=== PATIENT | male | born 1940 | race Caucasian/White ===

== ENCOUNTER → 2020-05-20 08:14 | Outpatient (BNVA) | payer MEDICARE, SELFPAY | PROVIDERS: PCP Nurse Practitioner Family; Visit Provider Nurse Practitioner Family | DX: I48.19 Other persistent atrial fibrillation (principal); Z51.81 Encounter for therapeutic drug level monitoring; Z79.01 Long term (current) use of anticoagulants | CPT/HCPCS: 85610; 99211 ==

== ENCOUNTER 2020-07-08 07:00 | Outpatient (RCR) | payer MEDICARE, SELFPAY ==
--- NOTE | 2020-06-08 08:20 | MHC.PT.EP ---
[facility] [place] Office [place] Office [place] Office [address] [phone] F: [phone] F: [phone] F: [phone] F: [phone] Physical Therapy Plan of Care Date of Evaluation: 06/08/20 Date of Surgery: n/a Diagnosis: L Achilles Tendinitis Assessment: Patient is a 80 year old R handed male who presents with s/s consistent with L achilles tendinitis. He is retired and very limited in functional mobility from deconditioning likely secondary to co-morbidities and chronic severe back pain. Patient past medical history includes cardiovascular disease, prostate cancer, and breathing difficulty in addition to CHF and poor circulation to distal LEs. Current impairments include pain, ROM, strength, safety, independence, activity tolerance and functional mobility. Functional limitations include decreased ability to walk, stand, transfer, negotiate stairs, and perform weight bearing activities.. Patient is motivated with good rehab potential. Skilled PT will address impairments and functional limitations in order to achieve goals. Frequency and Duration: The patient will be seen 2x/week for 4 weeks Short Term Goals: I with HEP - 2 weeks TTP absent - 2 weeks Detention Goals: No increased pain over the course of the day - 4 weeks LEFS 22/80 - 4 weeks No pain with transfers - 4 weeks Treatment Plan: Modalities to reduce pain, spasms and effusion. Manual therapy to restore motion and function. Therapeutic exercise to improve strength and flexibility. Neuromuscular re-education for posture and balance. Therapeutic activities to return to functional activities of daily living. Please sign and return to therapist. Thank you for your referral.
== END 2020-08-11 09:21 | disposition home or self-care (01) ==
LOC: HO.PTCHIC 07:00
PROVIDERS: PCP Nurse Practitioner Family; Visit Provider Podiatrist
DX: M76.62 Achilles tendinitis, left leg (principal)
CPT/HCPCS: 85610; 97035; 97110; 97140; 97163; 99211

== ENCOUNTER → 2020-07-15 14:03 | Outpatient (BNVA) | payer MEDICARE, SELFPAY | PROVIDERS: PCP Nurse Practitioner Family; Visit Provider Internal Medicine | DX: I48.19 Other persistent atrial fibrillation (principal); Z51.81 Encounter for therapeutic drug level monitoring; Z79.01 Long term (current) use of anticoagulants | CPT/HCPCS: 85610; 99211 ==

== ENCOUNTER 2020-08-12 08:04 | Outpatient (REF) | payer MEDICARE, SELFPAY ==
[2020-08-12 09:29] LABS: MANUAL DIFF FLAG NO
[2020-08-12 09:48] LABS: Basophils Percent Auto 0.4 % (0-2); Eosinophils Absolute Auto 0.2 X10*3/uL (0.0-0.4); Eosinophils Percent Auto 2.7 % (0-4); Hematocrit 44.3 % (42-52); Hemoglobin 14.5 g/dl (14.0-18.0); Imm Gran Abs Auto 0.02 X10*3/uL (0.00-0.03); Imm Gran Pct Auto 0.3 % (0.0-0.4); Lymphocytes Absolute Auto 1.6 X10*3/uL (1.2-4.9); Lymphocytes Percent Auto 23.7 % (20-40); Mean Corpuscular HGB Conc 32.7 g/dl (31.0-36.0); Mean Corpuscular Hemoglobin 30.7 pg (27.0-33.0); Mean Corpuscular Volume 93.7 fL (80-98); Mean Platelet Volume 10.4 fL (9.4-12.4); Monocytes Absolute Auto 0.5 X10*3/uL (0.1-1.2); Monocytes Percent Auto 7.6 % (2-11); Neutrophils Absolute Auto 4.5 X10*3/uL (2.0-8.3); Neutrophils Percent Auto 65.3 % (45-73); Platelet Count 186 X10*3/uL (160-400); Red Blood Count 4.73 X10*6/uL (4.60-5.80); Red Cell Distribution Width 14.7 % (11.0-16.0); White Blood Count 6.9 X10*3/uL (4.8-10.8)
[2020-08-12 10:18] LABS: Anion Gap 12 (12-20); Blood Urea Nitrogen 17 mg/dL (9-16); Calcium 8.9 mg/dL (8.4-10.2); Carbon Dioxide 30 mmol/L (22-29); Chloride 105 mmol/L (96-108); Estimated Glomerular Filt Rate > 60; Potassium 4.7 mmol/l (3.3-5.1); Sodium 142 mmol/L (135-145)
== END 2020-08-12 08:05 | disposition home or self-care (01) ==
LOC: HO.LAB 08:04
PROVIDERS: Absent Provider Internal Medicine Hypertension Specialist; PCP Nurse Practitioner Family; Visit Provider Internal Medicine
DX: R03.0 Elevated blood-pressure reading, without diagnosis of hypertension (principal); I13.0 Hypertensive heart and chronic kidney disease with heart failure and stage 1 through stage 4 chronic kidney disease, or unspecified chronic kidney disease; N18.2 Chronic kidney disease, stage 2 (mild); R80.9 Proteinuria, unspecified
CPT/HCPCS: 36415; 80051; 82310; 82565; 84520; 85025; 85610; 99211

== ENCOUNTER → 2020-09-09 08:03 | Outpatient (BNVA) | payer MEDICARE, SELFPAY | PROVIDERS: PCP Nurse Practitioner Family; Visit Provider Internal Medicine | DX: I48.19 Other persistent atrial fibrillation (principal); Z51.81 Encounter for therapeutic drug level monitoring; Z79.01 Long term (current) use of anticoagulants | CPT/HCPCS: 85610; 99211 ==

== ENCOUNTER → 2020-10-07 08:04 | Outpatient (BNVA) | payer MEDICARE, SELFPAY | PROVIDERS: PCP Nurse Practitioner Family; Visit Provider Internal Medicine | DX: I48.19 Other persistent atrial fibrillation (principal); Z51.81 Encounter for therapeutic drug level monitoring; Z79.01 Long term (current) use of anticoagulants | CPT/HCPCS: 85610; 99211 ==

== ENCOUNTER 2020-10-13 08:02 | Outpatient (REF) | payer MEDICARE, SELFPAY ==
[2020-10-13 11:08] LABS: Hematocrit 44.6 % (42-52); Hemoglobin 14.4 g/dl (14.0-18.0); Mean Corpuscular HGB Conc 32.3 g/dl (31.0-36.0); Mean Corpuscular Hemoglobin 30.1 pg (27.0-33.0); Mean Corpuscular Volume 93.1 fL (80-98); Mean Platelet Volume 10.1 fL (9.4-12.4); Platelet Count 205 X10*3/uL (160-400); Red Blood Count 4.79 X10*6/uL (4.60-5.80); Red Cell Distribution Width 15.3 % (11.0-16.0); White Blood Count 7.2 X10*3/uL (4.8-10.8)
[2020-10-13 11:47] LABS: Alanine Aminotransferase 25 U/L (0-40); Albumin Level 4.3 g/dL (3.5-5.0); Alkaline Phosphatase 102 U/L (39-117); Anion Gap 12 (12-20); Aspartate Amino Transferase 25 U/L (5-37); Bilirubin Direct 0.3 mg/dL (0.0-0.5); Bilirubin Total 0.9 mg/dL (0.0-1.0); Blood Urea Nitrogen 19 mg/dL (9-16); Carbon Dioxide 29 mmol/L (22-29); Chloride 102 mmol/L (96-108); Cholesterol 105 mg/dL; Estimated Glomerular Filt Rate > 60; Glucose Random 103 mg/dL (60-115); HDL Cholesterol 44 mg/dL; LDL Cholesterol Calculated 33 mg/dl; Magnesium 2.1 mg/dL (1.6-2.6); Potassium 4.3 mmol/L (3.3-5.1); Sodium 139 mmol/L (135-145); Total Protein 7.6 g/dL (6.5-8.0); Triglycerides 141 mg/dL
[2020-10-13 11:55] LABS: Thyroid Stimulating Hormone 1.63 uIU/mL (0.32-4.0)
== END 2020-10-13 08:03 | disposition home or self-care (01) ==
LOC: HO.HMGCLDS 08:02
PROVIDERS: PCP Nurse Practitioner Family; Visit Provider Internal Medicine Cardiovascular Disease
DX: I25.10 Atherosclerotic heart disease of native coronary artery without angina pectoris (principal); I10 Essential (primary) hypertension; E78.2 Mixed hyperlipidemia
CPT/HCPCS: 36415; 80051; 80061; 80076; 82565; 82947; 83735; 84443; 84520; 85027

== ENCOUNTER 2020-10-21 08:00 | Outpatient (RCR) | payer MEDICARE, SELFPAY ==
--- NOTE | 2020-08-11 13:46 | MHC.PT.EP ---
[facility] [place] Office [place] Office [place] Office [address] Amanuel Bowman [address] [phone] F: [phone] F: [phone] F: [phone] F: [phone] Physical Therapy Plan of Care Date of Evaluation: 08/11/20 Date of Surgery: none Diagnosis: weakness Assessment: Patient is an 80 year old R handed male who presents with s/s consistent with weakness. He has had increasingly more difficulty with his mobility during the day and is losing confidence. He is becoming more and more sedentary. Patient past medical history includes chronic back pain, stents and cardiac involvement, poor peripheral circulation, and cardiovascular disease. Current impairments include pain, ROM, strength, safety, independence, activity tolerance and functional mobility. Functional limitations include decreased ability to walk, stand, transfer, negotiate stairs, and perform weight bearing activities.. Patient is motivated with good rehab potential. Skilled PT will address impairments and functional limitations in order to achieve goals. Frequency and Duration: The patient will be seen 2x/week for 6 weeks Short Term Goals: I with HEP - 2 weeks Improve LE strength to 4-/5 grossly - 3 weeks Sit <> stands 6x in a minute - 3 weeks Adapted Physical Education Aide Goals: Able to walk 10 minutes with walker on even surfaces - 4 weeks LE strength 4/5 grossly - 6 weeks LEFS 24/80 - 6 weeks Treatment Plan: Modalities to reduce pain, spasms and effusion. Manual therapy to restore motion and function. Therapeutic exercise to improve strength and flexibility. Neuromuscular re-education for posture and balance. Therapeutic activities to return to functional activities of daily living. Electronically signed by: Jeevan Leon, PT Please sign and return to therapist. Thank you for your referral.
--- NOTE | 2020-12-09 14:40 | MHC.PT.DC ---
[facility] [place] Office [place] Office [place] Office [address] Amanuel Bowman [address] [phone] F: [phone] F: [phone] F: [phone] F: [phone] Physical Therapy Discharge Report Diagnosis: weakness Date of Surgery: none Date of Evaluation: 08/11/20 Date of Discharge: 10/23/20 Treatments to Date: 19 Cancellations to Date: 0 No Shows to Date: 0 Discharge Status: Improved Function Independent with HEP Discharge Summary: I with HEP. LE strength 4-/5 grossly. Sit <> stand 6x in 1 minute. Able to walk 10 minutes with walker on even surfaces. He has progressed well and plateaued with progress. We will d/c to HEP at this time. Electronically signed by: Jeevan Leon PT Please sign and return to therapist. Thank you for your referral.
== END 2020-12-09 15:00 | disposition home or self-care (01) ==
LOC: HO.PTCHIC 08:00
PROVIDERS: PCP Nurse Practitioner Family; Visit Provider Nurse Practitioner Family
DX: R53.1 Weakness (principal)
CPT/HCPCS: 97110; 97112; 97163

== ENCOUNTER 2020-11-02 10:37 | Outpatient (REF) | payer MEDICARE, SELFPAY ==
--- NOTE | ~2020-11-02 | XR_ITS ---
EXAMINATION: XR ANKLE, LEFT CLINICAL INFORMATION: Injury COMPARISON: None TECHNIQUE: AP, lateral, and mortise views of the left ankle. FINDINGS: Bone alignment is normal. No fracture or dislocation is seen. The ankle mortise is normal. There is arthritis at the metatarsal tarsal joints. There is a calcaneal spur at the Achilles tendon insertion. There is soft tissue arterial calcification. XR/XR ankle LT min 3V IMPRESSION: No fracture or dislocation. 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
== END 2020-11-02 10:38 | disposition home or self-care (01) ==
LOC: HO.HMGCX 10:37
PROVIDERS: PCP Nurse Practitioner Family; Visit Provider Nurse Practitioner Family
DX: S99.912A Unspecified injury of left ankle, initial encounter (principal); X58.XXXA Exposure to other specified factors, initial encounter; Y93.9 Activity, unspecified; Y92.9 Unspecified place or not applicable; Y99.8 Other external cause status; M19.072 Primary osteoarthritis, left ankle and foot; M77.32 Calcaneal spur, left foot
CPT/HCPCS: 73610

== ENCOUNTER → 2020-11-04 08:04 | Outpatient (BNVA) | payer MEDICARE, SELFPAY | PROVIDERS: PCP Nurse Practitioner Family; Visit Provider Internal Medicine | DX: I48.19 Other persistent atrial fibrillation (principal); Z79.01 Long term (current) use of anticoagulants; Z51.81 Encounter for therapeutic drug level monitoring | CPT/HCPCS: 85610; 99211 ==

== ENCOUNTER 2020-11-04 08:47 | Outpatient (REF) | payer MEDICARE, SELFPAY ==
[2020-11-04 12:09] LABS: TSH reflex Free T4 1.99 uIU/mL (0.32-4.0)
[2020-11-04 12:11] LABS: Alanine Aminotransferase 26 U/L (0-40); Albumin Level 4.3 g/dL (3.5-5.0); Alkaline Phosphatase 83 U/L (39-117); Anion Gap 12 (12-20); Aspartate Amino Transferase 25 U/L (5-37); Bilirubin Total 1.2 mg/dL (0.0-1.0); Blood Urea Nitrogen 17 mg/dL (9-16); Calcium 8.9 mg/dL (8.4-10.2); Carbon Dioxide 29 mmol/L (22-29); Chloride 103 mmol/L (96-108); Estimated Glomerular Filt Rate > 60; Glucose Fasting 98 mg/dL (60-99); Potassium 4.3 mmol/L (3.3-5.1); Sodium 140 mmol/L (135-145); Total Protein 7.5 g/dL (6.5-8.0)
[2020-11-04 12:14] LABS: Cholesterol 85 mg/dL; HDL Cholesterol 50 mg/dL; LDL Cholesterol Calculated 21 mg/dl; Triglycerides 72 mg/dL
== END 2020-11-04 08:48 | disposition home or self-care (01) ==
LOC: HO.HMGCLDS 08:47
PROVIDERS: PCP Nurse Practitioner Family; Visit Provider Nurse Practitioner Family
DX: I10 Essential (primary) hypertension (principal); R53.1 Weakness
CPT/HCPCS: 36415; 80053; 80061; 84443

== ENCOUNTER → 2020-11-10 08:29 | Outpatient (BNVA) | payer MEDICARE, SELFPAY | PROVIDERS: PCP Nurse Practitioner Family; Visit Provider Internal Medicine | DX: I48.19 Other persistent atrial fibrillation (principal); Z79.01 Long term (current) use of anticoagulants; Z51.81 Encounter for therapeutic drug level monitoring | CPT/HCPCS: 85610; 99211 ==

== ENCOUNTER → 2020-12-08 08:01 | Outpatient (BNVA) | payer MEDICARE, SELFPAY | PROVIDERS: PCP Nurse Practitioner Family; Visit Provider Internal Medicine | DX: I48.19 Other persistent atrial fibrillation (principal); Z51.81 Encounter for therapeutic drug level monitoring; Z79.01 Long term (current) use of anticoagulants | CPT/HCPCS: 85610; 99211 ==

== ENCOUNTER → 2021-01-05 08:01 | Outpatient (BNVA) | payer MEDICARE, SELFPAY | PROVIDERS: PCP Nurse Practitioner Family; Visit Provider Internal Medicine | DX: I48.19 Other persistent atrial fibrillation (principal); Z51.81 Encounter for therapeutic drug level monitoring; Z79.01 Long term (current) use of anticoagulants | CPT/HCPCS: 85610; 99211 ==

== ENCOUNTER → 2021-02-02 07:59 | Outpatient (BNVA) | payer MEDICARE, SELFPAY | PROVIDERS: PCP Nurse Practitioner Family; Visit Provider Internal Medicine | DX: I48.19 Other persistent atrial fibrillation (principal); Z51.81 Encounter for therapeutic drug level monitoring; Z79.01 Long term (current) use of anticoagulants | CPT/HCPCS: 85610; 99211 ==

== ENCOUNTER 2021-02-07 07:26 | Outpatient (REF) | payer MEDICARE, SELFPAY ==
[2021-02-07 11:09] LABS: MANUAL DIFF FLAG NO
[2021-02-07 11:14] LABS: Basophils Percent Auto 0.6 % (0-2); Eosinophils Absolute Auto 0.2 X10*3/uL (0.0-0.4); Eosinophils Percent Auto 2.8 % (0-4); Hematocrit 43.3 % (42-52); Hemoglobin 14.1 g/dl (14.0-18.0); Imm Gran Abs Auto 0.02 X10*3/uL (0.00-0.03); Imm Gran Pct Auto 0.3 % (0.0-0.4); Lymphocytes Percent Auto 29.1 % (20-40); Mean Corpuscular HGB Conc 32.6 g/dl (31.0-36.0); Mean Corpuscular Hemoglobin 30.5 pg (27.0-33.0); Mean Corpuscular Volume 93.7 fL (80-98); Mean Platelet Volume 10.5 fL (9.4-12.4); Monocytes Absolute Auto 0.7 X10*3/uL (0.1-1.2); Monocytes Percent Auto 9.3 % (2-11); Neutrophils Absolute Auto 4.1 X10*3/uL (2.0-8.3); Neutrophils Percent Auto 57.9 % (45-73); Platelet Count 186 X10*3/uL (160-400); Red Blood Count 4.62 X10*6/uL (4.60-5.80); Red Cell Distribution Width 15.5 % (11.0-16.0)
[2021-02-07 11:30] LABS: Anion Gap 15 (12-20); Blood Urea Nitrogen 12 mg/dL (9-16); Calcium 9.2 mg/dL (8.4-10.2); Carbon Dioxide 25 mmol/L (22-29); Chloride 104 mmol/L (96-108); Estimated Glomerular Filt Rate > 60; Potassium 4.6 mmol/L (3.3-5.1); Sodium 139 mmol/L (135-145)
== END 2021-02-07 07:27 | disposition home or self-care (01) ==
LOC: HO.HMGCLDS 07:26
PROVIDERS: PCP Nurse Practitioner Family; Visit Provider Internal Medicine Hypertension Specialist
DX: I13.0 Hypertensive heart and chronic kidney disease with heart failure and stage 1 through stage 4 chronic kidney disease, or unspecified chronic kidney disease (principal); N18.2 Chronic kidney disease, stage 2 (mild)
CPT/HCPCS: 36415; 80051; 82310; 82565; 84520; 85025

== ENCOUNTER → 2021-03-02 08:02 | Outpatient (BNVA) | payer MEDICARE, SELFPAY | PROVIDERS: PCP Nurse Practitioner Family; Visit Provider Internal Medicine | DX: I48.19 Other persistent atrial fibrillation (principal); Z51.81 Encounter for therapeutic drug level monitoring; Z79.01 Long term (current) use of anticoagulants | CPT/HCPCS: 85610; 99211 ==

== ENCOUNTER → 2021-03-10 08:14 | Outpatient (BNVA) | payer MEDICARE, SELFPAY | PROVIDERS: PCP Nurse Practitioner Family; Visit Provider Internal Medicine | DX: I48.19 Other persistent atrial fibrillation (principal); Z51.81 Encounter for therapeutic drug level monitoring; Z79.01 Long term (current) use of anticoagulants | CPT/HCPCS: 85610; 99211 ==

== ENCOUNTER → 2021-04-07 08:03 | Outpatient (BNVA) | payer MEDICARE, SELFPAY | PROVIDERS: PCP Nurse Practitioner Family; Visit Provider Internal Medicine | DX: I48.19 Other persistent atrial fibrillation (principal); Z51.81 Encounter for therapeutic drug level monitoring; Z79.01 Long term (current) use of anticoagulants | CPT/HCPCS: 85610; 99211 ==

== ENCOUNTER → 2021-04-15 08:17 | Outpatient (BNVA) | payer MEDICARE, SELFPAY | PROVIDERS: PCP Nurse Practitioner Family; Visit Provider Internal Medicine | DX: I48.19 Other persistent atrial fibrillation (principal); Z51.81 Encounter for therapeutic drug level monitoring; Z79.01 Long term (current) use of anticoagulants | CPT/HCPCS: 85610; 99211 ==

== ENCOUNTER → 2021-04-29 08:12 | Outpatient (BNVA) | payer MEDICARE, SELFPAY | PROVIDERS: PCP Nurse Practitioner Family; Visit Provider Internal Medicine | DX: I48.19 Other persistent atrial fibrillation (principal); Z51.81 Encounter for therapeutic drug level monitoring; Z79.01 Long term (current) use of anticoagulants | CPT/HCPCS: 85610; 99211 ==

== ENCOUNTER → 2021-05-06 08:35 | Outpatient (BNVA) | payer MEDICARE, SELFPAY | PROVIDERS: PCP Nurse Practitioner Family; Visit Provider Internal Medicine | DX: I48.19 Other persistent atrial fibrillation (principal); Z51.81 Encounter for therapeutic drug level monitoring; Z79.01 Long term (current) use of anticoagulants | CPT/HCPCS: 85610; 99211 ==

== ENCOUNTER → 2021-05-20 08:32 | Outpatient (BNVA) | payer MEDICARE, SELFPAY | PROVIDERS: PCP Nurse Practitioner Family; Visit Provider Internal Medicine | DX: I48.19 Other persistent atrial fibrillation (principal); Z51.81 Encounter for therapeutic drug level monitoring; Z79.01 Long term (current) use of anticoagulants | CPT/HCPCS: 85610; 99211 ==

== ENCOUNTER → 2021-06-10 08:23 | Outpatient (BNVA) | payer MEDICARE, SELFPAY | PROVIDERS: PCP Nurse Practitioner Family; Visit Provider Internal Medicine | DX: I48.19 Other persistent atrial fibrillation (principal); Z51.81 Encounter for therapeutic drug level monitoring; Z79.01 Long term (current) use of anticoagulants | CPT/HCPCS: 85610; 99211 ==

== ENCOUNTER 2021-06-27 07:34 | Outpatient (REF) | payer MEDICARE, SELFPAY ==
[2021-06-27 12:09] LABS: Alanine Aminotransferase 22 U/L (0-40); Anion Gap 14 (12-20); Aspartate Amino Transferase 22 U/L (5-37); Bilirubin Total 1.1 mg/dL (0.0-1.0); Blood Urea Nitrogen 21 mg/dL (9-16); Calcium 9.1 mg/dL (8.4-10.2); Carbon Dioxide 27 mmol/L (22-29); Chloride 103 mmol/L (96-108); Cholesterol 82 mg/dL; Estimated Glomerular Filt Rate > 60; Glucose Fasting 100 mg/dL (60-99); Potassium 4.5 mmol/L (3.3-5.1); Sodium 139 mmol/L (135-145); Total Protein 7.5 g/dL (6.5-8.0); Triglycerides 111 mg/dL
[2021-06-27 12:10] LABS: Alkaline Phosphatase 86 U/L (39-117); HDL Cholesterol 39 mg/dL; LDL Cholesterol Calculated 21 mg/dl
[2021-06-27 12:11] LABS: Appearance Urine CLEAR; Color Urine YELLOW; Glucose Urine UA NEG (NEG); Leukocyte Esterase Urine NEG (NEG); Nitrite Urine NEG (NEG); Specific Gravity - Urine 1.025 (1.005-1.025); UACC Culture Trigger NO; Urine Blood TRACE (NEG); Urine Ketones NEG (NEG); Urine Protein NEG (NEG-TRACE)
[2021-06-27 12:56] LABS: RBC Urine 0-2 /HPF (0); WBC Urine 0 /HPF (0-4)
== END 2021-06-27 07:35 | disposition home or self-care (01) ==
LOC: HO.HMGCLDS 07:34
PROVIDERS: PCP Nurse Practitioner Family; Visit Provider Nurse Practitioner Family
DX: I10 Essential (primary) hypertension (principal); R31.29 Other microscopic hematuria
CPT/HCPCS: 36415; 80053; 80061; 81001; 81003; 84443

== ENCOUNTER → 2021-07-08 08:31 | Outpatient (BNVA) | payer MEDICARE, SELFPAY | PROVIDERS: PCP Nurse Practitioner Family; Visit Provider Internal Medicine | DX: I48.19 Other persistent atrial fibrillation (principal); Z51.81 Encounter for therapeutic drug level monitoring; Z79.01 Long term (current) use of anticoagulants | CPT/HCPCS: 85610; 99211 ==

== ENCOUNTER 2021-07-13 08:02 | Outpatient (REF) | payer MEDICARE, SELFPAY ==
[2021-07-13 11:26] LABS: Urine Cytology See Pathology rpt
[2021-07-13 11:35] LABS: Appearance Urine CLEAR; Color Urine YELLOW; Glucose Urine UA NEG (NEG); Leukocyte Esterase Urine NEG (NEG); Nitrite Urine NEG (NEG); Specific Gravity - Urine 1.025 (1.005-1.025); UACC Culture Trigger NO; Urine Blood TRACE (NEG); Urine Ketones NEG (NEG); Urine Protein NEG (NEG-TRACE)
[2021-07-13 12:05] LABS: Squamous Epithelial Cell Urine TRACE /LPF
[2021-07-13 12:06] LABS: RBC Urine 0-2 /HPF (0); WBC Urine 0-2 /HPF (0-4)
[2021-07-13 12:25] LABS: Prostate Specific Antigen Scr < 0.05 ng/mL (<0.05-4.0)
== END 2021-07-13 08:03 | disposition home or self-care (01) ==
LOC: HO.HMGCLDS 08:02
PROVIDERS: PCP Nurse Practitioner Family; Visit Provider Nurse Practitioner Family
DX: Z12.5 Encounter for screening for malignant neoplasm of prostate (principal); R31.29 Other microscopic hematuria
CPT/HCPCS: 36415; 81001; 84153; 87086; 88112

== ENCOUNTER 2021-08-03 08:39 | Outpatient (REF) | payer MEDICARE, SELFPAY ==
[2021-08-03 11:17] LABS: Urine Cytology See Pathology rpt
[2021-08-03 11:25] LABS: Appearance Urine CLEAR; Color Urine YELLOW; Glucose Urine UA NEG (NEG); Leukocyte Esterase Urine NEG (NEG); Nitrite Urine NEG (NEG); PH 5.5 (5.0-8.0); Specific Gravity - Urine 1.025 (1.005-1.025); UACC Culture Trigger NO; Urine Blood 1+ (NEG); Urine Ketones NEG (NEG); Urine Protein NEG (NEG-TRACE)
[2021-08-03 11:41] LABS: Squamous Epithelial Cell Urine TRACE /LPF; WBC Urine 0-2 /HPF (0-4)
[2021-08-03 12:01] LABS: Anion Gap 12 (12-20); Blood Urea Nitrogen 17 mg/dL (9-16); Calcium 9.3 mg/dL (8.4-10.2); Carbon Dioxide 27 mmol/L (22-29); Chloride 105 mmol/L (96-108); Estimated Glomerular Filt Rate > 60; Glucose Random 105 mg/dL (60-115); Potassium 4.1 mmol/L (3.3-5.1); Sodium 140 mmol/L (135-145)
== END 2021-08-03 08:40 | disposition home or self-care (01) ==
LOC: HO.HMGCLDS 08:39
PROVIDERS: PCP Nurse Practitioner Family; Visit Provider Internal Medicine Hypertension Specialist
DX: I70.1 Atherosclerosis of renal artery (principal)
CPT/HCPCS: 36415; 80048; 81001; 88112

== ENCOUNTER → 2021-08-05 08:33 | Outpatient (BNVA) | payer MEDICARE, SELFPAY | PROVIDERS: PCP Nurse Practitioner Family; Visit Provider Internal Medicine | DX: I48.19 Other persistent atrial fibrillation (principal); Z51.81 Encounter for therapeutic drug level monitoring; Z79.01 Long term (current) use of anticoagulants | CPT/HCPCS: 85610; 99211 ==

== ENCOUNTER 2021-08-08 15:58 | Outpatient (REF) | payer MEDICARE, SELFPAY ==
--- NOTE | ~2021-08-08 | XR_ITS ---
EXAMINATION: RIGHT ELBOW AND RIGHT FOREARM CLINICAL INFORMATION: Contusion of the right forearm. COMPARISON: None TECHNIQUE: 2 views right forearm and 3 views right elbow. FINDINGS: Right forearm: There is no visible fracture or bony abnormality. The soft tissues are normal. Right elbow: There is calcified density posterior to osteophyte. There is a small bony density along the medial epicondyle question old fracture versus spur. No abnormal joint effusion seen. There is moderate posterior elbow soft tissue swelling. XR/XR elbow RT min 3V IMPRESSION: Unremarkable right forearm. Moderate size posterior olecranon osteophyte with adjacent calcification likely calcific olecranon bursitis. There is moderate posterior elbow soft tissue swelling. There is small bone density adjacent to the medial epicondyle question fracture of indeterminate age.
--- NOTE | ~2021-08-08 | XR_ITS ---
EXAMINATION: RIGHT ELBOW AND RIGHT FOREARM CLINICAL INFORMATION: Contusion of the right forearm. COMPARISON: None TECHNIQUE: 2 views right forearm and 3 views right elbow. FINDINGS: Right forearm: There is no visible fracture or bony abnormality. The soft tissues are normal. Right elbow: There is calcified density posterior to osteophyte. There is a small bony density along the medial epicondyle question old fracture versus spur. No abnormal joint effusion seen. There is moderate posterior elbow soft tissue swelling. XR/XR forearm RT 2V IMPRESSION: Unremarkable right forearm. Moderate size posterior olecranon osteophyte with adjacent calcification likely calcific olecranon bursitis. There is moderate posterior elbow soft tissue swelling. There is small bone density adjacent to the medial epicondyle question fracture of indeterminate age.
== END 2021-08-08 15:59 | disposition home or self-care (01) ==
LOC: HO.HMGCX 15:58
PROVIDERS: PCP Nurse Practitioner Family; Visit Provider Internal Medicine
DX: S50.11XA Contusion of right forearm, initial encounter (principal); X58.XXXA Exposure to other specified factors, initial encounter; Y93.9 Activity, unspecified; Y92.9 Unspecified place or not applicable; Y99.9 Unspecified external cause status
CPT/HCPCS: 73080; 73090

== ENCOUNTER → 2021-08-19 08:18 | Outpatient (BNVA) | payer MEDICARE, SELFPAY | PROVIDERS: PCP Nurse Practitioner Family; Visit Provider Internal Medicine | DX: I48.19 Other persistent atrial fibrillation (principal); Z51.81 Encounter for therapeutic drug level monitoring; Z79.01 Long term (current) use of anticoagulants | CPT/HCPCS: 85610; 99211 ==

== ENCOUNTER → 2021-09-16 08:25 | Outpatient (BNVA) | payer MEDICARE, SELFPAY | PROVIDERS: PCP Nurse Practitioner Family; Visit Provider Internal Medicine | DX: I48.19 Other persistent atrial fibrillation (principal); Z51.81 Encounter for therapeutic drug level monitoring; Z79.01 Long term (current) use of anticoagulants | CPT/HCPCS: 85610; 99211 ==

== ENCOUNTER 2021-09-21 11:36 | Outpatient (REF) | payer MEDICARE, SELFPAY ==
[2021-09-21 13:57] LABS: Urine Cytology See Pathology rpt
[2021-09-21 14:22] LABS: Appearance Urine CLEAR; Color Urine YELLOW; Glucose Urine UA NEG (NEG); Leukocyte Esterase Urine NEG (NEG); Nitrite Urine NEG (NEG); Urine Blood NEG (NEG); Urine Ketones NEG (NEG); Urine Protein NEG (NEG-TRACE)
[2021-09-21 14:35] LABS: RBC Urine 0-2 /HPF (0); WBC Urine 0 /HPF (0-4)
[2021-09-21 14:36] LABS: Mucus Urine TRACE /LPF
== END 2021-09-21 11:37 | disposition home or self-care (01) ==
LOC: HO.HMGCLDS 11:36
PROVIDERS: Visit Provider Nurse Practitioner Family
DX: R31.29 Other microscopic hematuria (principal)
CPT/HCPCS: 81001; 81003; 87086; 88112

== ENCOUNTER → 2021-09-30 08:29 | Outpatient (BNVA) | payer MEDICARE, SELFPAY | PROVIDERS: PCP Nurse Practitioner Family; Visit Provider Internal Medicine | DX: I48.19 Other persistent atrial fibrillation (principal); Z51.81 Encounter for therapeutic drug level monitoring; Z79.01 Long term (current) use of anticoagulants | CPT/HCPCS: 85610; 99211 ==

== ENCOUNTER → 2021-10-21 08:29 | Outpatient (BNVA) | payer MEDICARE, SELFPAY | PROVIDERS: PCP Nurse Practitioner Family; Visit Provider Internal Medicine | DX: I48.19 Other persistent atrial fibrillation (principal); Z51.81 Encounter for therapeutic drug level monitoring; Z79.01 Long term (current) use of anticoagulants | CPT/HCPCS: 85610; 99211 ==

== ENCOUNTER 2021-11-09 08:57 | Outpatient (REF) | payer MEDICARE, SELFPAY ==
[2021-11-09 11:13] LABS: Appearance Urine CLEAR; Color Urine YELLOW; Glucose Urine UA NEG (NEG); Leukocyte Esterase Urine NEG (NEG); Nitrite Urine NEG (NEG); PH 5.5 (5.0-8.0); UACC Culture Trigger NO; Urine Blood TRACE (NEG); Urine Ketones NEG (NEG); Urine Protein NEG (NEG-TRACE)
[2021-11-09 11:25] LABS: RBC Urine 0-2 /HPF (0); WBC Urine 0 /HPF (0-4)
[2021-11-09 11:52] LABS: Alanine Aminotransferase 17 U/L (0-40); Albumin Level 3.8 g/dL (3.5-5.0); Alkaline Phosphatase 94 U/L (39-117); Anion Gap 12 (12-20); Aspartate Amino Transferase 20 U/L (5-37); Bilirubin Total 1.1 mg/dL (0.0-1.0); Blood Urea Nitrogen 15 mg/dL (9-16); Calcium 8.9 mg/dL (8.4-10.2); Carbon Dioxide 25 mmol/L (22-29); Chloride 104 mmol/L (96-108); Cholesterol 82 mg/dL; Estimated Glomerular Filt Rate > 60; Glucose Fasting 109 mg/dL (60-99); HDL Cholesterol 41 mg/dL; LDL Cholesterol Calculated 28 mg/dl; Potassium 4.3 mmol/L (3.3-5.1); Sodium 137 mmol/L (135-145); Total Protein 7.3 g/dL (6.5-8.0); Triglycerides 68 mg/dL
[2021-11-09 11:59] LABS: Prostate Specific Antigen Scr < 0.05 ng/mL (<0.05-4.0); TSH reflex Free T4 1.97 uIU/mL (0.32-4.0)
== END 2021-11-09 08:58 | disposition home or self-care (01) ==
LOC: HO.HMGCLDS 08:57
PROVIDERS: PCP Nurse Practitioner Family; Visit Provider Nurse Practitioner Family
DX: Z00.00 Encounter for general adult medical examination without abnormal findings (principal); Z12.5 Encounter for screening for malignant neoplasm of prostate
CPT/HCPCS: 36415; 80053; 80061; 81001; 84153; 84443

== ENCOUNTER → 2021-11-10 08:27 | Outpatient (BNVA) | payer MEDICARE, SELFPAY | PROVIDERS: PCP Nurse Practitioner Family; Visit Provider Internal Medicine | DX: I48.19 Other persistent atrial fibrillation (principal); Z79.01 Long term (current) use of anticoagulants; Z51.81 Encounter for therapeutic drug level monitoring | CPT/HCPCS: 85610; 99211 ==

== ENCOUNTER → 2021-12-01 08:28 | Outpatient (BNVA) | payer MEDICARE, SELFPAY | PROVIDERS: PCP Nurse Practitioner Family; Visit Provider Internal Medicine | DX: I48.19 Other persistent atrial fibrillation (principal); Z79.01 Long term (current) use of anticoagulants; Z51.81 Encounter for therapeutic drug level monitoring | CPT/HCPCS: 85610; 99211 ==

== ENCOUNTER → 2021-12-29 08:34 | Outpatient (BNVA) | payer MEDICARE, SELFPAY | PROVIDERS: PCP Nurse Practitioner Family; Visit Provider Internal Medicine | DX: I48.19 Other persistent atrial fibrillation (principal); Z79.01 Long term (current) use of anticoagulants; Z51.81 Encounter for therapeutic drug level monitoring | CPT/HCPCS: 85610; 99211 ==

== ENCOUNTER → 2022-01-26 08:32 | Outpatient (BNVA) | payer MEDICARE, SELFPAY | PROVIDERS: PCP Nurse Practitioner Family; Visit Provider Internal Medicine | DX: I48.19 Other persistent atrial fibrillation (principal); Z51.81 Encounter for therapeutic drug level monitoring; Z79.01 Long term (current) use of anticoagulants | CPT/HCPCS: 85610; 99211 ==

== ENCOUNTER 2022-02-22 11:14 | Emergency (ER) | payer MEDICARE, SELFPAY ==
--- NOTE | ~2022-02-22 | XR_ITS ---
EXAMINATION: XR SHOULDER, LEFT CLINICAL INFORMATION: Fall, trauma, pain COMPARISON: Radiographs left shoulder 01/17/2007 TECHNIQUE: Left shoulder is imaged in 3 views. FINDINGS: No fracture or dislocation. The acromioclavicular alignment is normal. No visible rotator cuff calcifications are mild degenerative change acromioclavicular joint. Left lung apex clear. No pneumothorax. XR/XR shoulder LT min 2V IMPRESSION: No fracture or dislocation.
--- NOTE | ~2022-02-22 | XR_ITS ---
EXAMINATION: XR RIBS, LEFT CLINICAL INFORMATION: Left lateral chest pain status post fall COMPARISON: 04/09/2020 chest and rib radiographs. TECHNIQUE: 3 views of the left ribs were obtained along with a PA view of the chest. Skin marker overlies the anteroinferior left ribs. FINDINGS: Lungs are clear. No consolidation, pneumothorax, or pleural effusion. The cardiomediastinal silhouette and pulmonary vasculature are normal. Osseous structures are unremarkable. Ribs are intact. No fractures are identified. XR/XR ribs LT min 3V w CXR1V IMPRESSION: Unremarkable examination.
--- NOTE | ~2022-02-22 | CT_ITS ---
EXAMINATION: CT HEAD WITHOUT CONTRAST CLINICAL INFORMATION: Head injury status post fall, on Coumadin. COMPARISON: None TECHNIQUE: Contiguous axial imaging was performed from the skull base to vertex without intravenous administration of contrast. Coronal and sagittal reformatted images were obtained. This CT examination was performed using dose optimization techniques as appropriate, variously including the following: *Automated exposure control *Adjustment of mA and/or kV according to patient size (this includes techniques or standardized protocols for targeted exams where dose is matched to indication/reason for exam; i.e. extremities or head) *Use of iterative reconstruction technique DLP: 775 mGy-cm FINDINGS: There is mild widening of the cortical sulci and associated ventriculomegaly. The lateral ventricles are symmetrical. Mild periventricular microvascular changes. The third and fourth ventricles are in their normal midline position. The basilar and prepontine cisterns are unremarkable. There is no acute intra or extracerebral abnormality. There is no mass effect or midline shift. Sections through the bony calvarium are unremarkable. The orbits are intact. The paranasal sinuses show mild mucosal thickening in the ethmoid sinuses bilaterally. No air-fluid levels. The mastoid air cells are clear. CT/CT head/brain wo con IMPRESSION: No acute intracranial pathology.
[2022-02-22 11:26] VITALS: BP 157/91; PULSE 77; RESP 18; TEMP 36.7; O2SAT 96; BMI 27.8
--- NOTE | 2022-02-22 14:18 | ED_ITS ---
HPI - Fall General Chief Complaint: Fall Stated Complaint: fall last night Time Seen by Provider: 02/22/22 13:45 Source: patient Mode of arrival: ambulatory Limitations: no limitations History of Present Illness HPI Narrative: Patient presents emergency department for evaluation after a fall having occurred last night. He states that he got up from sitting on a bench outdoors he walks with his walker to the house placed his walker inside of the house, and he forgot something outside therefore he walked back over towards the bench without his walker. He tripped and subsequently fell. He states that he landed on his left side, striking his left shoulder. He does not believe that he struck his head, but is not 100% certain. Does not believe that head strike occurred. This fall was unwitnessed. He states that he subsequently crawled over to the door his helped him up. He is on Coumadin. His only reports of pain at this time are pain to the left shoulder with movement and pain to the left lateral chest. Denies any dizziness, lightheadedness, vision changes, headache, neck pain, neck stiffness, anterior chest pain, shortness of breath, difficulty breathing, nausea, vomiting, abdominal pain. Related Data Home Medications Medication Instructions Recorded Confirmed amlodipine 5 mg tablet mg PO 06/17/20 02/08/22 atenolol 25 mg tablet 25 mg PO DAILY 06/17/20 02/08/22 clopidogrel 75 mg tablet 75 mg PO DAILY 06/17/20 02/08/22 isosorbide mononitrate 60 mg 60 mg PO DAILY 06/17/20 02/08/22 tablet,extended release 24 hr rosuvastatin 5 mg tablet 5 mg PO DAILY 06/17/20 02/08/22 valsartan 160 tab PO 06/17/20 02/08/22 mg-hydrochlorothiazide 12.5 mg tablet alirocumab 150 mg/mL subcutaneous mg subcut 12/08/20 02/08/22 pen injector Previous Rx's Medication Instructions Recorded walker with seat #1 ea 08/10/20 warfarin 5 mg tablet 5 mg PO DAILY #90 tabs 12/10/21 tramadol 50 mg tablet 50 mg PO Q8H PRN pain #14 tabs 02/22/22 Allergies Allergy/AdvReac Type Severity Reaction Status Date / Time carvedilol [From COREG] Allergy Severe Palpitation Verified 02/22/22 11:26 s metoprolol Allergy Severe Palpitation Verified 02/22/22 11:26 s Sulfa (Sulfonamide Allergy Severe Redness of Verified 02/22/22 11:26 Antibiotics) Skin [SULFA (SULFONAMIDE ANTIBIOTICS)] doxycycline Allergy Intermediate Rash itch Verified 02/22/22 11:26 cilostazol Allergy Unknown UNKNOWN Verified 02/22/22 11:26 digoxin [DIGOXIN] Allergy Unknown UNKNOWN Verified 02/22/22 11:26 labetalol [LABETALOL] Allergy Unknown MUSCLE PAIN Verified 02/22/22 11:26 Review of Systems Review of Systems: Constitutional: No weight loss. No fever. No chills. No weakness. No fatigue. Skin: No rash. No itching. Cardiovascular: No chest pain. No chest pressure. No palpitations. No pedal edema. Respiratory: No shortness of breath. No cough. Gastrointestinal: No nausea. No vomiting. No diarrhea. No abdominal pain. Genitourinary: No burning micturition. No urinary frequency. No incontinence. Neurologic: No headache. No dizziness. No pre-syncope/ syncope. No unilateral weakness. No ataxia. No numbness. No tingling. No change in bowel or bladder control. Musculoskeletal: No muscle pain. No back pain. Positive joint pain. No stiffness. Hematologic: No bleeding. No bruising. Yes all other systems are reviewed and are negative [facility] Past Medical History Source: old records reviewed Medical History (Updated 02/22/22 @ 15:56 by Eda Turner CNP) AAA (abdominal aortic aneurysm) without rupture Afib CAD (coronary artery disease) Carotid stenosis CKD (chronic kidney disease) CVA (cerebral vascular accident) H/O Villa's palsy HTN (hypertension) Permanent atrial fibrillation Post herpetic neuralgia PVD (peripheral vascular disease) Thrombocytopenia Vertigo Surgical History H/O prostatectomy Stented coronary artery Social History Social History Housing: House Alcohol intake: current Alcohol intake frequency: a few times a week Patient Tobacco Use Status: Never used Tobacco e-Cigarette/Vaping Use: Never Used Second Hand Smoke Exposure: No Advance Directives: Yes Advance Directives Information Provided: Yes Advance Directives on File: No service: Yes Current occupational status: retired Cognitive needs: No Hearing needs: No Vision needs: No Physical Exam Vital Signs: Vital Signs: Last Vital Signs Temp 98.1 F 02/22/22 11:26 Pulse 77 02/22/22 11:26 Resp 18 02/22/22 11:26 BP 157/91 H 02/22/22 11:26 Pulse Ox 96 02/22/22 11:26 O2 Del Method 02/22/22 11:26 BMI result Body Mass Index 27.8 Appearance: Alert.?Oriented to person, place and time. No acute distress.?Normal affect. Eyes: Pupils equal, round and reactive to light.? ENT: Pharynx normal.?? Neck: Normal inspection.? Neck supple.?? CVS: Heart sounds normal. Normal heart rate and rhythm.? Pulses normal.?? Respiratory: No respiratory distress.? Lung sounds clear to auscultation bilaterally?? Abdomen: Soft and non-tender. Normoactive bowel sounds. ?? Skin: Skin warm and dry.? Normal skin color.? Extremities: No lower extremity edema.? Decreased AROM to left shoulder with all ranges of motion, no palpable deformities Neuro: Moves all extremities spontaneously. Sensation intact bilaterally. No motor deficits Ambulates with normal steady gait. Course Course Course Narrative: Patient is an 82-year-old male with a past medical history of AAA, atrial fibrillation, CAD, carotid stenosis, CKD, CVA, PVD, vertigo presents emergency department for evaluation after mechanical fall. Uncertain whether head strike or loss of consciousness occurred. Denies any precipitating symptoms prior to his fall he states he did trip and it was so leave mechanical. Currently experiencing right shoulder pain and right lateral chest pain. No obvious deformities. No tenderness or crepitus to the left chest wall. Significantly decreased range of motion noted to the left shoulder. He is overall well appearing, has no neurological deficits. His vital signs are stable. CT of the head is unremarkable for any acute intracranial pathology. X-ray of the shoulder reveals no acute fracture dislocation. X-ray of the chest revealed no acute abnormalities. Discussed these findings with patient. Suspect pain be secondary to a contusion of the shoulder, given a prescription for tramadol to use in addition to Tylenol. Advised outpatient follow-up with primary care provider. Recommended gentle stretching exercises of the shoulder to prevent stiffening. Patient verbalized understanding, he was discharged home in stable condition with his , and ambulatory with his cane. MDM - Fall Medical Records Attestation: I reviewed the patient's medical records. Lab Data Attestation: I reviewed the patient's lab results. Imaging Data CT scan - head: Radiologist's impression: CT/CT head/brain wo con IMPRESSION: No acute intracranial pathology. Chest x-ray: Radiologist's impression: XR/XR ribs LT min 3V w CXR1V IMPRESSION: Unremarkable examination. shoulder XR: Radiologist's impression: XR/XR shoulder LT min 2V IMPRESSION: No fracture or dislocation. Discharge Plan Discharge Clinical Impression: Contusion of left shoulder Patient Disposition: Home, Self-Care Additional Instructions: As we discussed, the x-ray of your left shoulder showed nothing broken or dislocated. The x-ray of your chest and ribs was also normal. The CT of your head showed no evidence of bleeding or injury. Suspect that the pain in her shoulders related to a contusion. You should be sure to rest, apply ice for 10-15 minutes multiple times daily, gently exercise in range of shoulder to prevent any stiffness. Elevate your arm when possible. You have been given a prescription for tramadol to use in addition to Tylenol as needed for pain. This may make you drowsy, you should use caution with taking this medication. Please contact your primary care provider to arrange for follow-up. Return to the emergency department any new or worsening symptoms or concerns Prescriptions: New tramadol 50 mg tablet 50 mg PO Q8H PRN (Reason: pain) Qty: 14 0RF No Action (DME) walker with seat See Rx Instructions .Route .MEDSUPPLY Qty: 1 0RF Rx Instructions: Wheeled walker with seat warfarin 5 mg tablet 5 mg PO DAILY Qty: 90 0RF Protocol: Dose Management Condition: Sunday (Week One) Dose/Route: 2.5 mg Instruction: 0.5 x 5 mg tablets Condition: Sunday Dose/Route: 5 mg Instruction: 1 x 5 mg tablet Condition: Sunday Dose/Route: 2.5 mg Instruction: 0.5 x 5 mg tablets Condition: Sunday Dose/Route: 2.5 mg Instruction: 0.5 x 5 mg tablets Condition: Dose/Route: 5 mg Instruction: 1 x 5 mg tablet Condition: Sunday Dose/Route: 2.5 mg Instruction: 0.5 x 5 mg tablets Condition: Sunday Dose/Route: 2.5 mg Instruction: 0.5 x 5 mg tablets Condition: Sunday (Week Two) Dose/Route: 2.5 mg Instruction: 0.5 x 5 mg tablets Condition: Sunday Dose/Route: 5 mg Instruction: 1 x 5 mg tablet Condition: Sunday Dose/Route: 2.5 mg Instruction: 0.5 x 5 mg tablets Condition: Sunday Dose/Route: 2.5 mg Instruction: 0.5 x 5 mg tablets Condition: Dose/Route: 5 mg Instruction: 1 x 5 mg tablet Condition: Sunday Dose/Route: 2.5 mg Instruction: 0.5 x 5 mg tablets Condition: Sunday Dose/Route: 2.5 mg Instruction: 0.5 x 5 mg tablets Protocol Text: Adjustment Start Date: 01/26/22 INR Value: 2.7 INR Date: 01/26/22 Recheck Date: 02/25/22 Additional Instructions: INR is in range continue same dosing balance greens and reds in diet amlodipine 5 mg tablet PO valsartan-hydrochlorothiazide 160-12.5 mg tablet PO clopidogrel 75 mg tablet 75 mg PO DAILY isosorbide mononitrate 60 mg tablet extended release 24 hr 60 mg PO DAILY atenolol 25 mg tablet 25 mg PO DAILY rosuvastatin 5 mg tablet 5 mg PO DAILY Praluent Pen 150 mg/mL pen injector subcut Interventions: ED Discharge Assessment Last Done: 02/22/22 16:15 Discharge Date/Time: 02/22/22 16:16
== END 2022-02-22 16:16 | disposition home or self-care (01) ==
PROVIDERS: Emergency Provider Emergency Medicine; PCP Nurse Practitioner Family
DX: S40.012A Contusion of left shoulder, initial encounter (principal); W01.198A Fall on same level from slipping, tripping and stumbling with subsequent striking against other object, initial encounter; Y93.01 Activity, walking, marching and hiking; Y92.017 Garden or yard in single-family (private) house as the place of occurrence of the external cause; Y99.9 Unspecified external cause status; I48.21 Permanent atrial fibrillation; Z79.01 Long term (current) use of anticoagulants
CPT/HCPCS: 70450; 71101; 73030; 99282; 99284

== ENCOUNTER → 2022-02-23 08:43 | Outpatient (BNVA) | payer MEDICARE, SELFPAY | PROVIDERS: PCP Nurse Practitioner Family; Visit Provider Internal Medicine | DX: I48.19 Other persistent atrial fibrillation (principal); Z79.01 Long term (current) use of anticoagulants; Z51.81 Encounter for therapeutic drug level monitoring | CPT/HCPCS: 85610; 99211 ==

== ENCOUNTER 2022-03-08 07:38 | Outpatient (REF) | payer MEDICARE, SELFPAY ==
[2022-03-08 11:49] LABS: Anion Gap 15 (12-20); Blood Urea Nitrogen 14 mg/dL (9-16); Carbon Dioxide 26 mmol/L (22-29); Chloride 102 mmol/L (96-108); Estimated Glomerular Filt Rate > 60; Glucose Random 101 mg/dL (60-115); Potassium 4.4 mmol/L (3.3-5.1); Sodium 139 mmol/L (135-145)
[2022-03-08 12:00] LABS: Appearance Urine CLEAR; Color Urine YELLOW; Glucose Urine UA NEG (NEG); Leukocyte Esterase Urine NEG (NEG); Nitrite Urine NEG (NEG); Urine Blood NEG (NEG); Urine Ketones NEG (NEG); Urine Protein NEG (NEG-TRACE)
[2022-03-08 12:20] LABS: Creatinine Urine 67.01 mg/dL; Total Protein Urine Random < 7 mg/dL (<12)
[2022-03-08 12:51] LABS: WBC Urine 0-2 /HPF (0-4)
== END 2022-03-08 07:39 | disposition home or self-care (01) ==
LOC: HO.HMGCLDS 07:38
PROVIDERS: Absent Provider Nurse Practitioner Family; PCP Nurse Practitioner Family; Visit Provider Internal Medicine Hypertension Specialist
DX: Z00.00 Encounter for general adult medical examination without abnormal findings (principal); R31.29 Other microscopic hematuria; I10 Essential (primary) hypertension; N18.2 Chronic kidney disease, stage 2 (mild)
CPT/HCPCS: 36415; 80048; 81001; 84156

== ENCOUNTER → 2022-03-23 08:25 | Outpatient (BNVA) | payer MEDICARE, SELFPAY | PROVIDERS: PCP Nurse Practitioner Family; Visit Provider Internal Medicine | DX: I48.19 Other persistent atrial fibrillation (principal); Z79.01 Long term (current) use of anticoagulants; Z51.81 Encounter for therapeutic drug level monitoring | CPT/HCPCS: 85610; 99211 ==

== ENCOUNTER → 2022-04-20 08:40 | Outpatient (BNVA) | payer MEDICARE, SELFPAY | PROVIDERS: PCP Nurse Practitioner Family; Visit Provider Internal Medicine | DX: I48.19 Other persistent atrial fibrillation (principal); Z51.81 Encounter for therapeutic drug level monitoring; Z79.01 Long term (current) use of anticoagulants | CPT/HCPCS: 85610; 99211 ==

== ENCOUNTER → 2022-05-23 09:08 | Outpatient (BNVA) | payer MEDICARE, SELFPAY | PROVIDERS: PCP Nurse Practitioner Family; Visit Provider Internal Medicine | DX: I48.19 Other persistent atrial fibrillation (principal); Z79.01 Long term (current) use of anticoagulants; Z51.81 Encounter for therapeutic drug level monitoring | CPT/HCPCS: 85610; 99211 ==

== ENCOUNTER 2022-06-01 08:51 | Outpatient (REF) | payer MEDICARE, SELFPAY ==
--- NOTE | ~2022-06-01 | XR_ITS ---
EXAMINATION: XR ankle LT 2V XR foot LT 2V CLINICAL INFORMATION: Pain in left foot COMPARISON: None. TECHNIQUE: AP and oblique views of the left ankle AP, oblique and lateral views of the left foot FINDINGS: No acute fracture or dislocation. Ankle mortise is congruent. Talar dome is intact. Small tibiotalar marginal osteophytes. Marginal osteophytes present throughout the intertarsal and tarsometatarsal articulations. Prominent first metatarsophalangeal joint marginal osteophytes with narrowing of the first metatarsophalangeal joint space. Moderate marginal osteophytes of the second metatarsophalangeal joint is well. Subchondral erosions present along the lateral aspects of the second and third distal interphalangeal joints. Vascular calcifications. XR/XR ankle LT 2V IMPRESSION: * No acute fracture or dislocation. * Severe hallux rigidus. * Additional degenerative changes as described.
--- NOTE | ~2022-06-01 | XR_ITS ---
EXAMINATION: XR ankle LT 2V XR foot LT 2V CLINICAL INFORMATION: Pain in left foot COMPARISON: None. TECHNIQUE: AP and oblique views of the left ankle AP, oblique and lateral views of the left foot FINDINGS: No acute fracture or dislocation. Ankle mortise is congruent. Talar dome is intact. Small tibiotalar marginal osteophytes. Marginal osteophytes present throughout the intertarsal and tarsometatarsal articulations. Prominent first metatarsophalangeal joint marginal osteophytes with narrowing of the first metatarsophalangeal joint space. Moderate marginal osteophytes of the second metatarsophalangeal joint is well. Subchondral erosions present along the lateral aspects of the second and third distal interphalangeal joints. Vascular calcifications. XR/XR foot LT 2V IMPRESSION: * No acute fracture or dislocation. * Severe hallux rigidus. * Additional degenerative changes as described.
== END 2022-06-01 08:52 | disposition home or self-care (01) ==
LOC: HO.HMGCX 08:51
PROVIDERS: PCP Nurse Practitioner Family; Visit Provider Nurse Practitioner Family
DX: M79.672 Pain in left foot (principal); M25.572 Pain in left ankle and joints of left foot
CPT/HCPCS: 73600; 73620

== ENCOUNTER 2022-06-02 08:03 | Outpatient (REF) | payer MEDICARE, SELFPAY ==
[2022-06-02 11:22] LABS: Appearance Urine Clear; Color Urine Yellow; Glucose Urine UA Negative (Negative); Leukocyte Esterase Urine Negative (Negative); Nitrite Urine Negative (Negative); PH 6.5 (5.0-9.0); Urine Blood Negative (Negative); Urine Ketones Negative (Negative); Urine Protein Negative (Neg-Trace)
[2022-06-02 11:29] LABS: MANUAL DIFF FLAG NO
[2022-06-02 11:47] LABS: Basophils Percent Auto 0.7 % (0-2); Eosinophils Absolute Auto 0.1 X10*3/uL (0.0-0.4); Eosinophils Percent Auto 1.5 % (0-4); Hematocrit 44.4 % (42.0-52.0); Hemoglobin 14.2 g/dl (14.0-18.0); Imm Gran Abs Auto 0.03 X10*3/uL (0.00-0.03); Imm Gran Pct Auto 0.5 % (0.0-0.4); Lymphocytes Absolute Auto 1.5 X10*3/uL (1.2-4.9); Lymphocytes Percent Auto 24.1 % (20-40); Mean Corpuscular Hemoglobin 29.2 pg (27.0-33.0); Mean Corpuscular Volume 91.2 fL (80.0-98.0); Mean Platelet Volume 10.5 fL (9.4-12.4); Monocytes Absolute Auto 0.6 X10*3/uL (0.1-1.2); Monocytes Percent Auto 10.3 % (2-11); Neutrophils Absolute Auto 3.9 x10*3/uL (2.0-8.3); Neutrophils Percent Auto 62.9 % (45-73); Platelet Count 209 X10*3/uL (160-400); Red Blood Count 4.87 X10*6/uL (4.60-5.80); Red Cell Distribution Width 15.2 % (11.0-16.0); White Blood Count 6.1 X10*3/uL (4.8-10.8)
[2022-06-02 12:19] LABS: Alanine Aminotransferase 25 U/L (0-40); Albumin Level 4.2 g/dL (3.5-5.0); Alkaline Phosphatase 110 U/L (39-117); Anion Gap 18 (12-20); Aspartate Amino Transferase 25 U/L (5-37); Bilirubin Total 1.1 mg/dL (0.0-1.0); Blood Urea Nitrogen 15 mg/dL (9-16); Calcium 9.7 mg/dL (8.4-10.2); Carbon Dioxide 26 mmol/L (22-29); Chloride 101 mmol/L (96-108); Cholesterol 125 mg/dL; Estimated Glomerular Filt Rate > 60; Glucose Fasting 106 mg/dL (60-99); HDL Cholesterol 38 mg/dL; LDL Cholesterol Calculated 62 mg/dl; Potassium 4.6 mmol/L (3.3-5.1); Sodium 140 mmol/L (135-145); Total Protein 7.8 g/dL (6.5-8.0); Triglycerides 127 mg/dL
[2022-06-02 12:22] LABS: TSH reflex Free T4 1.56 uIU/mL (0.32-4.0)
== END 2022-06-02 08:04 | disposition home or self-care (01) ==
LOC: HO.HMGCLDS 08:03
PROVIDERS: PCP Nurse Practitioner Family; Visit Provider Nurse Practitioner Family
DX: I10 Essential (primary) hypertension (principal)
CPT/HCPCS: 36415; 80053; 80061; 81003; 84443; 85025

== ENCOUNTER → 2022-06-20 08:32 | Outpatient (BNVA) | payer MEDICARE, SELFPAY | PROVIDERS: PCP Nurse Practitioner Family; Visit Provider Internal Medicine | DX: I48.19 Other persistent atrial fibrillation (principal); Z79.01 Long term (current) use of anticoagulants; Z51.81 Encounter for therapeutic drug level monitoring | CPT/HCPCS: 85610; 99211 ==

== ENCOUNTER → 2022-07-18 09:14 | Outpatient (BNVA) | payer MEDICARE, SELFPAY | PROVIDERS: PCP Nurse Practitioner Family; Visit Provider Internal Medicine | DX: I48.19 Other persistent atrial fibrillation (principal); Z51.81 Encounter for therapeutic drug level monitoring; Z79.01 Long term (current) use of anticoagulants | CPT/HCPCS: 85610; 99211 ==

== ENCOUNTER → 2022-08-01 08:42 | Outpatient (BNVA) | payer MEDICARE, SELFPAY | PROVIDERS: PCP Nurse Practitioner Family; Visit Provider Internal Medicine | DX: I48.19 Other persistent atrial fibrillation (principal); Z79.01 Long term (current) use of anticoagulants; Z51.81 Encounter for therapeutic drug level monitoring | CPT/HCPCS: 85610; 99211 ==

== ENCOUNTER → 2022-08-29 08:30 | Outpatient (BNVA) | payer MEDICARE, SELFPAY | PROVIDERS: PCP Nurse Practitioner Family; Visit Provider Internal Medicine | DX: I48.19 Other persistent atrial fibrillation (principal); Z79.01 Long term (current) use of anticoagulants; Z51.81 Encounter for therapeutic drug level monitoring | CPT/HCPCS: 85610; 99211 ==

== ENCOUNTER → 2022-09-28 13:13 | Outpatient (BNVA) | payer MEDICARE, SELFPAY | PROVIDERS: PCP Nurse Practitioner Family; Visit Provider Internal Medicine | DX: I48.19 Other persistent atrial fibrillation (principal); Z79.01 Long term (current) use of anticoagulants; Z51.81 Encounter for therapeutic drug level monitoring | CPT/HCPCS: 85610; 99211 ==

== ENCOUNTER 2022-10-18 08:56 | Outpatient (REF) | payer MEDICARE, SELFPAY ==
--- NOTE | ~2022-10-18 | US_ITS ---
EXAMINATION: US RETROPERITONEAL LIMITED (AORTA) CLINICAL INFORMATION: Abdominal aortic aneurysm without rupture. COMPARISON: None available. TECHNIQUE: Castaneda-scale, color Doppler and spectral Doppler evaluation of the abdominal aorta. Technically limited study secondary to body habitus. FINDINGS: Scattered atherosclerotic disease. The measurements of the aorta in maximum AP and transverse dimensions respectively are as follows: Proximal: 2.5 x 2.0 cm. Mid: 2.2 x 2.4 cm. Distal: 2.1 x 2.3 cm. PSV: 136 cm/s. The measurements of the common iliac arteries in maximum AP and TRV dimensions are as follows: Right Common Iliac Artery: 1.2 x 1.7 cm. Left Common Iliac Artery: 1.1 x 1.1 cm. Incidentally noted was a cardiac arrhythmia. US/US abdominal aortic aneurysm IMPRESSION: -Normal caliber abdominal aorta by sonographic evaluation. -Scattered atherosclerotic disease. -Cardiac arrhythmia incidentally noted. Clinical correlation recommended.
== END 2022-10-18 08:57 | disposition home or self-care (01) ==
LOC: HO.HMGCX 08:56
PROVIDERS: PCP Nurse Practitioner Family; Visit Provider Nurse Practitioner Family
DX: I71.40 Abdominal aortic aneurysm, without rupture, unspecified (principal)
CPT/HCPCS: 76706

== ENCOUNTER → 2022-10-31 08:26 | Outpatient (BNVA) | payer MEDICARE, SELFPAY | PROVIDERS: PCP Nurse Practitioner Family; Visit Provider Internal Medicine | DX: I48.19 Other persistent atrial fibrillation (principal); Z79.01 Long term (current) use of anticoagulants; Z51.81 Encounter for therapeutic drug level monitoring | CPT/HCPCS: 85610; 99211 ==

== ENCOUNTER → 2022-11-28 08:28 | Outpatient (BNVA) | payer MEDICARE, SELFPAY | PROVIDERS: PCP Nurse Practitioner Family; Visit Provider Internal Medicine | DX: I48.19 Other persistent atrial fibrillation (principal); Z79.01 Long term (current) use of anticoagulants; Z51.81 Encounter for therapeutic drug level monitoring | CPT/HCPCS: 85610; 99211 ==

== ENCOUNTER → 2023-01-02 08:22 | Outpatient (BNVA) | payer MEDICARE, SELFPAY | PROVIDERS: PCP Nurse Practitioner Family; Visit Provider Internal Medicine | DX: I48.19 Other persistent atrial fibrillation (principal); Z79.01 Long term (current) use of anticoagulants; Z51.81 Encounter for therapeutic drug level monitoring | CPT/HCPCS: 85610; 99211 ==

== ENCOUNTER 2023-01-15 11:48 | Outpatient (REF) | payer MEDICARE, SELFPAY ==
--- NOTE | ~2023-01-15 | XR_ITS ---
EXAMINATION: XR FOREARM, LEFT CLINICAL INFORMATION: Pain COMPARISON: None TECHNIQUE: AP and lateral views of the left forearm were obtained. FINDINGS: Bone alignment is normal. No acute fracture or dislocation. Degenerative changes of the elbow joint and wrist. There may be ulnar minus variance. Soft tissue arterial calcification. XR/XR forearm LT 2V IMPRESSION: Degenerative changes at the elbow joint and wrist. Soft tissue arterial calcification.
--- NOTE | ~2023-01-15 | XR_ITS ---
EXAMINATION: XR WRIST, LEFT XR HAND, LEFT CLINICAL INFORMATION: Other specified soft tissue disorder COMPARISON: None available. TECHNIQUE: PA, lateral, and oblique views of the left wrist and PA, lateral, and oblique views of the left hand FINDINGS: No fracture or dislocation. There is arthritis at the IP joints with joint narrowing, osteophytes, subchondral cysts and small erosive changes. This is greatest at the DIP and PIP joints of the second and third fingers. There is adjacent periarticular soft tissue swelling. There is joint space narrowing at the second MCP joint and subchondral cysts. There are small cysts in multiple carpal bones. There is mild joint space narrowing and osteophyte formation at the first [facility] joint and radiocarpal joint. There is soft tissue arterial calcification. XR/XR hand wrist LT IMPRESSION: Arthritis greatest at the IP joints of the second and third fingers.
--- NOTE | ~2023-01-15 | XR_ITS ---
EXAMINATION: XR ELBOW, LEFT CLINICAL INFORMATION: Pain COMPARISON: None available. TECHNIQUE: AP, lateral, and oblique views of the left elbow. FINDINGS: Bone alignment is normal. No acute fracture or dislocation. Large olecranon osteophyte. Adjacent well-corticated soft tissue ossification questionable for old olecranon osteophyte fracture versus soft tissue ossification. Mild degenerative changes at the humeral ulnar joint with small osteophyte at the coronoid process. Small bilateral osteophytes adjacent to the medial and lateral humeral epicondyles suggestive of epicondylitis. Soft tissue swelling over the olecranon. No joint effusion. XR/XR elbow LT min 3V IMPRESSION: Large olecranon osteophyte. Adjacent soft tissue swelling questionable for olecranon bursitis. Degenerative changes at the elbow joint. No acute fracture or dislocation.
== END 2023-01-15 11:49 | disposition home or self-care (01) ==
LOC: HO.HMGCX 11:48
PROVIDERS: PCP Nurse Practitioner Family; Visit Provider Nurse Practitioner Family
DX: M25.522 Pain in left elbow (principal); M79.632 Pain in left forearm; M79.89 Other specified soft tissue disorders
CPT/HCPCS: 73080; 73090; 73110; 73130

== ENCOUNTER → 2023-01-16 14:10 | Outpatient (BNVA) | payer MEDICARE, SELFPAY | PROVIDERS: PCP Nurse Practitioner Family; Visit Provider Internal Medicine | DX: I48.19 Other persistent atrial fibrillation (principal); Z79.01 Long term (current) use of anticoagulants; Z51.81 Encounter for therapeutic drug level monitoring | CPT/HCPCS: 85610; 99211 ==

== ENCOUNTER → 2023-01-29 08:37 | Outpatient (BNVA) | payer MEDICARE, SELFPAY | PROVIDERS: PCP Nurse Practitioner Family; Visit Provider Internal Medicine | DX: I48.19 Other persistent atrial fibrillation (principal); Z79.01 Long term (current) use of anticoagulants; Z51.81 Encounter for therapeutic drug level monitoring | CPT/HCPCS: 85610; 99211 ==

== ENCOUNTER 2023-02-12 09:03 | Outpatient (REF) | payer MEDICARE, SELFPAY ==
[2023-02-12 12:46] LABS: Anion Gap 14 (12-20); Blood Urea Nitrogen 16 mg/dL (9-16); Calcium 9.3 mg/dL (8.4-10.2); Carbon Dioxide 24 mmol/L (22-29); Chloride 102 mmol/L (96-108); Estimated Glomerular Filt Rate > 60; Glucose Random 109 mg/dL (60-115); Potassium 3.8 mmol/L (3.3-5.1); Sodium 136 mmol/L (135-145)
== END 2023-02-12 09:04 | disposition home or self-care (01) ==
LOC: HO.LAB 09:03
PROVIDERS: Absent Provider Internal Medicine Hypertension Specialist; PCP Nurse Practitioner Family; Visit Provider Internal Medicine
DX: I48.19 Other persistent atrial fibrillation (principal); I10 Essential (primary) hypertension; Z51.81 Encounter for therapeutic drug level monitoring; Z79.01 Long term (current) use of anticoagulants
CPT/HCPCS: 36415; 80048; 85610; 99211

== ENCOUNTER 2023-02-12 09:03 | Outpatient (AMB) | payer MEDICARE, SELFPAY ==
--- NOTE | 2023-02-12 09:14 | MHC.OFFVISCO ---
Intake Intake Visit Reasons: Anticoagulation Allergies carvedilol [From COREG] Allergy (Severe, Verified 02/12/23 09:11) Palpitations metoprolol Allergy (Severe, Verified 02/12/23 09:11) Palpitations Sulfa (Sulfonamide Antibiotics) [SULFA (SULFONAMIDE ANTIBIOTICS)] Allergy (Severe, Verified 02/12/23 09:11) Redness of Skin doxycycline Allergy (Intermediate, Verified 02/12/23 09:11) Rash itch cilostazol Allergy (Unknown, Verified 02/12/23 09:11) UNKNOWN digoxin [DIGOXIN] Allergy (Unknown, Verified 02/12/23 09:11) UNKNOWN labetalol [LABETALOL] Allergy (Unknown, Verified 02/12/23 09:11) MUSCLE PAIN Goxhlml-CJN-AeZ Reductase Inhibitor Adverse Reaction (Intermediate, Verified 02/12/23 09:11) Muscle Pain Medication List - Last Reconciled 02/12/23 by Briana Villagomez RN alirocumab 150 mg subcut amlodipine mg PO atenolol 25 mg PO DAILY clopidogrel 75 mg PO DAILY isosorbide mononitrate ER 60 mg PO DAILY valsartan-hydrochlorothiazide 160-12.5 mg tabs PO [walker with seat Wheeled walker with seat ] warfarin 5 mg See Protocol PO DAILY Nursing Note INR 1.5-?? out of therapeutic range- denies missed dose Medications and supplements reviewed Patient status: no c.o- amb with walker Medications or supplements: no changes Diet: appetite is good Denies any signs and symptoms of bleeding or clotting or unusual bruising Bleeding, bruising, clotting discussed Nutritional guidance given: no greens for 2 days , eat a red for 2 days Dose: 5mg today, then increase weekly dosing 5mg x 2, 2.5mg x 5 F/U INR Date : 1 week? Patient verbalizing understanding of instructions given. pcp officer noemi young called with low inr, dosing and f/u appt. spoke with gracie at 0926 Anti-Coag Initial Assessment Social Hx Patient Tobacco Use Status: Never used Tobacco alcohol intake: current Alcohol intake frequency: a few times a week Coding Level of Care Code Est Patient Level 1 Diagnoses Current use of anticoagulant therapy Z79.01 Assessment & Plan Assessment & Plan (1) Current use of anticoagulant therapy: Code(s): Z79.01 - buttermaker continuous churn (current) use of anticoagulants Category: Medical
[2023-02-12 09:16] LABS: Prothrombin Time Whole Bld POC 18.5 sec (11.1-13.5); ~PT, ~INR - Anti Coag Clinic 1.5 (0.9-1.1)
== END 2023-02-12 09:27 | disposition home or self-care (01) ==
LOC: HO.ACS 09:03
PROVIDERS: PCP Nurse Practitioner Family; Visit Provider Internal Medicine
DX: Z79.01 Long term (current) use of anticoagulants (principal)

== ENCOUNTER 2023-02-19 09:06 | Outpatient (AMB) | payer MEDICARE, SELFPAY ==
[2023-02-19 09:14] LABS: Prothrombin Time Whole Bld POC 23.5 sec (11.1-13.5)
--- NOTE | 2023-02-19 09:23 | MHC.OFFVISCO ---
Intake Intake Visit Reasons: Anticoagulation Allergies carvedilol [From COREG] Allergy (Severe, Verified 02/19/23 09:07) Palpitations metoprolol Allergy (Severe, Verified 02/19/23 09:07) Palpitations Sulfa (Sulfonamide Antibiotics) [SULFA (SULFONAMIDE ANTIBIOTICS)] Allergy (Severe, Verified 02/19/23 09:07) Redness of Skin doxycycline Allergy (Intermediate, Verified 02/19/23 09:07) Rash itch cilostazol Allergy (Unknown, Verified 02/19/23 09:07) UNKNOWN digoxin [DIGOXIN] Allergy (Unknown, Verified 02/19/23 09:07) UNKNOWN labetalol [LABETALOL] Allergy (Unknown, Verified 02/19/23 09:07) MUSCLE PAIN Cgemzpp-EJY-WpY Reductase Inhibitor Adverse Reaction (Intermediate, Verified 02/19/23 09:07) Muscle Pain Medication List - Last Reconciled 02/19/23 by oRmelia Haddad, RN alirocumab 150 mg subcut amlodipine mg PO atenolol 25 mg PO DAILY clopidogrel 75 mg PO DAILY isosorbide mononitrate ER 60 mg PO DAILY valsartan-hydrochlorothiazide 160-12.5 mg tabs PO [walker with seat Wheeled walker with seat ] warfarin 5 mg See Protocol PO DAILY Nursing Note NO CP,SOB,DIET/MED CHANGES,FALLS OR SX OF BLEEDING. CONTINUE PRESENT DOSE AND FOLLOW-UP IN 2 WEEKS. GOOD UNDERSTANDING OF DOSING INSTR. Anti-Coag Initial Assessment Social Hx Patient Tobacco Use Status: Never used Tobacco alcohol intake: current Alcohol intake frequency: a few times a week Coding Level of Care Code Est Patient Level 1 Diagnoses Current use of anticoagulant therapy Z79.01 Assessment & Plan Assessment & Plan (1) Current use of anticoagulant therapy: Code(s): Z79.01 - longterm (current) use of anticoagulants Category: Medical
== END 2023-02-19 09:25 | disposition home or self-care (01) ==
LOC: HO.ACS 09:06
PROVIDERS: PCP Nurse Practitioner Family; Visit Provider Internal Medicine
DX: Z79.01 Long term (current) use of anticoagulants (principal)

== ENCOUNTER → 2023-02-19 09:06 | Outpatient (BNVA) | payer MEDICARE, SELFPAY | PROVIDERS: PCP Nurse Practitioner Family; Visit Provider Internal Medicine | DX: I48.19 Other persistent atrial fibrillation (principal); Z79.01 Long term (current) use of anticoagulants; Z51.81 Encounter for therapeutic drug level monitoring | CPT/HCPCS: 85610; 99211 ==

== ENCOUNTER 2023-02-28 15:02 | Outpatient (REF) | payer MEDICARE, SELFPAY | END 2023-02-28 15:03 | disposition home or self-care (01) | LOC: HO.HOSX 15:02 | PROVIDERS: PCP Nurse Practitioner Family; Visit Provider Physician Assistant | DX: M77.12 Lateral epicondylitis, left elbow (principal); M19.042 Primary osteoarthritis, left hand | CPT/HCPCS: 99202 ==

== ENCOUNTER 2023-02-28 15:02 | Outpatient (AMB) | payer MEDICARE, SELFPAY ==
--- NOTE | 2023-02-28 15:05 | MHC.OFFVIS ---
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 Patient reports a fall in October on his left elbow. Since injury he his pain radiates from elbow down to his left forearm, wrist, and hand with movement. Intermittent numbness and tingling. He states feeling an electrical shock that goes into his fingers. Finds little relief with Tylenol. He also states having pain in his right hand and wrist.? Allergies carvedilol [From COREG] Allergy (Severe, Verified 02/28/23 15:15) Palpitations metoprolol Allergy (Severe, Verified 02/28/23 15:15) Palpitations Sulfa (Sulfonamide Antibiotics) [SULFA (SULFONAMIDE ANTIBIOTICS)] Allergy (Severe, Verified 02/28/23 15:15) Redness of Skin doxycycline Allergy (Intermediate, Verified 02/28/23 15:15) Rash itch cilostazol Allergy (Unknown, Verified 02/28/23 15:15) UNKNOWN digoxin [DIGOXIN] Allergy (Unknown, Verified 02/28/23 15:15) UNKNOWN labetalol [LABETALOL] Allergy (Unknown, Verified 02/28/23 15:15) MUSCLE PAIN Xhczsze-MGX-PxI Reductase Inhibitor Adverse Reaction (Intermediate, Verified 02/28/23 15:15) Muscle Pain HPI 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 He states he has pain in his left arm which radiates from the elbow to his forearm, wrist and hand with movement. He also c/o intermittent numbness and tingling and experiences a ?electrical shock? sensation radiating into his fingers. He finds mild relief with Tylenol. He reports he has pain in his right hand and wrist and has a h/o gout. [facility] Medical History AAA (abdominal aortic aneurysm) without rupture Afib CAD (coronary artery disease) Carotid stenosis CKD (chronic kidney disease) CVA (cerebral vascular accident) H/O Villa's palsy HTN (hypertension) Permanent atrial fibrillation Post herpetic neuralgia PVD (peripheral vascular disease) Thrombocytopenia Vertigo Surgical History H/O prostatectomy Stented coronary artery Social History Housing: House Alcohol intake: current Alcohol intake frequency: a few times a week Patient Tobacco Use Status: Never used Tobacco e-Cigarette/Vaping Use: Never Used Second Hand Smoke Exposure: No service: Yes Current occupational status: retired Cognitive needs: No Hearing needs: No Vision needs: No Review of Systems Const All systems reviewed & are unremarkable except as noted in HPI and below Physical Exam Vital Signs: BMI result Body Mass Index 26.5 Const General: cooperative, healthy appearing, comfortable, no acute distress, well developed and alert Orientation/consciousness: patient oriented x3 HEENT Head: Yes normal to inspection, Yes normocephalic and Yes atraumatic Eyes General: appearance normal, both eyes and all related structures Resp Effort & Inspection: normal respiratory effort and able to speak in complete sentences Cardio Rate: regular rate Peripheral pulses: Peripheral pulses 2+ throughout GI Palpation (GI): Soft to palpation Skin Lesions: no lesions Rashes: no rashes Neuro General: patient oriented x3 Extrem Other: Left elbow: Skin intact. No erythema or swelling. ROM full without pain. Tenderness over the lateral epicondyle and pain with resisted wrist extension. NVI. He also has tenderness over the MCP of the left index finger with mild swelling, no redness. No pain with axial loading. Results Reviewed Results Reviewed: xrays of the left wrist and forearm / elbow obtained in the ED are negative for acute fracture or dislocations. Assessment & Plan Assessment & Plan (1) Left lateral epicondylitis: Code(s): M77.12 - Lateral epicondylitis, left elbow (2) Osteoarthritis of left hand: Code(s): M19.042 - Primary osteoarthritis, left hand Plan There is no evidence of acute fracture or dislocation. I feel as though he may have irritated his left elbow with the fall which does have a significant amount of OA and he has also developed some tendinitis. He does have a history of gout and is unsure if he is experiencing intermittent flares which is also contributing to his wrist pain as he states he does get some swelling which comes and goes. I encouraged him to use his wrist splint that he has at home with activities such as lifting or sleeping. If symptoms persist or worsens, patient will contact the office, otherwise follow-up as needed. Patient Instructions: Scribed for Garo Hoang PA-C, by Emil Weldon medical billing specialist, on 02/28/2023 at 3:00 PM EST. I, Garo Hoang PA-C, have personally reviewed and agree with the information entered by the scribe. Coding Level of Care Code New Pt Level 3 (75757) Diagnoses Left lateral epicondylitis M77.12 Osteoarthritis of left hand M19.042
[2023-02-28 15:07] VITALS: BMI 26.5
== END 2023-02-28 15:30 | disposition home or self-care (01) ==
PROVIDERS: PCP Nurse Practitioner Family; Visit Provider Physician Assistant
DX: M77.12 Lateral epicondylitis, left elbow (principal); M19.022 Primary osteoarthritis, left elbow
CPT/HCPCS: 99203

== ENCOUNTER 2023-03-05 10:59 | Outpatient (AMB) | payer MEDICARE, SELFPAY ==
--- NOTE | 2023-03-05 11:05 | MHC.OFFVISCO ---
Intake Intake Visit Reasons: Anticoagulation Allergies carvedilol [From COREG] Allergy (Severe, Verified 03/05/23 10:59) Palpitations metoprolol Allergy (Severe, Verified 03/05/23 10:59) Palpitations Sulfa (Sulfonamide Antibiotics) [SULFA (SULFONAMIDE ANTIBIOTICS)] Allergy (Severe, Verified 03/05/23 10:59) Redness of Skin doxycycline Allergy (Intermediate, Verified 03/05/23 10:59) Rash itch cilostazol Allergy (Unknown, Verified 03/05/23 10:59) UNKNOWN digoxin [DIGOXIN] Allergy (Unknown, Verified 03/05/23 10:59) UNKNOWN labetalol [LABETALOL] Allergy (Unknown, Verified 03/05/23 10:59) MUSCLE PAIN Eetkgmg-MOE-HqK Reductase Inhibitor Adverse Reaction (Intermediate, Verified 03/05/23 10:59) Muscle Pain Medication List - Last Reconciled 03/05/23 by Briana Villagomez RN alirocumab 150 mg subcut amlodipine mg PO atenolol 25 mg PO DAILY clopidogrel 75 mg PO DAILY isosorbide mononitrate ER 60 mg PO DAILY valsartan-hydrochlorothiazide 160-12.5 mg tabs PO [walker with seat Wheeled walker with seat ] warfarin 5 mg See Protocol PO DAILY Nursing Note INR: 3.0- in therapeutic range Medications and supplements reviewed- no changes No changes in health, diet, medications, or supplements, Denies any signs and symptoms of bleeding or bruising or clotting. Bleeding, bruising, clotting discussed Nutritional guidance given - eat a green today Dose: 5mg x 2, 2.5mg x 5 F/U INR: pt req 3 weeks Patient verbalizes understanding of instructions given Anti-Coag Initial Assessment Social Hx Patient Tobacco Use Status: Never used Tobacco alcohol intake: current Alcohol intake frequency: a few times a week Coding Level of Care Code Est Patient Level 1 Diagnoses Current use of anticoagulant therapy Z79.01 Assessment & Plan Assessment & Plan (1) Current use of anticoagulant therapy: Code(s): Z79.01 - skilled nursing (current) use of anticoagulants Category: Medical
== END 2023-03-05 11:11 | disposition home or self-care (01) ==
LOC: HO.ACS 10:59
PROVIDERS: PCP Nurse Practitioner Family; Visit Provider Internal Medicine
DX: Z79.01 Long term (current) use of anticoagulants (principal)

== ENCOUNTER → 2023-03-05 10:59 | Outpatient (BNVA) | payer MEDICARE, SELFPAY | PROVIDERS: PCP Nurse Practitioner Family; Visit Provider Internal Medicine | DX: I48.19 Other persistent atrial fibrillation (principal); Z79.01 Long term (current) use of anticoagulants; Z51.81 Encounter for therapeutic drug level monitoring | CPT/HCPCS: 85610; 99211 ==

== ENCOUNTER 2023-03-26 09:17 | Outpatient (AMB) | payer MEDICARE, SELFPAY ==
[2023-03-26 09:26] LABS: Prothrombin Time Whole Bld POC 22.2 sec (11.1-13.5); ~PT, ~INR - Anti Coag Clinic 1.9 (0.9-1.1)
--- NOTE | 2023-03-26 09:28 | MHC.OFFVISCO ---
Intake Intake Visit Reasons: Anticoagulation Allergies carvedilol [From COREG] Allergy (Severe, Verified 03/26/23 09:20) Palpitations metoprolol Allergy (Severe, Verified 03/26/23 09:20) Palpitations Sulfa (Sulfonamide Antibiotics) [SULFA (SULFONAMIDE ANTIBIOTICS)] Allergy (Severe, Verified 03/26/23 09:20) Redness of Skin doxycycline Allergy (Intermediate, Verified 03/26/23 09:20) Rash itch cilostazol Allergy (Unknown, Verified 03/26/23 09:20) UNKNOWN digoxin [DIGOXIN] Allergy (Unknown, Verified 03/26/23 09:20) UNKNOWN labetalol [LABETALOL] Allergy (Unknown, Verified 03/26/23 09:20) MUSCLE PAIN Spycoyq-KRM-EiF Reductase Inhibitor Adverse Reaction (Intermediate, Verified 03/26/23 09:20) Muscle Pain Medication List - Last Reconciled 03/26/23 by Kamini Puentes, RN amlodipine mg PO atenolol 25 mg PO DAILY clopidogrel 75 mg PO DAILY evolocumab (Repatha SureClick) mg subcut isosorbide mononitrate ER 60 mg PO DAILY valsartan-hydrochlorothiazide 160-12.5 mg tabs PO [walker with seat Wheeled walker with seat ] warfarin 5 mg See Protocol PO DAILY Nursing Note INR: 1.9 JUST OUT OF therapeutic range Medications and supplements reviewed No changes in health, diet, medications, or supplements, Denies any signs and symptoms of bleeding or bruising or clotting. Bleeding, bruising, clotting discussed Nutritional guidance given - AVOID GREENS X 3 DAYS SO YOUR INR CAN COME UP Dose: KEEP SAME 5MG X 2 DAYS/ 2.5MG X 5 DAYS F/U INR: 3 WEEKS Patient verbalizes understanding of instructions given Anti-Coag Initial Assessment Social Hx Patient Tobacco Use Status: Never used Tobacco alcohol intake: current Alcohol intake frequency: a few times a week Coding Level of Care Code Est Patient Level 1 Diagnoses Current use of anticoagulant therapy Z79.01 Assessment & Plan Assessment & Plan (1) Current use of anticoagulant therapy: Code(s): Z79.01 - halfway (current) use of anticoagulants Category: Medical
== END 2023-03-26 09:35 | disposition home or self-care (01) ==
LOC: HO.ACS 09:17
PROVIDERS: PCP Nurse Practitioner Family; Visit Provider Internal Medicine
DX: Z79.01 Long term (current) use of anticoagulants (principal)

== ENCOUNTER → 2023-03-26 09:17 | Outpatient (BNVA) | payer MEDICARE, SELFPAY | PROVIDERS: PCP Nurse Practitioner Family; Visit Provider Internal Medicine | DX: I48.19 Other persistent atrial fibrillation (principal); Z79.01 Long term (current) use of anticoagulants; Z51.81 Encounter for therapeutic drug level monitoring | CPT/HCPCS: 85610; 99211 ==

== ENCOUNTER 2023-04-16 09:08 | Outpatient (AMB) | payer MEDICARE, SELFPAY ==
--- NOTE | 2023-04-16 09:18 | MHC.OFFVISCO ---
Intake Intake Visit Reasons: Anticoagulation Allergies carvedilol [From COREG] Allergy (Severe, Verified 04/16/23 09:09) Palpitations metoprolol Allergy (Severe, Verified 04/16/23 09:09) Palpitations Sulfa (Sulfonamide Antibiotics) [SULFA (SULFONAMIDE ANTIBIOTICS)] Allergy (Severe, Verified 04/16/23 09:09) Redness of Skin doxycycline Allergy (Intermediate, Verified 04/16/23 09:09) Rash itch cilostazol Allergy (Unknown, Verified 04/16/23 09:09) UNKNOWN digoxin [DIGOXIN] Allergy (Unknown, Verified 04/16/23 09:09) UNKNOWN labetalol [LABETALOL] Allergy (Unknown, Verified 04/16/23 09:09) MUSCLE PAIN Mebjiwq-OWM-LpU Reductase Inhibitor Adverse Reaction (Intermediate, Verified 04/16/23 09:09) Muscle Pain Medication List - Last Reconciled 04/16/23 by Kamini Puentes RN amlodipine mg PO atenolol 25 mg PO DAILY clopidogrel 75 mg PO DAILY evolocumab (Repatha SureClick) mg subcut isosorbide mononitrate ER 60 mg PO DAILY valsartan-hydrochlorothiazide 160-12.5 mg tabs PO [walker with seat Wheeled walker with seat ] warfarin 5 mg See Protocol PO DAILY Nursing Note INR: 2.8 in therapeutic range Medications and supplements reviewed No changes in health, diet, medications, or supplements, Denies any signs and symptoms of bleeding or bruising or clotting. Bleeding, bruising, clotting discussed Nutritional guidance given Dose: 5MG X 2 DAYS/ 2.5MG X 5 DAYS F/U INR: 1 MONTH Patient verbalizes understanding of instructions given Anti-Coag Initial Assessment Social Hx Patient Tobacco Use Status: Never used Tobacco alcohol intake: current Alcohol intake frequency: a few times a week Coding Level of Care Code Est Patient Level 1 Diagnoses Current use of anticoagulant therapy Z79.01 Results AMB INR Fingerstick AMB INR Fingerstick 2.8 Last Edit by Kamini Puentes RN on 04/16/23 09:17 MANUAL ENTRY DELAYED INTERFACING Assessment & Plan Assessment & Plan (1) Current use of anticoagulant therapy: Code(s): Z79.01 - group home (current) use of anticoagulants Category: Medical
[2023-04-16 09:59] LABS: Prothrombin Time Whole Bld POC 33.3 sec (11.1-13.5); ~PT, ~INR - Anti Coag Clinic 2.8 (0.9-1.1)
== END 2023-04-16 09:23 | disposition home or self-care (01) ==
LOC: HO.ACS 09:08
PROVIDERS: PCP Nurse Practitioner Family; Visit Provider Internal Medicine
DX: Z79.01 Long term (current) use of anticoagulants (principal)

== ENCOUNTER → 2023-04-16 09:08 | Outpatient (BNVA) | payer MEDICARE, SELFPAY | PROVIDERS: PCP Nurse Practitioner Family; Visit Provider Internal Medicine | DX: I48.19 Other persistent atrial fibrillation (principal); Z79.01 Long term (current) use of anticoagulants; Z51.81 Encounter for therapeutic drug level monitoring | CPT/HCPCS: 85610; 99211 ==

== ENCOUNTER 2023-04-18 09:49 | Outpatient (AMB) | payer MEDICARE, SELFPAY ==
--- NOTE | 2023-04-18 10:00 | A.OFFPC_ITS ---
Vital Signs 04/18/23 10:01 Height 5 ft 11 in Weight 194 lb 4 oz BMI 27.1 BP 140/78 H Blood Pressure Location Rt brachial Position Sitting Pulse 81 Pulse Source Pulse Oximeter Pulse Oximetry (%) 97 Oxygen Delivery Method Room Air Intake Visit Reasons: 2 month follow up HTN Allergies carvedilol [From COREG] Allergy (Severe, Verified 04/18/23 10:16) Palpitations metoprolol Allergy (Severe, Verified 04/18/23 10:16) Palpitations Sulfa (Sulfonamide Antibiotics) [SULFA (SULFONAMIDE ANTIBIOTICS)] Allergy (Severe, Verified 04/18/23 10:16) Redness of Skin doxycycline Allergy (Intermediate, Verified 04/18/23 10:16) Rash itch cilostazol Allergy (Unknown, Verified 04/18/23 10:16) UNKNOWN digoxin [DIGOXIN] Allergy (Unknown, Verified 04/18/23 10:16) UNKNOWN labetalol [LABETALOL] Allergy (Unknown, Verified 04/18/23 10:16) MUSCLE PAIN Ajqrwax-WLS-WcQ Reductase Inhibitor Adverse Reaction (Intermediate, Verified 04/18/23 10:16) Muscle Pain Medication List - Last Reconciled 04/18/23 by PATRICIO Shore- amlodipine 5 mg PO atenolol 25 mg PO DAILY clopidogrel 75 mg PO DAILY evolocumab (Elle Romero) mg subcut isosorbide mononitrate ER 60 mg PO DAILY valsartan-hydrochlorothiazide 160-12.5 mg tabs PO [walker with seat Wheeled walker with seat ] warfarin 5 mg See Protocol PO DAILY Tobacco use date assessed: 04/18/23 Fall risk assessment: 1 Fall in past year Last assessed Fall Risk: 04/18/23 Dental Screening Dental Screen Date: 04/18/23 Did you have a dental visit in the last 12 months?: No Did you have a dental problem in the last 6 months where you did not have access to dental care?: No Was dental information given to patient?: Patient has dentist HPI 2 month follow up HTN HPI Details HTN: Blood pressure is managed with amlodipine 5mg, atenolol 25mg, isosorbide mononitrate 60mg, and valsartan-hydrochlorothiazide 160-12.5mg. Pt does not check his blood pressure at home anymore. Will increase amlodipine from 5mg to 10mg. Denies chest pain, shortness of breath, headache, dizziness, and blurred vision. Multiple labs have been ordered, pt never had these done. Encouraged pt to have labs drawn next week. [facility] Medical History AAA (abdominal aortic aneurysm) without rupture Afib CAD (coronary artery disease) Carotid stenosis CKD (chronic kidney disease) CVA (cerebral vascular accident) H/O Villa's palsy HTN (hypertension) Permanent atrial fibrillation Post herpetic neuralgia PVD (peripheral vascular disease) Thrombocytopenia Vertigo Surgical History H/O prostatectomy Stented coronary artery Social History Housing: House Alcohol intake: current Alcohol intake frequency: a few times a week Patient Tobacco Use Status: Never used Tobacco e-Cigarette/Vaping Use: Never Used Second Hand Smoke Exposure: No service: Yes Current occupational status: retired Cognitive needs: No Hearing needs: No Vision needs: No Questionnaire Thrive Questionnaire Date Thrive assessed: 10/05/21 YARED-7 AMB Questionnaire YARED-7 Date YARED - 7 assessed: 10/05/21 Source: Developed by Drs. Rony Turner, Tish Calderon, Arnulfo Clark and colleagues, with an educational tien from [employer]. Review of Systems Const Reports as per HPI Physical exam (Primary Care) Vital Signs: Last Vital Signs Pulse 81 04/18/23 10:01 BP 140/78 H 04/18/23 10:01 Pulse Ox 97 04/18/23 10:01 Oxygen Delivery Method Room Air 04/18/23 10:01 BMI result Body Mass Index 27.1 Tobacco/Smoking Status: Tobacco use Status Tobacco use date assessed 04/18/23 04/18/23 10:07 Patient Tobacco Use Status Never used Tobacco 04/18/23 10:07 e-Cigarette/Vaping Use Never Used 04/18/23 10:07 Thrive Assessment: Date of Thrive Assessment Date Thrive assessed 10/05/21 04/18/23 10:07 Const General: cooperative Orientation/consciousness: patient oriented x3 Resp Effort & Inspection: normal respiratory effort Auscultation: clear to auscultation bilaterally Cardio Rate: regular rate Rhythm: regular rhythm Heart sounds: S1 normal heart sound present, S2 normal heart sound present and Murmur heart sound present systolic (faint) Neuro General: patient oriented x3 Extrem Other: discoloration to BLE with healing abrasions bilat Right lower extremity: no edema Left lower extremity: no edema Psych Appearance: grossly normal Mental Status: mental status grossly normal Speech and movement: Normal speech and movement present Affect: normal affect Attitude: cooperative Thought process: Normal thought process present Thought content: Normal thought content present Insight: Good insight present (Psych) Judgement: Good judgement present (Psych) Assessment and Plan Assessment & Plan (1) HTN (hypertension): Code(s): I10 - Essential (primary) hypertension Plan The patient agreed to the use of a medical lab specialist for this encounter. Scribed for TRAVON Berry by Pam Ohara medical lab specialist, on 04/18/2023 at 10:15 EST. Orders: Orders Complete Blood Count Auto Diff Today I10 - Essential (primary) hypertension UA CC w/rflx Micro + Cult Today I10 - Essential (primary) hypertension Comprehensive [place]. Panel Fast Today I10 - Essential (primary) hypertension TSH reflex Free T4 Today I10 - Essential (primary) hypertension Lipid Panel Today I10 - Essential (primary) hypertension Medications: Changed From amlodipine 5 mg PO To amlodipine 10 mg PO DAILY 90 tabs 0RF Coding Level of Care Code Est Pt Level 3 (68295) Diagnoses HTN (hypertension) I10
[2023-04-18 10:01] VITALS: BP 140/78; PULSE 81; O2SAT 97; BMI 27.1
== END 2023-04-18 11:38 | disposition home or self-care (01) ==
PROVIDERS: Visit Provider Nurse Practitioner Family
DX: I10 Essential (primary) hypertension (principal)
CPT/HCPCS: 99213

== ENCOUNTER 2023-04-23 08:21 | Outpatient (REF) | payer MEDICARE, SELFPAY ==
[2023-04-23 11:57] LABS: MANUAL DIFF FLAG NO
[2023-04-23 12:10] LABS: Basophils Absolute Auto 0.1 X10*3/uL (0.0-0.2); Basophils Percent Auto 0.8 % (0-2); Eosinophils Absolute Auto 0.2 X10*3/uL (0.0-0.4); Hematocrit 41.1 % (42.0-52.0); Hemoglobin 13.3 g/dl (14.0-18.0); Imm Gran Abs Auto 0.02 X10*3/uL (0.00-0.03); Imm Gran Pct Auto 0.3 % (0.0-0.4); Lymphocytes Absolute Auto 1.6 X10*3/uL (1.2-4.9); Lymphocytes Percent Auto 22.2 % (20-40); Mean Corpuscular HGB Conc 32.4 g/dl (31.0-36.0); Mean Corpuscular Hemoglobin 28.9 pg (27.0-33.0); Mean Corpuscular Volume 89.2 fL (80.0-98.0); Mean Platelet Volume 10.6 fL (9.4-12.4); Monocytes Absolute Auto 0.6 X10*3/uL (0.1-1.2); Monocytes Percent Auto 8.7 % (2-11); Neutrophils Absolute Auto 4.8 x10*3/uL (2.0-8.3); Platelet Count 223 X10*3/uL (160-400); Red Blood Count 4.61 X10*6/uL (4.60-5.80); Red Cell Distribution Width 15.9 % (11.0-16.0); White Blood Count 7.3 X10*3/uL (4.8-10.8)
[2023-04-23 12:11] LABS: Appearance Urine Clear; Color Urine Yellow; Glucose Urine UA Negative (Negative); Leukocyte Esterase Urine Negative (Negative); Nitrite Urine Negative (Negative); PH 6.5 (5.0-9.0); Urine Blood Negative (Negative); Urine Ketones Negative (Negative); Urine Protein Negative (Neg-Trace)
[2023-04-23 13:04] LABS: Alanine Aminotransferase 11 U/L (0-40); Alkaline Phosphatase 86 U/L (39-117); Anion Gap 15 (12-20); Aspartate Amino Transferase 16 U/L (5-37); Blood Urea Nitrogen 18 mg/dL (9-16); Calcium 9.5 mg/dL (8.4-10.2); Carbon Dioxide 22 mmol/L (22-29); Chloride 105 mmol/L (96-108); Cholesterol 129 mg/dL (<200); Estimated Glomerular Filt Rate > 60; Glucose Fasting 96 mg/dL (60-99); HDL Cholesterol 37 mg/dL (>40); LDL Cholesterol Calculated 70 mg/dL (<100); Sodium 138 mmol/L (135-145); TSH reflex Free T4 1.69 uIU/mL (0.32-4.0); Triglycerides 111 mg/dL (<150)
== END 2023-04-23 08:22 | disposition home or self-care (01) ==
LOC: HO.HMGCLDS 08:21
PROVIDERS: PCP Nurse Practitioner Family; Visit Provider Nurse Practitioner Family
DX: I10 Essential (primary) hypertension (principal)
CPT/HCPCS: 36415; 80053; 80061; 81003; 84443; 85025

== ENCOUNTER 2023-05-14 09:02 | Outpatient (AMB) | payer MEDICARE, SELFPAY ==
--- NOTE | 2023-05-14 09:09 | MHC.OFFVISCO ---
Intake Intake Visit Reasons: Anticoagulation Allergies carvedilol [From COREG] Allergy (Severe, Verified 05/14/23 09:04) Palpitations metoprolol Allergy (Severe, Verified 05/14/23 09:04) Palpitations Sulfa (Sulfonamide Antibiotics) [SULFA (SULFONAMIDE ANTIBIOTICS)] Allergy (Severe, Verified 05/14/23 09:04) Redness of Skin doxycycline Allergy (Intermediate, Verified 05/14/23 09:04) Rash itch cilostazol Allergy (Unknown, Verified 05/14/23 09:04) UNKNOWN digoxin [DIGOXIN] Allergy (Unknown, Verified 05/14/23 09:04) UNKNOWN labetalol [LABETALOL] Allergy (Unknown, Verified 05/14/23 09:04) MUSCLE PAIN Qqifndf-PCF-YaU Reductase Inhibitor Adverse Reaction (Intermediate, Verified 05/14/23 09:04) Muscle Pain Medication List - Last Reconciled 05/14/23 by Briana Villagomez, RN amlodipine 10 mg PO DAILY atenolol 25 mg PO DAILY clopidogrel 75 mg PO DAILY evolocumab (Elle Romero) mg subcut isosorbide mononitrate ER 60 mg PO DAILY valsartan-hydrochlorothiazide 160-12.5 mg tabs PO [walker with seat Wheeled walker with seat ] warfarin 5 mg See Protocol PO DAILY Nursing Note INR: 3.0- in therapeutic range Medications and supplements reviewed No changes in health, diet, medications, or supplements, Denies any signs and symptoms of bleeding or bruising or clotting. Bleeding, bruising, clotting discussed Nutritional guidance given- eat a green today Dose: 5mg x 2, 2.5mg x 5 F/U INR: pt req 4 weeks Patient verbalizes understanding of instructions given Anti-Coag Initial Assessment Social Hx Patient Tobacco Use Status: Never used Tobacco alcohol intake: current Alcohol intake frequency: a few times a week Coding Level of Care Code Est Patient Level 1 Diagnoses Current use of anticoagulant therapy Z79.01 Assessment & Plan Assessment & Plan (1) Current use of anticoagulant therapy: Code(s): Z79.01 - terminal superintendent (current) use of anticoagulants Category: Medical
== END 2023-05-14 09:29 | disposition home or self-care (01) ==
LOC: HO.ACS 09:02
PROVIDERS: PCP Nurse Practitioner Family; Visit Provider Internal Medicine
DX: Z79.01 Long term (current) use of anticoagulants (principal)

== ENCOUNTER → 2023-05-14 09:02 | Outpatient (BNVA) | payer MEDICARE, SELFPAY | PROVIDERS: PCP Nurse Practitioner Family; Visit Provider Internal Medicine | DX: I48.19 Other persistent atrial fibrillation (principal); Z79.01 Long term (current) use of anticoagulants; Z51.81 Encounter for therapeutic drug level monitoring | CPT/HCPCS: 85610; 99211 ==

== ENCOUNTER 2023-06-11 09:03 | Outpatient (AMB) | payer MEDICARE, SELFPAY ==
--- NOTE | 2023-06-11 09:07 | MHC.OFFVISCO ---
Intake Intake Visit Reasons: Anticoagulation Allergies carvedilol [From COREG] Allergy (Severe, Verified 06/11/23 09:04) Palpitations metoprolol Allergy (Severe, Verified 06/11/23 09:04) Palpitations Sulfa (Sulfonamide Antibiotics) [SULFA (SULFONAMIDE ANTIBIOTICS)] Allergy (Severe, Verified 06/11/23 09:04) Redness of Skin doxycycline Allergy (Intermediate, Verified 06/11/23 09:04) Rash itch cilostazol Allergy (Unknown, Verified 06/11/23 09:04) UNKNOWN digoxin [DIGOXIN] Allergy (Unknown, Verified 06/11/23 09:04) UNKNOWN labetalol [LABETALOL] Allergy (Unknown, Verified 06/11/23 09:04) MUSCLE PAIN Rijjcif-EUD-AjO Reductase Inhibitor Adverse Reaction (Intermediate, Verified 06/11/23 09:04) Muscle Pain Medication List - Last Reconciled 06/11/23 by Briana Villagomez RN amlodipine 10 mg PO DAILY atenolol 25 mg PO DAILY clopidogrel 75 mg PO DAILY evolocumab (Elle Romero) mg subcut isosorbide mononitrate ER 60 mg PO DAILY valsartan-hydrochlorothiazide 160-12.5 mg tabs PO [walker with seat Wheeled walker with seat ] warfarin 5 mg See Protocol PO DAILY Nursing Note INR: 2.4- in therapeutic range of 2-3 Medications and supplements reviewed- no changes No changes in health, diet, medications, or supplements, Denies any signs and symptoms of bleeding or bruising or clotting. Bleeding, bruising, clotting discussed Nutritional guidance given Dose: 5mg x 2, 2.5mg x 5 F/U INR: 4 weeks Patient verbalizes understanding of instructions given Anti-Coag Initial Assessment Social Hx Patient Tobacco Use Status: Never used Tobacco alcohol intake: current Alcohol intake frequency: a few times a week Coding Level of Care Code Est Patient Level 1 Diagnoses Current use of anticoagulant therapy Z79.01 Results AMB INR Fingerstick AMB INR Fingerstick 2.4 Last Edit by Briana Villagomez RN on 06/11/23 09:09 Assessment & Plan Assessment & Plan (1) Current use of anticoagulant therapy: Code(s): 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
[2023-06-11 09:09] LABS: Prothrombin Time Whole Bld POC 29.4 sec (11.1-13.5); ~PT, ~INR - Anti Coag Clinic 2.4 (0.9-1.1)
== END 2023-06-11 09:13 | disposition home or self-care (01) ==
LOC: HO.ACS 09:03
PROVIDERS: PCP Nurse Practitioner Family; Visit Provider Internal Medicine
DX: Z79.01 Long term (current) use of anticoagulants (principal)

== ENCOUNTER → 2023-06-11 09:03 | Outpatient (BNVA) | payer MEDICARE, SELFPAY | PROVIDERS: PCP Nurse Practitioner Family; Visit Provider Internal Medicine | DX: I48.19 Other persistent atrial fibrillation (principal); Z79.01 Long term (current) use of anticoagulants; Z51.81 Encounter for therapeutic drug level monitoring | CPT/HCPCS: 85610; 99211 ==

== ENCOUNTER 2023-06-14 10:49 | Outpatient (AMB) | payer MEDICARE, SELFPAY ==
--- NOTE | 2023-06-14 10:52 | HO.NEPHOV_ITS ---
HPI HPI Comments History of Present Illness Details Ifeanyi is well known to me for last several years. 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 In 2011 coronary angiogram showed 60% mid LAD 90% distal LAD 50% 1st diagonal and 84% obtuse marginal. The RCA was totally occluded. Repeat CT in 2017 revealed 90% stenosis mid LAD moderate diffuse distal LAD and left circumflex 80-90% distal stenosis and chronically occluded RCA. He was deemed not to be a candidate for CABG. 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 Blood pressure has been difficult to control. He has been monitoring his blood pressure at home Home readings have been acceptable. He has generalized body pain otherwise no new issues today. He has been intolerant to statins however he has been able to tolerate Repatha [facility] Medical History (Updated 06/14/23 @ 13:13 by Luis Gutierrez MD) Carotid stenosis AAA (abdominal aortic aneurysm) without rupture Vertigo H/O Villa's palsy Permanent atrial fibrillation Post herpetic neuralgia HTN (hypertension) Thrombocytopenia CKD (chronic kidney disease) CVA (cerebral vascular accident) PVD (peripheral vascular disease) CAD (coronary artery disease) Afib Surgical History H/O prostatectomy Stented coronary artery Social History Housing: House Alcohol intake: current Alcohol intake frequency: a few times a week Patient Tobacco Use Status: Never used Tobacco e-Cigarette/Vaping Use: Never Used Second Hand Smoke Exposure: No service: Yes Current occupational status: retired Cognitive needs: No Hearing needs: No Vision needs: No Vital Signs 06/14/23 10:55 Height 5 ft 11 in Weight 190 lb 6 oz BMI 26.5 BP 130/70 Blood Pressure Location Lt brachial Position Sitting Pulse 71 Pulse Source Pulse Oximeter Pulse Oximetry (%) 97 Oxygen Delivery Method Room Air Physical Exam Vital Signs: Last Vital Signs Pulse 71 06/14/23 10:55 BP 130/70 06/14/23 10:55 Pulse Ox 97 06/14/23 10:55 Oxygen Delivery Method Room Air 06/14/23 10:55 BMI result Body Mass Index 26.5 Const General: comfortable Nutritional Appearance: well nourished Orientation/consciousness: patient oriented x3 HEENT Head: No normal to inspection Mouth: moist mucous membranes Neck Neck: Yes supple and Yes no JVD Resp Auscultation: clear to auscultation bilaterally, no rales and rub present Cardio Jugular venous distension: no JVD Palpation: no palpable S3 and no palpable S4 Heart sounds: no rubs GI Palpation (GI): Soft to palpation and nontender Percussion: No Fluid wave present General: Yes no CVA tenderness Back/Spine/Pelvis Back: no CVA tenderness Skin General skin exam: no rashes or lesions noted Neuro General: patient oriented x3 Extrem General: Yes no pedal edema and No clubbing Results Reviewed Results Reviewed: As of March 2023 BUN 18 creatinine 1.13; is normal Hemoglobin 10.3 Assessment & Plan Assessment & Plan (1) HTN (hypertension): Code(s): I10 - Essential (primary) hypertension Plan: Resistant hypertension history of significant artero sclerosis. Ifeanyi has renovascular disease. Overall blood pressure has been acceptable. I will continue with current antihypertensive medications. Keep on low-sodium diet. Encouraged to keep moderate blood pressure at home and to call me if the systolic blood pressure stays above 140 mmHg (2) CKD (chronic kidney disease): Code(s): N18.9 - Chronic kidney disease, unspecified Plan CKD in a setting of longstanding hypertension. He has underlying renovascular disease. At present renal functions close to baseline. Goal is to slow the progression of renal disease. Continue to avoid nephrotoxic agents. Avoid hypotensive episodes. Will continue monitor renal function closely since he is at high risk for ongoing renal injury and LUISANA. Coding Level of Care Code Est Pt Level 4 (02316) Diagnoses HTN (hypertension) I10 CKD (chronic kidney disease) N18.9
[2023-06-14 10:55] VITALS: BP 130/70; PULSE 71; O2SAT 97; BMI 26.5
== END 2023-06-14 11:22 | disposition home or self-care (01) ==
PROVIDERS: PCP Nurse Practitioner Family; Visit Provider Internal Medicine Hypertension Specialist
DX: I70.1 Atherosclerosis of renal artery (principal); I12.9 Hypertensive chronic kidney disease with stage 1 through stage 4 chronic kidney disease, or unspecified chronic kidney disease; N18.2 Chronic kidney disease, stage 2 (mild)
CPT/HCPCS: 99214

== ENCOUNTER → 2023-06-14 10:49 | Outpatient (BNVA) | payer MEDICARE, SELFPAY | PROVIDERS: PCP Nurse Practitioner Family; Visit Provider Internal Medicine Hypertension Specialist | DX: I12.9 Hypertensive chronic kidney disease with stage 1 through stage 4 chronic kidney disease, or unspecified chronic kidney disease (principal); N18.9 Chronic kidney disease, unspecified | CPT/HCPCS: 99212 ==

== ENCOUNTER 2023-07-09 09:09 | Outpatient (AMB) | payer MEDICARE, SELFPAY ==
[2023-07-09 09:18] LABS: Prothrombin Time Whole Bld POC 28.7 sec (11.1-13.5); ~PT, ~INR - Anti Coag Clinic 2.4 (0.9-1.1)
--- NOTE | 2023-07-09 09:23 | MHC.OFFVISCO ---
Intake Intake Visit Reasons: Anticoagulation Allergies carvedilol [From COREG] Allergy (Severe, Verified 07/09/23 09:11) Palpitations metoprolol Allergy (Severe, Verified 07/09/23 09:11) Palpitations Sulfa (Sulfonamide Antibiotics) [SULFA (SULFONAMIDE ANTIBIOTICS)] Allergy (Severe, Verified 07/09/23 09:11) Redness of Skin doxycycline Allergy (Intermediate, Verified 07/09/23 09:11) Rash itch cilostazol Allergy (Unknown, Verified 07/09/23 09:11) UNKNOWN digoxin [DIGOXIN] Allergy (Unknown, Verified 07/09/23 09:11) UNKNOWN labetalol [LABETALOL] Allergy (Unknown, Verified 07/09/23 09:11) MUSCLE PAIN Yeavfnu-KAY-EzK Reductase Inhibitor Adverse Reaction (Intermediate, Verified 07/09/23 09:11) Muscle Pain Medication List - Last Reconciled 07/09/23 by Kamini Puentes, RN amlodipine 10 mg PO DAILY atenolol 25 mg PO DAILY clopidogrel 75 mg PO DAILY evolocumab (Elle Romero) mg subcut isosorbide mononitrate ER 60 mg PO DAILY valsartan-hydrochlorothiazide 160-12.5 mg tabs PO [walker with seat Wheeled walker with seat ] warfarin 5 mg See Protocol PO DAILY Nursing Note INR: 2.4 in therapeutic range Medications and supplements reviewed No changes in health, diet, medications, or supplements, Denies any signs and symptoms of bleeding or bruising or clotting. 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
== END 2023-07-09 09:24 | disposition home or self-care (01) ==
LOC: HO.ACS 09:09
PROVIDERS: PCP Nurse Practitioner Family; Visit Provider Internal Medicine
DX: Z79.01 Long term (current) use of anticoagulants (principal)

== ENCOUNTER → 2023-07-09 09:09 | Outpatient (BNVA) | payer MEDICARE, SELFPAY | PROVIDERS: PCP Nurse Practitioner Family; Visit Provider Internal Medicine | DX: I48.19 Other persistent atrial fibrillation (principal); Z79.01 Long term (current) use of anticoagulants; Z51.81 Encounter for therapeutic drug level monitoring | CPT/HCPCS: 85610; 99211 ==

== ENCOUNTER 2023-08-06 09:20 | Outpatient (AMB) | payer MEDICARE, SELFPAY ==
--- NOTE | 2023-08-06 09:35 | MHC.OFFVISCO ---
Intake Intake Visit Reasons: Anticoagulation Allergies carvedilol [From COREG] Allergy (Severe, Verified 08/06/23 09:27) Palpitations metoprolol Allergy (Severe, Verified 08/06/23 09:27) Palpitations Sulfa (Sulfonamide Antibiotics) [SULFA (SULFONAMIDE ANTIBIOTICS)] Allergy (Severe, Verified 08/06/23 09:27) Redness of Skin doxycycline Allergy (Intermediate, Verified 08/06/23 09:27) Rash itch cilostazol Allergy (Unknown, Verified 08/06/23 09:27) UNKNOWN digoxin [DIGOXIN] Allergy (Unknown, Verified 08/06/23 09:27) UNKNOWN labetalol [LABETALOL] Allergy (Unknown, Verified 08/06/23 09:27) MUSCLE PAIN Ltzymmy-SZE-VoB Reductase Inhibitor Adverse Reaction (Intermediate, Verified 08/06/23 09:27) Muscle Pain Medication List - Last Reconciled 08/06/23 by Kamini Puentes, RN amlodipine 10 mg PO DAILY atenolol 25 mg PO DAILY clopidogrel 75 mg PO DAILY evolocumab (Elle Romero) mg subcut fluorouracil 5% 1 appl topical BID isosorbide mononitrate ER 60 mg PO DAILY triamcinolone acetonide 0.025% topical valsartan-hydrochlorothiazide 160-12.5 mg tabs PO [walker with seat Wheeled walker with seat ] warfarin 5 mg See Protocol PO DAILY Nursing Note INR: 2.0 in therapeutic range Medications and supplements reviewed No changes in health, diet, medications, or supplements, Denies any signs and symptoms of bleeding or bruising or clotting. Bleeding, bruising, clotting discussed Nutritional guidance given Dose: keep same dose 5mg x 2 days/ 2.5mg x 5 days F/U INR: 1 month Patient verbalizes understanding of instructions given Anti-Coag Initial Assessment Social Hx Patient Tobacco Use Status: Never used Tobacco alcohol intake: current Alcohol intake frequency: a few times a week Coding Level of Care Code Est Patient Level 1 Diagnoses Current use of anticoagulant therapy Z79.01 Assessment & Plan Assessment & Plan (1) Current use of anticoagulant therapy: Code(s): Z79.01 - FDC (current) use of anticoagulants Category: Medical
== END 2023-08-06 09:37 | disposition home or self-care (01) ==
LOC: HO.ACS 09:20
PROVIDERS: PCP Nurse Practitioner Family; Visit Provider Internal Medicine
DX: Z79.01 Long term (current) use of anticoagulants (principal)

== ENCOUNTER → 2023-08-06 09:20 | Outpatient (BNVA) | payer MEDICARE, SELFPAY | PROVIDERS: PCP Nurse Practitioner Family; Visit Provider Internal Medicine | DX: I48.19 Other persistent atrial fibrillation (principal); Z79.01 Long term (current) use of anticoagulants; Z51.81 Encounter for therapeutic drug level monitoring | CPT/HCPCS: 85610; 99211 ==

== ENCOUNTER 2023-09-03 09:28 | Outpatient (AMB) | payer MEDICARE, SELFPAY ==
[2023-09-03 09:39] LABS: Prothrombin Time Whole Bld POC 37.7 sec (11.1-13.5); ~PT, ~INR - Anti Coag Clinic 3.1 (0.9-1.1)
--- NOTE | 2023-09-03 09:49 | MHC.OFFVISCO ---
Intake Intake Visit Reasons: Anticoagulation Allergies carvedilol [From COREG] Allergy (Severe, Verified 09/03/23 09:33) Palpitations metoprolol Allergy (Severe, Verified 09/03/23 09:33) Palpitations Sulfa (Sulfonamide Antibiotics) [SULFA (SULFONAMIDE ANTIBIOTICS)] Allergy (Severe, Verified 09/03/23 09:33) Redness of Skin doxycycline Allergy (Intermediate, Verified 09/03/23 09:33) Rash itch cilostazol Allergy (Unknown, Verified 09/03/23 09:33) UNKNOWN digoxin [DIGOXIN] Allergy (Unknown, Verified 09/03/23 09:33) UNKNOWN labetalol [LABETALOL] Allergy (Unknown, Verified 09/03/23 09:33) MUSCLE PAIN Rqgihzh-KVD-ByX Reductase Inhibitor Adverse Reaction (Intermediate, Verified 09/03/23 09:33) Muscle Pain Medication List - Last Reconciled 09/03/23 by Raeann Pacheco, RN amlodipine 10 mg PO DAILY atenolol 25 mg PO DAILY clopidogrel 75 mg PO DAILY evolocumab (Elle Romero) mg subcut fluorouracil 5% 1 appl topical BID isosorbide mononitrate ER 60 mg PO DAILY triamcinolone acetonide 0.025% topical valsartan-hydrochlorothiazide 160-12.5 mg tabs PO [walker with seat Wheeled walker with seat ] warfarin 5 mg See Protocol PO DAILY Nursing Note INR: 3.1 in therapeutic range Medications and supplements reviewed No changes in health, diet, or medications . Pt stated he has had unplanned weight loss about 10 lbs over 1 year. States he has had bleeding hemorrhoids recently and stopped. Bleeding, bruising, clotting discussed Nutritional guidance given. pt to have greens today, spinach per pt. Dose: Due to recent hemorrhoid bleeding, switch 5 mg to tomorrow and 2.5mg today. F/U INR: 1 month. 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
== END 2023-09-03 10:01 | disposition home or self-care (01) ==
LOC: HO.ACS 09:28
PROVIDERS: PCP Nurse Practitioner Family; Visit Provider Internal Medicine
DX: Z79.01 Long term (current) use of anticoagulants (principal)

== ENCOUNTER → 2023-09-03 09:28 | Outpatient (BNVA) | payer MEDICARE, SELFPAY | PROVIDERS: PCP Nurse Practitioner Family; Visit Provider Internal Medicine | DX: I48.19 Other persistent atrial fibrillation (principal); Z51.81 Encounter for therapeutic drug level monitoring; Z79.01 Long term (current) use of anticoagulants | CPT/HCPCS: 85610; 99211 ==

== ENCOUNTER 2023-10-01 08:28 | Outpatient (AMB) | payer MEDICARE, SELFPAY ==
[2023-10-01 08:39] LABS: Prothrombin Time Whole Bld POC 34.2 sec (11.1-13.5); ~PT, ~INR - Anti Coag Clinic 2.9 (0.9-1.1)
--- NOTE | 2023-10-01 08:47 | MHC.OFFVISCO ---
Intake Intake Visit Reasons: Anticoagulation Allergies carvedilol [From COREG] Allergy (Severe, Verified 10/01/23 08:33) Palpitations metoprolol Allergy (Severe, Verified 10/01/23 08:33) Palpitations Sulfa (Sulfonamide Antibiotics) [SULFA (SULFONAMIDE ANTIBIOTICS)] Allergy (Severe, Verified 10/01/23 08:33) Redness of Skin doxycycline Allergy (Intermediate, Verified 10/01/23 08:33) Rash itch cilostazol Allergy (Unknown, Verified 10/01/23 08:33) UNKNOWN digoxin [DIGOXIN] Allergy (Unknown, Verified 10/01/23 08:33) UNKNOWN labetalol [LABETALOL] Allergy (Unknown, Verified 10/01/23 08:33) MUSCLE PAIN Udaogel-VMP-BdG Reductase Inhibitor Adverse Reaction (Intermediate, Verified 10/01/23 08:33) Muscle Pain Nursing Note INR: 2.9 in therapeutic range of 2-3 Medications and supplements reviewed No changes in diet, medications, or supplements, Pt states he has been losing weight, approx 10lbs and has an appt with PCP today. States no appetite. Denies any other complaints. Denies any signs and symptoms of bleeding or bruising or clotting. Bleeding, bruising, clotting discussed Nutritional guidance given Dose: continue same dose of 5mg X2days and 2.5mg all other days. 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
== END 2023-10-01 08:45 | disposition home or self-care (01) ==
LOC: HO.ACS 08:28
PROVIDERS: PCP Nurse Practitioner Family; Visit Provider Internal Medicine
DX: Z79.01 Long term (current) use of anticoagulants (principal)

== ENCOUNTER → 2023-10-01 08:28 | Outpatient (BNVA) | payer MEDICARE, SELFPAY | PROVIDERS: PCP Nurse Practitioner Family; Visit Provider Internal Medicine | DX: I48.19 Other persistent atrial fibrillation (principal); Z79.01 Long term (current) use of anticoagulants; Z51.81 Encounter for therapeutic drug level monitoring | CPT/HCPCS: 85610; 99211 ==

== ENCOUNTER 2023-10-11 11:03 | Outpatient (AMB) | payer MEDICARE, SELFPAY ==
--- NOTE | 2023-10-11 11:04 | HO.NEPHOV_ITS ---
HPI HPI Comments History of Present Illness Details Ifeanyi is well known to me for last several years. 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 In 2011 coronary angiogram showed 60% mid LAD 90% distal LAD 50% 1st diagonal and 84% obtuse marginal. The RCA was totally occluded. Repeat CT in 2017 revealed 90% stenosis mid LAD moderate diffuse distal LAD and left circumflex 80-90% distal stenosis and chronically occluded RCA. He was deemed not to be a candidate for CABG. 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 Blood pressure has been difficult to control. He has been monitoring his blood pressure at home Home readings have been acceptable. He has generalized body pain otherwise no new issues today. He has been intolerant to statins however he has been able to tolerate Repatha [facility] Medical History (Updated 06/14/23 @ 13:13 by Luis Gutierrez MD) Carotid stenosis AAA (abdominal aortic aneurysm) without rupture Vertigo H/O Villa's palsy Permanent atrial fibrillation Post herpetic neuralgia HTN (hypertension) Thrombocytopenia CKD (chronic kidney disease) CVA (cerebral vascular accident) PVD (peripheral vascular disease) CAD (coronary artery disease) Afib Surgical History H/O prostatectomy Stented coronary artery Social History Housing: House Alcohol intake: current Alcohol intake frequency: a few times a week Patient Tobacco Use Status: Never used Tobacco e-Cigarette/Vaping Use: Never Used Second Hand Smoke Exposure: No service: Yes Current occupational status: retired Cognitive needs: No Hearing needs: No Vision needs: No Vital Signs 10/11/23 11:05 10/11/23 11:20 Height 5 ft 11 in Weight 186 lb 4 oz BMI 26.0 BP 150/78 H 130/70 Blood Pressure Location Rt femoral Rt brachial Position Sitting Sitting Pulse 97 Pulse Source Pulse Oximeter Pulse Oximetry (%) 77 L Oxygen Delivery Method Room Air Physical Exam Vital Signs: Last Vital Signs Pulse 97 10/11/23 11:05 BP 150/78 H 10/11/23 11:05 Pulse Ox 77 L 10/11/23 11:05 Oxygen Delivery Method Room Air 10/11/23 11:05 BMI result Body Mass Index 26.0 Const General: comfortable Nutritional Appearance: well nourished Orientation/consciousness: patient oriented x3 HEENT Head: No normal to inspection Mouth: moist mucous membranes Neck Neck: Yes supple and Yes no JVD Resp Auscultation: clear to auscultation bilaterally, no rales and rub present Cardio Jugular venous distension: no JVD Palpation: no palpable S3 and no palpable S4 Heart sounds: no rubs GI Palpation (GI): Soft to palpation and nontender Percussion: No Fluid wave present General: Yes no CVA tenderness Back/Spine/Pelvis Back: no CVA tenderness Skin General skin exam: no rashes or lesions noted Neuro General: patient oriented x3 Extrem General: Yes no pedal edema and No clubbing Assessment & Plan Assessment & Plan (1) HTN (hypertension): Code(s): I10 - Essential (primary) hypertension Plan: Resistant hypertension history of significant artero sclerosis. Ifeanyi has renovascular disease. Overall blood pressure has been acceptable. I will continue with current antihypertensive medications. Keep on low-sodium diet. Encouraged to keep moderate blood pressure at home and to call me if the systolic blood pressure stays above 140 mmHg (2) CKD (chronic kidney disease): Code(s): N18.9 - Chronic kidney disease, unspecified Plan CKD in a setting of longstanding hypertension. He has underlying renovascular disease. At present renal functions close to baseline. Goal is to slow the progression of renal disease. Continue to avoid nephrotoxic agents. Avoid hypotensive episodes. Will continue monitor renal function closely since he is at high risk for ongoing renal injury and LUISANA. Orders: Orders Comprehensive Met. Panel Today N18.9 - Chronic kidney disease, unspecified Complete Blood Count Auto Diff Today N18.30 - Chronic kidney disease, stage 3 unspecified Coding Level of Care Code Est Pt Level 4 (29756) Diagnoses HTN (hypertension) I10 CKD (chronic kidney disease) N18.9 Results Reviewed Results Reviewed: Pending Nephrology Results: No Data to Display
[2023-10-11 11:05] VITALS: BP 150/78; PULSE 97; O2SAT 77; BMI 26.0
[2023-10-11 11:20] VITALS: BP 130/70
== END 2023-10-11 11:25 | disposition home or self-care (01) ==
PROVIDERS: PCP Nurse Practitioner Family; Visit Provider Internal Medicine Hypertension Specialist
DX: I12.9 Hypertensive chronic kidney disease with stage 1 through stage 4 chronic kidney disease, or unspecified chronic kidney disease (principal); N18.9 Chronic kidney disease, unspecified
CPT/HCPCS: 99214

== ENCOUNTER → 2023-10-11 11:03 | Outpatient (BNVA) | payer MEDICARE, SELFPAY | PROVIDERS: PCP Nurse Practitioner Family; Visit Provider Internal Medicine Hypertension Specialist | DX: I12.9 Hypertensive chronic kidney disease with stage 1 through stage 4 chronic kidney disease, or unspecified chronic kidney disease (principal); N18.9 Chronic kidney disease, unspecified | CPT/HCPCS: 99212 ==

== ENCOUNTER 2023-10-11 11:31 | Outpatient (REF) | payer MEDICARE, SELFPAY ==
[2023-10-11 13:18] LABS: MANUAL DIFF FLAG NO
[2023-10-11 13:34] LABS: Basophils Absolute Auto 0.1 X10*3/uL (0.0-0.2); Basophils Percent Auto 0.6 % (0-2); Eosinophils Absolute Auto 0.1 X10*3/uL (0.0-0.4); Eosinophils Percent Auto 1.4 % (0-4); Hemoglobin 12.5 g/dl (14.0-18.0); Imm Gran Abs Auto 0.03 X10*3/uL (0.00-0.03); Imm Gran Pct Auto 0.3 % (0.0-0.4); Lymphocytes Absolute Auto 1.5 X10*3/uL (1.2-4.9); Lymphocytes Percent Auto 16.4 % (20-40); Mean Corpuscular HGB Conc 32.9 g/dl (31.0-36.0); Mean Corpuscular Hemoglobin 29.3 pg (27.0-33.0); Monocytes Absolute Auto 0.8 X10*3/uL (0.1-1.2); Monocytes Percent Auto 8.7 % (2-11); Neutrophils Absolute Auto 6.4 x10*3/uL (2.0-8.3); Neutrophils Percent Auto 72.6 % (45-73); Platelet Count 230 X10*3/uL (160-400); Red Blood Count 4.27 X10*6/uL (4.60-5.80); Red Cell Distribution Width 16.6 % (11.0-16.0); White Blood Count 8.9 X10*3/uL (4.8-10.8)
[2023-10-11 13:51] LABS: Alanine Aminotransferase 15 U/L (0-40); Alkaline Phosphatase 136 U/L (39-117); Anion Gap 15 (12-20); Aspartate Amino Transferase 22 U/L (5-37); Bilirubin Total 0.9 mg/dL (0.0-1.0); Blood Urea Nitrogen 14 mg/dL (9-16); Calcium 9.6 mg/dL (8.4-10.2); Carbon Dioxide 26 mmol/L (22-29); Chloride 104 mmol/L (96-108); Estimated Glomerular Filt Rate > 60; Glucose Random 125 mg/dL (60-115); Potassium 4.1 mmol/L (3.3-5.1); Sodium 141 mmol/L (135-145); Total Protein 8.1 g/dL (6.5-8.0)
== END 2023-10-11 11:32 | disposition home or self-care (01) ==
LOC: HO.10HDL 11:31
PROVIDERS: Visit Provider Internal Medicine Hypertension Specialist
DX: N18.30 Chronic kidney disease, stage 3 unspecified (principal)
CPT/HCPCS: 36415; 80053; 85025

== ENCOUNTER 2023-10-29 09:26 | Outpatient (AMB) | payer MEDICARE, SELFPAY ==
[2023-10-29 09:45] LABS: ~PT, ~INR - Anti Coag Clinic 2.6 (0.9-1.1)
--- NOTE | 2023-10-29 09:47 | MHC.OFFVISCO ---
Intake Intake Visit Reasons: Anticoagulation Allergies carvedilol [From COREG] Allergy (Severe, Verified 10/29/23 09:28) Palpitations metoprolol Allergy (Severe, Verified 10/29/23 09:28) Palpitations Sulfa (Sulfonamide Antibiotics) [SULFA (SULFONAMIDE ANTIBIOTICS)] Allergy (Severe, Verified 10/29/23 09:28) Redness of Skin doxycycline Allergy (Intermediate, Verified 10/29/23 09:28) Rash itch cilostazol Allergy (Unknown, Verified 10/29/23 09:28) UNKNOWN digoxin [DIGOXIN] Allergy (Unknown, Verified 10/29/23 09:28) UNKNOWN labetalol [LABETALOL] Allergy (Unknown, Verified 10/29/23 09:28) MUSCLE PAIN Iglxgnf-FFC-VbF Reductase Inhibitor Adverse Reaction (Intermediate, Verified 10/29/23 09:28) Muscle Pain Medication List - Last Reconciled 10/29/23 by Raeann Pacheco RN amlodipine 10 mg PO DAILY atenolol 25 mg PO DAILY clopidogrel 75 mg PO DAILY evolocumab (Elle Romero) mg subcut fluorouracil 5% 1 appl topical BID isosorbide mononitrate ER 60 mg PO DAILY triamcinolone acetonide 0.025% topical valsartan-hydrochlorothiazide 160-12.5 mg tabs PO [walker with seat Wheeled walker with seat ] warfarin 5 mg See Protocol PO DAILY Nursing Note INR: 2.6 in therapeutic range of 2-3 Medications and supplements reviewed no change No changes in health, diet, medications, or supplements, Denies any signs and symptoms of bleeding or bruising or clotting. Bleeding, bruising, clotting discussed Nutritional guidance given to balance reds and greens Dose: 5 mg X 2 days and 2.5mg X 5 days F/U INR: 4 weeks Patient verbalizes understanding of instructions given Anti-Coag Initial Assessment Social Hx Patient Tobacco Use Status: Never used Tobacco alcohol intake: current Alcohol intake frequency: a few times a week Coding Level of Care Code Est Patient Level 1 Diagnoses Current use of anticoagulant therapy Z79.01 Results AMB INR Fingerstick AMB INR Fingerstick 2.6 Last Edit by Raeann Pacheco, SHARATH on 10/29/23 09:39 interface delay Assessment & Plan Assessment & Plan (1) Current use of anticoagulant therapy: Code(s): Z79.01 - longterm (current) use of anticoagulants Category: Medical
== END 2023-10-29 10:06 | disposition home or self-care (01) ==
LOC: HO.ACS 09:26
PROVIDERS: PCP Nurse Practitioner Family; Visit Provider Internal Medicine
DX: Z79.01 Long term (current) use of anticoagulants (principal)

== ENCOUNTER → 2023-10-29 09:26 | Outpatient (BNVA) | payer MEDICARE, SELFPAY | PROVIDERS: PCP Nurse Practitioner Family; Visit Provider Internal Medicine | DX: I48.19 Other persistent atrial fibrillation (principal); Z79.01 Long term (current) use of anticoagulants; Z51.81 Encounter for therapeutic drug level monitoring | CPT/HCPCS: 85610; 99211 ==

== ENCOUNTER 2023-10-30 10:07 | Outpatient (AMB) | payer MEDICARE, SELFPAY ==
--- NOTE | 2023-10-30 10:26 | MHC.PC.OV ---
Vital Signs 10/30/23 10:29 Height 5 ft 11 in Weight 180 lb BMI 25.1 BP 120/80 Blood Pressure Location Rt brachial Position Sitting Pulse 78 Pulse Source Pulse Oximeter Pulse Oximetry (%) 98 Oxygen Delivery Method Room Air Intake Visit Reasons: EP F/U Anticoag Allergies carvedilol [From COREG] Allergy (Severe, Verified 10/30/23 10:57) Palpitations metoprolol Allergy (Severe, Verified 10/30/23 10:57) Palpitations Sulfa (Sulfonamide Antibiotics) [SULFA (SULFONAMIDE ANTIBIOTICS)] Allergy (Severe, Verified 10/30/23 10:57) Redness of Skin doxycycline Allergy (Intermediate, Verified 10/30/23 10:57) Rash itch cilostazol Allergy (Unknown, Verified 10/30/23 10:57) UNKNOWN digoxin [DIGOXIN] Allergy (Unknown, Verified 10/30/23 10:57) UNKNOWN labetalol [LABETALOL] Allergy (Unknown, Verified 10/30/23 10:57) MUSCLE PAIN Nraelsr-KZG-TuU Reductase Inhibitor Adverse Reaction (Intermediate, Verified 10/30/23 10:57) Muscle Pain Medication List - Last Reconciled 10/30/23 by PATRICIO Shore- amlodipine 10 mg PO DAILY atenolol 25 mg PO DAILY clopidogrel 75 mg PO DAILY evolocumab (Elle Romero) mg subcut fluorouracil 5% 1 appl topical BID isosorbide mononitrate ER 60 mg PO DAILY triamcinolone acetonide 0.025% topical valsartan-hydrochlorothiazide 160-12.5 mg tabs PO [walker with seat Wheeled walker with seat ] warfarin 5 mg See Protocol PO DAILY Tobacco use date assessed: 10/30/23 Fall risk assessment: No Falls in past year Last assessed Fall Risk: 10/30/23 Dental Screening Dental Screen Date: 10/30/23 Did you have a dental visit in the last 12 months?: No Did you have a dental problem in the last 6 months where you did not have access to dental care?: No Was dental information given to patient?: Patient has dentist HPI EP F/U Anticoag HPI Details HTN: Blood pressure is managed with amlodipine 10mg, atenolol 25mg, isosorbide mononitrate 60mg, and valsartan-hydrochlorothiazide 160-12.5mg. Denies chest pain, shortness of breath, headache, dizziness, and blurred vision. Pt c/o cold intolerance. He reports feeling cold frequently when sitting still. Will order labs. Pt follows up with nephrology and dermatology. [facility] Medical History (Updated 10/30/23 @ 10:52 by TRAVON Shore) Carotid stenosis AAA (abdominal aortic aneurysm) without rupture Vertigo H/O Villa's palsy Permanent atrial fibrillation Post herpetic neuralgia HTN (hypertension) Thrombocytopenia CKD (chronic kidney disease) CVA (cerebral vascular accident) PVD (peripheral vascular disease) CAD (coronary artery disease) Afib Surgical History H/O prostatectomy Stented coronary artery Social History Housing: House Alcohol intake: current Alcohol intake frequency: a few times a week Patient Tobacco Use Status: Never used Tobacco e-Cigarette/Vaping Use: Never Used Second Hand Smoke Exposure: No service: Yes Current occupational status: retired Cognitive needs: No Hearing needs: No Vision needs: No Questionnaire PHQ-9 Over the last 2 weeks, how often have you been bothered by any of the following problems? 11219 - PHQ-9 Billing: Patient declined-do not bill Source: Developed by Drs. Rony Turner, Tish Calderon, Arnulfo Clark and colleagues, with an educational tien from [employer] Thrive Questionnaire Date Thrive assessed: 10/30/23 What is your living situation today?: I choose not to answer this question Within the past 12 months, did the food you bought not last and you didn't have the money to get more?: I choose not to answer this question Within the past 12 months, did you worry whether your food would run out before you got money to buy more?: I choose not to answer this question Do you have trouble paying for medicines?: I choose not to answer this question Do you have trouble getting transportation to medical appointments?: I choose not to answer this question Do you have trouble paying your heating and electricity bill?: I choose not to answer this question Do you have trouble taking care of your child, family member or friend?: I choose not to answer this question Do you have trouble with day-to-day activities such as bathing, preparing meals, shopping, managing finances, etc.?: I choose not to answer this question Are you currently unemployed and looking for a job?: I choose not to answer this question Are you interested in more education?: I choose not to answer this question Currently or been in a relationship where the following occur: I choose not to answer this question THRIVE Score: 0 AUDIT C Alcohol Use Questionnaire (AUDIT-C) 1. How often do you have a drink containing alcohol?: Never 3. How often do you have six or more drinks on one occasion?: Never Total Score: 0 Score Reviewed/Action Taken: No YARED-7 AMB Questionnaire YARED-7 Date YARED - 7 assessed: 10/30/23 Source: Developed by Drs. Rony Turner, Tish Calderon, Arnulfo Clark and colleagues, with an educational tien from [employer] YARED-7 Assessment Billing YARED-7 Assessment Tool: pt declined-do not bill Review of Systems Const Reports as per HPI Physical exam (Primary Care) Vital Signs: Last Vital Signs Pulse 78 10/30/23 10:29 BP 120/80 10/30/23 10:29 Pulse Ox 98 10/30/23 10:29 Oxygen Delivery Method Room Air 10/30/23 10:29 BMI result Body Mass Index 25.1 Tobacco/Smoking Status: Tobacco use Status Tobacco use date assessed 10/30/23 10/30/23 10:32 Patient Tobacco Use Status Never used Tobacco 10/30/23 10:27 e-Cigarette/Vaping Use Never Used 10/30/23 10:27 Thrive Assessment: Date of Thrive Assessment Date Thrive assessed 10/30/23 10/30/23 10:32 Currently or been in a relationship where the following occur: I choose not to answer this question Const General: cooperative Orientation/consciousness: patient oriented x3 Resp Other: faint crackles to bases Effort & Inspection: normal respiratory effort Cardio Rate: regular rate Rhythm: regular rhythm Heart sounds: S1 normal heart sound present, S2 normal heart sound present and Murmur heart sound present systolic Neuro General: patient oriented x3 Psych Appearance: grossly normal Mental Status: mental status grossly normal Speech and movement: Normal speech and movement present Affect: normal affect Attitude: cooperative Thought process: Normal thought process present Thought content: Normal thought content present Insight: Good insight present (Psych) Judgement: Good judgement present (Psych) Assessment and Plan Assessment & Plan (1) Cold intolerance: Code(s): R68.89 - Other general symptoms and signs Plan: Labs ordered (2) HTN (hypertension): Code(s): I10 - Essential (primary) hypertension Plan: stable Plan The patient agreed to the use of a medical review specialist for this encounter. Scribed for TRAVON Berry by Pam Ohara medical review specialist, on 10/30/2023 at 10:55 EST. Orders: Orders Comprehensive [place]. Panel Fast Today R68.89 - Other general symptoms and signs TSH reflex Free T4 Today R68.89 - Other general symptoms and signs Complete Blood Count Auto Diff Today R68.89 - Other general symptoms and signs Lipid Panel Today R68.89 - Other general symptoms and signs UA CC w/rflx Micro + Cult Today R68.89 - Other general symptoms and signs Coding Level of Care Code Est Pt Level 3 (41843) Diagnoses Cold intolerance R68. HTN (hypertension) I10
[2023-10-30 10:29] VITALS: BP 120/80; PULSE 78; O2SAT 98; BMI 25.1
== END 2023-10-30 11:11 | disposition home or self-care (01) ==
PROVIDERS: PCP Nurse Practitioner Family; Visit Provider Nurse Practitioner Family
DX: R68.89 Other general symptoms and signs (principal); I10 Essential (primary) hypertension
CPT/HCPCS: 99213

== ENCOUNTER 2023-11-26 09:28 | Outpatient (AMB) | payer MEDICARE, SELFPAY ==
[2023-11-26 09:45] LABS: Prothrombin Time Whole Bld POC 21.8 sec (11.1-13.5); ~PT, ~INR - Anti Coag Clinic 1.8 (0.9-1.1)
--- NOTE | 2023-11-26 09:56 | MHC.OFFVISCO ---
Intake Intake Visit Reasons: Anticoagulation Allergies carvedilol [From COREG] Allergy (Severe, Verified 11/26/23 09:38) Palpitations metoprolol Allergy (Severe, Verified 11/26/23 09:38) Palpitations Sulfa (Sulfonamide Antibiotics) [SULFA (SULFONAMIDE ANTIBIOTICS)] Allergy (Severe, Verified 11/26/23 09:38) Redness of Skin doxycycline Allergy (Intermediate, Verified 11/26/23 09:38) Rash itch cilostazol Allergy (Unknown, Verified 11/26/23 09:38) UNKNOWN digoxin [DIGOXIN] Allergy (Unknown, Verified 11/26/23 09:38) UNKNOWN labetalol [LABETALOL] Allergy (Unknown, Verified 11/26/23 09:38) MUSCLE PAIN Rkcmjre-DNO-WlF Reductase Inhibitor Adverse Reaction (Intermediate, Verified 11/26/23 09:38) Muscle Pain Medication List - Last Reconciled 11/26/23 by Kamini Puentes RN amlodipine 10 mg PO DAILY atenolol 25 mg PO DAILY clopidogrel 75 mg PO DAILY evolocumab (Elle Romero) mg subcut fluorouracil 5% 1 appl topical BID isosorbide mononitrate ER 60 mg PO DAILY triamcinolone acetonide 0.025% topical valsartan-hydrochlorothiazide 160-12.5 mg tabs PO [walker with seat Wheeled walker with seat ] warfarin 5 mg See Protocol PO DAILY Nursing Note INR 1.8 out of therapeutic range Medications and supplements reviewed Patient status: S/P FALL IN YARD MECHANICAL YARD STRUCTURE - NO APPARENT INJURY OR BRUISING, may have had too much chocolate and cabbage, Medications or supplements: taking tylenol prn Diet: good Denies any signs and symptoms of bleeding or clotting or unusual bruising Bleeding, bruising, clotting discussed Nutritional guidance given: avoid greens today, eat orange or reds to help raise the INR Dose: 5mg x 3 days this week then resume 5mg x 2 days / 2.5mg x 5 days F/U INR Date: 2 weeks , if therapuetic go back to 4 weeks ?? Patient verbalizing understanding of instructions given. Anti-Coag Initial Assessment Social Hx Patient Tobacco Use Status: Never used Tobacco alcohol intake: current Alcohol intake frequency: a few times a week Coding Level of Care Code Est Patient Level 1 Diagnoses Current use of anticoagulant therapy Z79.01 Results AMB INR Fingerstick AMB INR Fingerstick 1.8 Last Edit by Kamini Puentes RN on 11/26/23 09:47 MANUAL ENTRY Assessment & Plan Assessment & Plan (1) Current use of anticoagulant therapy: Code(s): Z79.01 - long term care social worker (current) use of anticoagulants Category: Medical
== END 2023-11-26 10:01 | disposition home or self-care (01) ==
LOC: HO.ACS 09:28
PROVIDERS: PCP Nurse Practitioner Family; Visit Provider Internal Medicine
DX: Z79.01 Long term (current) use of anticoagulants (principal)

== ENCOUNTER → 2023-11-26 09:28 | Outpatient (BNVA) | payer MEDICARE, SELFPAY | PROVIDERS: PCP Nurse Practitioner Family; Visit Provider Internal Medicine | DX: I48.19 Other persistent atrial fibrillation (principal); Z51.81 Encounter for therapeutic drug level monitoring; Z79.01 Long term (current) use of anticoagulants | CPT/HCPCS: 85610; 99211 ==

== ENCOUNTER 2023-12-10 09:43 | Outpatient (AMB) | payer MEDICARE, SELFPAY ==
--- NOTE | 2023-12-10 09:48 | MHC.OFFVISCO ---
Intake Intake Visit Reasons: Anticoagulation Allergies carvedilol [From COREG] Allergy (Severe, Verified 12/10/23 09:44) Palpitations metoprolol Allergy (Severe, Verified 12/10/23 09:44) Palpitations Sulfa (Sulfonamide Antibiotics) [SULFA (SULFONAMIDE ANTIBIOTICS)] Allergy (Severe, Verified 12/10/23 09:44) Redness of Skin doxycycline Allergy (Intermediate, Verified 12/10/23 09:44) Rash itch cilostazol Allergy (Unknown, Verified 12/10/23 09:44) UNKNOWN digoxin [DIGOXIN] Allergy (Unknown, Verified 12/10/23 09:44) UNKNOWN labetalol [LABETALOL] Allergy (Unknown, Verified 12/10/23 09:44) MUSCLE PAIN Auqtrpx-IMR-CaC Reductase Inhibitor Adverse Reaction (Intermediate, Verified 12/10/23 09:44) Muscle Pain Medication List - Last Reconciled 12/10/23 by Briana Villagomez RN amlodipine 10 mg PO DAILY atenolol 25 mg PO DAILY clopidogrel 75 mg PO DAILY evolocumab (Elle Romero) mg subcut fluorouracil 5% 1 appl topical BID isosorbide mononitrate ER 60 mg PO DAILY triamcinolone acetonide 0.025% topical valsartan-hydrochlorothiazide 160-12.5 mg tabs PO [walker with seat Wheeled walker with seat ] warfarin 5 mg See Protocol PO DAILY Nursing Note INR: 2.1- in therapeutic range- 2-3 Medications and supplements reviewed No changes in health, diet, medications, or supplements, Denies any signs and symptoms of bleeding or bruising or clotting. Bleeding, bruising, clotting discussed Nutritional guidance given Dose: 5mg x 2, 2.5mg x 5 F/U INR: pt req 4 weeks Patient verbalizes understanding of instructions given Anti-Coag Initial Assessment Social Hx Patient Tobacco Use Status: Never used Tobacco alcohol intake: current Alcohol intake frequency: a few times a week Coding Level of Care Code Est Patient Level 1 Diagnoses Current use of anticoagulant therapy Z79.01 Results AMB INR Fingerstick AMB INR Fingerstick 2.1 Last Edit by Briana Villagomez RN on 12/10/23 09:50 Assessment & Plan Assessment & Plan (1) Current use of anticoagulant therapy: Code(s): Z79.01 - rose grading 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
[2023-12-10 09:50] LABS: Prothrombin Time Whole Bld POC 24.8 sec (11.1-13.5); ~PT, ~INR - Anti Coag Clinic 2.1 (0.9-1.1)
== END 2023-12-10 09:55 | disposition home or self-care (01) ==
LOC: HO.ACS 09:43
PROVIDERS: PCP Nurse Practitioner Family; Visit Provider Internal Medicine
DX: Z79.01 Long term (current) use of anticoagulants (principal)

== ENCOUNTER → 2023-12-10 09:43 | Outpatient (BNVA) | payer MEDICARE, SELFPAY | PROVIDERS: PCP Nurse Practitioner Family; Visit Provider Internal Medicine | DX: I48.19 Other persistent atrial fibrillation (principal); Z79.01 Long term (current) use of anticoagulants; Z51.81 Encounter for therapeutic drug level monitoring | CPT/HCPCS: 85610; 99211 ==

== ENCOUNTER 2023-12-26 08:18 | Outpatient (REF) | payer MEDICARE, SELFPAY ==
[2023-12-26 09:20] LABS: MANUAL DIFF FLAG NO
[2023-12-26 09:43] LABS: Basophils Absolute Auto 0.1 X10*3/uL (0.0-0.2); Basophils Percent Auto 0.7 % (0-2); Eosinophils Absolute Auto 0.1 X10*3/uL (0.0-0.4); Eosinophils Percent Auto 1.6 % (0-4); Hematocrit 38.5 % (42.0-52.0); Hemoglobin 12.5 g/dl (14.0-18.0); Imm Gran Abs Auto 0.03 X10*3/uL (0.00-0.03); Imm Gran Pct Auto 0.4 % (0.0-0.4); Lymphocytes Absolute Auto 1.2 X10*3/uL (1.2-4.9); Lymphocytes Percent Auto 15.5 % (20-40); Mean Corpuscular HGB Conc 32.5 g/dl (31.0-36.0); Mean Corpuscular Hemoglobin 28.7 pg (27.0-33.0); Mean Corpuscular Volume 88.5 fL (80.0-98.0); Mean Platelet Volume 10.1 fL (9.4-12.4); Monocytes Absolute Auto 0.6 X10*3/uL (0.1-1.2); Monocytes Percent Auto 8.4 % (2-11); Neutrophils Absolute Auto 5.4 x10*3/uL (2.0-8.3); Neutrophils Percent Auto 73.4 % (45-73); Platelet Count 217 X10*3/uL (160-400); Red Blood Count 4.35 X10*6/uL (4.60-5.80); White Blood Count 7.4 X10*3/uL (4.8-10.8)
[2023-12-26 10:35] LABS: Anion Gap 11 (12-20); Blood Urea Nitrogen 17 mg/dL (9-16); Calcium 9.2 mg/dL (8.4-10.2); Carbon Dioxide 26 mmol/L (22-29); Chloride 106 mmol/L (96-108); Estimated Glomerular Filt Rate > 60; Glucose Random 111 mg/dL (60-115); Sodium 139 mmol/L (135-145)
[2023-12-30 17:59] LABS: NT-proBNP 1334 pg/mL (<450)
== END 2023-12-26 08:19 | disposition home or self-care (01) ==
LOC: HO.HMGCLDS 08:18
PROVIDERS: PCP Nurse Practitioner Family; Visit Provider Nurse Practitioner Family
DX: I11.0 Hypertensive heart disease with heart failure (principal); I50.9 Heart failure, unspecified; I35.0 Nonrheumatic aortic (valve) stenosis; I25.10 Atherosclerotic heart disease of native coronary artery without angina pectoris
CPT/HCPCS: 36415; 80048; 83880; 85025

== ENCOUNTER 2024-01-07 09:29 | Outpatient (AMB) | payer MEDICARE, SELFPAY ==
[2024-01-07 09:40] LABS: Prothrombin Time Whole Bld POC 30.3 sec (11.1-13.5); ~PT, ~INR - Anti Coag Clinic 2.5 (0.9-1.1)
--- NOTE | 2024-01-07 09:45 | MHC.OFFVISCO ---
Intake Intake Visit Reasons: Anticoagulation Allergies carvedilol [From COREG] Allergy (Severe, Verified 01/07/24 09:30) Palpitations metoprolol Allergy (Severe, Verified 01/07/24 09:30) Palpitations Sulfa (Sulfonamide Antibiotics) [SULFA (SULFONAMIDE ANTIBIOTICS)] Allergy (Severe, Verified 01/07/24 09:30) Redness of Skin doxycycline Allergy (Intermediate, Verified 01/07/24 09:30) Rash itch cilostazol Allergy (Unknown, Verified 01/07/24 09:30) UNKNOWN digoxin [DIGOXIN] Allergy (Unknown, Verified 01/07/24 09:30) UNKNOWN labetalol [LABETALOL] Allergy (Unknown, Verified 01/07/24 09:30) MUSCLE PAIN Hqskfuc-RWW-TgE Reductase Inhibitor Adverse Reaction (Intermediate, Verified 01/07/24 09:30) Muscle Pain Medication List - Last Reconciled 01/07/24 by Kamini Puentes, RN amlodipine 10 mg PO DAILY atenolol 25 mg PO DAILY clopidogrel 75 mg PO DAILY evolocumab (Elle Romero) mg subcut fluorouracil 5% 1 appl topical BID furosemide 20 mg PO DAILY isosorbide mononitrate ER 60 mg PO DAILY triamcinolone acetonide 0.025% topical valsartan-hydrochlorothiazide 160-12.5 mg tabs PO [walker with seat Wheeled walker with seat ] warfarin 5 mg See Protocol PO DAILY Nursing Note INR: 2.5 in therapeutic range Medications and supplements reviewed No changes in health, diet, medications, or supplements, Denies any signs and symptoms of bleeding or bruising or clotting. Bleeding, bruising, clotting discussed Nutritional guidance given Dose: 5MG X 2 DAYS/ 2.5MG X 5 DAYS F/U INR: 4 WEEKS Patient verbalizes understanding of instructions given Anti-Coag Initial Assessment Social Hx Patient Tobacco Use Status: Never used Tobacco alcohol intake: current Alcohol intake frequency: a few times a week Coding Level of Care Code Est Patient Level 1 Diagnoses Current use of anticoagulant therapy Z79.01 Assessment & Plan Assessment & Plan (1) Current use of anticoagulant therapy: Code(s): Z79.01 - supervisor intermediates (current) use of anticoagulants Category: Medical
== END 2024-01-07 09:50 | disposition home or self-care (01) ==
LOC: HO.ACS 09:29
PROVIDERS: PCP Nurse Practitioner Family; Visit Provider Internal Medicine
DX: Z79.01 Long term (current) use of anticoagulants (principal)

== ENCOUNTER → 2024-01-07 09:29 | Outpatient (BNVA) | payer MEDICARE, SELFPAY | PROVIDERS: PCP Nurse Practitioner Family; Visit Provider Internal Medicine | DX: I48.19 Other persistent atrial fibrillation (principal); Z79.01 Long term (current) use of anticoagulants; Z51.81 Encounter for therapeutic drug level monitoring | CPT/HCPCS: 85610; 99211 ==

== ENCOUNTER 2024-01-09 13:52 | Outpatient (REF) | payer MEDICARE, SELFPAY ==
[2024-01-09 16:31] LABS: Anion Gap 12 (12-20); Blood Urea Nitrogen 29 mg/dL (9-16); Calcium 9.4 mg/dL (8.4-10.2); Carbon Dioxide 26 mmol/L (22-29); Chloride 102 mmol/L (96-108); Estimated Glomerular Filt Rate 52; Glucose Random 95 mg/dL (60-115); Potassium 4.2 mmol/L (3.3-5.1); Sodium 136 mmol/L (135-145)
[2024-01-15 18:19] LABS: NT-proBNP 1430 pg/mL (<450)
== END 2024-01-09 13:53 | disposition home or self-care (01) ==
LOC: HO.HMGCLDS 13:52
PROVIDERS: PCP Nurse Practitioner Family; Visit Provider Nurse Practitioner Family
DX: I50.9 Heart failure, unspecified (principal); I25.10 Atherosclerotic heart disease of native coronary artery without angina pectoris; I10 Essential (primary) hypertension; I35.0 Nonrheumatic aortic (valve) stenosis
CPT/HCPCS: 36415; 80048; 83880

== ENCOUNTER 2024-02-04 09:50 | Outpatient (AMB) | payer MEDICARE, SELFPAY ==
[2024-02-04 10:05] LABS: ~PT, ~INR - Anti Coag Clinic 2.2 (0.9-1.1)
--- NOTE | 2024-02-04 10:11 | MHC.OFFVISCO ---
Intake Intake Visit Reasons: Anticoagulation Allergies carvedilol [From COREG] Allergy (Severe, Verified 02/04/24 09:58) Palpitations metoprolol Allergy (Severe, Verified 02/04/24 09:58) Palpitations Sulfa (Sulfonamide Antibiotics) [SULFA (SULFONAMIDE ANTIBIOTICS)] Allergy (Severe, Verified 02/04/24 09:58) Redness of Skin doxycycline Allergy (Intermediate, Verified 02/04/24 09:58) Rash itch cilostazol Allergy (Unknown, Verified 02/04/24 09:58) UNKNOWN digoxin [DIGOXIN] Allergy (Unknown, Verified 02/04/24 09:58) UNKNOWN labetalol [LABETALOL] Allergy (Unknown, Verified 02/04/24 09:58) MUSCLE PAIN Oqxpxpb-OYE-WdI Reductase Inhibitor Adverse Reaction (Intermediate, Verified 02/04/24 09:58) Muscle Pain Medication List - Last Reconciled 02/04/24 by Kamini Puentes RN amlodipine 10 mg PO DAILY atenolol 25 mg PO DAILY clopidogrel 75 mg PO DAILY evolocumab (Elle Romero) mg subcut fluorouracil 5% 1 appl topical BID furosemide 20 mg PO DAILY isosorbide mononitrate ER 60 mg PO DAILY triamcinolone acetonide 0.025% topical valsartan-hydrochlorothiazide 160-12.5 mg tabs PO [walker with seat Wheeled walker with seat ] warfarin 5 mg See Protocol PO DAILY Nursing Note INR: 2.2 in therapeutic range Medications and supplements reviewed No changes in health, diet, medications, or supplements, Denies any signs and symptoms of bleeding or bruising or clotting. Bleeding, bruising, clotting discussed Nutritional guidance given Dose: 5MG X 2 DAYS/ 2.5MG X 5 DAYS F/U INR: 1 MONTH Patient verbalizes understanding of instructions given Anti-Coag Initial Assessment Social Hx Patient Tobacco Use Status: Never used Tobacco alcohol intake: current Alcohol intake frequency: a few times a week Questionnaires HAS-BLED Does the patient had uncontrolled Hypertension?: Yes Does the patient have renal disease?: Yes Does the patient have liver disease?: No Does the patient have a history of stroke?: Yes Has the patient had major bleeding or predisposition to bleeding?: No Does the patient have labile INRs?: No Is the patient over 65 years of age?: Yes Is the patient on medications that gives them a predisposition to bleeding?: Yes Does the patient use alcohol?: No HAS-BLED Score: 5 CHADSVASC Age: 75 or over Gender: Male Does the patient have a history of CHF?: No Does the patient have a history of Hypertension?: Yes Does the patient have a history of Stroke/TIA/Thromboembolism?: No Does the patient have a history of Vascular Disease (prior MO, PAD or aortic plaque)?: Yes (CARDIAC STENTS) Does the patient have a history of Diabetes?: No CHADS VACS Score: 4 Nikki Prediction Score Rsk VTE Active Cancer: No Previous VTE, excluding superficial vein thrombosis: No Reduced mobility: Yes Already known Thrombophilic Condition: No With-in last month Trauma and/or Surgery: Yes (claudication) Elderly 70 year or older: Yes Heart and/or Respiratory Failure: No Acute Myocardial infarction and/or Ischemic Stroke: Yes Acute Infection and/or Rheumatologic Disorder: No Obesity (BMI 30 or greater): No Ongoing Hormonal Treatment: No Score: 7 Nikki Score less than 4; Low Risk of VTE Nikki Score 4 or greater; High Risk of VTE Coding Level of Care Code Est Patient Level 1 Diagnoses Current use of anticoagulant therapy Z79.01 Results AMB INR Fingerstick AMB INR Fingerstick 2.2 Last Edit by Kamini Puentes RN on 02/04/24 10:07 manual entry failed interfacing Assessment & Plan Assessment & Plan (1) Current use of anticoagulant therapy: Code(s): Z79.01 - technician terminal and repeater (current) use of anticoagulants Category: Medical
== END 2024-02-04 10:12 | disposition home or self-care (01) ==
LOC: HO.ACS 09:50
PROVIDERS: PCP Nurse Practitioner Family; Visit Provider Internal Medicine
DX: Z79.01 Long term (current) use of anticoagulants (principal)

== ENCOUNTER → 2024-02-04 09:50 | Outpatient (BNVA) | payer MEDICARE, SELFPAY | PROVIDERS: PCP Nurse Practitioner Family; Visit Provider Internal Medicine | DX: I48.19 Other persistent atrial fibrillation (principal); Z51.81 Encounter for therapeutic drug level monitoring; Z79.01 Long term (current) use of anticoagulants | CPT/HCPCS: 85610; 99211 ==

== ENCOUNTER 2024-02-18 11:32 | Outpatient (AMB) | payer MEDICARE, SELFPAY ==
[2024-02-18 11:34] VITALS: BP 136/64; PULSE 70; O2SAT 98; BMI 26.1
--- NOTE | 2024-02-18 11:34 | HO.NEPHOV ---
Vital Signs 02/18/24 11:34 Height 5 ft 11 in Weight 187 lb BMI 26.1 BP 136/64 Blood Pressure Location Lt brachial Position Sitting Pulse 70 Pulse Source Pulse Oximeter Pulse Oximetry (%) 98 Oxygen Delivery Method Room Air Intake Visit Reasons: CKD/ 4 MO FU/ Conf Manager [employer] Required: No Accompanied by: Self / Same As Patient Allergies carvedilol [From COREG] Allergy (Severe, Verified 02/18/24 11:37) Palpitations metoprolol Allergy (Severe, Verified 02/18/24 11:37) Palpitations Sulfa (Sulfonamide Antibiotics) [SULFA (SULFONAMIDE ANTIBIOTICS)] Allergy (Severe, Verified 02/18/24 11:37) Redness of Skin doxycycline Allergy (Intermediate, Verified 02/18/24 11:37) Rash itch cilostazol Allergy (Unknown, Verified 02/18/24 11:37) UNKNOWN digoxin [DIGOXIN] Allergy (Unknown, Verified 02/18/24 11:37) UNKNOWN labetalol [LABETALOL] Allergy (Unknown, Verified 02/18/24 11:37) MUSCLE PAIN Vjvgybo-THX-UqC Reductase Inhibitor Adverse Reaction (Intermediate, Verified 02/18/24 11:37) Muscle Pain HPI Comments Details: Ifeanyi is well known to me for last several years. 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 In 2011 coronary angiogram showed 60% mid LAD 90% distal LAD 50% 1st diagonal and 84% obtuse marginal. The RCA was totally occluded. Repeat CT in 2017 revealed 90% stenosis mid LAD moderate diffuse distal LAD and left circumflex 80-90% distal stenosis and chronically occluded RCA. He was deemed not to be a candidate for CABG. 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 Blood pressure has been difficult to control. He has been monitoring his blood pressure at home Home readings have been acceptable. He has generalized body pain otherwise no new issues today. He has been intolerant to statins however he has been able to tolerate Repatha [facility] Medical History (Updated 10/30/23 @ 10:52 by Demetrio Reagan, [facility]) Carotid stenosis AAA (abdominal aortic aneurysm) without rupture Vertigo H/O Villa's palsy Permanent atrial fibrillation Post herpetic neuralgia HTN (hypertension) Thrombocytopenia CKD (chronic kidney disease) CVA (cerebral vascular accident) PVD (peripheral vascular disease) CAD (coronary artery disease) Afib Surgical History H/O prostatectomy Stented coronary artery Social History Housing: House Alcohol intake: current Alcohol intake frequency: a few times a week Patient Tobacco Use Status: Never used Tobacco e-Cigarette/Vaping Use: Never Used Second Hand Smoke Exposure: No service: Yes Current occupational status: retired Cognitive needs: No Hearing needs: No Vision needs: No Physical Exam Vital Signs: Last Vital Signs Pulse 70 02/18/24 11:34 BP 136/64 02/18/24 11:34 Pulse Ox 98 02/18/24 11:34 Oxygen Delivery Method Room Air 02/18/24 11:34 BMI result Body Mass Index 26.1 Neck Neck: Yes supple Resp Auscultation: clear to auscultation bilaterally Cardio Palpation: no palpable S3 Heart sounds: no rubs GI Palpation (GI): Soft to palpation Auscultation: normal bowel sounds Neuro Motor exam (neuro): no asterixis Results Reviewed Nephrology Results: Hgb 12.5 g/dl (14.0-18.0) L 12/26/23 WBC 7.4 X10*3/uL (4.8-10.8) 12/26/23 Plt Count 217 X10*3/uL (160-400) 12/26/23 Sodium 136 mmol/L (135-145) 01/09/24 Potassium 4.2 mmol/L (3.3-5.1) 01/09/24 Chloride 102 mmol/L (96-108) 01/09/24 Carbon Dioxide 26 mmol/L (22-29) 01/09/24 BUN 29 mg/dL (9-16) H 01/09/24 Creatinine 1.30 mg/dL (0.5-1.4) 01/09/24 Calcium 9.4 mg/dL (8.4-10.2) 01/09/24 Assessment & Plan Assessment & Plan (1) HTN (hypertension): Code(s): I10 - Essential (primary) hypertension Category: Medical Plan: Resistant hypertension history of significant artero sclerosis. Ifeanyi has renovascular disease. Overall blood pressure has been acceptable. I will continue with current antihypertensive medications. Keep on low-sodium diet. Encouraged to keep moderate blood pressure at home and to call me if the systolic blood pressure stays above 140 mmHg (2) CKD (chronic kidney disease): Code(s): N18.9 - Chronic kidney disease, unspecified Category: Medical Plan CKD in a setting of longstanding hypertension. He has underlying renovascular disease. At present renal functions close to baseline. Goal is to slow the progression of renal disease. Continue to avoid nephrotoxic agents. Avoid hypotensive episodes. Will continue monitor renal function closely since he is at high risk for ongoing renal injury and LUISANA. Orders: Orders Basic Metabolic Panel 3 Months N18.9 - Chronic kidney disease, unspecified Complete Blood Count no Diff 3 Months N18.9 - Chronic kidney disease, unspecified Coding Level of Care Code Est Pt Level 4 (02500) Diagnoses HTN (hypertension) I10 CKD (chronic kidney disease) N18.9
== END 2024-02-18 11:48 | disposition home or self-care (01) ==
PROVIDERS: PCP Nurse Practitioner Family; Visit Provider Internal Medicine Hypertension Specialist
DX: I12.9 Hypertensive chronic kidney disease with stage 1 through stage 4 chronic kidney disease, or unspecified chronic kidney disease (principal); N18.9 Chronic kidney disease, unspecified
CPT/HCPCS: 99214

== ENCOUNTER → 2024-02-18 11:32 | Outpatient (BNVA) | payer MEDICARE, SELFPAY | PROVIDERS: PCP Nurse Practitioner Family; Visit Provider Internal Medicine Hypertension Specialist | DX: I12.9 Hypertensive chronic kidney disease with stage 1 through stage 4 chronic kidney disease, or unspecified chronic kidney disease (principal); N18.9 Chronic kidney disease, unspecified | CPT/HCPCS: 99212 ==

== ENCOUNTER 2024-03-03 09:26 | Outpatient (AMB) | payer MEDICARE, SELFPAY ==
--- NOTE | 2024-03-03 09:36 | MHC.OFFVISCO ---
Intake Intake Visit Reasons: Anticoagulation Allergies carvedilol [From COREG] Allergy (Severe, Verified 03/03/24 09:30) Palpitations metoprolol Allergy (Severe, Verified 03/03/24 09:30) Palpitations Sulfa (Sulfonamide Antibiotics) [SULFA (SULFONAMIDE ANTIBIOTICS)] Allergy (Severe, Verified 03/03/24 09:30) Redness of Skin doxycycline Allergy (Intermediate, Verified 03/03/24 09:30) Rash itch cilostazol Allergy (Unknown, Verified 03/03/24 09:30) UNKNOWN digoxin [DIGOXIN] Allergy (Unknown, Verified 03/03/24 09:30) UNKNOWN labetalol [LABETALOL] Allergy (Unknown, Verified 03/03/24 09:30) MUSCLE PAIN Flklfbn-YHX-PyW Reductase Inhibitor Adverse Reaction (Intermediate, Verified 03/03/24 09:30) Muscle Pain Medication List - Last Reconciled 03/03/24 by Briana Villagomez RN amlodipine 10 mg PO DAILY atenolol 25 mg PO DAILY cephalexin 500 mg PO TID clopidogrel 75 mg PO DAILY evolocumab (Repmayra Romero) mg subcut fluorouracil 5% 1 appl topical BID furosemide 20 mg PO DAILY isosorbide mononitrate ER 60 mg PO DAILY triamcinolone acetonide 0.025% topical valsartan-hydrochlorothiazide 160-12.5 mg tabs PO [walker with seat Wheeled walker with seat ] warfarin 5 mg See Protocol PO DAILY Nursing Note INR 1.9-?? out of therapeutic range of 2-3 Medications and supplements reviewed Patient status: pt states had issues with left great toe- had bleeding last week and saw block cableman who removed toenail- states infection - pt reduced warfarin to 2.5mg daily last week Medications or supplements: cephalexin 500mg tid for 10 days, started 02/29/24 Diet: same Denies any signs and symptoms of bleeding or clotting or unusual bruising Bleeding, bruising, clotting discussed - pt states no bleeding for several days Nutritional guidance given: no greens for 2 days, then eat greens due to antibiotics Dose: reduce dose on to 2.5mg otherwise cont reg dosing F/U INR Date : one week Patient verbalizing understanding of instructions given. Anti-Coag Initial Assessment Social Hx Patient Tobacco Use Status: Never used Tobacco alcohol intake: current Alcohol intake frequency: a few times a week Coding Level of Care Code Est Patient Level 1 Diagnoses Current use of anticoagulant therapy Z79.01 Assessment & Plan Assessment & Plan (1) Current use of anticoagulant therapy: Code(s): Z79.01 - emt intermediate (current) use of anticoagulants Category: Medical
[2024-03-03 09:37] LABS: Prothrombin Time Whole Bld POC 23.3 sec (11.1-13.5); ~PT, ~INR - Anti Coag Clinic 1.9 (0.9-1.1)
== END 2024-03-03 09:45 | disposition home or self-care (01) ==
LOC: HO.ACS 09:26
PROVIDERS: PCP Nurse Practitioner Family; Visit Provider Internal Medicine
DX: Z79.01 Long term (current) use of anticoagulants (principal)

== ENCOUNTER → 2024-03-03 09:26 | Outpatient (BNVA) | payer MEDICARE, SELFPAY | PROVIDERS: PCP Nurse Practitioner Family; Visit Provider Internal Medicine | DX: I48.19 Other persistent atrial fibrillation (principal); Z79.01 Long term (current) use of anticoagulants; Z51.81 Encounter for therapeutic drug level monitoring | CPT/HCPCS: 85610; 99211 ==

== ENCOUNTER 2024-03-10 09:44 | Outpatient (AMB) | payer MEDICARE, SELFPAY ==
[2024-03-10 09:57] LABS: Prothrombin Time Whole Bld POC 28.8 sec (11.1-13.5); ~PT, ~INR - Anti Coag Clinic 2.4 (0.9-1.1)
--- NOTE | 2024-03-10 10:06 | MHC.OFFVISCO ---
Intake Intake Visit Reasons: Anticoagulation Allergies carvedilol [From COREG] Allergy (Severe, Verified 03/10/24 09:49) Palpitations metoprolol Allergy (Severe, Verified 03/10/24 09:49) Palpitations Sulfa (Sulfonamide Antibiotics) [SULFA (SULFONAMIDE ANTIBIOTICS)] Allergy (Severe, Verified 03/10/24 09:49) Redness of Skin doxycycline Allergy (Intermediate, Verified 03/10/24 09:49) Rash itch cilostazol Allergy (Unknown, Verified 03/10/24 09:49) UNKNOWN digoxin [DIGOXIN] Allergy (Unknown, Verified 03/10/24 09:49) UNKNOWN labetalol [LABETALOL] Allergy (Unknown, Verified 03/10/24 09:49) MUSCLE PAIN Rombype-BOB-TuX Reductase Inhibitor Adverse Reaction (Intermediate, Verified 03/10/24 09:49) Muscle Pain Medication List - Last Reconciled 03/10/24 by Kamini Puentes RN amlodipine 10 mg PO DAILY atenolol 25 mg PO DAILY cephalexin 500 mg PO TID clopidogrel 75 mg PO DAILY evolocumab (Repmayra SureFlakitoick) mg subcut fluorouracil 5% 1 appl topical BID furosemide 20 mg PO DAILY isosorbide mononitrate ER 60 mg PO DAILY triamcinolone acetonide 0.025% topical valsartan-hydrochlorothiazide 160-12.5 mg tabs PO [walker with seat Wheeled walker with seat ] warfarin 5 mg See Protocol PO DAILY Nursing Note INR 2.4 therapeutic range Medications and supplements reviewed Patient status: 2 MORE ANTBX DOSES LEFT - CAN RAISE THE INR Medications or supplements: NO OTHER CHANGES Diet: GOOD Denies any signs and symptoms of bleeding or clotting or unusual bruising Bleeding, bruising, clotting discussed Nutritional guidance given: CONT SAME Dose: 5MG X 1 DAY/ 2.5MG X 6 DAYS THIS WEEK AGAIN, THEN 5MG X 2 DAYS/ 2.5MG X 5 DAYS F/U INR Date: 2 WEEKS THEN IF STABLE GO 4 WEEKS ?? Patient verbalizing understanding of instructions given. Anti-Coag Initial Assessment Social Hx Patient Tobacco Use Status: Never used Tobacco alcohol intake: current Alcohol intake frequency: a few times a week Coding Level of Care Code Est Patient Level 1 Diagnoses Current use of anticoagulant therapy Z79.01 Results AMB INR Fingerstick AMB INR Fingerstick 2.4 Last Edit by Kamini Puentes RN on 03/10/24 09:58 FAILED INTERFACING MANUAL ENTRY Assessment & Plan Assessment & Plan (1) Current use of anticoagulant therapy: Code(s): Z79.01 - terminal operations 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
== END 2024-03-10 10:10 | disposition home or self-care (01) ==
LOC: HO.ACS 09:44
PROVIDERS: PCP Nurse Practitioner Family; Visit Provider Internal Medicine
DX: Z79.01 Long term (current) use of anticoagulants (principal)

== ENCOUNTER → 2024-03-10 09:44 | Outpatient (BNVA) | payer MEDICARE, SELFPAY | PROVIDERS: PCP Nurse Practitioner Family; Visit Provider Internal Medicine | DX: I48.19 Other persistent atrial fibrillation (principal); Z79.01 Long term (current) use of anticoagulants; Z51.81 Encounter for therapeutic drug level monitoring | CPT/HCPCS: 85610; 99211 ==

== ENCOUNTER 2024-03-13 10:13 | Outpatient (AMB) | payer MEDICARE, SELFPAY ==
[2024-03-13 10:22] VITALS: BP 134/60; PULSE 69; O2SAT 95; BMI 26.0
--- NOTE | 2024-03-13 10:22 | MHC.PC.OV ---
Vital Signs 03/13/24 10:22 Height 5 ft 11 in Weight 186 lb 6 oz BMI 26.0 BP 134/60 Blood Pressure Location Rt brachial Position Sitting Pulse 69 Pulse Source Pulse Oximeter Pulse Oximetry (%) 95 Oxygen Delivery Method Room Air Intake Visit Reasons: 4M F/U Anticoag Allergies carvedilol [From COREG] Allergy (Severe, Verified 03/13/24 12:22) Palpitations metoprolol Allergy (Severe, Verified 03/13/24 12:22) Palpitations Sulfa (Sulfonamide Antibiotics) [SULFA (SULFONAMIDE ANTIBIOTICS)] Allergy (Severe, Verified 03/13/24 12:22) Redness of Skin doxycycline Allergy (Intermediate, Verified 03/13/24 12:22) Rash itch cilostazol Allergy (Unknown, Verified 03/13/24 12:22) UNKNOWN digoxin [DIGOXIN] Allergy (Unknown, Verified 03/13/24 12:22) UNKNOWN labetalol [LABETALOL] Allergy (Unknown, Verified 03/13/24 12:22) MUSCLE PAIN Jczgwdd-RRN-VlW Reductase Inhibitor Adverse Reaction (Intermediate, Verified 03/13/24 12:22) Muscle Pain Medication List - Last Reconciled 03/13/24 by PATRICIO Shore- amlodipine 10 mg PO DAILY atenolol 25 mg PO DAILY clopidogrel 75 mg PO DAILY evolocumab (Elle Romero) mg subcut fluorouracil 5% 1 appl topical BID furosemide 20 mg PO DAILY isosorbide mononitrate ER 60 mg PO DAILY triamcinolone acetonide 0.025% topical valsartan-hydrochlorothiazide 160-12.5 mg tabs PO [walker with seat Wheeled walker with seat ] warfarin 5 mg See Protocol PO DAILY Tobacco use date assessed: 03/13/24 Fall risk assessment: No Falls in past year Last assessed Fall Risk: 03/13/24 Dental Screening Dental Screen Date: 03/13/24 Did you have a dental visit in the last 12 months?: No Did you have a dental problem in the last 6 months where you did not have access to dental care?: No Was dental information given to patient?: No HPI 4M F/U Anticoag HPI Details HTN: Blood pressure is stable, managed with amlodipine 10mg, atenolol 25mg, furosemide 20mg, isosorbide mononitrate 60mg, and valsartan-hydrochlorothiazide 60mg. Denies chest pain, shortness of breath, headache, dizziness, and blurred vision. Labs have been ordered, encouraged pt to have these drawn. Pt has significant PVD and PAD. He does not want treatment for this. Pt follows up with cardiology. [facility] Medical History (Updated 03/13/24 @ 11:08 [facility] Carotid stenosis AAA (abdominal aortic aneurysm) without rupture Vertigo H/O Villa's palsy Permanent atrial fibrillation Post herpetic neuralgia HTN (hypertension) Thrombocytopenia CKD (chronic kidney disease) CVA (cerebral vascular accident) PVD (peripheral vascular disease) CAD (coronary artery disease) Afib Surgical History H/O prostatectomy Stented coronary artery Social History Housing: House Alcohol intake: current Alcohol intake frequency: a few times a week Patient Tobacco Use Status: Never used Tobacco e-Cigarette/Vaping Use: Never Used Second Hand Smoke Exposure: No service: Yes Current occupational status: retired Cognitive needs: No Hearing needs: No Vision needs: No Questionnaire PHQ-9 Over the last 2 weeks, how often have you been bothered by any of the following problems? 1. Little interest or pleasure in doing things: not at all 2. Feeling down, depressed, or hopeless: not at all 3. Trouble falling or staying asleep, or sleeping too much: more than half the days 4. Feeling tired or having little energy: nearly every day 5. Poor appetite or overeating: several days 6. Feeling bad about yourself - or that you are a failure or have let yourself or your family down: not at all 7. Trouble concentrating on things, such as reading the newspaper or watching television: not at all 8. Moving or speaking so slowly that other people could have noticed. Or the opposite - being so fidgety or restless that you have been moving around a lot more than usual: not at all 9. Thoughts that you would be better off or of hurting yourself in some way: not at all Total score: 6 Depression Screening Interpretation: Negative Depression Screening Done: Yes 02236 - PHQ-9 Billing: Yes Source: Developed by Drs. Rony Turner, Tish Calderon, Arnulfo Clark and colleagues, with an educational tien from [employer]. Thrive Questionnaire Date Thrive assessed: 03/13/24 I am a: Patient What is your living situation today?: I have a steady place to live Within the past 12 months, did the food you bought not last and you didn't have the money to get more?: Never true Within the past 12 months, did you worry whether your food would run out before you got money to buy more?: Never true Do you have trouble paying for medicines?: No Do you have trouble getting transportation to medical appointments?: No Do you have trouble paying your heating and electricity bill?: No Do you have trouble taking care of your child, family member or friend?: No Do you have trouble with day-to-day activities such as bathing, preparing meals, shopping, managing finances, etc.?: Yes Are you currently unemployed and looking for a job?: No Are you interested in more education?: No Please select the resources that you would like help with: Food, Paying for medicine, Transportation, Utilities, Care for elder or disabled and Daily support Currently or been in a relationship where the following occur: No concerns reported THRIVE Score: 0 AUDIT C Alcohol Use Questionnaire (AUDIT-C) 1. How often do you have a drink containing alcohol?: Never 3. How often do you have six or more drinks on one occasion?: Never Total Score: 0 Score Reviewed/Action Taken: Yes YARED-7 AMB Questionnaire YARED-7 Date YARED - 7 assessed: 03/13/24 Feeling nervous, anxious, or on edge: 0 = Not at all Not being able to stop or control worryin = Not at all Worrying too much about different things: 0 = Not at all Trouble relaxin = Not at all Being so restless that it is hard to sit still: 3 = Nearly every day Becoming easily annoyed or irritable: 0 = Not at all Feeling afraid as if something awful might happen: 0 = Not at all Total YARED-7 score (0-4 normal; 5-9 mild; 10-14 moderate; 15-21 severe): 3 Source: Developed by Drs. Rony Turner, Tish Calderon, Arnulfo Clark and colleagues, with an educational tien from [employer]. YARED-7 Assessment Billing YARED-7 Assessment Tool: YARED-7 Assessment 33929 Review of Systems Const Reports as per HPI Physical exam (Primary Care) Vital Signs: Last Vital Signs Pulse 69 03/13/24 10:22 BP 134/60 03/13/24 10:22 Pulse Ox 95 03/13/24 10:22 Oxygen Delivery Method Room Air 03/13/24 10:22 BMI result Body Mass Index 26.0 Tobacco/Smoking Status: Tobacco use Status Tobacco use date assessed 03/13/24 03/13/24 10:28 Patient Tobacco Use Status Never used Tobacco 03/13/24 10:28 e-Cigarette/Vaping Use Never Used 03/13/24 10:28 PHQ-9: PHQ-9 Score PHQ-9: Total score 6 03/13/24 10:53 Depression Screening Interpretation: Negative Thrive Assessment: Date of Thrive Assessment Date Thrive assessed 03/13/24 03/13/24 10:28 Currently or been in a relationship where the following occur: No concerns reported Const General: cooperative Orientation/consciousness: patient oriented x3 Limitations: ambulation with walker Resp Effort & Inspection: normal respiratory effort Auscultation: clear to auscultation bilaterally Cardio Rate: regular rate Rhythm: regular rhythm Heart sounds: S1 normal heart sound present, S2 normal heart sound present and Murmur heart sound present systolic Skin Other: discoloration to distal BLE Neuro General: patient oriented x3 Extrem Other: difficulty finding dorsalis pedis pulses, weak on left Right lower extremity: edema Details: pitting and 1+ Left lower extremity: edema Details: pitting and 1+ Psych Appearance: grossly normal Mental Status: mental status grossly normal Speech and movement: Normal speech and movement present Affect: normal affect Attitude: cooperative Thought process: Normal thought process present Thought content: Normal thought content present Insight: Good insight present (Psych) Judgement: Good judgement present (Psych) Assessment and Plan Assessment & Plan (1) PAD (peripheral artery disease): Code(s): I73.9 - Peripheral vascular disease, unspecified Plan: Pt would not like treatment for this (2) HTN (hypertension): Code(s): I10 - Essential (primary) hypertension Plan: Stable, continue current meds Plan The patient agreed to the use of a medical center manager for this encounter. Scribed for TRAVON Berry by Pam Ohara medical center manager, on 03/13/2024 at 10:55 EST. Coding Level of Care Code Est Pt Level 3 (42171) Diagnoses PAD (peripheral artery disease) I73.9 HTN (hypertension) I10 Additional Codes YARED-7 Assessment Billing - YARED-7 Assessment Tool: YARED-7 Assessment 52164 ([id number])
== END 2024-03-13 11:10 | disposition home or self-care (01) ==
PROVIDERS: PCP Nurse Practitioner Family; Visit Provider Nurse Practitioner Family
DX: I73.9 Peripheral vascular disease, unspecified (principal); I10 Essential (primary) hypertension
CPT/HCPCS: 99213

== ENCOUNTER 2024-03-24 09:33 | Outpatient (AMB) | payer MEDICARE, SELFPAY ==
[2024-03-24 09:46] LABS: Prothrombin Time Whole Bld POC 30.1 sec (11.1-13.5); ~PT, ~INR - Anti Coag Clinic 2.5 (0.9-1.1)
--- NOTE | 2024-03-24 09:52 | MHC.OFFVISCO ---
Intake Intake Visit Reasons: Anticoagulation Allergies carvedilol [From COREG] Allergy (Severe, Verified 03/24/24 09:37) Palpitations metoprolol Allergy (Severe, Verified 03/24/24 09:37) Palpitations Sulfa (Sulfonamide Antibiotics) [SULFA (SULFONAMIDE ANTIBIOTICS)] Allergy (Severe, Verified 03/24/24 09:37) Redness of Skin doxycycline Allergy (Intermediate, Verified 03/24/24 09:37) Rash itch cilostazol Allergy (Unknown, Verified 03/24/24 09:37) UNKNOWN digoxin [DIGOXIN] Allergy (Unknown, Verified 03/24/24 09:37) UNKNOWN labetalol [LABETALOL] Allergy (Unknown, Verified 03/24/24 09:37) MUSCLE PAIN Djsrbqu-NVQ-UkE Reductase Inhibitor Adverse Reaction (Intermediate, Verified 03/24/24 09:37) Muscle Pain Medication List - Last Reconciled 03/24/24 by Kamini Puentes, RN amlodipine 10 mg PO DAILY atenolol 25 mg PO DAILY clopidogrel 75 mg PO DAILY evolocumab (Elle Romero) mg subcut fluorouracil 5% 1 appl topical BID furosemide 20 mg PO DAILY isosorbide mononitrate ER 60 mg PO DAILY triamcinolone acetonide 0.025% topical valsartan-hydrochlorothiazide 160-12.5 mg tabs PO [walker with seat Wheeled walker with seat ] warfarin 5 mg See Protocol PO DAILY Nursing Note INR: 2.5 in therapeutic range Medications and supplements reviewed No changes in health, diet, medications, or supplements, Denies any signs and symptoms of bleeding or bruising or clotting. Bleeding, bruising, clotting discussed Nutritional guidance given - keep eating a mix of fruits and vegetables Dose: 5mg x 2 days/ 2.5mg x 5 days F/U INR: 4 weeks Patient verbalizes understanding of instructions given Anti-Coag Initial Assessment Social Hx Patient Tobacco Use Status: Never used Tobacco alcohol intake: current Alcohol intake frequency: a few times a week Coding Level of Care Code Est Patient Level 1 Diagnoses Current use of anticoagulant therapy Z79.01 Assessment & Plan Assessment & Plan (1) Current use of anticoagulant therapy: Code(s): Z79.01 - long-term (current) use of anticoagulants Category: Medical
== END 2024-03-24 09:54 | disposition home or self-care (01) ==
LOC: HO.ACS 09:33
PROVIDERS: PCP Nurse Practitioner Family; Visit Provider Internal Medicine
DX: Z79.01 Long term (current) use of anticoagulants (principal)

== ENCOUNTER → 2024-03-24 09:33 | Outpatient (BNVA) | payer MEDICARE, SELFPAY | PROVIDERS: PCP Nurse Practitioner Family; Visit Provider Internal Medicine | DX: I48.19 Other persistent atrial fibrillation (principal); Z79.01 Long term (current) use of anticoagulants; Z51.81 Encounter for therapeutic drug level monitoring | CPT/HCPCS: 85610; 99211 ==

== ENCOUNTER 2024-04-21 09:28 | Outpatient (AMB) | payer MEDICARE, SELFPAY ==
--- NOTE | 2024-04-21 09:54 | MHC.OFFVISCO ---
Intake Intake Visit Reasons: Anticoagulation Allergies carvedilol [From COREG] Allergy (Severe, Verified 04/21/24 09:40) Palpitations metoprolol Allergy (Severe, Verified 04/21/24 09:40) Palpitations Sulfa (Sulfonamide Antibiotics) [SULFA (SULFONAMIDE ANTIBIOTICS)] Allergy (Severe, Verified 04/21/24 09:40) Redness of Skin doxycycline Allergy (Intermediate, Verified 04/21/24 09:40) Rash itch cilostazol Allergy (Unknown, Verified 04/21/24 09:40) UNKNOWN digoxin [DIGOXIN] Allergy (Unknown, Verified 04/21/24 09:40) UNKNOWN labetalol [LABETALOL] Allergy (Unknown, Verified 04/21/24 09:40) MUSCLE PAIN Blgqada-QBU-BtI Reductase Inhibitor Adverse Reaction (Intermediate, Verified 04/21/24 09:40) Muscle Pain Medication List - Last Reconciled 04/21/24 by Raeann Pacheco RN amlodipine 10 mg PO DAILY atenolol 25 mg PO DAILY clopidogrel 75 mg PO DAILY evolocumab (Elle Romero) mg subcut fluorouracil 5% 1 appl topical BID furosemide 20 mg PO DAILY isosorbide mononitrate ER 60 mg PO DAILY triamcinolone acetonide 0.025% topical valsartan-hydrochlorothiazide 160-12.5 mg tabs PO [walker with seat Wheeled walker with seat ] warfarin 5 mg See Protocol PO DAILY Nursing Note INR: 2.4 in therapeutic range of 2-3 Medications and supplements reviewed No changes in health, diet, medications, or supplements, Denies any signs and symptoms of bleeding or bruising or clotting. Bleeding, bruising, clotting discussed Nutritional guidance given Dose: 2.5mg X 5 days and 5mg X 2 days F/U INR: 4 weeks Patient verbalizes understanding of instructions given Anti-Coag Initial Assessment Social Hx Patient Tobacco Use Status: Never used Tobacco alcohol intake: current Alcohol intake frequency: a few times a week Coding Level of Care Code Est Patient Level 1 Diagnoses Current use of anticoagulant therapy Z79.01 Results AMB INR Fingerstick AMB INR Fingerstick 2.4 Last Edit by Raeann Pacheco RN on 04/21/24 09:48 interface delay Assessment & Plan Assessment & Plan (1) Current use of anticoagulant therapy: Code(s): Z79.01 - intermediate manager (current) use of anticoagulants Category: Medical
[2024-04-21 10:09] LABS: Prothrombin Time Whole Bld POC 29.3 sec (11.1-13.5); ~PT, ~INR - Anti Coag Clinic 2.4 (0.9-1.1)
== END 2024-04-21 09:57 | disposition home or self-care (01) ==
LOC: HO.ACS 09:28
PROVIDERS: PCP Nurse Practitioner Family; Visit Provider Internal Medicine
DX: Z79.01 Long term (current) use of anticoagulants (principal)

== ENCOUNTER → 2024-04-21 09:28 | Outpatient (BNVA) | payer MEDICARE, SELFPAY | PROVIDERS: PCP Nurse Practitioner Family; Visit Provider Internal Medicine | DX: I48.19 Other persistent atrial fibrillation (principal); Z79.01 Long term (current) use of anticoagulants; Z51.81 Encounter for therapeutic drug level monitoring | CPT/HCPCS: 85610; 99211 ==

== ENCOUNTER 2024-05-19 09:34 | Outpatient (AMB) | payer MEDICARE, SELFPAY ==
[2024-05-19 09:41] LABS: Prothrombin Time Whole Bld POC 28.8 sec (11.1-13.5); ~PT, ~INR - Anti Coag Clinic 2.4 (0.9-1.1)
--- NOTE | 2024-05-19 09:44 | MHC.OFFVISCO ---
Intake Intake Visit Reasons: Anticoagulation Allergies carvedilol [From COREG] Allergy (Severe, Verified 05/19/24 09:36) Palpitations metoprolol Allergy (Severe, Verified 05/19/24 09:36) Palpitations Sulfa (Sulfonamide Antibiotics) [SULFA (SULFONAMIDE ANTIBIOTICS)] Allergy (Severe, Verified 05/19/24 09:36) Redness of Skin doxycycline Allergy (Intermediate, Verified 05/19/24 09:36) Rash itch cilostazol Allergy (Unknown, Verified 05/19/24 09:36) UNKNOWN digoxin [DIGOXIN] Allergy (Unknown, Verified 05/19/24 09:36) UNKNOWN labetalol [LABETALOL] Allergy (Unknown, Verified 05/19/24 09:36) MUSCLE PAIN Lrgbycc-PYJ-TjB Reductase Inhibitor Adverse Reaction (Intermediate, Verified 05/19/24 09:36) Muscle Pain Medication List - Last Reconciled 05/19/24 by Briana Villagomez, RN amlodipine 10 mg PO DAILY atenolol 25 mg PO DAILY clopidogrel 75 mg PO DAILY evolocumab (Elle Romero) mg subcut fluorouracil 5% 1 appl topical BID furosemide 20 mg PO DAILY isosorbide mononitrate ER 60 mg PO DAILY triamcinolone acetonide 0.025% topical valsartan-hydrochlorothiazide 160-12.5 mg tabs PO [walker with seat Wheeled walker with seat ] warfarin 5 mg See Protocol PO DAILY Nursing Note INR: 2.4- in therapeutic range of 2-3 Medications and supplements reviewed- no changes No changes in health, diet, medications, or supplements, Denies any signs and symptoms of bleeding or bruising or clotting. Bleeding, bruising, clotting discussed Nutritional guidance given - avoid greens for 2-3 days Dose: 5mg x 2, 2.5mg x 5 F/U INR: pt ref earlier appt than 4 weeks Patient verbalizes understanding of instructions given pt states ran out of warfarin and missed a dose yesterday. [facility] pharmacy called- warfarin script filled and ready at 12 noon. pt aware Anti-Coag Initial Assessment Social Hx Patient Tobacco Use Status: Never used Tobacco alcohol intake: current Alcohol intake frequency: a few times a week Coding Level of Care Code Est Patient Level 1 Diagnoses Current use of anticoagulant therapy Z79.01 Assessment & Plan Assessment & Plan (1) Current use of anticoagulant therapy: Code(s): Z79.01 - business integration manager (current) use of anticoagulants Category: Medical
== END 2024-05-19 10:09 | disposition home or self-care (01) ==
LOC: HO.ACS 09:34
PROVIDERS: PCP Nurse Practitioner Family; Visit Provider Internal Medicine
DX: Z79.01 Long term (current) use of anticoagulants (principal)

== ENCOUNTER → 2024-05-19 09:34 | Outpatient (BNVA) | payer MEDICARE, SELFPAY | PROVIDERS: PCP Nurse Practitioner Family; Visit Provider Internal Medicine | DX: I48.19 Other persistent atrial fibrillation (principal); Z79.01 Long term (current) use of anticoagulants; Z51.81 Encounter for therapeutic drug level monitoring | CPT/HCPCS: 85610; 99211 ==

== ENCOUNTER 2024-06-16 09:27 | Outpatient (AMB) | payer MEDICARE, SELFPAY ==
[2024-06-16 09:34] LABS: Prothrombin Time Whole Bld POC 33.2 sec (11.1-13.5); ~PT, ~INR - Anti Coag Clinic 2.8 (0.9-1.1)
--- NOTE | 2024-06-16 09:42 | MHC.OFFVISCO ---
Intake Intake Visit Reasons: Anticoagulation Allergies carvedilol [From COREG] Allergy (Severe, Verified 06/16/24 09:) Palpitations metoprolol Allergy (Severe, Verified 06/16/24:) Palpitations Sulfa (Sulfonamide Antibiotics) [SULFA (SULFONAMIDE ANTIBIOTICS)] Allergy (Severe, Verified 06/16/24:) Redness of Skin doxycycline Allergy (Intermediate, Verified 06/16/24:) Rash itch cilostazol Allergy (Unknown, Verified 06/16/24:) UNKNOWN digoxin [DIGOXIN] Allergy (Unknown, Verified 06/16/24) UNKNOWN labetalol [LABETALOL] Allergy (Unknown, Verified 06/16/24:) MUSCLE PAIN Xbqmldg-LPC-AnG Reductase Inhibitor Adverse Reaction (Intermediate, Verified 06/16/24) Muscle Pain Medication List - Last Reconciled 06/16/24 by Kamini Puentes RN amlodipine 10 mg PO DAILY atenolol 25 mg PO DAILY clopidogrel 75 mg PO DAILY evolocumab (Elle Romero) mg subcut fluorouracil 5% 1 appl topical BID furosemide 20 mg PO DAILY isosorbide mononitrate ER 60 mg PO DAILY triamcinolone acetonide 0.025% topical valsartan-hydrochlorothiazide 160-12.5 mg tabs PO [walker with seat Wheeled walker with seat ] warfarin 5 mg See Protocol PO DAILY Nursing Note INR: 2.8 in therapeutic range Medications and supplements reviewed PT FELL WITH WALKER LAST Sunday06/10/24 WITH WALKER REACHING WHILE WEEDING HIT ELBOW HARD RESULTING IN ABRASION AND CONTUSION, THEN FELL AGAIN YESTERDAY FALLING BACKWARDS HIT LEFT OCCIPITAL LOBE AREA HAS SLIGHT SWELLING, TENDER TO TOUCH, NO BRUISE AT THIS TIME- HE DID APPLIE ICE PACK AT TIME OF INJURY- NO HEADACHE OR BLURRING VISION, RIGHT ELBOW THAT WAS RE-INJURED YESTERDAY HAS LARGE CONTUSION AND LACERATION HAS A BANDAGE CURRENTLY ON - LEFT ON DUE TO RISK OF BLEEDING, JX OF OLD FRACTURE 2-3 YEARS AGO SAME ARM Bleeding, bruising, clotting discussed - IF DEVELOP BENSON OR BLURRY VISION, OR ANY WEAKNESS OR DIZZINESS GO TO ER IMMEDIATELY Nutritional guidance given- REVIEW FOOD LISTS GIVEN- EAT GREENS TODAY JUST TO BRING INR DOWN A LITTLE WHILE YOU HAVE NEW INJURIES Dose: KEEP SAME FOR NOW 5MG X 2 DAYS/ 2.5MG X 5 DAYS F/U INR: 1 MONTH OR PER ANY HEALTH OR MED CHANGES Patient verbalizes understanding of instructions given Anti-Coag Initial Assessment Social Hx Patient Tobacco Use Status: Never used Tobacco alcohol intake: current Alcohol intake frequency: a few times a week Coding Level of Care Code Est Patient Level 2 Diagnoses Current use of anticoagulant therapy Z79.01 Comment BRINGING TO ER VIA WHEEL CHAIR Assessment & Plan Assessment & Plan (1) Current use of anticoagulant therapy: Code(s): Z79.01 - [facility] (current) use of anticoagulants Category: Medical
== END 2024-06-16 09:53 | disposition home or self-care (01) ==
LOC: HO.ACS 09:27
PROVIDERS: PCP Nurse Practitioner Family; Visit Provider Internal Medicine
DX: Z79.01 Long term (current) use of anticoagulants (principal)

== ENCOUNTER 2024-06-16 10:06 | Emergency (ER) | payer MEDICARE, SELFPAY ==
--- NOTE | ~2024-06-16 | CT_ITS ---
EXAMINATION: CT CERVICAL SPINE WITHOUT CONTRAST CLINICAL INFORMATION: Status post fall. Neck pain. COMPARISON: No priors. TECHNIQUE: Contiguous axial images through the cervical spine using 3 mm collimation with bone and soft tissue algorithm. Sagittal and coronal reformatted images acquired. This CT examination was performed using dose optimization techniques as appropriate, variously including the following: *Automated exposure control *Adjustment of mA and/or kV according to patient size (this includes techniques or standardized protocols for targeted exams where dose is matched to indication/reason for exam; i.e. extremities or head) *Use of iterative reconstruction technique DLP: 375 mGy-cm FINDINGS: Craniocervical junction is intact. Degenerative changes in the periodontal C1 region. Incomplete ankylosis at C2-3. Multilevel marginal osteophyte formation and syndesmophyte formation from C4 to C7. Subchondral cyst formation, decreased intervertebral disc height and vacuum phenomenon at C6-7. Grade 1 anterolisthesis C4-5 and C5-6 likely degenerative. Degenerative changes with facet joint hypertrophy and C3-4, C4-5 levels. Ossifications at the ligamentum flavum C3-4 and C6-7. Old traumatic deformity posterior spinous process of T1. C1 is intact. C2 is intact. C3 is intact. C4 is intact. C5 is intact. C6 is intact. C7 is intact. No prevertebral compartment hematoma, mass or fluid collection. Vascular calcifications both carotid artery systems and the main branches of the thoracic aorta. Tympanic cavities and mastoid cells are aerated. CT/CT cervical spine wo IV con IMPRESSION: Multilevel cervical spondylosis without acute fracture or trauma-related listhesis. Fleischner guidelines were followed. Electronically signed by: Luis F Gardner MD 06/16/2024 02:41 PM NOAH
--- NOTE | ~2024-06-16 | CT_ITS ---
EXAMINATION: CT HEAD WITHOUT CONTRAST CLINICAL INFORMATION: Fall, head strike, headache R/O bleed COMPARISON: CT dated February 22, 2022 TECHNIQUE: Contiguous axial imaging was performed from the skull base to vertex without intravenous administration of contrast. This CT examination was performed using dose optimization techniques as appropriate, variously including the following: *Automated exposure control *Adjustment of mA and/or kV according to patient size (this includes techniques or standardized protocols for targeted exams where dose is matched to indication/reason for exam; i.e. extremities or head) *Use of iterative reconstruction technique DLP: 752 mGy-cm FINDINGS: Bony calvarium is intact. Skull base is intact. No gross soft tissue scalp hematoma. No acute intracranial hemorrhage, mass effect, midline shift, hydrocephalus or herniation. Castaneda-white matter differentiation is normal. Posterior cranial fossa contents demonstrated no acute intracranial hemorrhage or mass effect. Sellar/suprasellar region demonstrated no gross masses. Calcified plaques in the cavernous supraclinoid segments both ICAs and V4 segments both vertebral arteries. Bilateral multifocal patchy deep periventricular white matter hypodensities. CT/CT head/brain wo IV con IMPRESSION: No acute fracture, bony calvarium. No acute intracranial hemorrhage. Probable small vessel occlusive disease. Electronically signed by: Luis F Gardner MD 06/16/2024 02:27 PM NOAH
[2024-06-16 10:23] VITALS: BP 141/61; PULSE 72; RESP 16; TEMP 36.9; O2SAT 98; BMI 25.8
[2024-06-16 10:39] LABS: MANUAL DIFF FLAG NO
[2024-06-16 10:42] LABS: Basophils Percent Auto 0.4 % (0-2); Eosinophils Absolute Auto 0.1 X10*3/uL (0.0-0.4); Eosinophils Percent Auto 1.7 % (0-4); Hematocrit 35.9 % (42.0-52.0); Hemoglobin 11.8 g/dl (14.0-18.0); Imm Gran Abs Auto 0.02 X10*3/uL (0.00-0.03); Imm Gran Pct Auto 0.3 % (0.0-0.4); Lymphocytes Percent Auto 13.6 % (20-40); Mean Corpuscular HGB Conc 32.9 g/dl (31.0-36.0); Mean Corpuscular Hemoglobin 29.3 pg (27.0-33.0); Mean Corpuscular Volume 89.1 fL (80.0-98.0); Mean Platelet Volume 9.9 fL (9.4-12.4); Monocytes Absolute Auto 0.5 X10*3/uL (0.1-1.2); Monocytes Percent Auto 6.4 % (2-11); Neutrophils Absolute Auto 5.9 x10*3/uL (2.0-8.3); Neutrophils Percent Auto 77.6 % (45-73); Platelet Count 193 X10*3/uL (160-400); Red Blood Count 4.03 X10*6/uL (4.60-5.80); Red Cell Distribution Width 16.6 % (11.0-16.0); White Blood Count 7.6 X10*3/uL (4.8-10.8)
[2024-06-16 10:46] LABS: Prothrombin Time 34.9 SEC (10.9-12.4)
[2024-06-16 10:53] LABS: Anion Gap 15 (12-20); Blood Urea Nitrogen 17 mg/dL (9-16); Calcium 9.6 mg/dL (8.4-10.2); Carbon Dioxide 24 mmol/L (22-29); Chloride 104 mmol/L (96-108); Creatinine Clr Calc Pharmacy 43.4; Estimated Glomerular Filt Rate 54; Glucose Random 144 mg/dL (60-115); Potassium 3.7 mmol/L (3.3-5.1); Sodium 139 mmol/L (135-145)
[2024-06-16 14:29] VITALS: BP 145/78; PULSE 58; RESP 16; O2SAT 95
--- NOTE | 2024-06-16 14:31 | PC.NURSE ---
Pt presents to ED from home, reports fall yesterday, lost his balance while walking in kitchen with walker. Fell back and hit his head, no LOC or prolonged downtime. Was able to get self up, did not get eval after. Had similar fall 1 week ago and has signifcant bruising on right arm in elbow area, bandaged. Takes 2 blood thinners. Alert and oriented, breathing even and unlabored, skin warm and dry. Bump noted to left side of back of head.
--- NOTE | 2024-06-16 15:31 | ED_ITS ---
HPI - Fall General Chief Complaint: Fall Stated Complaint: fall head contusion Time Seen by Provider: 06/16/24 10:30 Source: patient Mode of arrival: ambulatory Limitations: no limitations History of Present Illness ED Provider: Dr. Shan Ryder HPI Narrative: 84-year-old male history of carotid stenosis, AAA, vertigo, Villa's palsy, atrial fibrillation, hypertension, chronic kidney disease, CVA, PVD, CAD on warfarin therapy who presents emergency department for evaluation of fall with head strike, no loss of consciousness and hematoma and bleeding to the right elbow. The patient states that he was sitting on his Rollator when the Rollator world out from under him causing him to fall backwards and striking his head and elbow on the floor. Patient denied loss of consciousness. He states that he was able to turn over and get himself up off the floor. The patient states he had a similar fall about 1 week prior and did injure his right elbow and had a large hematoma to the elbow. He states that he again struck his elbow today in his now bleeding from the elbow. Patient came to the hospital to go to his warfarin clinic, he was then brought to the emergency department for evaluation to rule out injuries from his fall. Patient currently has no complaints. He denies headache, nausea, vomiting, change in his vision. He states that he was having pain in his elbow but he states that it has improved since his fall a week ago. Related Data Home Medications ?Medication ?Instructions ?Recorded ?Confirmed atenolol 25 mg tablet 25 mg PO DAILY 06/17/20 06/16/24 clopidogrel 75 mg tablet 75 mg PO DAILY 06/17/20 06/16/24 isosorbide mononitrate 60 mg 60 mg PO DAILY 06/17/20 06/16/24 tablet,extended release 24 hr valsartan 160 tab PO 06/17/20 06/16/24 mg-hydrochlorothiazide 12.5 mg tablet evolocumab 140 mg/mL subcutaneous mg subcut 03/26/23 06/16/24 pen injector (Elle Romero) fluorouracil 5 % topical cream 1 appl topical BID 08/06/23 06/16/24 triamcinolone acetonide 0.025 % topical 08/06/23 06/16/24 topical ointment furosemide 20 mg tablet 20 mg PO DAILY 01/07/24 06/16/24 Previous Rx's ?Medication ?Instructions ?Recorded walker with seat #1 ea 08/10/20 amlodipine 10 mg tablet 10 mg PO DAILY #90 tabs 04/18/23 warfarin 5 mg tablet 5 mg PO DAILY #90 tabs 05/19/24 Allergies Allergy/AdvReac Type Severity Reaction Status Date / Time carvedilol [From COREG] Allergy Severe Palpitation Verified 06/16/24 10:25 s metoprolol Allergy Severe Palpitation Verified 06/16/24 10:25 s Sulfa (Sulfonamide Allergy Severe Redness of Verified 06/16/24 10:25 Antibiotics) Skin [SULFA (SULFONAMIDE ANTIBIOTICS)] doxycycline Allergy Intermediate Rash itch Verified 06/16/24 10:25 cilostazol Allergy Unknown UNKNOWN Verified 06/16/24 10:25 digoxin [DIGOXIN] Allergy Unknown UNKNOWN Verified 06/16/24 10:25 labetalol [LABETALOL] Allergy Unknown MUSCLE PAIN Verified 06/16/24 10:25 Pqpwaip-[id number] Reductase AdvReac Intermediate Muscle Pain Verified 06/16/24 10:25 Inhibitor Review of Systems 2 Review of Systems: Yes all other systems are reviewed and are negative [facility] Past Medical History [facility] Narrative: Social history: He lives with his and he has been for 60 years. She was here in the emergency department with him. He denies tobacco, alcohol and drug use. Medical History (Updated 06/16/24 @ 16:04 by Shan Ryder MD) Carotid stenosis AAA (abdominal aortic aneurysm) without rupture Vertigo H/O Villa's palsy Permanent atrial fibrillation Post herpetic neuralgia HTN (hypertension) Thrombocytopenia CKD (chronic kidney disease) CVA (cerebral vascular accident) PVD (peripheral vascular disease) CAD (coronary artery disease) Afib Surgical History H/O prostatectomy Stented coronary artery Social History Social History Housing: House Alcohol intake: current Alcohol intake frequency: a few times a week Patient Tobacco Use Status: Never used Tobacco Smoked in Last 30 Days: No e-Cigarette/Vaping Use: Never Used Second Hand Smoke Exposure: No Use of substances other than those prescribed or required for medical reasons: No Advance Directives: No Advance Directives Information Provided: Yes Do you have a plan to hurt others: No Plan service: Yes Current occupational status: retired Cognitive needs: No Hearing needs: No Vision needs: No Physical Exam 2 Vital Signs: Vital Signs: Last Vital Signs Temp 97.6 F 06/16/24 16:20 Pulse 58 06/16/24 16:20 Resp 16 06/16/24 16:20 BP 138/75 06/16/24 16:20 Pulse Ox 96 06/16/24 16:20 O2 Del Method Room Air 06/16/24 16:20 BMI result Body Mass Index 25.8 Vital signs revealed an elevated blood pressure of 145/78 otherwise unremarkable Exam: General: Awake, alert in no distress Head: Normocephalic, patient has tenderness palpation in his left occipital scalp but I do not see an obvious hematoma in this area EENT: PERRL, Lids normal, sclera normal, conjunctiva normal, nose normal , ears normal, throat without erythema or exudates Neck: Supple, no adenopathy Lung: breath sounds symmetric, no wheezing, rales or rhonchi Chest: symmetric movement, nontender Heart: regular rate and rhythm, normal S1, S2 no murmurs or rubs Abdomen: soft, non-tender, nondistended, normal bowel sounds Back: no vertebral tenderness, no CVAT Extremities: Patient has a large hematoma to his right elbow with a superficial skin tear which was covered by a bandage and when I removed it he was not actively bleeding Neuro: Awake, alert, oriented, normal speech, cranial nerves intact, moves all extremities symmetrically Psych: Pleasant, cooperative Medical Decision Making Medical Decision Making MDM Narrative: 84-year-old male history of carotid stenosis, AAA, vertigo, Villa's palsy, atrial fibrillation, hypertension, chronic kidney disease, CVA, PVD, CAD on warfarin therapy who presents emergency department for evaluation of fall while sitting on his Rollator causing him to fall backwards striking his head with no loss of consciousness in injury is right elbow. Patient had a similar fall 1 week prior. Patient initially came with the hospitalist for his warfarin clinic appointment and the clinic staff transferred him here to the emergency department for evaluation. Vital signs were unremarkable. Examination did reveal tenderness to the left occipital region of his scalp with no clear hematoma. Patient does have a large hematoma to his right elbow with a abrasion that was not actively bleeding at the time my evaluation. Neurologic exam was otherwise unremarkable. Differential diagnosis: ?Includes but is not limited to skull fracture, intracranial bleed, neck fracture, neck sprain, right elbow contusion, right elbow abrasion, anemia, electrolyte abnormalities Course: Patient's laboratory evaluation revealed a therapeutic INR of 3.0. Patient was a chronic normocytic anemia with an H&H of 11.8 and 35.9. Platelet count was normal. CT scan of the patient's head and cervical spine revealed no acute fracture bleed which was reassuring. The patient's right elbow abrasion was covered with 2 x 2 gauze quartered held in place with 2 tiger terms and then a bulky gauze dressing was applied and held in place with Kerlix to apply pressure to the wound. Patient was given printed and verbal instructions and discharged home. Admission/Observation Consideration of admission/observation: Escalation of care including admission/observation considered (Yes) Lab Data 06/16/24 10:35 06/16/24 10:35 Labs: Lab Results 06/16/24 Range/Units 10:35 WBC 7.6 (4.8-10.8) X10*3/uL RBC 4.03 L (4.60-5.80) X10*6/uL Hgb 11.8 L (14.0-18.0) g/dl Hct 35.9 L (42.0-52.0) % MCV 89.1 (80.0-98.0) fL MCH 29.3 (27.0-33.0) pg MCHC 32.9 (31.0-36.0) g/dl RDW 16.6 H (11.0-16.0) % Plt Count 193 (160-400) X10*3/uL MPV 9.9 (9.4-12.4) fL Immature Gran % (Auto) 0.3 (0.0-0.4) % Neut % (Auto) 77.6 H (45-73) % Lymph % (Auto) 13.6 L (20-40) % [place] % (Auto) 6.4 (2-11) % Eos % (Auto) 1.7 (0-4) % Baso % (Auto) 0.4 (0-2) % Lymph # (Auto) 1.0 L (1.2-4.9) X10*3/uL [place] # (Auto) 0.5 (0.1-1.2) X10*3/uL Eos # (Auto) 0.1 (0.0-0.4) X10*3/uL Baso # (Auto) 0.0 (0.0-0.2) X10*3/uL Abs Immat Gran (auto) 0.02 (0.00-0.03) X10*3/uL Absolute Neuts (auto) 5.9 (2.0-8.3) x10*3/uL Absolute Nucleated RBC 0.000 (0.0-0.012) X10*3/uL Nucleated RBC % (auto) 0.0 (0.0-0.2) /100WBC PT 34.9 H (10.9-12.4) SEC INR 3.0 H (0.9-1.1) Sodium 139 (135-145) mmol/L Potassium 3.7 (3.3-5.1) mmol/L Chloride 104 (96-108) mmol/L Carbon Dioxide 24 (22-29) mmol/L Anion Gap 15 (12-20) BUN 17 H (9-16) mg/dL Creatinine 1.26 (0.5-1.4) mg/dL Estim Creat Clear Calc 43.4 Estimated GFR 54 Random Glucose 144 H (60-115) mg/dL Calcium 9.6 (8.4-10.2) mg/dL Radiology Impression Discussion of test interpretation with radiology: I have reviewed the radiologist's reading. Radiologist Impression: CT head/brain wo IV con IMPRESSION: No acute fracture, bony calvarium. No acute intracranial hemorrhage. Probable small vessel occlusive disease. Electronically signed by: Luis F Gardner MD 06/16/2024 CT cervical spine wo IV con IMPRESSION: Multilevel cervical spondylosis without acute fracture or trauma-related listhesis. Fleischner guidelines were followed. Electronically signed by: Luis F Gardner MD 06/16/2024 02:41 PM Independent Historian Clinical information obtained from an independent historian. History obtained from or confirmed by: Spouse Chronic Conditions Patient?s care impacted by: Hypertension and Other (Warfarin therapy for coronary artery disease) Discharge Plan Discharge Clinical Impression: Closed head injury, Abrasion of elbow, right, Hematoma of right elbow, On warfarin therapy Fall Qualifiers: Encounter type: initial encounter Qualified Code(s): W19.XXXA - Unspecified fall, initial encounter Patient Disposition: Home, Self-Care Instructions: Head Injury (ED) Additional Instructions: The CT scan of your head and neck did not reveal any broken bones or bleeding in your head which is reassuring Follow the head injury instructions for the next 24 hours. Keep the dressing on the right elbow for 24 hours and then gently remove it. Then apply bacitracin once a day for 1 week and keep the wound covered with a gauze dressing to help prevent infection and rebleeding. Follow-up with your doctor in 2 days. Please return to the emergency department if your symptoms get worse or if you develop any symptoms that are concerning to you. Prescriptions: No Action (DME) walker with seat See Rx Instructions .Route .MEDSUPPLY Qty: 1 0RF Rx Instructions: Wheeled walker with seat warfarin 5 mg tablet 5 mg PO DAILY Qty: 90 1RF Protocol: Dose Management Condition: Sunday (Week One) Dose/Route: 2.5 mg Instruction: 0.5 x 5 mg tablets Condition: Sunday Dose/Route: 5 mg Instruction: 1 x 5 mg tablet Condition: Sunday Dose/Route: 2.5 mg Instruction: 0.5 x 5 mg tablets Condition: Sunday Dose/Route: 2.5 mg Instruction: 0.5 x 5 mg tablets Condition: Dose/Route: 5 mg Instruction: 1 x 5 mg tablet Condition: Sunday Dose/Route: 2.5 mg Instruction: 0.5 x 5 mg tablets Condition: Sunday Dose/Route: 2.5 mg Instruction: 0.5 x 5 mg tablets Condition: Sunday (Week Two) Dose/Route: 2.5 mg Instruction: 0.5 x 5 mg tablets Condition: Sunday Dose/Route: 5 mg Instruction: 1 x 5 mg tablet Condition: Sunday Dose/Route: 2.5 mg Instruction: 0.5 x 5 mg tablets Condition: Sunday Dose/Route: 2.5 mg Instruction: 0.5 x 5 mg tablets Condition: Dose/Route: 5 mg Instruction: 1 x 5 mg tablet Condition: Sunday Dose/Route: 2.5 mg Instruction: 0.5 x 5 mg tablets Condition: Sunday Dose/Route: 2.5 mg Instruction: 0.5 x 5 mg tablets Protocol Text: Adjustment Start Date: Sunday06/16/24 INR Value: Pending INR Date: 06/16/24 Additional Instructions: REVIEW FOOD LIST WEEKLY ESPECIALLY DURING THE HOLIDAYS, CONTINUE TO EAT A MIX OF FRUITS AND VEGETABLES - REMEMBER MANY OF THE THANKSGIVING FOODS LIKE SQUASH, PUMPKIN AND CRANBERRIES, CELERY, ONION, CARROTS IN LARGE AMOUNTS CAN RAISE THE INR- REMEMBER TO EAT GREENS. PLEASE CALL WITH ANY CHANGE IN MEDICATION IN 1-2 DAYS amlodipine 10 mg tablet 10 mg PO DAILY Qty: 90 0RF valsartan-hydrochlorothiazide 160-12.5 mg tablet PO clopidogrel 75 mg tablet 75 mg PO DAILY isosorbide mononitrate 60 mg tablet extended release 24 hr 60 mg PO DAILY atenolol 25 mg tablet 25 mg PO DAILY triamcinolone acetonide 0.025 % ointment topical fluorouracil 5 % cream 1 appl topical BID furosemide 20 mg tablet 20 mg PO DAILY Repatha SureClick 140 mg/mL pen injector subcut Interventions: ED Discharge Assessment Last Done: 06/16/24 16:20 Discharge Date/Time: 06/16/24 16:21 Print Language: Thai
[2024-06-16 16:20] VITALS: BP 138/75; PULSE 58; RESP 16; TEMP 36.4; O2SAT 96
== END 2024-06-16 16:21 | disposition home or self-care (01) ==
PROVIDERS: Emergency Provider Emergency Medicine Emergency Medical Services; PCP Nurse Practitioner Family
DX: S09.90XA Unspecified injury of head, initial encounter (principal); S50.311A Abrasion of right elbow, initial encounter; S50.01XA Contusion of right elbow, initial encounter; W18.39XA Other fall on same level, initial encounter; Z91.81 History of falling; I12.9 Hypertensive chronic kidney disease with stage 1 through stage 4 chronic kidney disease, or unspecified chronic kidney disease; N18.9 Chronic kidney disease, unspecified; Y93.89 Activity, other specified; Y92.019 Unspecified place in single-family (private) house as the place of occurrence of the external cause; Y99.9 Unspecified external cause status; Z79.01 Long term (current) use of anticoagulants
CPT/HCPCS: 36415; 70450; 72125; 80048; 85025; 85610; 99212; 99284

== ENCOUNTER → 2024-06-16 10:30 | Outpatient (BNV) | payer MEDICARE, SELFPAY | PROVIDERS: Emergency Provider Emergency Medicine Emergency Medical Services; PCP Nurse Practitioner Family; Visit Provider Radiology Diagnostic Radiology | DX: R51.9 Headache, unspecified (principal); M54.2 Cervicalgia | CPT/HCPCS: 70450; 72125 ==

== ENCOUNTER 2024-06-18 10:19 | Outpatient (AMB) | payer MEDICARE, SELFPAY ==
--- NOTE | 2024-06-18 10:35 | MHC.OFFWIV ---
Intake Vital Signs 06/18/24 10:37 Height 5 ft 10 in Weight 190 lb BMI 27.3 BP 130/80 Blood Pressure Location Lt brachial Position Sitting Pulse 78 Pulse Source Pulse Oximeter Pulse Oximetry (%) 97 Oxygen Delivery Method Room Air Intake Visit Reasons: EP wound on RT arm, new bandage? Intake Note: Patient here because he fell on the sidewalk on Sunday and then had a 2nd fall inside the house on sunday and would like to have wound re wrapped. Patient Tobacco Use Status: Never used Tobacco Allergies carvedilol [From COREG] Allergy (Severe, Verified 06/18/24 10:40) Palpitations metoprolol Allergy (Severe, Verified 06/18/24 10:40) Palpitations Sulfa (Sulfonamide Antibiotics) [SULFA (SULFONAMIDE ANTIBIOTICS)] Allergy (Severe, Verified 06/18/24 10:40) Redness of Skin doxycycline Allergy (Intermediate, Verified 06/18/24 10:40) Rash itch cilostazol Allergy (Unknown, Verified 06/18/24 10:40) UNKNOWN digoxin [DIGOXIN] Allergy (Unknown, Verified 06/18/24 10:40) UNKNOWN labetalol [LABETALOL] Allergy (Unknown, Verified 06/18/24 10:40) MUSCLE PAIN Kqublym-HBH-IaG Reductase Inhibitor Adverse Reaction (Intermediate, Verified 06/18/24 10:40) Muscle Pain Do you need a note to return to daycare/school/sports/work: No HPI HPI Comments History of Present Illness Details The patient is an 84-year-old male presenting with a skin tear on the right arm due to a recent fall. The first fall occurred on the sidewalk last Sunday, approximately eight days prior to the visit, and the second fall occurred inside the house on Sunday, about four days ago. During the fall inside the house, which led to the patient's visit to the emergency room, the patient sustained a significant head impact but did not lose consciousness. The patient is on anticoagulant therapy with Warfarin and Clopidogrel. Following the fall on Sunday, a CT scan was performed, ruling out intracranial bleeding. The primary concern during this visit is the skin tear on the right arm, which was assessed in the emergency room. The tear was managed with a bandage; however, the patient reported ongoing bleeding when disturbed. The wound did not receive sutures as it was identified as a skin tear type. The patient has not experienced dizziness or changes in vision and reports that the only discomfort is the tenderness and bruising of the arm. The skin tear has been causing pain and dark bruising since the injury. The patient has been compliant with anticoagulant medications and is aware of the potential bleeding complications associated with the medications. [facility] Medical History (Updated 06/18/24 @ 11:10 by Vy Lr PA-C) Carotid stenosis AAA (abdominal aortic aneurysm) without rupture Vertigo H/O Villa's palsy Permanent atrial fibrillation Post herpetic neuralgia HTN (hypertension) Thrombocytopenia CKD (chronic kidney disease) CVA (cerebral vascular accident) PVD (peripheral vascular disease) CAD (coronary artery disease) Afib Surgical History H/O prostatectomy Stented coronary artery Social History Housing: House Alcohol intake: current Alcohol intake frequency: a few times a week Patient Tobacco Use Status: Never used Tobacco e-Cigarette/Vaping Use: Never Used Second Hand Smoke Exposure: No service: Yes Current occupational status: retired Cognitive needs: No Hearing needs: No Vision needs: No Review of Systems Const All systems reviewed & are unremarkable except as noted in HPI and below Physical Exam Vital Signs: Last Vital Signs Pulse 78 06/18/24 10:37 BP 130/80 06/18/24 10:37 Pulse Ox 97 06/18/24 10:37 Oxygen Delivery Method Room Air 06/18/24 10:37 BMI result Body Mass Index 27.3 Const General: cooperative, healthy appearing, comfortable, no acute distress and well developed Orientation/consciousness: patient oriented x3 Limitations: no limitations HEENT Head: Yes normal to inspection Neck Neck: Yes normal visual inspection and Yes supple Skin Other: - Right Arm- Presence of a skin tear with surrounding bruising and significant discoloration. Tender to touch. The elbow has limited range of motion due to tenderness and fullness consistent with blood pooling. - Wound- skin tear 3cm x 0.75 cm on posterior proximal forearm, not currently bleeding, without signs of infection noted Neuro General: patient oriented x3 Assessment & Plan Assessment & Plan (1) Encounter for post-traumatic wound check: Code(s): Z51.89 - Encounter for other specified aftercare Plan: Irrigated skin tear with sterile saline, applied bacitracin and a nonadherent bandage with gauze wrapped around it. - Educate the patient on wound care, emphasizing keeping the wound clean and protected. Instruct on using bacitracin or similar antibiotic ointment twice daily to prevent infection. - Advise covering the wound with nonadherent gauze and a gauze wrap to manage bleeding, ensuring not to obstruct circulation for 24 hours. - Provide the patient with supplies including gauze, nonadherent pads, and tape. Demonstrate the pressure dressing technique to control potential bleeding. - Advise the patient to remove the current dressing in 24 hours and to maintain the wound loosely covered with a Band-Aid thereafter unless it is actively bleeding, in which case apply pressure dressing as instructed. - Shank Archer the patient on injury prevention strategies, considering the patient's current use of anticoagulants, to minimize the risk of falling. - Schedule follow-up if the wound does not improve or if signs of infection develop, such as increased redness, warmth, or purulent discharge. (2) Change or removal of wound dressing: Code(s): Z48.00 - Encounter for change or removal of nonsurgical wound dressing Plan: see above Coding Level of Care Code Est Pt Level 3 (33344) Diagnoses Encounter for post-traumatic wound check Z51.89 Change or removal of wound dressing Z48.00
[2024-06-18 10:37] VITALS: BP 130/80; PULSE 78; O2SAT 97; BMI 27.3
== END 2024-06-18 12:22 | disposition home or self-care (01) ==
PROVIDERS: PCP Nurse Practitioner Family; Visit Provider Physician Assistant
DX: Z51.89 Encounter for other specified aftercare (principal); Z48.00 Encounter for change or removal of nonsurgical wound dressing

== ENCOUNTER → 2024-06-18 10:19 | Outpatient (BNVA) | payer MEDICARE, SELFPAY | PROVIDERS: PCP Nurse Practitioner Family; Visit Provider Physician Assistant | DX: Z48.00 Encounter for change or removal of nonsurgical wound dressing (principal); S40.921D Unspecified superficial injury of right upper arm, subsequent encounter | CPT/HCPCS: 99212 ==

== ENCOUNTER 2024-06-20 10:31 | Outpatient (REF) | payer MEDICARE, SELFPAY ==
--- NOTE | ~2024-06-20 | XR_ITS ---
EXAMINATION: XR ELBOW, RIGHT CLINICAL INFORMATION: RIGHT ELBOW PAIN COMPARISON: Right elbow August 08, 2021 TECHNIQUE: AP, lateral, and oblique views of the right elbow. FINDINGS: No acute osseous abnormality. No fracture or dislocation. No joint effusion. Stable spurs of the medial lateral humeral epicondyles unchanged since 2021. Large spur at the posterior olecranon similar to 2021 imaging. Soft tissue edema along the medial side of the elbow and upper arm. XR/XR elbow RT min 3V IMPRESSION: 1. No acute osseous abnormality. 2. Soft tissue edema along the medial side of the elbow and upper arm. 3. Stable spurs of the medial and lateral humeral epicondyles unchanged since 2021. 4. Large spur at the posterior olecranon similar to 2021 imaging. Electronically signed by: Colin Cunningham MD 07/08/2024 04:48 PM NOAH BROOKS
[2024-06-20 13:06] LABS: Hemoglobin 12.3 g/dl (14.0-18.0); Mean Corpuscular HGB Conc 32.4 g/dl (31.0-36.0); Mean Corpuscular Hemoglobin 29.1 pg (27.0-33.0); Platelet Count 222 X10*3/uL (160-400); Red Blood Count 4.22 X10*6/uL (4.60-5.80); Red Cell Distribution Width 16.8 % (11.0-16.0); White Blood Count 8.3 X10*3/uL (4.8-10.8)
[2024-06-20 13:29] LABS: Anion Gap 15 (12-20); Blood Urea Nitrogen 18 mg/dL (9-16); Calcium 9.1 mg/dL (8.4-10.2); Carbon Dioxide 26 mmol/L (22-29); Chloride 101 mmol/L (96-108); Estimated Glomerular Filt Rate > 60; Glucose Random 108 mg/dL (60-115); Potassium 3.5 mmol/L (3.3-5.1); Sodium 138 mmol/L (135-145)
== END 2024-06-20 10:32 | disposition home or self-care (01) ==
LOC: HO.HMGCX 10:31
PROVIDERS: PCP Nurse Practitioner Family; Referring Provider Nurse Practitioner Family; Visit Provider Internal Medicine Hypertension Specialist
DX: N18.9 Chronic kidney disease, unspecified (principal); M25.521 Pain in right elbow
CPT/HCPCS: 36415; 73080; 80048; 85027

== ENCOUNTER 2024-06-23 10:55 | Outpatient (AMB) | payer MEDICARE, SELFPAY ==
[2024-06-23 10:58] VITALS: BP 132/58; PULSE 77; O2SAT 97; BMI 27.3
--- NOTE | 2024-06-23 10:58 | HO.NEPHOV_ITS ---
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 Required: No Accompanied by: Self / Same As Patient Allergies carvedilol [From COREG] Allergy (Severe, Verified 06/23/24 11:00) Palpitations metoprolol Allergy (Severe, Verified 06/23/24 11:00) Palpitations Sulfa (Sulfonamide Antibiotics) [SULFA (SULFONAMIDE ANTIBIOTICS)] Allergy (Severe, Verified 06/23/24 11:00) Redness of Skin doxycycline Allergy (Intermediate, Verified 06/23/24 11:00) Rash itch cilostazol Allergy (Unknown, Verified 06/23/24 11:00) UNKNOWN digoxin [DIGOXIN] Allergy (Unknown, Verified 06/23/24 11:00) UNKNOWN labetalol [LABETALOL] Allergy (Unknown, Verified 06/23/24 11:00) MUSCLE PAIN Fjahjii-INK-CcP Reductase Inhibitor Adverse Reaction (Intermediate, Verified 06/23/24 11:00) Muscle Pain Medication List - Last Reconciled 06/23/24 by Luis Gutierrez MD amlodipine 10 mg PO DAILY atenolol 25 mg PO DAILY clopidogrel 75 mg PO DAILY evolocumab (Repmayra Romero) mg subcut fluorouracil 5% 1 appl topical BID furosemide 20 mg PO DAILY isosorbide mononitrate ER 60 mg PO DAILY triamcinolone acetonide 0.025% topical valsartan-hydrochlorothiazide 160-12.5 mg tabs PO [walker with seat Wheeled walker with seat ] warfarin 5 mg See Protocol PO DAILY HPI Comments Details: Ifeanyi is well known to me for last several years. 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 In 2011 coronary angiogram showed 60% mid LAD 90% distal LAD 50% 1st diagonal and 84% obtuse marginal. The RCA was totally occluded. Repeat CT in 2017 revealed 90% stenosis mid LAD moderate diffuse distal LAD and left circumflex 80-90% distal stenosis and chronically occluded RCA. He was deemed not to be a candidate for CABG. 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 Blood pressure has been difficult to control. He has been monitoring his blood pressure at home Home readings have been acceptable. He has generalized body pain otherwise no new issues today. He has been intolerant to statins however he has been able to tolerate Repatha 06/23/24 Fell twice and sustained injury to right upper extremity seen in ER COUNT INCLUDES [facility] Medical History (Updated 06/18/24 @ 11:10 by Vy Lr PA-C) Carotid stenosis AAA (abdominal aortic aneurysm) without rupture Vertigo H/O Villa's palsy Permanent atrial fibrillation Post herpetic neuralgia HTN (hypertension) Thrombocytopenia CKD (chronic kidney disease) CVA (cerebral vascular accident) PVD (peripheral vascular disease) CAD (coronary artery disease) Afib Surgical History H/O prostatectomy Stented coronary artery Social History Housing: House Alcohol intake: current Alcohol intake frequency: a few times a week Patient Tobacco Use Status: Never used Tobacco e-Cigarette/Vaping Use: Never Used Second Hand Smoke Exposure: No service: Yes Current occupational status: retired Cognitive needs: No Hearing needs: No Vision needs: No Physical Exam Vital Signs: Last Vital Signs Pulse 77 06/23/24 10:58 BP 132/58 L 06/23/24 10:58 Pulse Ox 97 06/23/24 10:58 Oxygen Delivery Method Room Air 06/23/24 10:58 BMI result Body Mass Index 27.3 Comfortable Neck supple no JVD. Lungs entry equal no rales. Heart S1-S2 heard no gallop or rub. Abdomen soft nontender. Neuro alert awake oriented. No asterixis. Extremities no edema. Ecchymosis of right UE Results Reviewed Nephrology Results: Hgb 12.3 g/dl (14.0-18.0) L 06/20/24 WBC 8.3 X10*3/uL (4.8-10.8) 06/20/24 Plt Count 222 X10*3/uL (160-400) 06/20/24 Sodium 138 mmol/L (135-145) 06/20/24 Potassium 3.5 mmol/L (3.3-5.1) 06/20/24 Chloride 101 mmol/L (96-108) 06/20/24 Carbon Dioxide 26 mmol/L (22-29) 06/20/24 BUN 18 mg/dL (9-16) H 06/20/24 Creatinine 1.06 mg/dL (0.5-1.4) 06/20/24 Calcium 9.1 mg/dL (8.4-10.2) 06/20/24 Assessment & Plan Assessment & Plan (1) HTN (hypertension): Code(s): I10 - Essential (primary) hypertension Category: Medical Plan: Resistant hypertension history of significant artero sclerosis. Ifeanyi has renovascular disease. Overall blood pressure has been acceptable. I will continue with current antihypertensive medications. Keep on low-sodium diet. Encouraged to keep moderate blood pressure at home and to call me if the systolic blood pressure stays above 140 mmHg (2) CKD (chronic kidney disease): Code(s): N18.9 - Chronic kidney disease, unspecified Category: Medical Plan CKD in a setting of longstanding hypertension. He has underlying renovascular disease. At present renal functions close to baseline. Goal is to slow the progression of renal disease. Continue to avoid nephrotoxic agents. Avoid hypotensive episodes. Will continue monitor renal function closely since he is at high risk for ongoing renal injury and LUISANA. Orders: Orders Basic Metabolic Panel 5 Months N18.9 - Chronic kidney disease, unspecified Complete Blood Count no Diff 5 Months N18.9 - Chronic kidney disease, unspecified Coding Level of Care Code Est Pt Level 4 (86512) Diagnoses HTN (hypertension) I10 CKD (chronic kidney disease) N18.9
== END 2024-06-23 11:11 | disposition home or self-care (01) ==
PROVIDERS: PCP Nurse Practitioner Family; Visit Provider Internal Medicine Hypertension Specialist
DX: I12.9 Hypertensive chronic kidney disease with stage 1 through stage 4 chronic kidney disease, or unspecified chronic kidney disease (principal); N18.9 Chronic kidney disease, unspecified
CPT/HCPCS: 99214

== ENCOUNTER → 2024-06-23 10:55 | Outpatient (BNVA) | payer MEDICARE, SELFPAY | PROVIDERS: PCP Nurse Practitioner Family; Visit Provider Internal Medicine Hypertension Specialist | DX: I25.10 Atherosclerotic heart disease of native coronary artery without angina pectoris (principal); I1A.0 Resistant hypertension; I25.82 Chronic total occlusion of coronary artery; I12.9 Hypertensive chronic kidney disease with stage 1 through stage 4 chronic kidney disease, or unspecified chronic kidney disease; N18.9 Chronic kidney disease, unspecified | CPT/HCPCS: 99212 ==

== ENCOUNTER 2024-07-14 09:22 | Outpatient (AMB) | payer MEDICARE, SELFPAY ==
[2024-07-14 09:39] LABS: Prothrombin Time Whole Bld POC 46.1 sec (11.1-13.5); ~PT, ~INR - Anti Coag Clinic 3.8 (0.9-1.1)
--- NOTE | 2024-07-14 09:50 | MHC.OFFVISCO ---
Intake Intake Visit Reasons: Anticoagulation Allergies carvedilol [From COREG] Allergy (Severe, Verified 06/23/24 11:00) Palpitations metoprolol Allergy (Severe, Verified 06/23/24 11:00) Palpitations Sulfa (Sulfonamide Antibiotics) [SULFA (SULFONAMIDE ANTIBIOTICS)] Allergy (Severe, Verified 06/23/24 11:00) Redness of Skin doxycycline Allergy (Intermediate, Verified 06/23/24 11:00) Rash itch cilostazol Allergy (Unknown, Verified 06/23/24 11:00) UNKNOWN digoxin [DIGOXIN] Allergy (Unknown, Verified 06/23/24 11:00) UNKNOWN labetalol [LABETALOL] Allergy (Unknown, Verified 06/23/24 11:00) MUSCLE PAIN Ttpzmlt-GBA-WgC Reductase Inhibitor Adverse Reaction (Intermediate, Verified 06/23/24 11:00) Muscle Pain Nursing Note INR: 3.8 in therapeutic range Medications and supplements reviewed- takes prn tylenol Healing from fall in May 2024- no elbow fracture or skull fracture, bleeds or hematomas, has bone spurs in elbow, Denies any signs and symptoms of bleeding or bruising or clotting. Bleeding, bruising, clotting discussed Nutritional guidance given - when taking more Tylenol than usual eat an extra green or 2, also remember cooked greens lower INR more than raw greens Dose: hold today due to fall risk, then resume usual dose 5mg x 2 days/ 2.5mg x 5 days F/U INR: 2 weeks Patient verbalizes understanding of instructions given Anti-Coag Initial Assessment Social Hx Patient Tobacco Use Status: Never used Tobacco alcohol intake: current Alcohol intake frequency: a few times a week Coding Level of Care Code Est Patient Level 1 Diagnoses Current use of anticoagulant therapy Z79.01 Results AMB INR Fingerstick AMB INR Fingerstick 3.8 Last Edit by Kamini Puentes RN on 07/14/24 09:43 manual entry Assessment & Plan Assessment & Plan (1) Current use of anticoagulant therapy: Code(s): Z79.01 - residential (current) use of anticoagulants Category: Medical
== END 2024-07-14 09:58 | disposition home or self-care (01) ==
LOC: HO.ACS 09:22
PROVIDERS: PCP Nurse Practitioner Family; Visit Provider Internal Medicine
DX: Z79.01 Long term (current) use of anticoagulants (principal)

== ENCOUNTER → 2024-07-14 09:22 | Outpatient (BNVA) | payer MEDICARE, SELFPAY | PROVIDERS: PCP Nurse Practitioner Family; Visit Provider Internal Medicine | DX: I48.19 Other persistent atrial fibrillation (principal); Z79.01 Long term (current) use of anticoagulants; Z51.81 Encounter for therapeutic drug level monitoring | CPT/HCPCS: 85610; 99211 ==

== ENCOUNTER 2024-07-28 09:25 | Outpatient (AMB) | payer MEDICARE, SELFPAY ==
[2024-07-28 09:33] LABS: Prothrombin Time Whole Bld POC 30.3 sec (11.1-13.5); ~PT, ~INR - Anti Coag Clinic 2.5 (0.9-1.1)
--- NOTE | 2024-07-28 09:34 | MHC.OFFVISCO ---
Intake Intake Visit Reasons: Anticoagulation Allergies carvedilol [From COREG] Allergy (Severe, Verified 07/28/24 09:27) Palpitations metoprolol Allergy (Severe, Verified 07/28/24 09:27) Palpitations Sulfa (Sulfonamide Antibiotics) [SULFA (SULFONAMIDE ANTIBIOTICS)] Allergy (Severe, Verified 07/28/24 09:27) Redness of Skin doxycycline Allergy (Intermediate, Verified 07/28/24 09:27) Rash itch cilostazol Allergy (Unknown, Verified 07/28/24 09:27) UNKNOWN digoxin [DIGOXIN] Allergy (Unknown, Verified 07/28/24 09:27) UNKNOWN labetalol [LABETALOL] Allergy (Unknown, Verified 07/28/24 09:27) MUSCLE PAIN Chdxruv-RPK-EtL Reductase Inhibitor Adverse Reaction (Intermediate, Verified 07/28/24 09:27) Muscle Pain Medication List - Last Reconciled 07/28/24 by Raeann Pacheco RN amlodipine 10 mg PO DAILY atenolol 25 mg PO DAILY clopidogrel 75 mg PO DAILY evolocumab (Elle Romero) 140 mg subcut Q3W fluorouracil 5% 1 appl topical BID furosemide 20 mg PO DAILY isosorbide mononitrate ER 60 mg PO DAILY triamcinolone acetonide 0.025% topical valsartan-hydrochlorothiazide 160-12.5 mg tabs PO [walker with seat Wheeled walker with seat ] warfarin 5 mg See Protocol PO DAILY Nursing Note INR: 2.5 in therapeutic range of 2-3 Medications and supplements reviewed No changes in health, diet, medications, or supplements, Denies any signs and symptoms of bleeding or bruising or clotting. Bleeding, bruising, clotting discussed Nutritional guidance given Dose: 2.5mg X 5 days and 5mg X 2 days (Mon & Thurs) F/U INR: 4 weeks Patient verbalizes understanding of instructions given Anti-Coag Initial Assessment Social Hx Patient Tobacco Use Status: Never used Tobacco alcohol intake: current Alcohol intake frequency: a few times a week Coding Level of Care Code Est Patient Level 1 Diagnoses Current use of anticoagulant therapy Z79.01 Results AMB INR Fingerstick AMB INR Fingerstick 2.5 Last Edit by Raeann Pacheco RN on 07/28/24 09:33 interface delay Assessment & Plan Assessment & Plan (1) Current use of anticoagulant therapy: Code(s): Z79.01 - retirement (current) use of anticoagulants Category: Medical
== END 2024-07-28 09:41 | disposition home or self-care (01) ==
LOC: HO.ACS 09:25
PROVIDERS: PCP Nurse Practitioner Family; Visit Provider Internal Medicine
DX: Z79.01 Long term (current) use of anticoagulants (principal)

== ENCOUNTER → 2024-07-28 09:25 | Outpatient (BNVA) | payer MEDICARE, SELFPAY | PROVIDERS: PCP Nurse Practitioner Family; Visit Provider Internal Medicine | DX: I48.19 Other persistent atrial fibrillation (principal); Z79.01 Long term (current) use of anticoagulants; Z51.81 Encounter for therapeutic drug level monitoring | CPT/HCPCS: 85610; 99211 ==

== ENCOUNTER 2024-08-13 09:23 | Outpatient (AMB) | payer MEDICARE, SELFPAY ==
[2024-08-13 09:35] VITALS: BP 160/90; PULSE 89; O2SAT 98; BMI 27.4
--- NOTE | 2024-08-13 09:35 | AM.OFFWIN_ITS ---
Intake Vital Signs 08/13/24 09:35 Height 5 ft 10 in Weight 191 lb BMI 27.4 BP 160/90 H Blood Pressure Location Rt brachial Position Sitting Pulse 89 Pulse Source Pulse Oximeter Pulse Oximetry (%) 98 Oxygen Delivery Method Room Air Intake Visit Reasons: EP-nauseas, dizziness Intake Note: Patient here for nausea and BAD dizziness that came out of nowhere while watching tv last night. Patient Tobacco Use Status: Never used Tobacco Allergies carvedilol [From COREG] Allergy (Severe, Verified 08/13/24 09:36) Palpitations metoprolol Allergy (Severe, Verified 08/13/24 09:36) Palpitations Sulfa (Sulfonamide Antibiotics) [SULFA (SULFONAMIDE ANTIBIOTICS)] Allergy (Severe, Verified 08/13/24 09:36) Redness of Skin doxycycline Allergy (Intermediate, Verified 08/13/24 09:36) Rash itch cilostazol Allergy (Unknown, Verified 08/13/24 09:36) UNKNOWN digoxin [DIGOXIN] Allergy (Unknown, Verified 08/13/24 09:36) UNKNOWN labetalol [LABETALOL] Allergy (Unknown, Verified 08/13/24 09:36) MUSCLE PAIN Bbuonmc-LSG-RhY Reductase Inhibitor Adverse Reaction (Intermediate, Verified 08/13/24 09:36) Muscle Pain Do you need a note to return to daycare/school/sports/work: No HPI HPI Comments History of Present Illness Details Patient is an 84yo M with hx of afib on thinner, AAA who presents to office with nausea and dizziness Son drove him into office He said onset last night around 11pm Started sudden onset of dizziness while sitting on chair Denies sensation room spinning; he describes as feeling like falling over No HT or LOC. No syncope He said it has been constant since Unable to sleep Denies new medicines + nausea without vomiting No CP or SOB No abdominal pain Denies diarrhe or constipation; normal BM last night Taking meds at home as prescribed [facility] Medical History (Updated 08/13/24 @ 09:49 by Evie Neri PA-C) Carotid stenosis AAA (abdominal aortic aneurysm) without rupture Vertigo H/O Villa's palsy Permanent atrial fibrillation Post herpetic neuralgia HTN (hypertension) Thrombocytopenia CKD (chronic kidney disease) CVA (cerebral vascular accident) PVD (peripheral vascular disease) CAD (coronary artery disease) Afib Surgical History H/O prostatectomy Stented coronary artery Social History Housing: House Alcohol intake: current Alcohol intake frequency: a few times a week Patient Tobacco Use Status: Never used Tobacco e-Cigarette/Vaping Use: Never Used Second Hand Smoke Exposure: No service: Yes Current occupational status: retired Cognitive needs: No Hearing needs: No Vision needs: No Review of Systems Const Denies chills, Denies fever(s), Denies frequent falls, Denies headache(s) and Denies weakness Eyes Denies change in vision ENT Reports dizziness, Denies otalgia, Denies headache(s), Denies nasal congestion and Denies sore throat Card Denies chest pain and Denies syncope Resp Denies cough GI Denies abdominal pain, Denies constipation, Denies diarrhea, Reports nausea and Denies vomiting Neuro Reports dizziness, Denies syncope, Denies frequent falls, Denies headache(s) and Denies weakness Physical Exam Vital Signs: Last Vital Signs Pulse 89 08/13/24 09:35 BP 160/90 H 08/13/24 09:35 Pulse Ox 98 08/13/24 09:35 Oxygen Delivery Method Room Air 08/13/24 09:35 BMI result Body Mass Index 27.4 General: Non-toxic, NAD. Speaking full sentences. Skin: Warm dry throughout Eye: EOMI, PERRL HENT: Airway patent. Uvula midline. No pharyngeal erythema or edema. 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 Bilateral canals clear. TM non-erythematous, non-bulging. No TM perforation or hemotympanum noted. Respiratory: CTA bilaterally. No wheezes, rales or rhonchi Cardiac: Regular rate Neurology: Alert. CN 2-12 grossly intact.Finger to nose tracing equal. Negative pronator drift. 4/5 assembler dielectric heater strength bilaterally. No aphasia or facial droop. Able to pivot from chair to table using walker without significant swaying. Psych: Good mood and affect Assessment & Plan Assessment & Plan (1) Dizziness: Code(s): R42 - Dizziness and giddiness Plan: Patient seen and evaluated. EKbpm afib. No ST elevation noted Discussed need to go to ER to patient and recommended ambulance transport but he refused and wants son to bring him EKG copy given to pt Expect called to [place] [facility] (hospital per pt request) Patient gave verbal understanding and had no additional questions or concerns at time of discharge All questions answered Coding Level of Care Code Est Pt Level 4 (63819) Diagnoses Dizziness R42
== END 2024-08-13 10:47 | disposition home or self-care (01) ==
PROVIDERS: PCP Nurse Practitioner Family; Visit Provider Physician Assistant
DX: R42 Dizziness and giddiness (principal)

== ENCOUNTER 2024-08-13 10:36 | Emergency (ER) | payer MEDICARE, SELFPAY ==
--- NOTE | 2024-08-13 | ECG_ITS ---
Test Reason : dizziness Blood Pressure : */* mmHG Vent. Rate : 81 BPM Atrial Rate : * BPM P-R Int : * ms QRS Dur : 112 ms QT Int : 420 ms P-R-T Axes : * -65 113 degrees QTcB Int : 487 ms Atrial fibrillation with premature ventricular or aberrantly conducted complexes Left axis deviation Inferior infarct , age undetermined Anteroseptal infarct , age undetermined ST & T wave abnormality, consider lateral ischemia Abnormal ECG When compared with ECG of 01-Mar-2011 12:48, Premature ventricular complexes present. Lateral T wave changes improved. Referred By: Generic ED Physician Electronically Signed By: Erick Cherry
--- NOTE | ~2024-08-13 | CT_ITS ---
EXAMINATION: CT HEAD WITHOUT CONTRAST CLINICAL INFORMATION: dizziness COMPARISON: CT dated June 16, 2024 TECHNIQUE: Contiguous axial imaging was performed from the skull base to vertex without intravenous administration of contrast. This CT examination was performed using dose optimization techniques as appropriate, variously including the following: *Automated exposure control *Adjustment of mA and/or kV according to patient size (this includes techniques or standardized protocols for targeted exams where dose is matched to indication/reason for exam; i.e. extremities or head) *Use of iterative reconstruction technique DLP: 700 mGy-cm FINDINGS: No acute intracranial hemorrhage, mass effect, midline shift, hydrocephalus or herniation. Castaneda-white matter differentiation is normal. Bilateral multifocal patchy deep periventricular white matter hypodensities involving mostly the supratentorial compartment. Old lacunar infarcts in the basal ganglia region. Prominence of the extra-axial CSF spaces cerebral sulci and ventricles. Posterior cranial fossa contents demonstrated no acute intracranial hemorrhage. Calcified plaques in the V4 segments of the vertebral arteries and the cavernous supraclinoid segments both ICA. Retention cysts versus polyp in the right maxillary sinus. Mucosal thickening in the ethmoid air cells. Tympanic cavities and mastoid cells are aerated and Probable old traumatic deformity, nasal bones.. CT/CT head/brain wo IV con IMPRESSION: No acute intracranial hemorrhage. Small vessel occlusive disease. Global cerebral atrophy. Small retention cysts versus polyp, right maxillary sinus in proximity to the infraorbital foramen/nerve Atherosclerosis disease, intracranial. . Electronically signed by: Luis F Gardner MD 08/13/2024 02:48 PM [facility]
[2024-08-13 11:29] VITALS: BP 155/77; PULSE 81; RESP 20; TEMP 36.8; O2SAT 98; BMI 26.8
--- NOTE | 2024-08-13 11:34 | ED_ITS ---
HPI - General Adult General Chief complaint: Dizziness Stated complaint: Dizzy Sent [facility] Time Seen by Provider: 08/13/24 16:04 Source: patient and family Mode of arrival: wheelchair Limitations: no limitations History of Present Illness ED Provider: Dr. Julia Guadalupe HPI narrative: Patient comes to the emergency room complaining of dizziness that has been present for 18 hours. Patient states that yesterday around 23:00, patient was sitting on his chair, and had a sudden onset of dizziness. Patient states that it was not room spinning, or him spinning, this was more likely the sensation of floating in the air and feeling unsteady. Patient states that the feeling is constant. Patient states that all night he was very nauseous, did not vomit, no diarrhea. Denies headache. Patient denies any falls. Patient states that at this time he feels less dizzy and not nauseous at this time. Patient states that he has not tried to get up to walk due to fear of the dizziness starting. Patient denies any chest pain or shortness of breath. Related Data Home Medications ?Medication ?Instructions ?Recorded ?Confirmed atenolol 25 mg tablet 25 mg PO DAILY 06/17/20 07/28/24 clopidogrel 75 mg tablet 75 mg PO DAILY 06/17/20 07/28/24 isosorbide mononitrate 60 mg 60 mg PO DAILY 06/17/20 07/28/24 tablet,extended release 24 hr valsartan 160 tab PO 06/17/20 07/28/24 mg-hydrochlorothiazide 12.5 mg tablet fluorouracil 5 % topical cream 1 appl topical BID 08/06/23 07/28/24 triamcinolone acetonide 0.025 % topical 08/06/23 07/28/24 topical ointment furosemide 20 mg tablet 20 mg PO DAILY 01/07/24 07/28/24 Previous Rx's ?Medication ?Instructions ?Recorded walker with seat #1 ea 08/10/20 amlodipine 10 mg tablet 10 mg PO DAILY #90 tabs 04/18/23 warfarin 5 mg tablet 5 mg PO DAILY #90 tabs 05/19/24 evolocumab 140 mg/mL subcutaneous 140 mg subcut Q3W #2 mL 07/16/24 pen injector (Elle Romero) meclizine 50 mg tablet 50 mg PO TID PRN dizziness #20 tabs 08/13/24 Allergies Allergy/AdvReac Type Severity Reaction Status Date / Time carvedilol [From COREG] Allergy Severe Palpitation Verified 08/13/24 11:30 s metoprolol Allergy Severe Palpitation Verified 08/13/24 11:30 s Sulfa (Sulfonamide Allergy Severe Redness of Verified 08/13/24 11:30 Antibiotics) Skin [SULFA (SULFONAMIDE ANTIBIOTICS)] doxycycline Allergy Intermediate Rash itch Verified 08/13/24 11:30 cilostazol Allergy Unknown UNKNOWN Verified 08/13/24 11:30 digoxin [DIGOXIN] Allergy Unknown UNKNOWN Verified 08/13/24 11:30 labetalol [LABETALOL] Allergy Unknown MUSCLE PAIN Verified 08/13/24 11:30 [id number] Reductase AdvReac Intermediate Muscle Pain Verified 08/13/24 11:30 Inhibitor Review of Systems 2 Review of Systems: Constitutional : No Weight loss, No Fever, No Chills, No Night Sweats, No Fatigue, No Malaise ENT/Mouth : No Hearing loss, No Ear Pain, No Nasal Congestion, No Sinus Pain, No Hoarseness, No sore throat, No Rhinorrhea, No Swallowing Difficulty Eyes: No Eye Pain, No Swelling, No Redness, No Foreign Body, No Discharge, No Vision Changes Cardiovascular : No Chest Pain, No SOB, No Dyspnea on Exertion, No Orthopnea, No Edema, No Palpitations Respiratory : No Cough, No Sputum, No Wheezing, No Smoke Exposure, No Dyspnea Gastrointestinal : Complaining of Nausea, No Vomiting, No Diarrhea, No Constipation, No abdominal Pain, No Hematochezia, No Melena Genitourinary : no irregular bleeding, No Dysuria, No Urinary Frequency, No Hematuria, No Urinary Incontinence, No Urgency, No Flank Pain, No Urinary Flow Changes, No Hesitancy Musculoskeletal : No joint pain, No Myalgias, No Joint Swelling Skin : No Skin Lesions, No rash Neuro : No Weakness, No Numbness, No Paresthesias, No Loss of Consciousness, no headache, complaining of dizziness, sensation of floating in the air, no self or room spinning sensation Psych : No Anxiety/Panic, No Depression, No SI/HI/AH/VH, No Social Issues, Heme/Lymph: No Bruising, No Bleeding,No Lymphadenopathy Endocrine : No Polyuria, No Polydipsia, No Temperature Intolerance PMFSH Past Medical History Medical History Carotid stenosis AAA (abdominal aortic aneurysm) without rupture Vertigo H/O Villa's palsy Permanent atrial fibrillation Post herpetic neuralgia HTN (hypertension) Thrombocytopenia CKD (chronic kidney disease) CVA (cerebral vascular accident) PVD (peripheral vascular disease) CAD (coronary artery disease) Afib Surgical History H/O prostatectomy Stented coronary artery Social History Social History Housing: House Alcohol intake: current Alcohol intake frequency: a few times a week Patient Tobacco Use Status: Never used Tobacco e-Cigarette/Vaping Use: Never Used Second Hand Smoke Exposure: No Advance Directives: No Advance Directives Information Provided: Yes Do you have a plan to hurt others: No Plan service: Yes Current occupational status: retired Cognitive needs: No Hearing needs: No Vision needs: No Physical Exam ED Vital Signs: Vital Signs - 24 hr 08/13/24 11:29 08/13/24 18:02 08/13/24 18:02 Temperature 98.2 F Pulse Rate 81 83 75 Respiratory Rate 20 Blood Pressure 155/77 H 171/95 H 171/92 H Pulse Oximetry 98 Oxygen Delivery Method Room Air 08/13/24 18:02 Temperature Pulse Rate 82 Respiratory Rate Blood Pressure 173/83 H Pulse Oximetry Oxygen Delivery Method BMI result Body Mass Index 26.8 Const Other: Appearance: Alert. Oriented X3. No acute distress. Eyes: Pupils equal, round and reactive to light. No nystagmus ENT: Pharynx normal. Neck: Normal inspection. Neck supple. No lymph nodes noted. No crepitus CVS: Normal heart rate and rhythm. Pulses normal. Normal S1 and S2 Respiratory: No respiratory distress. Breath sounds normal. No Wheezing. No rales Abdomen: Soft and nontender. No rigidity. No distention. Skin: Skin warm and dry. Normal skin color. Normal skin turgor. Extremities: No lower extremity edema. No Lacerations. No Rash Neuro: Oriented X 3. No motor deficit. No sensory deficit. Moving all extremities. No slurred speech. CN 2 through 12 grossly intact Psych: calm, cooperative, normal affect Course Course Course Narrative: SMILEY, this is a rapid medical exam performed by Camacho Triana please refer to primary provider for complete H&P- 84-year-old male presents for evaluation of dizziness that started around 11:00 p.m. last night, about 12 hours ago. He reports that he was watching TV when he felt dizzy. His symptoms have improved somewhat but he still feels dizzy. His symptoms are constant. He has no pain. Plan for labs, orthostatic vital signs, EKG and a dry CT scan of the brain. Medications Administered Discontinued Medications Generic Name Dose Route Start Last Admin Trade Name Frebalwinder PRN Reason Stop Dose Admin Diazepam 2 mg 08/13/24 16:13 08/13/24 17:24 Diazepam 2 Mg Tablet PO 08/13/24 16:14 2 mg ONCE ONE Administration Meclizine HCl 50 mg 08/13/24 16:13 08/13/24 17:24 Meclizine Hcl 25 Mg Tablet PO 08/13/24 16:14 50 mg ONCE ONE Administration Medical Decision Making Medical Decision Making [facility] Narrative: My interpretation of labs: No significant abnormality in patient's hemoglobin, chemistry within normal limits, 1st troponin is 37.9, 2nd 147.8. No significant change. No previous troponins for comparison. BNP slightly elevated 356. No signs of fluid overload or active CHF. serology negative for influenza a and B, RSV and COVID Orthostatic vitals negative. Head CT: No acute intracranial hemorrhage, small vessel occlusion disease, global cerebral atrophy Patient was ambulated around the emergency room with a walker which she uses at baseline, patient states that he feels completely back to baseline. Patient denies chest pain or shortness of breath, no dizziness or lightheadedness. Reviewing patient's medical records, patient has been previously diagnosed with vertigo in 2020. We do not have a urinalysis yet. Patient denies UTI symptoms. Patient requesting to be discharged. Patient was provided with a prescription for the medications that he took here Differential Diagnosis Differential Diagnoses: The differential diagnosis associated with the presentation includes (Vertigo, orthostatic hypotension, BPPV) Admission/Observation Consideration of admission/observation: Escalation of care including admission/observation considered (Given patient's initial presentation, observation was considered.) Lab Data [facility] Lab Attestation statement: I reviewed the patient's lab results. 08/13/24 11:49 08/13/24 11:49 Labs: Lab Results 08/13/24 08/13/24 08/13/24 Range/Units 11:49 17:52 17:52 WBC 8.6 (4.8-10.8) X10*3/uL RBC 4.67 (4.60-5.80) X10*6/uL Hgb 13.7 L (14.0-18.0) g/dl Hct 40.9 L (42.0-52.0) % MCV 87.6 (80.0-98.0) fL MCH 29.3 (27.0-33.0) pg MCHC 33.5 (31.0-36.0) g/dl RDW 16.3 H (11.0-16.0) % Plt Count 204 (160-400) X10*3/uL MPV 9.3 L (9.4-12.4) fL Immature Gran % (Auto) 0.2 (0.0-0.4) % Neut % (Auto) 79.2 H (45-73) % Lymph % (Auto) 12.5 L (20-40) % [place] % (Auto) 6.6 (2-11) % Eos % (Auto) 1.0 (0-4) % Baso % (Auto) 0.5 (0-2) % Lymph # (Auto) 1.1 L (1.2-4.9) X10*3/uL [place] # (Auto) 0.6 (0.1-1.2) X10*3/uL Eos # (Auto) 0.1 (0.0-0.4) X10*3/uL Baso # (Auto) 0.0 (0.0-0.2) X10*3/uL Abs Immat Gran (auto) 0.02 (0.00-0.03) X10*3/uL Absolute Neuts (auto) 6.8 (2.0-8.3) x10*3/uL Absolute Nucleated RBC 0.000 (0.0-0.012) X10*3/uL Nucleated RBC % (auto) 0.0 (0.0-0.2) /100WBC Sodium 138 (135-145) mmol/L Potassium 4.1 (3.3-5.1) mmol/L Chloride 107 (96-108) mmol/L Carbon Dioxide 24 (22-29) mmol/L Anion Gap 11 L (12-20) BUN 19 H (9-16) mg/dL Creatinine 0.95 (0.5-1.4) mg/dL Estim Creat Clear Calc 57.6 Estimated GFR > 60 Random Glucose 104 (60-115) mg/dL Calcium 9.5 (8.4-10.2) mg/dL Total Bilirubin 0.8 (0.0-1.0) mg/dL AST 23 (5-37) U/L ALT 13 (0-40) U/L Alkaline Phosphatase 105 (39-117) U/L Troponin I High Sens 37.9 H 46.5 H 47.8 H (<3.5-35.0) ng/L B-Natriuretic Peptide 356 H (<100) pg/mL Total Protein 8.6 H (6.5-8.0) g/dL Albumin 4.1 (3.5-5.0) g/dL Lipase 50 (8-78) U/L Influenza Type A (PCR) NEGATIVE (Negative) Influenza Type B (PCR) NEGATIVE (Negative) RSV RNA Qual (PCR) NEGATIVE (Negative) SARS-CoV-2 RNA (RT-PCR) NEGATIVE (Negative) Independent Interpretation I performed an independent interpretation of an: CT Scan Radiology Impression Discussion of test interpretation with radiology: I have reviewed the radiologist's reading. Radiologist Impression: FINDINGS: No acute intracranial hemorrhage, mass effect, midline shift, hydrocephalus or herniation. Castaneda-white matter differentiation is normal. Bilateral multifocal patchy deep periventricular white matter hypodensities involving mostly the supratentorial compartment. Old lacunar infarcts in the basal ganglia region. Prominence of the extra-axial CSF spaces cerebral sulci and ventricles. Posterior cranial fossa contents demonstrated no acute intracranial hemorrhage. Calcified plaques in the V4 segments of the vertebral arteries and the cavernous supraclinoid segments both ICA. Retention cysts versus polyp in the right maxillary sinus. Mucosal thickening in the ethmoid air cells. Tympanic cavities and mastoid cells are aerated and Probable old traumatic deformity, nasal bones.. CT/CT head/brain wo IV con IMPRESSION: No acute intracranial hemorrhage. Small vessel occlusive disease. Global cerebral atrophy. Small retention cysts versus polyp, right maxillary sinus in proximity to the infraorbital foramen/nerve Atherosclerosis disease, intracranial. . Critical Care Time Critical Care Time Critical Care Time: Yes Total Critical Care Time: 60 Attestation: I have personally provided critical care time. Time includes review of lab data, radiology results, discussion with consultants, and monitoring for potential decompensation. Intervention performed as documented. Discharge Plan Discharge Clinical Impression: Dizziness Patient Disposition: Home, Self-Care Instructions: Dizziness (ED) Additional Instructions: Please follow-up with your primary care physician tomorrow. If you have any worsening or new symptoms, please return to the emergency room or call 911 Prescriptions: New meclizine 50 mg tablet 50 mg PO TID PRN (Reason: dizziness) Qty: 20 0RF No Action (DME) walker with seat See Rx Instructions .Route .MEDSUPPLY Qty: 1 0RF Rx Instructions: Wheeled walker with seat warfarin 5 mg tablet 5 mg PO DAILY Qty: 90 1RF Protocol: Dose Management Condition: Sunday (Week One) Dose/Route: 2.5 mg Instruction: 0.5 x 5 mg tablets Condition: Sunday Dose/Route: 5 mg Instruction: 1 x 5 mg tablet Condition: Sunday Dose/Route: 2.5 mg Instruction: 0.5 x 5 mg tablets Condition: Sunday Dose/Route: 2.5 mg Instruction: 0.5 x 5 mg tablets Condition: Dose/Route: 5 mg Instruction: 1 x 5 mg tablet Condition: Sunday Dose/Route: 2.5 mg Instruction: 0.5 x 5 mg tablets Condition: Sunday Dose/Route: 2.5 mg Instruction: 0.5 x 5 mg tablets Condition: Sunday (Week Two) Dose/Route: 2.5 mg Instruction: 0.5 x 5 mg tablets Condition: Sunday Dose/Route: 5 mg Instruction: 1 x 5 mg tablet Condition: Sunday Dose/Route: 2.5 mg Instruction: 0.5 x 5 mg tablets Condition: Sunday Dose/Route: 2.5 mg Instruction: 0.5 x 5 mg tablets Condition: Dose/Route: 5 mg Instruction: 1 x 5 mg tablet Condition: Sunday Dose/Route: 2.5 mg Instruction: 0.5 x 5 mg tablets Condition: Sunday Dose/Route: 2.5 mg Instruction: 0.5 x 5 mg tablets Protocol Text: Adjustment Start Date: Sunday07/28/24 INR Value: 2.5 INR Date: 07/28/24 Recheck Date: 08/25/24 athharis SureClick 140 mg/mL pen injector 140 mg subcut Q3W Qty: 2 0RF amlodipine 10 mg tablet 10 mg PO DAILY Qty: 90 0RF valsartan-hydrochlorothiazide 160-12.5 mg tablet PO clopidogrel 75 mg tablet 75 mg PO DAILY isosorbide mononitrate 60 mg tablet extended release 24 hr 60 mg PO DAILY atenolol 25 mg tablet 25 mg PO DAILY triamcinolone acetonide 0.025 % ointment topical fluorouracil 5 % cream 1 appl topical BID furosemide 20 mg tablet 20 mg PO DAILY Print Language: Ug[place]an
[2024-08-13 11:57] LABS: MANUAL DIFF FLAG NO
[2024-08-13 11:58] LABS: Basophils Percent Auto 0.5 % (0-2); Eosinophils Absolute Auto 0.1 X10*3/uL (0.0-0.4); Hematocrit 40.9 % (42.0-52.0); Hemoglobin 13.7 g/dl (14.0-18.0); Imm Gran Abs Auto 0.02 X10*3/uL (0.00-0.03); Imm Gran Pct Auto 0.2 % (0.0-0.4); Lymphocytes Absolute Auto 1.1 X10*3/uL (1.2-4.9); Lymphocytes Percent Auto 12.5 % (20-40); Mean Corpuscular HGB Conc 33.5 g/dl (31.0-36.0); Mean Corpuscular Hemoglobin 29.3 pg (27.0-33.0); Mean Corpuscular Volume 87.6 fL (80.0-98.0); Mean Platelet Volume 9.3 fL (9.4-12.4); Monocytes Absolute Auto 0.6 X10*3/uL (0.1-1.2); Monocytes Percent Auto 6.6 % (2-11); Neutrophils Absolute Auto 6.8 x10*3/uL (2.0-8.3); Neutrophils Percent Auto 79.2 % (45-73); Platelet Count 204 X10*3/uL (160-400); Red Blood Count 4.67 X10*6/uL (4.60-5.80); Red Cell Distribution Width 16.3 % (11.0-16.0); White Blood Count 8.6 X10*3/uL (4.8-10.8)
[2024-08-13 12:16] LABS: Alanine Aminotransferase 13 U/L (0-40); Albumin Level 4.1 g/dL (3.5-5.0); Alkaline Phosphatase 105 U/L (39-117); Anion Gap 11 (12-20); Aspartate Amino Transferase 23 U/L (5-37); Bilirubin Total 0.8 mg/dL (0.0-1.0); Blood Urea Nitrogen 19 mg/dL (9-16); Calcium 9.5 mg/dL (8.4-10.2); Carbon Dioxide 24 mmol/L (22-29); Chloride 107 mmol/L (96-108); Creatinine Clr Calc Pharmacy 57.6; Estimated Glomerular Filt Rate > 60; Glucose Random 104 mg/dL (60-115); Lipase 50 U/L (8-78); Potassium 4.1 mmol/L (3.3-5.1); Sodium 138 mmol/L (135-145); Total Protein 8.6 g/dL (6.5-8.0)
[2024-08-13 12:24] LABS: Troponin-I High Sensitivity 37.9 ng/L (<3.5-35.0)
[2024-08-13 13:04] LABS: Influenza A PCR NEGATIVE (Negative); Influenza B PCR NEGATIVE (Negative); Resp Syncy Virus RNA Qual PCR NEGATIVE (Negative); SARS COV2 PCR INHOUSE NEGATIVE (Negative)
[2024-08-13] MEDS: diazePAM 2 MG TABLET PO (17:24)
[2024-08-13] MEDS: Meclizine HCl 25 MG TABLET 50 MG PO (17:24)
[2024-08-13 18:02] VITALS: BP 171/92; BP 171/95; BP 173/83; PULSE 75; PULSE 82; PULSE 83
[2024-08-13 18:20] LABS: B Type Natriuretic Peptide 356 pg/mL (<100)
[2024-08-13 18:22] LABS: Troponin-I High Sensitivity 46.5 ng/L (<3.5-35.0); Troponin-I High Sensitivity 47.8 ng/L (<3.5-35.0)
[2024-08-13 18:51] VITALS: BP 158/84; PULSE 79; RESP 18; TEMP 36.4; O2SAT 96
[2024-08-13 19:23] VITALS: BP 158/84; PULSE 79; RESP 18; TEMP 36.4; O2SAT 96
== END 2024-08-13 19:24 | disposition home or self-care (01) ==
PROVIDERS: Physician Assistant; Student in an Organized Health Care Education/Training Program; Emergency Provider Emergency Medicine; PCP Nurse Practitioner Family
DX: R42 Dizziness and giddiness (principal); I48.91 Unspecified atrial fibrillation; R06.02 Shortness of breath; R94.31 Abnormal electrocardiogram [ECG] [EKG]; Z79.899 Other long term (current) drug therapy; Z03.818 Encounter for observation for suspected exposure to other biological agents ruled out
CPT/HCPCS: 0241U; 36415; 70450; 80053; 83690; 83880; 84484; 85025; 93005; 99212; 99284; 99285

== ENCOUNTER → 2024-08-13 10:50 | Outpatient (BNV) | payer MEDICARE, SELFPAY | PROVIDERS: Emergency Provider Emergency Medicine; PCP Nurse Practitioner Family; Visit Provider Internal Medicine Cardiovascular Disease | DX: R42 Dizziness and giddiness (principal); I48.91 Unspecified atrial fibrillation; R94.31 Abnormal electrocardiogram [ECG] [EKG] | CPT/HCPCS: 93010 ==

== ENCOUNTER → 2024-08-13 13:59 | Outpatient (BNV) | payer MEDICARE, SELFPAY | PROVIDERS: PCP Nurse Practitioner Family; Visit Provider Radiology Diagnostic Radiology | DX: I73.9 Peripheral vascular disease, unspecified (principal); G31.89 Other specified degenerative diseases of nervous system; I67.2 Cerebral atherosclerosis | CPT/HCPCS: 70450 ==

== ENCOUNTER 2024-08-25 09:31 | Outpatient (AMB) | payer MEDICARE, SELFPAY ==
[2024-08-25 09:57] LABS: Prothrombin Time Whole Bld POC 34.1 sec (11.1-13.5); ~PT, ~INR - Anti Coag Clinic 2.8 (0.9-1.1)
--- NOTE | 2024-08-25 10:01 | MHC.OFFVISCO ---
Intake Intake Visit Reasons: Anticoagulation Allergies carvedilol [From COREG] Allergy (Severe, Verified 08/25/24 09:46) Palpitations metoprolol Allergy (Severe, Verified 08/25/24 09:46) Palpitations Sulfa (Sulfonamide Antibiotics) [SULFA (SULFONAMIDE ANTIBIOTICS)] Allergy (Severe, Verified 08/25/24 09:46) Redness of Skin doxycycline Allergy (Intermediate, Verified 08/25/24 09:46) Rash itch cilostazol Allergy (Unknown, Verified 08/25/24 09:46) UNKNOWN digoxin [DIGOXIN] Allergy (Unknown, Verified 08/25/24 09:46) UNKNOWN labetalol [LABETALOL] Allergy (Unknown, Verified 08/25/24 09:46) MUSCLE PAIN [id number] Reductase Inhibitor Adverse Reaction (Intermediate, Verified 08/25/24 09:46) Muscle Pain Medication List - Last Reconciled 08/25/24 by Kamini Puentes RN amlodipine 10 mg PO DAILY atenolol 25 mg PO DAILY clopidogrel 75 mg PO DAILY evolocumab (Elle Romero) 140 mg subcut Q3W fluorouracil 5% 1 appl topical BID furosemide 20 mg PO DAILY isosorbide mononitrate ER 60 mg PO DAILY meclizine 50 mg PO TID PRN triamcinolone acetonide 0.025% topical valsartan-hydrochlorothiazide 160-12.5 mg tabs PO [walker with seat Wheeled walker with seat ] warfarin 5 mg See Protocol PO DAILY Nursing Note INR: 2.8 in therapeutic range Medications and supplements reviewed On 08/13/24 - pt stated he had an episode of dizziness and nausea - so dizzy he went to the ER- he stated he was just observed, his troponians were elevated and some other labs were off - msg sent to PCP to review and perhaps to see pt sooner. Denies any signs and symptoms of bleeding or bruising or clotting. Bleeding, bruising, clotting discussed Nutritional guidance given - cont to eat a mix of fruits and vegetables Dose: 5mg x 2 days/ 2.5mg x 5 days F/U INR: 1 month or prn Patient verbalizes understanding of instructions given Anti-Coag Initial Assessment Social Hx Patient Tobacco Use Status: Never used Tobacco alcohol intake: current Alcohol intake frequency: a few times a week Coding Level of Care Code Est Patient Level 1 Diagnoses Current use of anticoagulant therapy Z79.01 Assessment & Plan Assessment & Plan (1) Current use of anticoagulant therapy: Code(s): Z79.01 - local company [employer] truck [employer] (current) use of anticoagulants Category: Medical
--- OUTSIDE RECORDS SUMMARY | 2024-08-25 13:55 | XMS_ITS | Patient Health Record ---
Author Organization [facility] Gretel cherri Cicero Address [address] [facility] [place] [address] Care Team Providers Care Artists' Model Name Role Phone Demetrio Abdalla Primary Care Provider Franklyn Dill Unavailable [phone] Allergies Allergen (clinical drug ingredient) Drug/Non Drug Allergy documented on EMR Reaction Allergy Type Onset Date Status sulfamethoxazole / trimethoprim Bactrim Unknown Drug Allergy Active Shrimp Flavor Unknown Drug Allergy Act tracy Reason For Referral No Information Medications Medication SIG (Take, Route, Fr equency, Duration) Notes Start Date End Date Status Cephalexin 500 MG 1 capsule Orally wiflrid ry 8 hrs for 10 days Active Clopidogrel Bisulfate Active Isosorbide Dinitrate Active Valsartan Active Warfarin Sodium Acti ve Atenolol Active amLODIPine Besylate Active Furosemide Active Social History Tobacco Use: Social History Observation Description Date Details (start date - stop date) Never Smoker NA - NA Tobacco Use/Smoking Question Answer Notes Are you a: nonsmoker Additional Findings: Tobacco Non-User Current no n-smoker Alcohol Screen Question Answer Notes Did you have a drink containing alcohol in the p ast year? No Points 0 Interpretation Negative Tobacco use other than smoking: Question Answer Notes Are you an other tobacco user? No Problems Problem Type SNOMED Code ICD Code Onset Dates Problem Status W/U Status Risk Notes Problem Atherosclerosis of [place] arteries of the extremities (940845888812669) Atherosclerosis of [place] artery of both lower extremities, with unspecified presence of clinical manifestation (I70.203) Active confirmed Problem Ulcer of toe of left foot (disorder) (98215748020568739 ) Skin ulcer of toe of left foot, limited to breakdown of skin (L97.521) Active confirmed Vital Signs Blood pressure diastolic 70 mm Hg 06/06/2024 Height 5 ft 11 in in 06/06/2024 Blood pressure systolic 130 mm Hg 06/06/2024 Weight 185 lbs 06/06/2024 BMI 25.8 kg/m2 06/06/2024 Procedures Procedure Date Ordered Date Performed Result Body Sit e 38334- I&D ABSCESS-COMPLICATED,MULTI 02/29/2024 N/A 60730-YUBKPDB NAIL, 6 OR MORE 03/21/2024 N/A 09870- Debride <25 sq cm 03/21/2024 N/A 67989-COMG SKIN LESIONS, 2 TO 4 03/21/2024 N/A 81026-KHXPJXM NAIL, 6 OR MORE 06/06/2024 N/A 84458-TZKE SKIN LESIONS, 2 TO 4 06/06/2024 N/A Encounters Encounter Location Date Provider Diagnosis [address] [address] 02/29/2024 Franklyn Sue Atherosclerosis of [place] artery of both lower extremities, with unspecified presence of clinical manifestation I70.203 ; Tinea unguium B35.1 ; Pain in right toe(s) M79.674 ; Pain in left toe(s) M79.675 ; Abscess of toe of left foot L02.612 and Acute lymphangitis of left toe L03.[address] [address] 03/21/2024 Franklyn Sue Atherosclerosis of [place] artery of both lower extremities, with unspecified presence of clinical manifestation I70.203 ; Tinea unguium B35.1 ; Pain in right toe(s) M79.674 ; Pain in left toe(s) M79.675 ; Skin ulcer of toe of left foot, limited to breakdown of skin L97.521 and Acute lymphangitis of left toe L03.[address] [address] 06/06/2024 Franklyn Sue Atherosclerosis of [place] artery of both lower extremities, with unspecified presence of clinical manifestation I70.203 ; Tinea unguium B35.1 ; Pain in right toe(s) M79.674 ; Pain in left toe(s) M79.675 and Skin ulcer of toe of left foot, limited to breakdown of skin L97.521 [facility] [address] [address] 02/22/2024 Franklyn Sue Assessments Encounter Date Diagnosis (ICD Code) Assessment Notes Treatment Notes Treatment Clinical Notes Section Notes 02/29/2024 Tinea unguium (ICD-10 - B35.1) 02/29/2024 Atherosclerosis of [place] artery of both lower extremities, with unspecified presence of clinical manifestation (ICD-10 - I70.203) 03/21/2024 Tinea unguium (ICD-10 - B35.1) 03/21/2024 Atherosclerosis of [place] artery of both lower extremities, with unspecified presence of clinical manifestation (ICD-10 - I70.203) 06/06/2024 Tinea unguium (ICD-10 - B35.1) 06/06/2024 Atherosclerosis of [place] artery of both lower extremities, with unspecified presence of clinical manifestation (ICD-10 - I70.203) 03/21/2024 Pain in right toe(s) (ICD-10 - M79.674) 02/29/2024 Pain in right toe(s) (ICD-10 - M79.674) 06/06/2024 Pain in right toe(s) (ICD-10 - M79.674) 02/29/2024 Pain in left toe(s) (ICD-10 - M79.675) 03/21/2024 Pain in left toe(s) (ICD-10 - M79.675) 06/06/2024 Pain in left toe(s) (ICD-10 - M79.675) 06/06/2024 Skin ulcer of toe of left foot, limited to breakdown of skin (ICD-10 - L97.521) Patient Educated with: WOUND CARE INSTRUCTIONS. pdf (WOUND CARE INSTRUCTIONS. pdf) 03/21/2024 Skin ulcer of toe of left foot, limited to breakdown of skin (ICD-10 - L97.521) Patient Educated with: WOUND CARE INSTRUCTIONS. pdf (WOUND CARE INSTRUCTIONS. pdf) 02/29/2024 Abscess of toe of left foot (ICD-10 - L02.612) Patient Educated with: WOUND CARE INSTRUCTIONS. pdf (WOUND CARE INSTRUCTIONS. pdf) 03/21/2024 Acute lymphangitis of left toe (ICD-10 - L03.042) 02/29/2024 Acute lymphangitis of left toe (ICD-10 - L03.042) Rx management (4) 02/29/2024 Other 03/21/2024 Other 06/06/2024 Other Plan Of Treatment Pending Test Test Name Order Date 12180-PQOVFOG NAIL, 6 OR MORE 03/21/2024 70039-SYYSZPB NAIL, 6 OR MORE 06/06/2024 38171- Debride <25 sq cm 03/21/2024 81390- I&D ABSCESS-COMPLICATED,MULTI 08/2023 41333-ABZG SKIN LESIONS, 2 TO 4 03/21/20 16525-MYIK SKIN LESIONS, 2 TO 4 06/06/20 Next Appt Details Provider Name:Franklyn Sue , 09/05/2024 12:30:00 PM, [address] [place], [address], Insurance Providers Payer Name Payer Address Payer Phone Subscriber Number Group Number Insured Name Patient Relationship to Insured Coverage Start Date Coverage End Date [employer] Medicare [id number] [address] [address] [place] [address] [id number] Ifeanyi Bustamante Self - patient is the insured Medical (General) History Medical History History ICD Code Angina Arthritis Back,Hip,and Knee pain Broken bones CAD (Cholesterol) Cancer Cataracts covid-19 Heart disease Hiatal hernia Hypertension Kidney disease Macular degeneration Numbness Poor circulation Scarlet fever Stroke Vascular phlebitis (clots) Warts Measles Mumps Chicken pox Transfusions Surgical History Surgery Date(Month/Year)
--- OUTSIDE RECORDS SUMMARY | 2024-08-25 13:55 | XMS_ITS | Clinical Summary ---
Author Organization [facility] Address [address] [place] [address] Phone Care Team Providers Care Paid Search Marketing Strategist Name Role Phone Demetrio Reagan NP Primary Care Provider [phone] Allergies Active Allergy Reactions Criticality Noted Date Comments Labetalol Other (see comments) 04/08/2015 Statins 08/08/2021 Other reaction(s): severe muslce cramps Sulfa Antibiotics Other (see comments) 02/04/20 21 Medications warfarin (COUMADIN) 5 MG tablet Take as directed Comments: Patient Notes: MWF 2.5 mg Active omega-3 (FISH OIL) 1000 MG capsule Take 1 capsule by mouth 1 (one) time each day Active Multiple Vitamin (multivitamin) capsule Take 1 capsule by mouth 1 (one) time each day Active amLODIPine (NORVASC) 5 MG tablet Take 1 tablet by mouth every other day Active atenolol (TENORMIN) 25 MG tablet Take 1 tablet by mouth 1 (one) time each day Active cholecalciferol (VITAMIN D-3) 25 MCG (1000 UT) capsule Take 1 capsule by mouth 1 (one) time each day Active clopidogrel (PLAVIX) 75 MG tablet Take 1 tablet by mouth 1 (one) time each day Active isosorbide mononitrate (IMDUR) 60 MG 24 hr tablet Take 1 tablet by mouth 1 (one) time each day Active valsartan-hydroC HLOROthiazide (DIOVAN-HCT) 160-12.5 MG per tablet Take 1 tablet by mouth every other day Active Praluent 150 MG/ML solution auto-injector 2 Active Active Problems Problem Noted Date Diagnosed Date 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 Hyperglycemia 08/08/2021 Hypertensive disorder 08/08/2021 Peripheral vascular disease 08/08/2021 Lactic acidosis 08/08/2021 Nausea and vomiting 08/08/2021 Pain in back following surgical procedure 2021 Pulmonary venous congestion 08/08/2021 Benign hypertensive renal disease 02/03/2021 Chronic kidney disease stage 2 02/03/2021 Elevated blood pressure read ing without diagnosis of hypertension 02/03/2021 Proteinuria 02/03/2021 Family History Medical History Relation Comments Hypertension Father Dementia Mother Heart disease Mother Relation Status Comments Father Mother Social History Tobacco Use Types Packs/Day Years Used Date Smoking Tobacco: Never Smokeless Tobacco: Never Tobacco Cessation:Counseling Given: Not Answered Alcohol Use Standard Drinks/Week Comments Yes 0 (1 standard drink = 0.6 oz pure alcohol) Alcoholic Drinks/day: 3 or more drinks per day Sex and Gender Information Value Date Recorded Sex Assigned at Not on file Legal Sex Male 5:13 PM EST Gender Identity Not on file Sexual Orientation Not on file Last Filed Vital Signs Vital Sign Reading Time Taken Comments Blood Pressure 170/80 11/20/2022 2:28 PM EDT Pulse 68 11/20/2022 2:28 PM EDT Temperature - - Respiratory Rate - - Oxygen Saturation 98% 11/20/2022 2:28 PM EDT Inhaled Oxygen Concentration - - Weight 89.5 kg (197 lb 6.4 oz) 11/20/2022 2:28 P M EDT Height 180.3 cm (5' 11 ) 11/20/2022 2:28 PM EDT Body Mass Index 27.53 11/20/2022 2:28 PM EDT Plan of Treatment Health Maintenance Due Date Last Done Comments Pneumococcal Vaccine: 65+ Ye ars (1 of 2 - PCV) 01/22/1946 Influenza Vaccine (#1) 2024 Hepatitis B Vaccine Aged Out No longe r eligible based on patient's age to complete this topic Insurance [facility] MEDICARE [id number] MEDICARE Care Teams Paid Search Marketing Strategist Relationship Specialty Start Date End Date Demetrio Reagan NP [address] [place] [id number] PCP - General Nurse Practitioner 08/08/21
--- OUTSIDE RECORDS SUMMARY | 2024-08-25 13:55 | XMS_ITS ---
Author Organization [facility] Gretel Singhley Address [address] [place] [address] Care Team Providers Care Sound Controller Name Role Phone Demetrio Abdalla Primary Care Provider Unav ailable Franklyn Sue Unavailable [phone] Allergies Allergen (clinical drug ingredient) Drug/Non Drug Allergy documented on EMR Reaction Allergy Type Onset Date Status sulfamethoxazole / trimethoprim Bactrim Unknown Drug Allergy Active Shrimp Flavor Unknown Drug Allergy Act tracy REASON FOR VISIT At Risk Footcare, Possible Infection, Skin problem(s) Medications Medication SIG (Take, Route, Fr equency, Duration) Notes Start Date End Date Status Furosemide Active Cephalexin 500 MG 1 capsule Orally wilfrid ry 8 hrs for 10 days Active Clopidogrel Bisulfate Active Valsartan Active Isosorbide Dinitrate Active Atenolol Active Warfarin Sodium Acti ve amLODIPine Besylate Active Social History Tobacco Use: Social History [...] W/U Status Risk Notes Problem Atherosclerosis of [place] arteries of the extremities (983611364244404) Atherosclerosis of [place] artery of both lower extremities, with unspecified presence of clinical manifestation (I70.203) Active confirmed Vital Signs Height 5 ft 11 in in 02/29/2024 Weight 185 lbs 02/29/2024 BMI 25.8 kg/m2 02/29/2024 Procedures Procedure Date Ordered Date Performed Result Body Sit e 07051- I&D ABSCESS-COMPLICATED,MULTI 02/29/2024 N/A Encounters Encounter Location Date Provider Diagnosis [facility] [address] [address] 02/29/2024 Franklynbakari Chavarriaier Atherosclerosis of [place] artery of both lower extremities, with unspecified presence of clinical manifestation I70.203 ; Tinea unguium B35.1 ; Pain in right toe(s) M79.674 ; Pain in left toe(s) M79.675 ; Abscess of toe of left foot L02.612 and Acute lymphangitis of left toe L03.042 Assessments Encounter Date Diagnosis (ICD Code) Assessment Notes Treatment Notes Treatment Clinical Notes Section Notes 02/29/2024 Atherosclerosis of [place] artery of both lower extremities, with unspecified presence of clinical manifestation (ICD-10 - I70.203) 02/29/2024 Tinea unguium (ICD-10 - B35.1) 02/29/2024 Pain in right toe(s) (ICD-10 - M79.674) 02/29/2024 Pain in left toe(s) (ICD-10 - M79.675) 02/29/2024 Abscess of toe of left foot (ICD-10 - L02.612) Patient Educated with: WOUND CARE INSTRUCTIONS. pdf (WOUND CARE INSTRUCTIONS. pdf) 02/29/2024 Acute lymphangitis of left toe (ICD-10 - L03.042) Rx management (4) 02/29/2024 Other Plan Of Treatment Medication Medication Name Sig Start Date Stop Date Notes Cephalexin 500 MG 1 capsule Orally every 8 hrs for 10 days Treatment Notes Assessment Notes Abscess of toe of left foot Patient Educ ated with: WOUND CARE INSTRUCTIONS.pdf (WOUND CARE INSTRUCTIONS.pdf) Pending Test Test Name Order Date 23647- I&D ABSCESS-COMPLICATED,MULTI 08/2023 Next Appt Details Follow Up: 2-3 Weeks, Reason : Provider Name:Franklyn Sue , 09/05/2024 12:30:00 PM, [address] [place], [address], Procedure Notes * Category Sub-Category Detail Notes I&D nail abscess Location TA , Total nail , As per exam Procedure Performed incision a nd drainage of Complicated Subungual Abscess. The involved toenail was completely removed with sterile nipper and any infected devitalized tissue was curettaged to healthy bleeding bed. Approximately ( 0.2-3 ) cc purulent fluid material was drained. Any granuloma present was removed at this time. No underlying bone was visualized. There was minimal bleeding as hemostasis was achieved through the temporary use of either a digital tournaquet or the aforementioned local with epinephrine. Application of sterile Bacitracin dressing performed. Local wound care instructions discussed and dispensed. Recommended Tylenol or Motrin for pain/discomfort (38319) , CIRCULATION: Pt was advised as to the risk of delayed or nonhealing due to circulation. Pt is to call the office with any questions, concerns, or complications Type Complicated, Subungu al abscess Anesthesia 3cc of 1 percent Lid ocaine Plain local anesthesic utilizing aseptic technique Progress Notes * Ifeanyi BUSTAMANTEDOB:1940 (84 yo M)Acc No.[id number]:02/29/2024 Progress Notes Patient:?Ifeanyi Bustamante Provider:?Franklyn Sue DPM :1940???Age:84 Y???Sex:Male Fili e:02/29/2024 Address:[address] [place], [place] [id number] Pcp:PETYE Berry Subjective: * Chief Complaints: * ???At Risk FootcarePossible InfectionSkin problem(s) * HPI: ???At Risk footcare:?Pt States Last PCP Visit:?Date?11/07/2023 ???Skin problems:?Nature:?red line(s).?Location:?1st , Toe(s) , Left.?Duration:?several days.?Course:?worse.?Treatments:?none.? * ROS:?General/Constitutional:?Nausea?denies.?Vomiting?denies.?Hunger Thirst?denies.?Loss appetite?denies.?Chills?admits.?Fatigue?admits.?Fever?denies.?Night Sweats?denies.?Unexplained weight loss?denies.?Unexplained weight gain?denies.?HEENTM:?Dentures?denies.?Dizziness?denies.?Glasses/contacts?admits.?Retinopathy?de nies.?Blurred/double vision?admits.?TMJ?denies.?Discharge/drainage?denies.?Implants?denies.?Sore throat?denies.?Dental implants?denies.?Hard of hearing ?denies.?Difficulty chewing/swallowing/speaking?denies.?Nose bleeds?denies.?Sore mouth?denies.?Respiratory:?On Oxygen?denies.?Pneumonia/pleurisy?denies.?Bronchitis?denies.?Emphysema?denies.?C oughing?denies.?Cough blood?denies.?Shortness of breath?denies.?Wheezing?denies.?Cardiovascular:?Pacemaker?admits.?MVP?denies.?WPW?denies.?CHF?denies.?Heart attack?admits.?Septal defect?denies.?Rapid beat?admits.?Chest pain ?admits.?Atrial Fib.?denies.?Murmur/Palpitations?denies.?Gastrointestinal:?Hemorrhoids?admits.?Stomach/Abdominal pain?denies.?Dark blood stool?denies.?Irritable bowel ?denies.?Constipation?denies.?Diarrhea?denies.?Hematology:?Swelling?admits.?Clots?Admits.?Varicose Veins?admits.?Bruising?admits, on anticoagulants.?Bleeding problem?admits, on anticoagulants.?Genitourinary:?Blood urine?denies.?Frequent/Painfu/urination/bladder control?denies.?Kidney stones?denies.?Infection (UTI)?denies.?Nephropathy?denies.?sex trans dis (STD)?denies.?Prostate?admits.?Musculoskeletal:?Hammertoes?denies.?Bunions?denies.?Back Pain?admits.?Muscle Cramps/ Resting?admits.?Muscle cramps / walking?admits.?Generalized aches and pains?denies.?Weakness?denies.?Integ.:?Brady?denies.?Scars?denies.?Corns/calluses?admits.?Ingrown nails?admits.?Painful nails?admits.?Open Sores?denies.?Rashes?denies.?Neurologic:?Difficulty sleeping?denies.?Brain disorder?denies.?Numbness?admits.?Balance trouble?admits.?Confusion?denies.?Fainting/blackouts?denies.?Tingling?admits.?Tr emors?denies.? * Medical History:? * Surgical History:?Denies Pas t Surgical History * Hospitalization/Major Diagno stic Procedure:?Denies Past Hospitalization * Family History:?Mother: dece ased, diagnosed with Family history of arthritis, Unspecified heart disease.?Father: , diagnosed with Family history of arthritis, Other malignant neoplasm of unspecified site.? * Social History:?Tobacco Use:?Tobacco Use/Smoking?Are you a:?nonsmoker ?Additional Findings: Tobacco Non-User?Current non-smoker ?Tobacco use other than smoking?Are you an other tobacco user??No ???Drugs/Alcohol:?Drugs?Have you used drugs other than those for medical reasons in the past 12 months??No ?Alcohol Screen?Did you have a drink containing alcohol in the past year??No ?Points?0 ?Interpretation?Negative ???Miscellaneous:?Caffeine: yes, frequency:. ?no Children. ?no Exercise. ?Marital status: . * Medications:?TakingFurosemid e amLODIPine Besylate Atenolol Warfarin Sodium Valsartan Isosorbide Dinitrate Clopidogrel Bisulfate Medication List reviewed and reconciled with the patientTaking Furosemide Taking amLODIPine Besylate Taking Atenolol Taking Warfarin Sodium Taking Valsartan Taking Isosorbide Dinitrate Taking Clopidogrel Bisulfate Medication List reviewed and reconciled with the patient * Allergies:?BactrimShrimp Ashlie saavedra[Allergies Verified] Objective: * Vitals:?Ht: 5 ft 11 in, Wt: 185, BMI: 25.8, Shoe size: 11, Ht-cm: 180.34 cm, Wt- k.91 kg. * Examination: ???Abscess/infected nail: ?INSPECTION?Reveals Complicated Subungual Abscess with nail fluctuance, erythema, and purulence spanning the entire nail plate extending proximally beneath the eponychium. The approximate pre-operative abscess size is ( 2-3 ) mm square, without exposed bone , TA , extensive granuloma present.?Vascular: ?DP PULSES:? 0/4, B/L.?PT PULSES:? 0/4, B/L.?CAPILLARY FILL TIME:? delayed, all digits, B/L.?SKIN TEMPERTURE GRADIENT OF THE LOWER EXTERMITIES:? decreased, cool to cool, proximal to distal, B/L.?HAIR GROWTH/TEXTURE/ELASTICITY/TURGOR:? decreased, B/L.?PIGMENTATION:?rubrous, B/L.?EDEMA:?absent, B/L.?CLAUDICATION:?denies, B/L.?REST PAIN:?denies, B/L.?Nails: ?NAILS are:? Elongated, overgrown, dystrophic, lytic, greater than 3mm thick, discolored and friable with crumbly malodorous subungual debris, with pain on palpation, 1-5 Left foot, T5, T6, T7, remaining nails are elongated, overgrown, dystrophic.?Dermatologic: ?SKIN FINDINGS:?Skin exam reveals Keratotic lesion(s) located at , Heel(s), B/L, Skin shows sign(s) of, localized lymphangitis extending proximally to the level of the MPJ , TA.?Orthopedic: ?MUSCLE STRENGTH:?5/5 all groups in a symmetrical fashion, B/L.?GAIT ABNORMALITY:? antalgic.?Neurological: ?SENSORY:?Neurological exam reveals intact sensorium, pain sensation normal, vibration sensation intact, pinprick sensation is normal in the lower extremities, Pt denies, anesthesia, burning, paresthesia, tingling, B/L.?General Examination: ?GENERAL APPEARANCE:?Reveals a pleasant, alert, well nourished, well- developed, well hydrated individual, who demonstrates proper attention to hygiene/body habitus, and is in no acute distress, Pt serves as own historian for office visit today , Denies fever, chills, malaise, lymphadenopathy.?ORIENTED:?person, place, and time.? Assessment: * Assessment: 1.?Tinea unguium - B35.1?2.? Atherosclerosis of [place] artery of both lower extremities, with unspecified presence of clinical manifestation - I70.203?3.?Pain in right toe(s) - M79.674?4.?Pain in left toe(s) - M79.675?5.?Abscess of toe of left foot - L02.612, Complicated?6.?Acute lymphangitis of left toe - L03.042, Acute problem, Complicated w/ Multiple Tx Options(4),Dx New problem, Prognosis Uncertain (4), Rx management (4)? Plan: * Treatment: 2.?Acute lymphangitis of lef t toe? Start Cephalexin Capsule, 500 MG, 1 capsule, Orally, every 8 hrs, 10 days, 30 Capsule, Refills 0.?? * Procedures:?I&D nail abscess:?Type?Complicated, Subungual abscess.?Anesthesia?3cc of 1 percent Lidocaine Plain local anesthesic utilizing aseptic technique.?Location?TA , Total nail , As per exam.?Procedure?Performed incision and drainage of Complicated Subungual Abscess. The involved toenail was completely removed with sterile nipper and any infected devitalized tissue was curettaged to healthy bleeding bed. Approximately ( 0.2-3 ) cc purulent fluid material was drained. Any granuloma present was removed at this time. No underlying bone was visualized. There was minimal bleeding as hemostasis was achieved through the temporary use of either a digital tournaquet or the aforementioned local with epinephrine. Application of sterile Bacitracin dressing performed. Local wound care instructions discussed and dispensed. Recommended Tylenol or Motrin for pain/discomfort (29973) , CIRCULATION: Pt was advised as to the risk of delayed or nonhealing due to circulation. Pt is to call the office with any questions, concerns, or complications.? * Procedure Codes:?17863 DRAIN AGE OF SKIN ABSCESS * Preventive Medicine:? ??Counseling:?Discussion:?-04: Office or other outpatient visit for the evaluation and management of a new patient, which required a medically appropriate history and/or examination and MODERATE level of DECISION MAKING for: 1 OR MORE CHRONIC PROBLEM(S) THATS WORSENING, 2 STABLE CHRONIC PROBLEMS, A NEWLY DIAGNOSED PROBLEM WITH UNCERTAIN PROGNOSIS, AN ACUTE COMPLICATED INJURY WITH MULTIPLE TREATMENT OPTIONS, OR AN ACUTE PROBLEM WITH ACCOMPANYING SYSTEMIC SYMPTOMS, THAT POSE(S) A MODERATE RISK OF MORBIDITY. THIS CONDITION MAY ALSO INCLUDE RX DRUG MANAGEMENT, OR A DECISON FOR MINOR SURGERY. The visit on the day of the encounter encompassed interpreting the data and educating the patient as to the nature of their condition, treatment options available according to their individual PMH, meds, allergies, and overall health/living conditions, as well as any potential risks or complications that may occur from a failure to adhere to, and participate in, the recommended course of therapy. The discussion included a complete verbal, and/or written explanation of the examination results, any x-rays taken, the proposed diagnosis, and outline of the treatment plan. A schedule for future care needs was also explained. The patient verbalized an understanding of the instructions at this time and agreed to be an active participant in their treatment. If the patient should think of any questions or concerns after the visit, I have encouraged the patient to call the office.?Cellulitis/Lymphangitis?The Pt. was counseled on the diagnosis, etiology, treatment options, and importance for adherence to recommendations regarding the treatment for Lymphangitis. Abx were Rxed to address the lymphangitis. The advantages and disadvantages of an antibiotic medication, along with its side effects, were discussed with the patient to their comprehended satisfaction. Patient questions re: use, dosage, and possible pharmacutical interactions were reviewed and the answers clearly understood. If the condition should worsen while taking the antibiotics as directed, it was recommeded that the patient call the office immediately or seek emergency medical care. The patient verbally confirmed a full understanding of the above information.? * Follow Up:?2-3 Weeks * Images: * Sign off status: Completed true * Provider:?Franklyn Sue DPM Date:?2023 Generated for Meme finn/Juliocesar/Surjit on:?08/25/2024 01:54 PM EST History and Physical Notes * HPI (History of Present Illness) Category Sub-Category Detail Notes Category Not es Skin problems Nature: red line(s) Location: 1st , Toe(s) , Left Duration: several days Course: worse Treatments: none At Risk footcare Pt States Last PCP Visit: Date: 4 Examination Category Sub-Category Detail Notes Category Not es Neurological SENSORY: Neurological exa m reveals intact sensorium, pain sensation normal, vibration sensation intact, pinprick sensation is normal in the lower extremities, Pt denies, anesthesia, burning, paresthesia, tingling, B/L Dermatologic SKIN FINDINGS: Skin exam reveal s Keratotic lesion(s) located at , Heel(s), B/L, Skin shows sign(s) of, localized lymphangitis extending proximally to the level of the MPJ , TA Orthopedic GAIT ABNORMALITY: antalgic MUSCLE STRENGTH: 5/5 all groups in a symmetrical fashion, B/L General Examination GENERAL APPEARANCE: Reveals a pleasant, alert, well nourished, well-developed, well hydrated individual, who demonstrates proper attention to hygiene/body habitus, and is in no acute distress, Pt serves as own historian for office visit today , Denies fever, chills, malaise, lymphadenopathy ORIENTED: person, place, and t sarah Vascular DP PULSES (B): 0/4, B/L PT PULSES (B): 0/4, B/L CAPILLARY FILL TIME: delayed, all digits , B/L TEMPERTURE GRADIENT (C): decreased, cool to cool, proximal to distal, B/L TROPHIC CONDITION-TEXTURE/ELASTICITY/TURGOR/HAIR GROWTH (B): decreased, B/L EDEMA (C): absent, B/L CLAUDICATION (C): denies, B/L REST PAIN: denies, B/L PIGMENTATION: rubrous, B/L Nails NAILS are: Elongated, overg rown, dystrophic, lytic, greater than 3mm thick, discolored and friable with crumbly malodorous subungual debris, with pain on palpation, 1-5 Left foot, T5, T6, T7, remaining nails are elongated, overgrown, dystrophic Abscess/infected nail INSPECTION Reveals Co mplicated Subungual Abscess with nail fluctuance, erythema, and purulence spanning the entire nail plate extending proximally beneath the eponychium. The approximate pre-operative abscess size is ( 2-3 ) mm square, without exposed bone , TA , extensive granuloma present
--- OUTSIDE RECORDS SUMMARY | 2024-08-25 13:55 | XMS_ITS ---
Author Organization [facility] Gretel Singhley Address [address] [address] Care Team Providers Care Health Practice Manager Name Role Phone Demetrio Abdalla Primary Care Provider Unav ailable Franklyn Sue Unavailable [phone] Allergies Allergen (clinical drug ingredient) Drug/Non Drug Allergy documented on EMR Reaction Allergy Type Onset Date Status sulfamethoxazole / trimethoprim Bactrim Unknown Drug Allergy Active Shrimp Flavor Unknown Drug Allergy Act tracy REASON FOR VISIT At Risk Footcare, Painful Nail(s) aggravated by shoes and causing difficulty standing/walking., Open sore - Toe Medications Medication SIG (Take, Route, Fr equency, Duration) Notes Start Date End Date Status Valsartan Active Warfarin Sodium Acti ve Atenolol Active amLODIPine Besylate Active Furosemide Active Cephalexin 500 MG 1 capsule Orally wilfrid ry 8 hrs for 10 days Active Clopidogrel Bisulfate Active Isosorbide Dinitrate Active Social History Tobacco Use: Social History [...] Are you an other tobacco user? No Vital Signs Height 5 ft 11 in in 06/06/2024 Weight 185 lbs 06/06/2024 BMI 25.8 kg/m2 06/06/2024 Blood pressure systolic 130 mm Hg 06/06/20 24 Blood pressure diastolic 70 mm Hg 11/08/2 024 Procedures Procedure Date Ordered Date Performed Result Body Sit e 83852-FSGWDNU NAIL, 6 OR MORE 06/06/2024 N/A 12929-CYLN SKIN LESIONS, 2 TO 4 06/06/2024 N/A Encounters Encounter Location Date Provider Diagnosis [facility] [place] [address] [place] [address] 06/06/2024 Franklyn Sue Atherosclerosis of tolow[place] de[place]-ni' artery of both lower extremities, with unspecified presence of clinical manifestation I70.203 ; Tinea unguium B35.1 ; Pain in right toe(s) M79.674 ; Pain in left toe(s) M79.675 and Skin ulcer of toe of left foot, limited to breakdown of skin L97.521 Assessments Encounter Date Diagnosis (ICD Code) Assessment Notes Treatment Notes Treatment Clinical Notes Section Notes 06/06/2024 Atherosclerosis of tolowa dee-ni' artery of both lower extremities, with unspecified presence of clinical manifestation (ICD-10 - I70.203) 06/06/2024 Tinea unguium (ICD-10 - B35.1) 06/06/2024 Pain in right toe(s) (ICD-10 - M79.674) 06/06/2024 Pain in left toe(s) (ICD-10 - M79.675) 06/06/2024 Skin ulcer of toe of left foot, limited to breakdown of skin (ICD-10 - L97.521) Patient Educated with: WOUND CARE INSTRUCTIONS. pdf (WOUND CARE INSTRUCTIONS. pdf) 06/06/2024 Other Plan Of Treatment Treatment Notes Assessment Notes Skin ulcer of toe of left fo ot, limited to breakdown of skin Patient Educated with: WOUND CARE INSTRUCTIONS.pdf (WOUND CARE INSTRUCTIONS.pdf) Pending Test Test Name Order Date 34273-HVQBGNB NAIL, 6 OR MORE 06/06/2024 28027-EDFC SKIN LESIONS, 2 TO 4 06/06/20 24 Next Appt Details Follow Up: prn, Reason: Provider Name:Franklyn Sue , 09/05/2024 12:30:00 PM, [address] [place], [address], Procedure Notes * Category Sub-Category Detail Notes Debride Nail 6-10 Nail debridement Performance o f this nail treatment by a nonprofessional would put this patients foot and overall health at risk. Therefore, debridement to affected nail(s), as described in exam, was performed extensively to reduce/remove overall nail length, girth, thickness, subungual debris, and necrotic tissue, by manual and/or electrical means through the use of a nail nipper and/or dremel-type needle grinder, to a more viable healthy nail plate or bed tissue 6-10. Silver nitrate used for any petechial bleeding as necessary. Definitive antifungal treatment options have been reviewed and discussed with the patient. The patient chooses, no pharmaceutical tx - 34638 Keratoma Treatment Parring or Cutting o f Benign Hyperkeratotic Lesion(s) (-56) 2-4 Lesions - The Benign hyperkeratotic lesions, as described in exam, were pared, and/or cut utilizing a sterile 15 blade, tissue nippers, and/or dremel - 09389 , Q8 Progress Notes * Ifeanyi BUSTAMANTEDOB:1940 (84 yo M)Acc No.[id number]:06/06/2024 Progress Note Patient:?Ifeanyi BUSTAMANTE Provider:?Franklyn Sue DPM :1940???Age:84 Y???Sex:Male Fili e:06/06/2024 Address:[address] [place], [place] [id number] Pcp:PETEY Berry Subjective: * Chief Complaints: * ???At Risk FootcarePainful N ail(s) aggravated by shoes and causing difficulty standing/walking.Open sore - Toe * HPI: ???At Risk footcare:?Pt States Last PCP Visit:?Date?03/03/2024 ???Skin problems:?Nature:?Open sore.?Location:?Top , 4th , Left.?Duration:?a day - just happened today .?Onset/Cause:?unknown, I must have scraped it somewhere .?Treatments:?none.? * ROS:?General/Constitutional:?Nausea?denies.?Vomiting?denies.?Hunger Thirst?denies.?Loss appetite?denies.?Chills?admits.?Fatigue?admits.?Fever?denies.?Night Sweats?denies.?Unexplained weight loss?denies.?Unexplained [...] alcohol in the past year??No ?Points?0 ?Interpretation?Negative * Medications:?TakingFurosemid e amLODIPine Besylate Atenolol Warfarin Sodium Valsartan Isosorbide Dinitrate Clopidogrel Bisulfate Cephalexin 500 MG Capsule 1 capsule Orally every 8 hrs Medication List reviewed and reconciled with the patientTaking Furosemide Taking amLODIPine Besylate Taking Atenolol Taking Warfarin Sodium Taking Valsartan Taking Isosorbide Dinitrate Taking Clopidogrel Bisulfate Taking Cephalexin 500 MG Capsule 1 capsule Orally every 8 hrs Medication List reviewed and reconciled with the patient * Allergies:?BactrimShrimp Ashlie saavedra[Allergies Verified] Objective: * Vitals:?Ht: 5 ft 11 in, Wt:1 85, BMI: 25.8, Shoe size:11, BP:130/70mm Hg, Ht-cm: 180.34 cm, Wt-k.91 kg. * Examination: ???Vascular: ?DP PULSES (B):? 0/4, B/L.?PT PULSES (B):? 0/4, B/L.?CAPILLARY FILL TIME:? delayed, all digits, B/L.?TROPHIC CONDITION-TEXTURE/ELASTICITY/TURGOR/HAIR GROWTH (B):? decreased, fragile, thin, shiny skin, with sparse to absent hair growth, B/L.?TEMPERTURE GRADIENT (C):? decreased, cool to cool, proximal to distal, B/L.?PIGMENTATION:?rubrous, B/L.?EDEMA (C):?absent, B/L.?CLAUDICATION (C):?denies, B/L.?REST PAIN:?denies, B/L.?Nails: ?NAILS are:? Elongated, overgrown, dystrophic, lytic, greater than 3mm thick, discolored and friable with crumbly malodorous subungual debris, with pain on palpation, T1, T2,T3, T4, T5, T6, T7, remaining nails are elongated, overgrown, dystrophic.?Dermatologic: ?SKIN FINDINGS:?Skin exam reveals Keratotic lesion(s) located at , Plantar, Heel(s), B/L.?ULCER:?NOW shows complete re-epithelialization, Dorsal, TA, LOCATION, Dorsal, T3, SIZE, 5mm X 5mm X 1-2mm, BASE, granular,RIM, non-hyperkeratotic, UNDERMINING, absent, TRACKING,Full thickness breakdown of skin, DRAINAGE, serosanguineous, mild, NECROTIC TISSUE, loosely-adherent, yellow slough, MALODOR, absent, CALOR, absent, ERYTHEMA, absent, PAIN ON PALPATION, mild.? Assessment: * Assessment: 1.?Tinea unguium - B35.1???2 .?Atherosclerosis of tolowa dee-ni' artery of both lower extremities, with unspecified presence of clinical manifestation - I70.203???3.?Pain in right toe(s) - M79.674???4.?Pain in left toe(s) - M79.675?? 5.?Skin ulcer of toe of left foot, limited to breakdown of skin - L97.521???Specify :Acute problem, Uncomplicated (3)??? Plan: * Treatment: 2.?Atherosclerosis of [place]low[place] de[place]-ni' artery of both lower extremities, with unspecified presence of clinical manifestation?Procedure: 40530-WNEF SKIN LESIONS, 2 TO 4 3.?Skin ulcer of toe of left foot, limited to breakdown of skin? Notes: Patient Educated with: WOUND CARE INSTRUCTIONS.pdf (WOUND CARE INSTRUCTIONS.pdf)?? * Procedures:?Debride Nail 6-10:?Nail debridement?Performance of this nail treatment by a nonprofessional would put this patients foot and overall health at risk. Therefore, debridement to affected nail(s), as described in exam, was performed extensively to reduce/remove overall nail length, girth, thickness, subungual debris, and necrotic tissue, by manual and/or electrical means through the use of a nail nipper and/or dremel-type needle grinder, to a more viable healthy nail plate or bed tissue 6-10. Silver nitrate used for any petechial bleeding as necessary. Definitive antifungal treatment options have been reviewed and discussed with the patient. The patient chooses, no pharmaceutical tx - 48441.?Keratoma Treatment:?Parring or Cutting of Benign Hyperkeratotic Lesion(s)?(-56) 2-4 Lesions - The Benign hyperkeratotic lesions, as described in exam, were pared, and/or cut utilizing a sterile 15 blade, tissue nippers, and/or dremel - 93808 , Q8.? * Procedure Codes:?23367 DEBRI DE NAIL, 6 OR MORE, Modifiers: XS 09147 TRIM SKIN LESIONS, 2 TO 4, Modifiers: XS , Q8 * Preventive Medicine:? ??Counseling:?Discussion:?-13: Office or other outpatient visit for the evaluation and management of an established patient, which required a medically appropriate history and/or examination and LOW level of DECISION MAKING for: 1 STABLE ACUTE UNCOMPLICATED PROBLEM, 2 OR MORE MINOR PROBLEMS, OR 1 STABLE CHRONIC PROBLEM, THAT POSE(S) A LOW RISK FOR MORBIDITY/MORTALITY. The visit on the day of the [...] have encouraged the patient to call the office.?Consult:?The patient was counseled on the diagnosis, treatment options, and the need for a, Vascular Consult w/ Dr James at [facility] due to pedal risk of limb/life, Pt indicated understanding the recommendations and accepts this treatment plan. The patient would like to make their appt themself.?Ulcer:?A detailed plan of care was reviewed with the patient. We emphasized the fact that the patient takes on an active participating role in the treatment process and emphasized to them that they are an included, valued, and important member of the wound healing team in order to reach an expedient successful outcome. The patient agreed to follow their medically recommended diet while increasing their protein intake if safely able to do so, maintain proper bodily hydaration, abide by weight-bearing restrictions at all times, quit all current smoking habits if any, and diligently follow any/all dressing change instructions. It was clearly made known to the patient that if they fail to do their part, they will likely extend their course of treatment as well as possibly increase their risk of adverse events including amputation. The patient was instructed on importance of proper wound care consisting of pressure reduction, and proper maintainance of a moist wound environment. The patient is to cleanse the wound with warm soapy water/peroxide/saline, or betadine BID based on product availability. The patient is to apply ( Neosporin, Polysporin, or Triple, ) Antibiotic to the wound and cover with a DSD as directed. The patient was instructed to change dressings according to orders, or PRN saturation, leaks. The patient was instructed to monitor and report any signs or symptoms of infection or any untoward reactions. Precautions Taken: Offloading/Pressure reduction via rest/ limited activity to essential to daily life only, shoe modification, accommodative padding, sharp debridement, and take/apply medication as directed. THE GOALS of wound debridement to remove devitilized tissue, decrease risk for infection, promote wound healing and prevent further complication were discussed/reviewed. Debridement frequency as indicated, Given recent successful results to treatment, The patient is to cont the local wound care as directed till completely healed.? ??Screening/Special Tests:?Fall Risk?Screening:?No falls in the past year ?FALLS: Screening for Future Fall Risk?Have you had any falls with injury in the past year??No * Follow Up:?prn * Images: * Sign off status: Completed true * Provider:Cami Sue DPM Date:?2023 Generated for Meme finn/Juliocesar/Surjit on:?08/25/2024 01:55 PM EST History and Physical Notes * HPI (History of Present Illness) Category Sub-Category Detail Notes Category Not es Skin problems Nature: Open sore Location: Top , 4th , Left Duration: a day - just happen ed today Onset/Cause: unknown, I must hav e scraped it somewhere Treatments: none At Risk footcare Pt States Last PCP Visit: Date: 4 Examination Category Sub-Category Detail Notes Category Not es Dermatologic SKIN FINDINGS: Skin exam reveal s Keratotic lesion(s) located at , Plantar, Heel(s), B/L ULCER: NOW shows complete r e-epithelialization, Dorsal, TA, LOCATION, Dorsal, T3, SIZE, 5mm X 5mm X 1-2mm, BASE, granular, RIM, non-hyperkeratotic, UNDERMINING, absent, TRACKING, Full thickness breakdown of skin, DRAINAGE, serosanguineous, mild, NECROTIC TISSUE, loosely-adherent, yellow slough, MALODOR, absent, CALOR, absent, ERYTHEMA, absent, PAIN ON PALPATION, mild Vascular DP PULSES (B): 0/4, B/L PT PULSES (B): 0/4, B/L CAPILLARY FILL TIME: delayed, all digits , B/L TEMPERTURE GRADIENT (C): decreased, cool to cool, proximal to distal, B/L TROPHIC CONDITION-TEXTURE/ELASTICITY/TURGOR/HAIR GROWTH (B): decreased, fragile, thin, shiny skin, wi th sparse to absent hair growth, B/L EDEMA (C): absent, B/L CLAUDICATION (C): denies, B/L REST PAIN: denies, B/L PIGMENTATION: rubrous, B/L Nails NAILS are: Elongated, overg rown, dystrophic, lytic, greater than 3mm thick, discolored and friable with crumbly malodorous subungual debris, with pain on palpation, T1, T2,T3, T4, T5, T6, T7, remaining nails are elongated, overgrown, dystrophic
--- OUTSIDE RECORDS SUMMARY | 2024-08-25 13:55 | XMS_ITS ---
Author Organization [facility] Address [address] [place] [address] Care Team Providers Care Flask Maker Name Role Phone Demetrio Abdalla Primary Care Provider Unav ailable Franklyn Sue Unavailable [phone] Allergies Allergen (clinical drug ingredient) Drug/Non Drug Allergy documented on EMR Reaction Allergy Type Onset Date Status sulfamethoxazole / trimethoprim Bactrim Unknown Drug Allergy Active Shrimp Flavor Unknown Drug Allergy Act tracy REASON FOR VISIT At Risk Footcare, Painful Nail(s) aggravated by shoes and causing difficulty standing/walking., Open sore - Toe, Skin problem(s) Medications Medication SIG (Take, Route, Fr equency, Duration) Notes Start Date End Date Status Clopidogrel Bisulfate Active Valsartan Active Isosorbide Dinitrate Active Warfarin Sodium Acti ve Cephalexin 500 MG 1 capsule Orally wilfrid ry 8 hrs for 10 days Active Atenolol Active Furosemide Active amLODIPine Besylate Active Social History Tobacco Use: Social History Observation Description Date Details (start date - stop date) Never Smoker NA - NA Tobacco Use/Smoking Question Answer Notes Are you a: nonsmoker Additional Findings: Tobacco Non-User Current no n-smoker Tobacco use other than smoking: Question Answer Notes Are you an other tobacco user? No Problems Problem Type SNOMED Code ICD Code Onset Dates Problem Status W/U Status Risk Notes Problem Ulcer of toe of left foot (disorder) ([id number]) Skin ulcer of toe of left foot, limited to breakdown of skin (L97.521) Active confirmed Vital Signs Height 5 ft 11 in in 03/21/2024 Weight 186 lbs 03/21/2024 BMI 25.94 kg/m2 03/21/2024 Blood pressure systolic 130 mm Hg 03/21/20 24 Blood pressure diastolic 70 mm Hg 024 Procedures Procedure Date Ordered Date Performed Result Body Sit e 95812-RRSJOGJ NAIL, 6 OR MORE 03/21/2024 N/A 04875- Debride <25 sq cm 03/21/2024 N/A 73164-JOZA SKIN LESIONS, 2 TO 4 03/21/2024 N/A Encounters Encounter Location Date Provider Diagnosis [facility] [place] [address] [place] [address] 03/21/2024 Franklyn Sue Atherosclerosis of [place] artery of both lower extremities, with unspecified [...] Treatment Notes Treatment Clinical Notes Section Notes 03/21/2024 Atherosclerosis of [place] artery of both lower extremities, with unspecified presence of clinical manifestation (ICD-10 - I70.203) 03/21/2024 Tinea unguium (ICD-10 - B35.1) 03/21/2024 Pain in right toe(s) (ICD-10 - M79.674) 03/21/2024 Pain in left toe(s) (ICD-10 - M79.675) 03/21/2024 Skin ulcer of toe of left foot, limited to breakdown of skin (ICD-10 - L97.521) Patient Educated with: WOUND CARE INSTRUCTIONS. pdf (WOUND CARE INSTRUCTIONS. pdf) 03/21/2024 Acute lymphangitis of left toe (ICD-10 - L03.042) 03/21/2024 Other Plan Of Treatment Treatment Notes Assessment Notes Skin ulcer of toe of left fo ot, limited to breakdown of skin Patient Educated with: WOUND CARE INSTRUCTIONS.pdf (WOUND CARE INSTRUCTIONS.pdf) Pending Test Test Name Order Date 18180-[id number] NAIL, 6 OR MORE 03/21/2024 01907- Debride <25 sq cm 03/21/2024 88682-EXHG SKIN LESIONS, 2 TO 4 03/21/20 24 Next Appt Details Follow Up: prn, Reason: Provider Name:Franklyn Jennifer Sue , 09/05/2024 12:30:00 PM, [address] [place] [address], [address], Procedure Notes * Category Sub-Category Detail Notes Debride Nail 6-10 Nail debridement Performance o f this nail treatment by a nonprofessional would put this patients foot and overall health at risk. Therefore, nail debridement was performed extensively to reduce/remove overall nail length, girth, thickness, subungual debris, and necrotic tissue, by manual and/or electrical means through the use of a nail nipper and/or dremel-type grinder hand, to a more viable healthy nail plate or bed tissue 6-10. Silver nitrate used for any petechial bleeding as necessary. Definitive antifungal treatment options have been reviewed and discussed with the patient. The patient chooses, no pharmaceutical tx (31326) Debride skin< 25 sq cm Open wound Physician of record performed open wound selective debridement of first 25 sq cm or less, of devitilized necrotic/nonviable soft tissue, fibrin, and exudate extending from the epidermis through the dermis, utilizing sharp dissection with sterile 15 blade, and/or tissue nippers. Sterile antibiotic dressing applied, ANESTHESIA- was accomplished TOPICALLY with Lidocaine Hydrochloride Jelly 2 percent. Hemostasis was achieved through direct pressure. Post debridement measurements: 16mm x 16mm x 2mm. Character of the wound post debridement is stable (95322) Keratoma Treatment Parring or Cutting o f Benign Hyperkeratotic Lesion(s) 25474 ( 2-4 Lesions ) - The Benign hyperkeratotic lesions, as described above were pared, and/or cut utilizing a sterile 15 blade, tissue nippers, and/or dremel , Q8 Progress Notes * Ifeanyi BUSTAMANTEDOB:1940 (84 yo M)Acc No.[id number]:03/21/2024 Progress Notes Patient:?Dianna Ifeanyi Provider:?Franklyn Sue DPM :1940???Age:84 Y???Sex:Male Fili e:03/21/2024 Address:[address] [place] [id number] Pcp:PETEY Berry Subjective: * Chief Complaints: * ???At Risk FootcarePainful N ail(s) aggravated by shoes and causing difficulty standing/walking.Open sore - ToeSkin problem(s) * HPI: ???At Risk footcare:?Pt States Last PCP Visit:?Date?03/03/2024 ???Skin problems:?Nature:?Open sore.?Treatments:?Topical abx, soaks.? * ROS:?General/Constitutional:?Nausea?denies.?Vomiting?denies.?Hunger Thirst?denies.?Loss appetite?denies.?Chills?admits.?Fatigue?admits.?Fever?denies.?Night Sweats?denies.?Unexplained weight loss?denies.?Unexplained [...] than smoking?Are you an other tobacco user??No ???Miscellaneous:?Caffeine: yes, frequency:. ?no Children. ?no Exercise. ?Marital status: . * Medications:?TakingFurosemid e amLODIPine Besylate Atenolol Warfarin Sodium Valsartan Isosorbide Dinitrate Clopidogrel Bisulfate Cephalexin 500 MG Capsule 1 capsule Orally every 8 hrsMedication List reviewed and reconciled with the patientTaking Furosemide Taking amLODIPine Besylate Taking Atenolol Taking Warfarin Sodium Taking Valsartan Taking Isosorbide Dinitrate Taking Clopidogrel Bisulfate Taking Cephalexin 500 MG Capsule 1 capsule Orally every 8 hrsMedication List reviewed and reconciled with the patient * Allergies:?BactrimShrbrittany saavedra[Allergies Verified] Objective: * Vitals:?Ht: 5 ft 11 in, Wt: 186, BMI: 25.94, Shoe size: 11, BP: 130/70 mm Hg, Ht-cm: 180.34 cm, Wt-k.37 kg. * Examination: ???Vascular: ?DP PULSES:? 0/4, B/L.?PT PULSES:? 0/4, B/L.?CAPILLARY [...] located at , Heel(s), B/L, Skin shows approximately 100% LESS, sign(s) of, localized lymphangitis, TA.?ULCER:?LOCATION, Dorsal, TA, SIZE, 15mm X 15mm X 1-2mm, BASE, granular toepithelialized,RIM, hyperkeratotic, UNDERMINING, absent, TRACKING,Partial to,Full thickness breakdown of skin, DRAINAGE, serosanguineous, mild, NECROTIC TISSUE, loosely-adherent, yellow slough, MALODOR, absent, CALOR, absent, ERYTHEMA, absent, PAIN ON PALPATION, mild.? Assessment: * Assessment: 1.?Tinea unguium - B35.1?2.? Atherosclerosis of [place] artery of both lower extremities, with unspecified presence of clinical manifestation - I70.203?3.?Pain in right toe(s) - M79.674?4.?Pain in left toe(s) - M79.675?5.?Skin ulcer of toe of left foot, limited to breakdown of skin - L97.521?6.?Acute lymphangitis of left toe - L03.042, Acute problem, Stable (1=3),Response to treatment - Improvement? Plan: * Treatment: 2.?Atherosclerosis of [place] artery of both lower extremities, with unspecified presence of clinical manifestation?Procedure: 46489-NXRC SKIN LESIONS, 2 TO 4 3.?Skin ulcer of toe of left foot, limited to breakdown of skin?Procedure: 35076- Debride <25 sq cm Notes: Patient Educated with: WOUND CARE INSTRUCTIONS.pdf (WOUND CARE INSTRUCTIONS.pdf)?? * Procedures:?Debride Nail 6-10:?Nail debridement?Performance of this nail treatment by a nonprofessional would put this patients foot and overall health at risk. Therefore, nail debridement was performed extensively to reduce/remove overall nail length, girth, thickness, subungual debris, and necrotic tissue, by manual and/or electrical means through the use of a nail nipper and/or dremel-type grinder hand, to a more viable healthy nail plate or bed tissue 6-10. Silver nitrate used for any petechial bleeding as necessary. Definitive antifungal treatment options have been reviewed and discussed with the patient. The patient chooses, no pharmaceutical tx (87528).?Debride skin< 25 sq cm:?Open wound?Physician of record performed open wound selective debridement of first 25 sq cm or less, of devitilized necrotic/nonviable soft tissue, fibrin, and exudate extending from the epidermis through the dermis, utilizing sharp dissection with sterile 15 blade, and/or tissue nippers. Sterile antibiotic dressing applied, ANESTHESIA- was accomplished TOPICALLY with Lidocaine Hydrochloride Jelly 2 percent. Hemostasis was achieved through direct pressure. Post debridement measurements: 16mm x 16mm x 2mm. Character of the wound post debridement is stable (30965).?Keratoma Treatment:?Parring or Cutting of Benign Hyperkeratotic Lesion(s)?34351 ( 2-4 Lesions ) - The Benign hyperkeratotic lesions, as described above were pared, and/or cut utilizing a sterile 15 blade, tissue nippers, and/or dremel , Q8.? * Procedure Codes:?13341 DEBRI DE NAIL, 6 OR MORE, Modifiers: XS 68843 ACTIVE WOUND CARE/20 CM OR <, Modifiers: XS 69405 TRIM SKIN LESIONS, 2 TO 4, Modifiers: [...] have encouraged the patient to call the office.?Cellulitis/Lymphangitis?Given recent successful results to treatment, The patient is to continue the plan as directed.?Ulcer:?A detailed plan of care was reviewed with [...] wound care as directed till completely healed.? * Follow Up:?prn * Images: * Sign off status: Completed true * Provider:?Franklyn Sue DPM Date:?2023 Generated for Meme finn/Juliocesar/Surjit on:?08/25/2024 01:55 PM EST History and Physical Notes * HPI (History of Present Illness) Category Sub-Category Detail Notes Category Not es Skin problems Nature: Open sore Treatments: Topical abx, soaks At Risk footcare Pt States Last PCP Visit: Date: 4 Examination Category Sub-Category Detail Notes Category Not es Dermatologic SKIN FINDINGS: Skin exam reveal s Keratotic lesion(s) located at , Heel(s), B/L, Skin shows approximately 100% LESS, sign(s) of, localized lymphangitis, TA ULCER: LOCATION, Dorsal, TA , SIZE, 15mm X 15mm X 1-2mm, BASE, granular to epithelialized, RIM, hyperkeratotic, UNDERMINING, absent, TRACKING, Partial to, Full thickness breakdown of skin, DRAINAGE, serosanguineous, [...]
== END 2024-08-25 10:13 | disposition home or self-care (01) ==
LOC: HO.ACS 09:31
PROVIDERS: PCP Nurse Practitioner Family; Visit Provider Internal Medicine
DX: Z79.01 Long term (current) use of anticoagulants (principal)

== ENCOUNTER → 2024-08-25 09:31 | Outpatient (BNVA) | payer MEDICARE, SELFPAY | PROVIDERS: PCP Nurse Practitioner Family; Visit Provider Internal Medicine | DX: I48.19 Other persistent atrial fibrillation (principal); Z79.01 Long term (current) use of anticoagulants; Z51.81 Encounter for therapeutic drug level monitoring | CPT/HCPCS: 85610; 99211 ==

== ENCOUNTER 2024-09-17 13:09 | Outpatient (AMB) | payer MEDICARE, SELFPAY ==
--- NOTE | 2024-09-17 13:12 | MHC.PC.OV ---
Vital Signs 09/17/24 13:13 Height 5 ft 10 in Weight 189 lb BMI 27.1 BP 138/80 Blood Pressure Location Rt brachial Position Sitting Pulse 80 Pulse Source Pulse Oximeter Temp 97.8 F Temp Source Oral Pulse Oximetry (%) 96 Intake Visit Reasons: 6 Mo F/U Allergies carvedilol [From COREG] Allergy (Severe, Verified 09/17/24 13:16) Palpitations metoprolol Allergy (Severe, Verified 09/17/24 13:16) Palpitations Sulfa (Sulfonamide Antibiotics) [SULFA (SULFONAMIDE ANTIBIOTICS)] Allergy (Severe, Verified 09/17/24 13:16) Redness of Skin doxycycline Allergy (Intermediate, Verified 09/17/24 13:16) Rash itch cilostazol Allergy (Unknown, Verified 09/17/24 13:16) UNKNOWN digoxin [DIGOXIN] Allergy (Unknown, Verified 09/17/24 13:16) UNKNOWN labetalol [LABETALOL] Allergy (Unknown, Verified 09/17/24 13:16) MUSCLE PAIN Zqnnlnc-FYP-VwQ Reductase Inhibitor Adverse Reaction (Intermediate, Verified 09/17/24 13:16) Muscle Pain Medication List - Last Reconciled 09/17/24 by PATRICIO Shore- amlodipine 10 mg PO DAILY atenolol 25 mg PO DAILY clopidogrel 75 mg PO DAILY 90 days evolocumab (Elle Romero) 140 mg subcut Q3W fluorouracil 5% 1 appl topical BID furosemide 20 mg PO DAILY isosorbide mononitrate ER 60 mg PO DAILY meclizine 50 mg PO TID PRN triamcinolone acetonide 0.025% topical valsartan-hydrochlorothiazide 160-12.5 mg tabs PO [walker with seat Wheeled walker with seat ] warfarin 5 mg See Protocol PO DAILY Tobacco use date assessed: 09/17/24 Fall risk assessment: 2 + Falls in past year Last assessed Fall Risk: 09/17/24 Dental Screening Dental Screen Date: 09/17/24 Did you have a dental visit in the last 12 months?: No Did you have a dental problem in the last 6 months where you did not have access to dental care?: No Was dental information given to patient?: Patient declined HPI 6 Mo F/U HPI Details Chief Complaint Hypertension management and referral to a new collar setter overlock. History of Present Illness The patient is an 84-year-old male presenting with the need for ongoing management of essential hypertension. He reports stability in his blood pressure and denies experiencing any chest pain or excessive shortness of breath. Previously, he received care from a collar setter overlock located on the edge of [place]. A transfer of care to the [place] cardiology office, affiliated with our network, is planned and the referral process has begun. The patient currently uses a rolling walker to aid mobility. Additionally, a trace degree of edema and discoloration is observed in the bilateral extremities. He has been advised to complete laboratory tests in the near future to further evaluate his condition. Social History - Uses a rolling walker to assist with mobility. Health Maintenance Review of Systems - Cardiac: Denies chest pain, denies excessive shortness of breath. Physical Exam General: Cooperative, healthy appearing, comfortable, no acute distress and well developed Orientation: Patient oriented x3 Limitations: No limitations Head: Normal to inspection Ears: Hearing grossly normal bilaterally Nose: Normal external nose present Face and sinus: Normal facial exam Eyes: Appearance normal, both eyes and all related structures Neck: Normal visual inspection and Yes full ROM Respiratory: Normal respiratory effort and able to speak in complete sentences. Clear to auscultation bilaterally Cardiovascular: Irregularly irregular. S1 S2 GI: Normal to inspection. Soft to palpation and nontender Skin: No rashes or lesions noted Neuro: Patient oriented x3 Extremities: Trace edema to bilateral extremities. Discoloration noted to bilateral extremities Results Plan - Patient will transfer care to a new cardiology team at [place]. - Patient is encouraged to obtain laboratory tests as soon as possible. - Ongoing management of essential hypertension will continue with a new collar setter overlock. Discussion Notes I discussed with the patient the process of transferring his cardiology care to our affiliated [place] clinic. I emphasized the importance of completing the pending laboratory work to assist the new collar setter overlock in maintaining the management of his hypertension. We reviewed the symptoms he should monitor, including chest pain or changes in breathlessness, and advised him on the signs of worsening edema. Patient Instructions - Complete the referred laboratory tests promptly. - Monitor for any signs of chest pain, shortness of breath, and changes in leg swelling. - Attend the appointment with the new collar setter overlock as scheduled. [facility] Medical History Carotid stenosis AAA (abdominal aortic aneurysm) without rupture Vertigo H/O Villa's palsy Permanent atrial fibrillation Post herpetic neuralgia HTN (hypertension) Thrombocytopenia CKD (chronic kidney disease) CVA (cerebral vascular accident) PVD (peripheral vascular disease) CAD (coronary artery disease) Afib Surgical History H/O prostatectomy Stented coronary artery Social History Housing: House Alcohol intake: current Alcohol intake frequency: a few times a week Patient Tobacco Use Status: Never used Tobacco e-Cigarette/Vaping Use: Never Used Second Hand Smoke Exposure: No service: Yes Current occupational status: retired Cognitive needs: No Hearing needs: No Vision needs: No Questionnaire PHQ-9 Over the last 2 weeks, how often have you been bothered by any of the following problems? 1. Little interest or pleasure in doing things: not at all 2. Feeling down, depressed, or hopeless: not at all 3. Trouble falling or staying asleep, or sleeping too much: more than half the days 4. Feeling tired or having little energy: nearly every day 5. Poor appetite or overeating: several days 6. Feeling bad about yourself - or that you are a failure or have let yourself or your family down: not at all 7. Trouble concentrating on things, such as reading the newspaper or watching television: not at all 8. Moving or speaking so slowly that other people could have noticed. Or the opposite - being so fidgety or restless that you have been moving around a lot more than usual: not at all 9. Thoughts that you would be better off or of hurting yourself in some way: not at all Total score: 6 Depression Screening Interpretation: Negative Depression Screening Done: Yes 80886 - PHQ-9 Billing: Yes Source: Developed by Drs. Rony Turner, Tish Calderon, Arnulfo Clark and colleagues, with an educational tien from [employer]. Thrive Questionnaire Date Thrive assessed: 09/17/24 I am a: Patient What is your living situation today?: I have a steady place to live Within the past 12 months, did the food you bought not last and you didn't have the money to get more?: Never true Within the past 12 months, did you worry whether your food would run out before you got money to buy more?: Never true Do you have trouble paying for medicines?: No Do you have trouble getting transportation to medical appointments?: No Do you have trouble paying your heating and electricity bill?: No Do you have trouble taking care of your child, family member or friend?: No Do you have trouble with day-to-day activities such as bathing, preparing meals, shopping, managing finances, etc.?: Yes Are you currently unemployed and looking for a job?: No Are you interested in more education?: No Currently or been in a relationship where the following occur: No concerns reported THRIVE Score: 0 AUDIT C Alcohol Use Questionnaire (AUDIT-C) 1. How often do you have a drink containing alcohol?: Never 3. How often do you have six or more drinks on one occasion?: Never Total Score: 0 Score Reviewed/Action Taken: Yes YARED-7 AMB Questionnaire YARED-7 Date YARED - 7 assessed: 09/17/24 Feeling nervous, anxious, or on edge: 0 = Not at all Not being able to stop or control worryin = Not at all Worrying too much about different things: 0 = Not at all Trouble relaxin = Not at all Being so restless that it is hard to sit still: 3 = Nearly every day Becoming easily annoyed or irritable: 0 = Not at all Feeling afraid as if something awful might happen: 0 = Not at all Total YARED-7 score (0-4 normal; 5-9 mild; 10-14 moderate; 15-21 severe): 3 Source: Developed by Drs. Rony Turner, Tish Calderon, Arnulfo Clark and colleagues, with an educational tien from [employer]. YARED-7 Assessment Billing YARED-7 Assessment Tool: YARED-7 Assessment 12935 Physical exam (Primary Care) Vital Signs: Last Vital Signs Temp 97.8 F 09/17/24 13:13 Pulse 80 09/17/24 13:13 BP 138/80 09/17/24 13:13 Pulse Ox 96 09/17/24 13:13 BMI result Body Mass Index 27.1 Tobacco/Smoking Status: Tobacco use Status Tobacco use date assessed 09/17/24 09/17/24 13:19 Patient Tobacco Use Status Never used Tobacco 09/17/24 13:15 e-Cigarette/Vaping Use Never Used 09/17/24 13:15 PHQ-9: PHQ-9 Score PHQ-9: Total score 6 09/17/24 13:19 Depression Screening Interpretation: Negative Thrive Assessment: Date of Thrive Assessment Date Thrive assessed 09/17/24 09/17/24 13:19 Currently or been in a relationship where the following occur: No concerns reported Coding Level of Care Code Est Pt Level 3 (04703) Diagnoses Permanent atrial fibrillation I48.21 HTN (hypertension) I10 Additional Codes YARED-7 Assessment Billing - YARED-7 Assessment Tool: YARED-7 Assessment 77539 ([id number]) PHQ-9 - 82099 - PHQ-9 Billing: Yes ([id number]) Assessment & Plan Assessment & Plan (1) Permanent atrial fibrillation: Code(s): I48.21 - Permanent atrial fibrillation Category: Medical (2) HTN (hypertension): Code(s): I10 - Essential (primary) hypertension Category: Medical Plan . Medications: Changed From clopidogrel 75 mg PO DAILY To clopidogrel 75 mg PO DAILY 90 days 90 tabs 2RF
[2024-09-17 13:13] VITALS: BP 138/80; PULSE 80; TEMP 36.6; O2SAT 96; BMI 27.1
--- OUTSIDE RECORDS SUMMARY | 2024-09-17 13:26 | XMS_ITS ---
Author Organization [facility] Gretel Singhley Address [address] [facility] [place] [address] Care Team Providers Care Retreader Name Role Phone Demetrio Abdalla Primary Care Provider Unav ailable Franklyn Sue Unavailable [phone] Allergies Allergen (clinical drug ingredient) Drug/Non Drug [...] Ordered Date Performed Result Body Sit e 96245-OGZAITG NAIL, 6 OR MORE 06/06/2024 N/A 57142-WMNC SKIN LESIONS, 2 TO 4 06/06/2024 N/A Encounters Encounter Location Date Provider Diagnosis [facility] [address] [place] [address] 06/06/2024 Franklyn Sue Atherosclerosis of [place] artery of both lower extremities, with unspecified presence of clinical manifestation I70.203 ; Tinea unguium B35.1 ; Pain in right toe(s) M79.674 ; Pain in left toe(s) M79.675 and Skin ulcer of toe of left foot, limited to breakdown of skin L97.521 Assessments Encounter Date Diagnosis (ICD Code) Assessment Notes Treatment Notes Treatment Clinical Notes Section Notes 06/06/2024 Atherosclerosis of [place] artery of both lower extremities, with unspecified [...] INSTRUCTIONS.pdf) Pending Test Test Name Order Date 54413-BGKWRYV NAIL, 6 OR MORE 06/06/2024 07739-CHWG SKIN LESIONS, 2 TO 4 06/06/20 24 Next Appt Details Follow Up: prn, Reason: Provider Name:Franklyn Sue , 12/09/2024 02:30:00 PM, [address] [place], [address], Procedure Notes * Category Sub-Category Detail Notes [...] use of a nail nipper and/or dremel-type centerless grinder operator, to a more viable healthy nail plate or bed tissue 6-10. Silver nitrate used for any petechial bleeding as necessary. Definitive antifungal treatment options have been reviewed and discussed with the patient. The patient chooses, no pharmaceutical tx - 72731 Keratoma Treatment Parring or Cutting o f Benign Hyperkeratotic Lesion(s) (-56) 2-4 Lesions - The Benign hyperkeratotic lesions, as described in exam, were pared, and/or cut utilizing a sterile 15 blade, tissue nippers, and/or dremel - 94063 , Q8 Progress Notes * Ifeanyi BUSTAMANTEDOB:1940 (84 yo M)Acc No.[id number]:06/06/2024 Progress Note Patient:?Ifeanyi BUSTAMANTE Provider:?Franklyn Sue DPM :1940???Age:84 Y???Sex:Male Fili e:06/06/2024 Address:[address] [place], [place] [id number] Pcp:PETEY Berry Subjective: * Chief Complaints: * [...] Assessment: 1.?Tinea unguium - B35.1???2 .?Atherosclerosis of [place] artery of both lower extremities, with unspecified presence of clinical manifestation - I70.203???3.?Pain in right toe(s) - M79.674???4.?Pain in left toe(s) - M79.675?? 5.?Skin ulcer of toe of left foot, limited to breakdown of skin - L97.521???Specify :Acute problem, Uncomplicated (3)??? 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 Silver nitrate used for any petechial bleeding as necessary. Definitive antifungal treatment options have been reviewed and discussed with the patient. The patient chooses, no pharmaceutical tx - 03783.?Keratoma Treatment:?Parring or Cutting of Benign Hyperkeratotic Lesion(s)?(-56) 2-4 Lesions - The Benign hyperkeratotic lesions, as described in exam, were pared, and/or cut utilizing a sterile 15 blade, tissue nippers, and/or dremel - 11609 , Q8.? * Procedure Codes:?06300 DEBRI DE NAIL, 6 OR MORE, Modifiers: XS 07917 TRIM SKIN LESIONS, 2 TO 4, Modifiers: [...] a, Vascular Consult w/ Dr James at [facility] due to pedal risk of limb/life, [...] Sue DPM Date:?2023 Generated for Meme finn/Juliocesar/Surjit on:?09/17/2024 01:26 PM EST History and Physical Notes * [...]
--- OUTSIDE RECORDS SUMMARY | 2024-09-17 13:26 | XMS_ITS | Clinical Summary ---
Author Organization [facility] Address [address] [place] [address] Phone Care Team Providers Care Billing Rep Name Role Phone Demetrio Reagan NP Primary Care Provider [phone] Allergies Active Allergy Reactions Criticality Noted Date [...] patient's age to complete this topic Insurance [facility] MEDICARE [id number] MED[employer] Care Teams Billing Rep Relationship Specialty Start Date End Date Demetrio Reagan NP [address] [place] [id number] PCP - General Nurse Practitioner 08/08/21
--- OUTSIDE RECORDS SUMMARY | 2024-09-17 13:26 | XMS_ITS ---
Author Organization [facility] Gretel Arguello Address [address] [facility] [place] [address] Care Team Providers Care School Principal Name Role Phone Demetrio Abdalla Primary Care Provider Unav ailable Franklyn Sue Unavailable [phone] Allergies Allergen (clinical drug ingredient) Drug/Non Drug Allergy documented on EMR Reaction Allergy Type Onset Date Status sulfamethoxazole / trimethoprim Bactrim Unknown Drug Allergy Active Shrimp Flavor Unknown Drug Allergy Act tracy REASON FOR VISIT At Risk Footcare, Painful Nail(s) aggravated by shoes and causing difficulty standing/walking., Open sore - Toe, Pt would like to know if his foot condition(s) would limit his ability to drive Medications Medication SIG (Take, Route, Fr equency, Duration) Notes Start Date End Date Status Cephalexin 500 MG 1 capsule Orally wilfrid ry 8 hrs for 10 days Active Warfarin Sodium Acti ve Valsartan Active Clopidogrel Bisulfate Active Isosorbide Dinitrate Active amLODIPine Besylate Active Furosemide Active Atenolol Active Office visit . . . There are no pod iatric conditions which would cause this patient to be unable to drive safely and effectively for 365 days 09/05/2024 Active Social History Tobacco Use: Social History Observation Description Date Details (start date - stop date) Never Smoker NA - NA Tobacco use other than smoking: Question Answer Notes Are you an other tobacco user? No Tobacco Control (Standard) Question Answer Notes Tobacco use: Nonsmoker Additional Findings: Tobacco non-user Current no nsmoker Procedures Procedure Date Ordered Date Performed Result Body Sit e 86922-KXSRFSS NAIL, 6 OR MORE 09/05/2024 N/A 49930-FNLL SKIN LESIONS, 2 TO 4 09/05/2024 N/A Encounters Encounter Location Date Provider Diagnosis [facility] [place] [address] [place] [address] 09/05/2024 Franklyn Sue Atherosclerosis of [place] artery of both lower extremities, with unspecified presence of clinical manifestation I70.203 ; Tinea unguium B35.1 ; Pain in right toe(s) M79.674 ; Pain in left toe(s) M79.675 and Skin ulcer of toe of left foot, limited to breakdown of skin L97.521 Assessments Encounter Date Diagnosis (ICD Code) Assessment Notes Treatment Notes Treatment Clinical Notes Section Notes 09/05/2024 Atherosclerosis of [place] artery of both lower extremities, with unspecified presence of clinical manifestation (ICD-10 - I70.203) 09/05/2024 Tinea unguium (ICD-10 - B35.1) 09/05/2024 Pain in right toe(s) (ICD-10 - M79.674) 09/05/2024 Pain in left toe(s) (ICD-10 - M79.675) 09/05/2024 Skin ulcer of toe of left foot, limited to breakdown of skin (ICD-10 - L97.521) 09/05/2024 Other Plan Of Treatment Medication Medication Name Sig Start Date Stop Date Notes Office visit . . . There are no pod iatric conditions which would cause this patient to be unable to drive safely and effectively for 365 days 09/05/2024 Pending Test Test Name Order Date 99041-EWDZXDU NAIL, 6 OR MORE 09/05/2024 42923-JDTX SKIN LESIONS, 2 TO 4 09/05/19 25 Next Appt Details Follow Up: prn, Reason: Provider Name:Franklyn Sue , 12/09/2024 02:30:00 PM, [address] [place], [address], Procedure Notes * Category Sub-Category Detail Notes Debride Nail 6-10 Nail debridement Due to the cl inical pathology outlined in the exam findings, performance of this nail treatment is medically necessary as its management by an unskilled/untrained nonprofessional would put this patients foot and overall health at risk. Therefore, debridement to affected nail(s), as described in exam ( T1, T2,T3, T4, T5, T6, T7 ), was performed exclusively by the physician of record to reduce/remove overall nail length, girth, thickness, subungual debris, and necrotic tissue, by manual and/or electrical means through the use of a nail nipper and/or dremel-type tool and cutter grinder, to a more viable healthy nail plate or bed tissue 6-10 nails in total. Silver nitrate was used for any petechial bleeding as necessary. Definitive antifungal treatment options, both pharmaceutical and surgical, have been reviewed and discussed with the patient. The patient solely prefers the use of intermittent/as needed professional debridement services for their nail condition and understands the need for additional periodic treatments to maintain effectiveness in symptomatic relief - 57588 Keratoma Treatment Parring or Cutting o f Benign Hyperkeratotic Lesion(s) (-56) 2-4 Lesions - Due to the at risk nature of the patients medical condition as documented in the exam findings, performance of this keratoderma treatment is medically necessary as its management by an unskilled/untrained nonprofessional would put this patients foot and overall health at risk. Therefore, the benign hyperkeratotic lesions, ( 2 ) in total, locations as stated and described in the exam ( Plantar, Heel(s), B/L ), were pared, and/or cut utilizing a sterile 15 blade, tissue nippers, and/or power dremel instrumentation by the physician of record - 30243, Q8 Progress Notes * Ifeanyi BUSTAMANTEDOB:1940 (84 yo M)Acc No.[id number]:09/05/2024 Progress Note Patient:?Ifeanyi BUSTAMANTE Provider:?Franklyn Sue DPM :1940???Age:84 Y???Sex:Male Fili e:09/05/2024 Address:[address] [place] [id number] Pcp:PETEY Berry Subjective: * Chief Complaints: * ???At Risk FootcarePainful N ail(s) aggravated by shoes and causing difficulty standing/walking.Open sore - ToePt would like to know if his foot condition(s) would limit his ability to drive * HPI: ???At Risk footcare:?Pt States Last PCP Visit:?Date?07/31/2024 ?Misc?Patient accompanied by, , DAQUAN, who is physically present in exam room at time of visit.?Skin problems:?Nature:?Open sore.?Location:?Top , 4th , Left.?Treatments:?Local care consisting of daily distilled water wound cleanse, topical antibiotic as recommended, application of sterile dressing, offloading/pressure reduction via rest, shoe modification, insert modification, accommodative padding, assisted ambulation via cane, and surgical debridement.? * ROS:?General/Constitutional:?Nausea?denies.?Vomiting?denies.?Hunger Thirst?denies.?Loss appetite?denies.?Chills?admits.?Fatigue?admits.?Fever?denies.?Night Sweats?denies.?Unexplained weight loss?denies.?Unexplained [...] * Family History:?Mother: dece ased, diagnosed with Unspecified heart disease, Family history of arthritis.?Father: , diagnosed with Other malignant neoplasm of unspecified site, Family history of arthritis.? * Social History:?Tobacco Use:?Tobacco use other than smoking?Are you an other tobacco user??No ?Tobacco Control (Standard)?Tobacco use:?Nonsmoker ?Additional Findings: Tobacco non-user?Current nonsmoker * Medications:?TakingFurosemid e amLODIPine Besylate Atenolol Warfarin [...] * Allergies:?BactrimShrimp Ashlie saavedra[Allergies Verified] Objective: * Vitals:? * Examination: ???Vascular: ?DP PULSES (B):? 0/4, [...] on palpation, T1, T2,T3, T4, T5, T6, T7,all other nails not described with characteristics as possessing mycosis are elongated, overgrown, and dystrophic.?Dermatologic: ?SKIN FINDINGS:?Skin exam reveals Keratotic lesion(s) located at , Plantar, Heel(s), B/L.?ULCER:?NOW shows complete re-epithelialization, Dorsal, T3.?Orthopedic: ?MUSCLE STRENGTH:?5/5 all groups in a symmetrical fashion, B/L.?DIGITAL DEFORMITIES:?Digital contracture, PIPJ, 2-5 B/L, non-reducible with WB or to push-up test, no over, nor underlapping.?Neurological: ?SENSORY:?Neurological exam reveals intact sensorium, pain sensation normal, vibration sensation intact, pinprick sensation is normal in the lower extremities, Pt denies, anesthesia, burning, paresthesia, tingling, B/L.? Assessment: * Assessment: 1.?Tinea unguium - B35.1???2 .?Atherosclerosis of [place] artery of both lower extremities, with unspecified presence of clinical manifestation - I70.203 (Primary)???3.?Pain in right toe(s) - M79.674???4.?Pain in left toe(s) - M79.675 ??5.?Skin ulcer of toe of left foot, limited to breakdown of skin - L97.521???Specify :Acute problem, Stable Response to treatment - Improvement??? Plan: * Treatment: 2.?Tinea unguium?Procedure: 90051-FLXDNPI NAIL, 6 OR MORE 3.?Others? Start Office visit ., ., ., ., There are no podiatric conditions which would cause this patient to be unable to drive safely and effectively, 365 days, 1, Refills 0.?? * Procedures:?Debride Nail 6-10:?Nail debridement?Due to the clinical pathology outlined in the exam findings, performance of this nail treatment is medically necessary as its management by an unskilled/untrained nonprofessional would put this patients foot and overall health at risk. Therefore, debridement to affected nail(s), as described in exam (?T1,?T2,T3,?T4,?T5,?T6,?T7?), was performed exclusively by the physician of record to reduce/remove overall nail length, girth, thickness, subungual debris, and necrotic tissue, by manual and/or electrical means through the use of a nail nipper and/or dremel-type tool and cutter grinder, to a more viable healthy nail plate or bed tissue 6- 10 nails in total. Silver nitrate was used for any petechial bleeding as necessary. Definitive antifungal treatment options, both pharmaceutical and surgical, have been reviewed and discussed with the patient. The patient solely prefers the use of intermittent/as needed professional debridement services for their nail condition and understands the need for additional periodic treatments to maintain effectiveness in symptomatic relief - 42676.?Keratoma Treatment:?Parring or Cutting of Benign Hyperkeratotic Lesion(s)?(-56) 2-4 Lesions - Due to the at risk nature of the patients medical condition as documented in the exam findings, performance of this keratoderma treatment is medically necessary as its management by an unskilled/untrained nonprofessional would put this patients foot and overall health at risk. Therefore, the benign hyperkeratotic lesions, ( 2 ) in total, locations as stated and described in the exam (?Plantar,?Heel(s),?B/L?), were pared, and/or cut utilizing a sterile 15 blade, tissue nippers, and/or power dremel instrumentation by the physician of record - 74285, Q8.? * Procedure Codes:?53413 DEBRI DE NAIL, 6 OR MORE, Modifiers: XS 14061 TRIM SKIN LESIONS, 2 TO 4, Modifiers: [...] have encouraged the patient to call the office.?Ulcer:?PREVENTIVE STRATEGIES were reviewed with the patient to avoid recurrent ulceration. A set of verbal and written instructions regarding proper daily diabetic footcare techniques was discussed and dispensed. The patient is to pay close attention to skin hydration by maintaining proper moisturization through correct water consumption and consistent application of skin lotions/creams/ointments. They are also to perform regular visual and tactile foot inspections for any interruption in skin integrity including cracks, open lesions, and immediately report to the office any sign of infection such as redness/malodor/drainage/swelling. We discussed and recommended practices and procedures regarding regular shoe and insert evaluations for the presence of foreign bodies as well as for any irregular shoe or insert wear. We reinforced the importance for the patient to adhere to wearing their orthopedic shoes and pressure accommodative innersoles whenever walking. We stressed the significant value for the patient to remain consistent concerning their medically prescribed diet, participate in regular nonweight-bearing exercise (seated weights, exercise bike, or swimming), and keep their scheduled at risk foot care podiatric appointments. We also reviewed the possible role for additional Rx foot/leg bracing or surgical intervention when/if medically warranted.? ??Screening/Special Tests:?Fall Risk?Screening:?No falls in the past year ?FALLS: Screening for Future Fall Risk?Have you had any falls with injury in the past year??No * Follow Up:?prn * Images: * Sign off status: Completed true * Provider:?Franklyn Sue DPM Date:?2024 Generated for Meme finn/Juliocesar/Surjit on:?09/17/2024 01:26 PM EST History and Physical Notes * HPI (History of Present Illness) Category Sub-Category Detail Notes Category Not es Skin problems Nature: Open sore Location: Top , 4th , Left Treatments: Local care consistin g of daily distilled water wound cleanse, topical antibiotic as recommended, application of sterile dressing, offloading/pressure reduction via rest, shoe modification, insert modification, accommodative padding, assisted ambulation via cane, and surgical debridement At Risk footcare Pt States Last PCP Visit: Date: [facility] [place], [place] Patient accompanied by, , DAQUAN, who is physically present in exam room at time of visit Examination Category Sub-Category Detail Notes Category Not es Neurological SENSORY: Neurological exa m reveals intact sensorium, pain sensation normal, vibration sensation intact, pinprick sensation is normal in the lower extremities, Pt denies, anesthesia, burning, paresthesia, tingling, B/L Dermatologic SKIN FINDINGS: Skin exam reveal s Keratotic lesion(s) located at , Plantar, Heel(s), B/L ULCER: NOW shows complete r e-epithelialization, Dorsal, T3 Orthopedic DIGITAL DEFORMITIES: Digital con tracture, PIPJ, 2-5 B/L, non- reducible with WB or to push-up test, no over, nor underlapping MUSCLE STRENGTH: 5/5 all groups in a symmetrical fashion, B/L Vascular DP PULSES (B): 0/4, B/L PT [...] on palpation, T1, T2,T3, T4, T5, T6, T7,all other nails not described with characteristics as possessing mycosis are elongated, overgrown, and dystrophic
--- OUTSIDE RECORDS SUMMARY | 2024-09-17 13:26 | XMS_ITS | Patient Health Record ---
Author Organization [facility] Gretel cherri Mesa Address [address] [facility] [place] [address] Care Team Providers Care Machine Heel Seat Laster Name Role Phone Demetrio Abdalla Primary Care Provider Unav Franklyn Arrington Unavailable [phone] Allergies Allergen (clinical drug ingredient) Drug/Non Drug [...] ry 8 hrs for 10 days Active amLODIPine Besylate Active Furosemide Active Warfarin Sodium Acti ve Atenolol Active Office visit . . . There are no pod iatric conditions which would cause this patient to be unable to drive safely and effectively for 365 days 09/05/2024 Active Valsartan Active Clopidogrel Bisulfate Active Isosorbide Dinitrate Active Social History Tobacco Use: Social History Observation Description Date Details (start date - stop date) Never Smoker NA - NA Alcohol Screen Question Answer Notes Did you have a drink containing alcohol in the p ast year? No Points 0 Interpretation Negative Tobacco use other than smoking: Question Answer Notes Are you an other tobacco user? No Tobacco Control (Standard) Question Answer Notes Tobacco use: Nonsmoker Additional Findings: Tobacco non-user Current no nsmoker Problems Problem Type SNOMED Code ICD Code Onset Dates Problem Status W/U Status Risk Notes Problem Atherosclerosis of [place] arteries of the extremities (825736886378737) Atherosclerosis of [place] artery of both lower extremities, with unspecified presence of clinical manifestation (I70.203) Active confirmed Problem Ulcer of toe of left foot (disorder) (80170282399321997 ) Skin ulcer of toe of left foot, limited to breakdown of skin (L97.521) Active confirmed Vital Signs Blood pressure diastolic 70 mm Hg 06/06/2024 Height 5 ft 11 in in 06/06/2024 Blood pressure systolic 130 mm Hg 06/06/2024 Weight 185 lbs 06/06/2024 BMI 25.8 kg/m2 06/06/2024 Procedures Procedure Date Ordered Date Performed Result Body Sit e 34094- I&D ABSCESS-COMPLICATED,MULTI 02/29/2024 N/A 64255-ABZNLUC NAIL, 6 OR MORE 03/21/2024 N/A 36055- Debride <25 sq cm 03/21/2024 N/A 47111-ZPSL SKIN LESIONS, 2 TO 4 03/21/2024 N/A 01373-YIZGCSW NAIL, 6 OR MORE 06/06/2024 N/A 38156-UOET SKIN LESIONS, 2 TO 4 06/06/2024 N/A 99415-UVLZUNQ NAIL, 6 OR MORE 09/05/2024 N/A 62400-JFMM SKIN LESIONS, 2 TO 4 09/05/2024 N/A Encounters Encounter Location Date Provider Diagnosis [address] [address] 02/29/2024 Franklyn Sue Atherosclerosis of [place] artery of both lower extremities, with unspecified presence of clinical manifestation I70.203 ; Tinea unguium B35.1 ; Pain in right toe(s) M79.674 ; Pain in left toe(s) M79.675 ; Abscess of toe of left foot L02.612 and Acute lymphangitis of left toe L03.[address] [address] 03/21/2024 Franklyn Sue Atherosclerosis of [place] artery of both lower extremities, with unspecified presence of clinical manifestation I70.203 ; Tinea unguium B35.1 ; Pain in right toe(s) M79.674 ; Pain in left toe(s) M79.675 ; Skin ulcer of toe of left foot, limited to breakdown of skin L97.521 and Acute lymphangitis of left toe L03.[address] [address] 06/06/2024 Franklyn Sue Atherosclerosis of [place] artery of both lower extremities, with unspecified presence of clinical manifestation I70.203 ; Tinea unguium B35.1 ; Pain in right toe(s) M79.674 ; Pain in left toe(s) M79.675 and Skin ulcer of toe of left foot, limited to breakdown of skin L97.[address] [address] 09/05/2024 Franklyn Sue Atherosclerosis of [place] artery of both lower extremities, with unspecified presence of clinical manifestation I70.203 ; Tinea unguium B35.1 ; Pain in right toe(s) M79.674 ; Pain in left toe(s) M79.675 and Skin ulcer of toe of left foot, limited to breakdown of skin L97.[address] [address] 02/22/2024 Franklyn Sue Assessments Encounter Date Diagnosis (ICD Code) Assessment Notes Treatment Notes Treatment Clinical Notes Section Notes 03/21/2024 Tinea unguium (ICD-10 - B35.1) 03/21/2024 Atherosclerosis of [place] artery of both lower extremities, with unspecified presence of clinical manifestation (ICD-10 - I70.203) 06/06/2024 Tinea unguium (ICD-10 - B35.1) 06/06/2024 Atherosclerosis of [place] artery of both lower extremities, with unspecified presence of clinical manifestation (ICD-10 - I70.203) 09/05/2024 Tinea unguium (ICD-10 - B35.1) 09/05/2024 Atherosclerosis of [place] artery of both lower extremities, with unspecified presence of clinical manifestation (ICD-10 - I70.203) 02/29/2024 Tinea unguium (ICD-10 - B35.1) 02/29/2024 Atherosclerosis of [place] artery of both lower extremities, with unspecified presence of clinical manifestation (ICD-10 - I70.203) 02/29/2024 Pain in right toe(s) (ICD-10 - M79.674) 06/06/2024 Pain in right toe(s) (ICD-10 - M79.674) 09/05/2024 Pain in right toe(s) (ICD-10 - M79.674) 03/21/2024 Pain in right toe(s) (ICD-10 - M79.674) 03/21/2024 Pain in left toe(s) (ICD-10 - M79.675) 06/06/2024 Pain in left toe(s) (ICD-10 - M79.675) 09/05/2024 Pain in left toe(s) (ICD-10 - M79.675) 02/29/2024 Pain in left toe(s) (ICD-10 - M79.675) 02/29/2024 Abscess of toe of left foot (ICD-10 - L02.612) Patient Educated with: WOUND CARE INSTRUCTIONS. pdf (WOUND CARE INSTRUCTIONS. pdf) 06/06/2024 Skin ulcer of toe of left foot, limited to breakdown of skin (ICD-10 - L97.521) Patient Educated with: WOUND CARE INSTRUCTIONS. pdf (WOUND CARE INSTRUCTIONS. pdf) 09/05/2024 Skin ulcer of toe of left foot, limited to breakdown of skin (ICD-10 - L97.521) 03/21/2024 Skin ulcer of toe of left foot, limited to breakdown of skin (ICD-10 - L97.521) Patient Educated with: WOUND CARE INSTRUCTIONS. pdf (WOUND CARE INSTRUCTIONS. pdf) 03/21/2024 Acute lymphangitis of left toe (ICD-10 - L03.042) 02/29/2024 Acute lymphangitis of left toe (ICD-10 - L03.042) Rx management (4) 03/21/2024 Other 02/29/2024 Other 06/06/2024 Other 09/05/2024 Other Plan Of Treatment Pending Test Test Name Order Date 09296-DCKQGPK NAIL, 6 OR MORE 03/21/2024 76927-EJLWASU NAIL, 6 OR MORE 06/06/2024 12848-VUIUJVC NAIL, 6 OR MORE 09/05/2024 06370- Debride <25 sq cm 03/21/2024 47497- I&D ABSCESS-COMPLICATED,MULTI 08/2023 61579-FCNF SKIN LESIONS, 2 TO 4 09/05/19 71119-DMCE SKIN LESIONS, 2 TO 4 03/21/20 83306-HFMY SKIN LESIONS, 2 TO 4 06/06/20 Next Appt Details Provider Name:Franklyn Sue , 12/09/2024 02:30:00 PM, [address] [place] [address], [phone], Insurance Providers Payer Name Payer Address Payer Phone Subscriber Number Group Number Insured Name Patient Relationship to Insured Coverage Start Date Coverage End Date [employer] Medicare [id number] [address] [address] [place] [address] [id number] Ifeanyi Bustamante Self - patient is the insured Medical (General) History Medical History History ICD Code Angina Arthritis Back,Hip,and Knee pain Broken bones CAD (Cholesterol) Cancer Cataracts covid-19 Heart disease Hiatal hernia Hypertension Kidney disease Macular degeneration Numbness Poor circulation Scarlet fever Stroke Vascular phlebitis (clots) Warts Measles Mumps Chicken pox Transfusions Surgical History Surgery Date(Month/Year)
--- OUTSIDE RECORDS SUMMARY | 2024-09-17 13:26 | XMS_ITS ---
Author Organization [facility] [place] Address [address] [facility] [place] [address] Care Team Providers Care Channel Director Name Role Phone Demetrio Abdalla Primary Care Provider Unav ailable Franklyn Sue Unavailable [phone] Allergies Allergen (clinical drug ingredient) Drug/Non Drug [...] Ulcer of toe of left foot (disorder) ([id number]) Skin ulcer of toe of left foot, limited to breakdown of skin (L97.521) Active confirmed Vital Signs Height 5 ft 11 in in 03/21/2024 Weight 186 lbs 03/21/2024 BMI 25.94 kg/m2 03/21/2024 Blood pressure systolic 130 mm Hg 03/21/20 24 Blood pressure diastolic 70 mm Hg 024 Procedures Procedure Date Ordered Date Performed Result Body Sit e 28026-TNFWIKI NAIL, 6 OR MORE 03/21/2024 N/A 82034- Debride <25 sq cm 03/21/2024 N/A 22426-YKYZ SKIN LESIONS, 2 TO 4 03/21/2024 N/A Encounters Encounter Location Date Provider Diagnosis [facility] [place] [address] [place] [address] 03/21/2024 Franklyn Sue Atherosclerosis of [place] artery of both lower extremities, with unspecified [...] Clinical Notes Section Notes 03/21/2024 Atherosclerosis of [place] artery of both lower extremities, with unspecified [...] INSTRUCTIONS.pdf) Pending Test Test Name Order Date 91292-ZLVYEXY NAIL, 6 OR MORE 03/21/2024 41304- Debride <25 sq cm 03/21/2024 40579-IRAE SKIN LESIONS, 2 TO 4 03/21/20 24 Next Appt Details Follow Up: prn, Reason: Provider Name:Franklyn Jennifer Sue , 12/09/2024 02:30:00 PM, [address] [place] [address], [phone], Procedure Notes * Category Sub-Category Detail Notes Debride Nail 6-10 Nail debridement Performance o f this nail treatment by a nonprofessional would put this patients foot and overall health at risk. Therefore, nail debridement was performed extensively to reduce/remove overall nail length, girth, thickness, subungual debris, and necrotic tissue, by manual and/or electrical means through the use of a nail nipper and/or dremel-type carbon grinder, to a more viable healthy nail plate or bed tissue 6-10. Silver nitrate used for any petechial bleeding as necessary. Definitive antifungal treatment options have been reviewed and discussed with the patient. The patient chooses, no pharmaceutical tx (42397) Debride skin< 25 sq cm Open wound [...] of the wound post debridement is stable (72876) Keratoma Treatment Parring or Cutting o f Benign Hyperkeratotic Lesion(s) 78613 ( 2-4 Lesions ) - The Benign hyperkeratotic lesions, as described above were pared, and/or cut utilizing a sterile 15 blade, tissue nippers, and/or dremel , Q8 Progress Notes * Ifeanyi BUSTAMANTEDOB:1940 (84 yo M)Acc No.[id number]:03/21/2024 Progress Notes Patient:?Dianna Ifeanyi Provider:?Franklyn Sue DPM :1940???Age:84 Y???Sex:Male Fili e:03/21/2024 Address:[address] [place] [id number] Pcp:PETEY Berry Subjective: * Chief Complaints: * [...] Assessment: 1.?Tinea unguium - B35.1?2.? Atherosclerosis of [place] artery of both lower extremities, with unspecified presence of clinical manifestation - I70.203?3.?Pain in right toe(s) - M79.674?4.?Pain in left toe(s) - M79.675?5.?Skin ulcer of toe of left foot, limited to breakdown of skin - L97.521?6.?Acute lymphangitis of left toe - L03.042, Acute problem, Stable (1=3),Response to treatment - Improvement? Plan: * Treatment: 2.?Atherosclerosis of [place] artery of both lower extremities, with unspecified presence of clinical manifestation?Procedure: 42321-UQEQ SKIN LESIONS, 2 TO 4 3.?Skin ulcer of toe of left foot, limited to breakdown of skin?Procedure: 70614- Debride <25 sq cm Notes: Patient Educated [...] use of a nail nipper and/or dremel-type carbon grinder, to a more viable healthy nail plate or bed tissue 6-10. Silver nitrate used for any petechial bleeding as necessary. Definitive antifungal treatment options have been reviewed and discussed with the patient. The patient chooses, no pharmaceutical tx (48277).?Debride skin< 25 sq cm:?Open wound?Physician of record [...] of the wound post debridement is stable (99869).?Keratoma Treatment:?Parring or Cutting of Benign Hyperkeratotic Lesion(s)?46984 ( 2-4 Lesions ) - The Benign hyperkeratotic lesions, as described above were pared, and/or cut utilizing a sterile 15 blade, tissue nippers, and/or dremel , Q8.? * Procedure Codes:?36258 DEBRI DE NAIL, 6 OR MORE, Modifiers: XS 36999 ACTIVE WOUND CARE/20 CM OR <, Modifiers: XS 66169 TRIM SKIN LESIONS, 2 TO 4, Modifiers: [...]
== END 2024-09-17 13:57 | disposition home or self-care (01) ==
PROVIDERS: PCP Nurse Practitioner Family; Visit Provider Nurse Practitioner Family
DX: I48.21 Permanent atrial fibrillation (principal); I10 Essential (primary) hypertension

== ENCOUNTER → 2024-09-17 13:09 | Outpatient (BNVA) | payer MEDICARE, SELFPAY | PROVIDERS: PCP Nurse Practitioner Family; Visit Provider Nurse Practitioner Family | DX: I48.21 Permanent atrial fibrillation (principal); I10 Essential (primary) hypertension | CPT/HCPCS: 96127; 99212 ==

== ENCOUNTER 2024-09-22 09:28 | Outpatient (AMB) | payer MEDICARE, SELFPAY ==
[2024-09-22 09:56] LABS: Prothrombin Time Whole Bld POC 25.4 sec (11.1-13.5); ~PT, ~INR - Anti Coag Clinic 2.1 (0.9-1.1)
--- NOTE | 2024-09-22 09:59 | MHC.OFFVISCO ---
Intake Intake Visit Reasons: Anticoagulation Allergies carvedilol [From COREG] Allergy (Severe, Verified 09/22/24 09:49) Palpitations metoprolol Allergy (Severe, Verified 09/22/24 09:49) Palpitations Sulfa (Sulfonamide Antibiotics) [SULFA (SULFONAMIDE ANTIBIOTICS)] Allergy (Severe, Verified 09/22/24 09:49) Redness of Skin doxycycline Allergy (Intermediate, Verified 09/22/24 09:49) Rash itch cilostazol Allergy (Unknown, Verified 09/22/24 09:49) UNKNOWN digoxin [DIGOXIN] Allergy (Unknown, Verified 09/22/24 09:49) UNKNOWN labetalol [LABETALOL] Allergy (Unknown, Verified 09/22/24 09:49) MUSCLE PAIN Jiksvac-JRT-LvI Reductase Inhibitor Adverse Reaction (Intermediate, Verified 09/22/24 09:49) Muscle Pain Medication List - Last Reconciled 09/22/24 by Raeann Pacheco RN amlodipine 10 mg PO DAILY atenolol 25 mg PO DAILY clopidogrel 75 mg PO DAILY 90 days evolocumab (Elle Romero) 140 mg subcut Q3W fluorouracil 5% 1 appl topical BID furosemide 20 mg PO DAILY isosorbide mononitrate ER 60 mg PO DAILY meclizine 50 mg PO TID PRN triamcinolone acetonide 0.025% topical valsartan-hydrochlorothiazide 160-12.5 mg tabs PO [walker with seat Wheeled walker with seat ] warfarin 5 mg See Protocol PO DAILY Nursing Note INR: 2.1 in therapeutic range of 2-3 Medications and supplements reviewed No changes in health, diet, medications, or supplements, Denies any signs and symptoms of bleeding or bruising or clotting. Bleeding, bruising, clotting discussed Nutritional guidance given to avoid greens today Dose: 2.5mg X 5 days and 5mg X 2 days (Mon & Thurs) F/U INR: 4 weeks Patient verbalizes understanding of instructions given Anti-Coag Initial Assessment Social Hx Patient Tobacco Use Status: Never used Tobacco alcohol intake: current Alcohol intake frequency: a few times a week Coding Level of Care Code Est Patient Level 1 Diagnoses Current use of anticoagulant therapy Z79.01 Results AMB INR Fingerstick AMB INR Fingerstick 2.1 Last Edit by Raeann Pacheco RN on 09/22/24 09:58 interface delay Assessment & Plan Assessment & Plan (1) Current use of anticoagulant therapy: Code(s): Z79.01 - skilled nursing (current) use of anticoagulants Category: Medical
--- OUTSIDE RECORDS SUMMARY | 2024-09-22 10:16 | XMS_ITS | Clinical Summary ---
Author Organization [facility] Address [address] [place] [address] Phone Care Team Providers Care Cash Posting Clerk Name Role Phone Demetrio Reagan NP Primary Care Provider [phone] Allergies Active Allergy Reactions Criticality Noted Date [...] patient's age to complete this topic Insurance [facility] MEDICARE [id number] MEDICARE Care Teams Cash Posting Clerk Relationship Specialty Start Date End Date Demetrio Reagan NP [address] [place] [id number] PCP - General Nurse Practitioner 08/08/21
== END 2024-09-22 10:03 | disposition home or self-care (01) ==
LOC: HO.ACS 09:28
PROVIDERS: PCP Nurse Practitioner Family; Visit Provider Internal Medicine
DX: Z79.01 Long term (current) use of anticoagulants (principal)

== ENCOUNTER → 2024-09-22 09:28 | Outpatient (BNVA) | payer MEDICARE, SELFPAY | PROVIDERS: PCP Nurse Practitioner Family; Visit Provider Internal Medicine | DX: I48.19 Other persistent atrial fibrillation (principal); Z79.01 Long term (current) use of anticoagulants; Z51.81 Encounter for therapeutic drug level monitoring | CPT/HCPCS: 85610; 99211 ==

== ENCOUNTER 2024-10-20 09:27 | Outpatient (AMB) | payer MEDICARE, SELFPAY ==
[2024-10-20 09:44] LABS: Prothrombin Time Whole Bld POC 16.9 sec (11.1-13.5); ~PT, ~INR - Anti Coag Clinic 1.4 (0.9-1.1)
--- NOTE | 2024-10-20 09:57 | MHC.OFFVISCO ---
Intake Intake Visit Reasons: Anticoagulation Allergies carvedilol [From COREG] Allergy (Severe, Verified 10/20/24 09:33) Palpitations metoprolol Allergy (Severe, Verified 10/20/24 09:33) Palpitations Sulfa (Sulfonamide Antibiotics) [SULFA (SULFONAMIDE ANTIBIOTICS)] Allergy (Severe, Verified 10/20/24 09:33) Redness of Skin doxycycline Allergy (Intermediate, Verified 10/20/24 09:33) Rash itch cilostazol Allergy (Unknown, Verified 10/20/24 09:33) UNKNOWN digoxin [DIGOXIN] Allergy (Unknown, Verified 10/20/24 09:33) UNKNOWN labetalol [LABETALOL] Allergy (Unknown, Verified 10/20/24 09:33) MUSCLE PAIN Pzjafyd-AEC-WrK Reductase Inhibitor Adverse Reaction (Intermediate, Verified 10/20/24 09:33) Muscle Pain Medication List - Last Reconciled 10/20/24 by Kamini Puentes, RN amlodipine 10 mg PO DAILY atenolol 25 mg PO DAILY clopidogrel 75 mg PO DAILY 90 days evolocumab (Elle Romero) 140 mg subcut Q3W fluorouracil 5% 1 appl topical BID furosemide 20 mg PO DAILY isosorbide mononitrate ER 60 mg PO DAILY meclizine 50 mg PO TID PRN triamcinolone acetonide 0.025% topical valsartan-hydrochlorothiazide 160-12.5 mg tabs PO [walker with seat Wheeled walker with seat ] warfarin 5 mg See Protocol PO DAILY Nursing Note INR 1.4 out of therapeutic range Medications and supplements reviewed Patient status: Well today, however 09/23/24 he stated he had an episode where he collapsed getting out of his car, he doesnt remember anything except waking up on the ground, he stated he did not go to the ER - he states he thinks his MDs are aware and he is supposed to have a new cardiology appt, he stated he had a large bruise on his chest down his abd, he did not call Anticoag - nor go to the ER - he does not remember if he went to the Doctors, he stated today that his INR may be low today due to eating so many cooked greens recently and also recently ate blood sausage - all of which could lower the INR.. denies any missed doses. Medications or supplements: states no changes Diet: good appetite Denies any signs and symptoms of bleeding or clotting or unusual bruising Bleeding, bruising, clotting discussed Nutritional guidance given: avoid greens x 3 days - eat orange and reds today to help raise the INR Dose: booster dose today to 7.5mg today and 5mg tomorrow then resume usual dose- 5mg sunday and / 2.5mg x 5 days F/U INR Date: 1 week - pt refused sooner appt due to 's healt status?? Patient verbalizing understanding of instructions given with read back. 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
== END 2024-10-20 10:07 | disposition home or self-care (01) ==
LOC: HO.ACS 09:27
PROVIDERS: PCP Nurse Practitioner Family; Visit Provider Internal Medicine Medical Oncology
DX: Z79.01 Long term (current) use of anticoagulants (principal)

== ENCOUNTER → 2024-10-20 09:27 | Outpatient (BNVA) | payer MEDICARE, SELFPAY | PROVIDERS: PCP Nurse Practitioner Family; Visit Provider Internal Medicine Medical Oncology | DX: I48.19 Other persistent atrial fibrillation (principal); Z51.81 Encounter for therapeutic drug level monitoring; Z79.01 Long term (current) use of anticoagulants | CPT/HCPCS: 85610; 99211 ==

== ENCOUNTER 2024-10-27 09:46 | Outpatient (AMB) | payer MEDICARE, SELFPAY ==
[2024-10-27 10:00] LABS: Prothrombin Time Whole Bld POC 31.8 sec (11.1-13.5); ~PT, ~INR - Anti Coag Clinic 2.6 (0.9-1.1)
--- NOTE | 2024-10-27 10:00 | MHC.OFFVISCO ---
Intake Intake Visit Reasons: Anticoagulation Allergies carvedilol [From COREG] Allergy (Severe, Verified 10/27/24 09:51) Palpitations metoprolol Allergy (Severe, Verified 10/27/24 09:51) Palpitations Sulfa (Sulfonamide Antibiotics) [SULFA (SULFONAMIDE ANTIBIOTICS)] Allergy (Severe, Verified 10/27/24 09:51) Redness of Skin doxycycline Allergy (Intermediate, Verified 10/27/24 09:51) Rash itch cilostazol Allergy (Unknown, Verified 10/27/24 09:51) UNKNOWN digoxin [DIGOXIN] Allergy (Unknown, Verified 10/27/24 09:51) UNKNOWN labetalol [LABETALOL] Allergy (Unknown, Verified 10/27/24 09:51) MUSCLE PAIN Viewpdc-TIM-GvJ Reductase Inhibitor Adverse Reaction (Intermediate, Verified 10/27/24 09:51) Muscle Pain Medication List - Last Reconciled 10/27/24 by Kamini Puentes, RN amlodipine 10 mg PO DAILY atenolol 25 mg PO DAILY clopidogrel 75 mg PO DAILY 90 days evolocumab (Elle Romero) 140 mg subcut Q3W fluorouracil 5% 1 appl topical BID furosemide 20 mg PO DAILY isosorbide mononitrate ER 60 mg PO DAILY meclizine 50 mg PO TID PRN triamcinolone acetonide 0.025% topical valsartan-hydrochlorothiazide 160-12.5 mg tabs PO [walker with seat Wheeled walker with seat ] warfarin 5 mg See Protocol PO DAILY Nursing Note INR: 2.6 in therapeutic range- previous INR may have been low due to eating too many greens Medications and supplements reviewed No changes in health, diet, medications, or supplements, Denies any signs and symptoms of bleeding or bruising or clotting. 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
== END 2024-10-27 10:03 | disposition home or self-care (01) ==
LOC: HO.ACS 09:46
PROVIDERS: PCP Nurse Practitioner Family; Visit Provider Internal Medicine Medical Oncology
DX: Z79.01 Long term (current) use of anticoagulants (principal)

== ENCOUNTER → 2024-10-27 09:46 | Outpatient (BNVA) | payer MEDICARE, SELFPAY | PROVIDERS: PCP Nurse Practitioner Family; Visit Provider Internal Medicine Medical Oncology | DX: I48.19 Other persistent atrial fibrillation (principal); Z51.81 Encounter for therapeutic drug level monitoring; Z79.01 Long term (current) use of anticoagulants | CPT/HCPCS: 85610; 99211 ==

== ENCOUNTER 2024-11-24 09:27 | Outpatient (AMB) | payer MEDICARE, SELFPAY ==
[2024-11-24 09:44] LABS: Prothrombin Time Whole Bld POC 29.1 sec (11.1-13.5); ~PT, ~INR - Anti Coag Clinic 2.4 (0.9-1.1)
--- NOTE | 2024-11-24 09:51 | MHC.OFFVISCO ---
Intake Intake Visit Reasons: Anticoagulation Allergies carvedilol [From COREG] Allergy (Severe, Verified 11/24/24 09:37) Palpitations metoprolol Allergy (Severe, Verified 11/24/24 09:37) Palpitations Sulfa (Sulfonamide Antibiotics) [SULFA (SULFONAMIDE ANTIBIOTICS)] Allergy (Severe, Verified 11/24/24 09:37) Redness of Skin doxycycline Allergy (Intermediate, Verified 11/24/24 09:37) Rash itch cilostazol Allergy (Unknown, Verified 11/24/24 09:37) UNKNOWN digoxin [DIGOXIN] Allergy (Unknown, Verified 11/24/24 09:37) UNKNOWN labetalol [LABETALOL] Allergy (Unknown, Verified 11/24/24 09:37) MUSCLE PAIN Eehgffh-STN-DtD Reductase Inhibitor Adverse Reaction (Intermediate, Verified 11/24/24 09:37) Muscle Pain Medication List - Last Reconciled 11/24/24 by Kamini Puentes, RN amlodipine 10 mg PO DAILY atenolol 25 mg PO DAILY clopidogrel 75 mg PO DAILY 90 days evolocumab (Elle Romero) 140 mg subcut Q3W fluorouracil 5% 1 appl topical BID furosemide 20 mg PO DAILY isosorbide mononitrate ER 60 mg PO DAILY meclizine 50 mg PO TID PRN triamcinolone acetonide 0.025% topical valsartan-hydrochlorothiazide 160-12.5 mg tabs PO [walker with seat Wheeled walker with seat ] warfarin 5 mg See Protocol PO DAILY Nursing Note INR: 2.4 in therapeutic range Medications and supplements reviewed No changes in health, diet, medications, or supplements, Denies any signs and symptoms of bleeding or bruising or clotting. 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
--- OUTSIDE RECORDS SUMMARY | 2024-11-24 10:31 | XMS_ITS | Patient Health Record ---
Author Organization [facility] Gretel cherri [place] Address [address] [facility] [place] [address] Care Team Providers Care Acid Extractor Name Role Phone Demetrio Abdalla Primary Care Provider Unav Franklyn Arrington Unavailable [phone] Allergies Allergen (clinical drug ingredient) Drug/Non Drug [...] W/U Status Risk Notes Problem Atherosclerosis of [place] arteries of the extremities ([id number]) Atherosclerosis of [place] artery of both lower extremities, with unspecified presence of clinical manifestation (I70.203) Active confirmed Problem Ulcer of toe of left foot (disorder) (44668785599224843 ) Skin ulcer of toe of left foot, limited to breakdown of skin (L97.521) Active confirmed Vital Signs Blood pressure diastolic 70 mm Hg 06/06/2024 Height 5 ft 11 in in 06/06/2024 Blood pressure systolic 130 mm Hg 06/06/2024 Weight 185 lbs 06/06/2024 BMI 25.8 kg/m2 06/06/2024 Procedures Procedure Date Ordered Date Performed Result Body Sit e 83160- I&D ABSCESS-COMPLICATED,MULTI 02/29/2024 N/A 64060-LDZHKII NAIL, 6 OR MORE 03/21/2024 N/A 42029- Debride <25 sq cm 03/21/2024 N/A 58450-WMAB SKIN LESIONS, 2 TO 4 03/21/2024 N/A 19884-IMVOGHH NAIL, 6 OR MORE 06/06/2024 N/A 47244-SQYG SKIN LESIONS, 2 TO 4 06/06/2024 N/A 99980-DCHYIUP NAIL, 6 OR MORE 09/05/2024 N/A 32736-GHXG SKIN LESIONS, 2 TO 4 09/05/2024 N/A Encounters Encounter Location Date Provider Diagnosis [address] [address] 02/29/2024 Franklyn Sue Atherosclerosis of [place] artery of both lower extremities, with unspecified presence of clinical manifestation I70.203 ; Tinea unguium B35.1 ; Pain in right toe(s) M79.674 ; Pain in left toe(s) M79.675 ; Abscess of toe of left foot L02.612 and Acute lymphangitis of left toe L03.[address] [address] 03/21/2024 Franklyn Sue Atherosclerosis of [place] artery of both lower extremities, with unspecified presence of clinical manifestation I70.203 ; Tinea unguium B35.1 ; Pain in right toe(s) M79.674 ; Pain in left toe(s) M79.675 ; Skin ulcer of toe of left foot, limited to breakdown of skin L97.521 and Acute lymphangitis of left toe L03.[address] [address] 06/06/2024 Franklyn Sue Atherosclerosis of [place] artery of both lower extremities, with unspecified presence of clinical manifestation I70.203 ; Tinea unguium B35.1 ; Pain in right toe(s) M79.674 ; Pain in left toe(s) M79.675 and Skin ulcer of toe of left foot, limited to breakdown of skin L97.[address] [address] 09/05/2024 Franklyn Sue Atherosclerosis of [place] artery of both lower extremities, with unspecified presence of clinical manifestation I70.203 ; Tinea unguium B35.1 ; Pain in right toe(s) M79.674 ; Pain in left toe(s) M79.675 and Skin ulcer of toe of left foot, limited to breakdown of skin L97.[address] [address] 02/22/2024 Franklyn Sue Assessments Encounter Date Diagnosis (ICD Code) Assessment Notes Treatment Notes Treatment Clinical Notes Section Notes 02/29/2024 Tinea unguium (ICD-10 - B35.1) 02/29/2024 Atherosclerosis of [place] artery of both lower extremities, with unspecified presence of clinical manifestation (ICD-10 - I70.203) 03/21/2024 Tinea unguium (ICD-10 - B35.1) 03/21/2024 Atherosclerosis of [place] artery of both lower extremities, with unspecified presence of clinical manifestation (ICD-10 - I70.203) 06/06/2024 Tinea unguium (ICD-10 - B35.1) 06/06/2024 Atherosclerosis of [place] artery of both lower extremities, with unspecified presence of clinical manifestation (ICD-10 - I70.203) 09/05/2024 Tinea unguium (ICD-10 - B35.1) 09/05/2024 Atherosclerosis of [place] artery of both lower extremities, with unspecified presence of clinical manifestation (ICD-10 - I70.203) 06/06/2024 Pain in right toe(s) (ICD-10 - [...] to breakdown of skin (ICD-10 - L97.521) 06/06/2024 Skin ulcer of toe of left [...] (4) 02/29/2024 Other 03/21/2024 Other 06/06/2024 Other 09/05/2024 Other Plan Of Treatment Pending Test Test Name Order Date 93963-RDJOYTM NAIL, 6 OR MORE 03/21/2024 56015-SHSRKMQ NAIL, 6 OR MORE 06/06/2024 55959-JWQZWEU NAIL, 6 OR MORE 09/05/2024 67316- Debride <25 sq cm 03/21/2024 06037- I&D ABSCESS-COMPLICATED,MULTI 08/2023 93170-UGJI SKIN LESIONS, 2 TO 4 09/05/19 59381-QQKQ SKIN LESIONS, 2 TO 4 03/21/20 24636-WDGD SKIN LESIONS, 2 TO 4 06/06/20 Next Appt Details Provider Name:Franklyn Sue , 12/09/2024 02:30:00 PM, [address] [place] [address], [phone], Insurance Providers Payer Name Payer Address Payer Phone Subscriber Number Group Number Insured Name Patient Relationship to Insured Coverage Start Date Coverage End Date [employer] Medicare [id number] [address] [address] [place] [address] [id number] Ifeanyi Bustamante Self - patient is the insured Medical (General) History Medical History History ICD Code Angina Arthritis Back,Hip,and Knee pain Broken bones CAD (Cholesterol) Cancer Cataracts covid-19 Heart disease Hiatal hernia Hypertension Kidney disease Macular degeneration Numbness Poor circulation Scarlet fever Stroke Vascular phlebitis (clots) Warts Measles Mumps Chicken pox Transfusions Surgical History Surgery Date(Month/Year)
--- OUTSIDE RECORDS SUMMARY | 2024-11-24 10:32 | XMS_ITS | Clinical Summary ---
Author Organization [facility] Address [address] [place] [address] Phone Care Team Providers Care Cloth Shrinking Tester Name Role Phone Demetrio Reagan NP Primary Care Provider [phone] Allergies Active Allergy Reactions Criticality Noted Date [...] Due Date Last Done Comments Pneumococcal Vaccine: 50+ Ye ars (1 of 2 - PCV) 1959 Influenza Vaccine (Season Ended) 2025 Hepatitis B Vaccine Aged Out No longe r eligible based on patient's age to complete this topic Insurance [facility] Medicare [id number] Medicare Care Teams Cloth Shrinking Tester Relationship Specialty Start Date End Date Demetrio Reagan NP [address] [place] [id number] PCP - General Nurse Practitioner 08/08/21
--- OUTSIDE RECORDS SUMMARY | 2024-11-24 10:32 | XMS_ITS ---
Author Organization [facility] Gretel Singhley Address [address] [facility] [place] [address] Care Team Providers Care Orthodontist Assistant Name Role Phone Demetrio Abdalla Primary Care Provider Unav ailable Franklyn Sue Unavailable [phone] Allergies Allergen (clinical drug ingredient) Drug/Non Drug [...] Ordered Date Performed Result Body Sit e 15662-GPTKJVR NAIL, 6 OR MORE 06/06/2024 N/A 39030-FUHH SKIN LESIONS, 2 TO 4 06/06/2024 N/A Encounters Encounter Location Date Provider Diagnosis [facility] [place] [address] [place] [address] 06/06/2024 Franklyn Sue Atherosclerosis of [place] artery of both lower extremities, with unspecified presence of clinical manifestation I70.203 ; Tinea unguium B35.1 ; Pain in right toe(s) M79.674 ; Pain in left toe(s) M79.675 and Skin ulcer of toe of left foot, limited to breakdown of skin L97.521 Assessments Encounter Date Diagnosis (ICD Code) Assessment Notes Treatment Notes Treatment Clinical Notes Section Notes 06/06/2024 Atherosclerosis of [place] artery of both lower extremities, with unspecified [...] INSTRUCTIONS.pdf) Pending Test Test Name Order Date 13012-CAVUSIW NAIL, 6 OR MORE 06/06/2024 93170-LEYL SKIN LESIONS, 2 TO 4 06/06/20 24 Next Appt Details Follow Up: prn, Reason: Provider Name:Franklyn Sue , 12/09/2024 02:30:00 PM, [address] [place], [address], Procedure Notes * Category Sub-Category Detail Notes [...] use of a nail nipper and/or dremel-type jig grinder set up operator, to a more viable healthy nail plate or bed tissue 6-10. Silver nitrate used for any petechial bleeding as necessary. Definitive antifungal treatment options have been reviewed and discussed with the patient. The patient chooses, no pharmaceutical tx - 21450 Keratoma Treatment Parring or Cutting o f Benign Hyperkeratotic Lesion(s) (-56) 2-4 Lesions - The Benign hyperkeratotic lesions, as described in exam, were pared, and/or cut utilizing a sterile 15 blade, tissue nippers, and/or dremel - 04033 , Q8 Progress Notes * Ifeanyi BUSTAMANTEDOB:1940 (84 yo M)Acc No.[id number]:06/06/2024 Progress Note Patient:?Ifeanyi BUSTAMANTE Provider:?Franklyn Sue DPM :1940???Age:84 Y???Sex:Male Fili e:06/06/2024 Address:[address] [place], [place] [address] Pcp:PETEY Berry Subjective: * Chief Complaints: * [...] Assessment: 1.?Tinea unguium - B35.1???2 .?Atherosclerosis of [place] artery of both lower extremities, with unspecified presence of clinical manifestation - I70.203???3.?Pain in right toe(s) - M79.674???4.?Pain in left toe(s) - M79.675?? 5.?Skin ulcer of toe of left foot, limited to breakdown of skin - L97.521???Specify :Acute problem, Uncomplicated (3)??? Plan: * Treatment: 2.?Atherosclerosis of [place] artery of both lower extremities, with unspecified presence of clinical manifestation?Procedure: 20450-GQOJ SKIN LESIONS, 2 TO 4 3.?Skin ulcer [...] use of a nail nipper and/or dremel-type jig grinder set up operator, to a more viable healthy nail plate or bed tissue 6-10. Silver nitrate used for any petechial bleeding as necessary. Definitive antifungal treatment options have been reviewed and discussed with the patient. The patient chooses, no pharmaceutical tx - 96828.?Keratoma Treatment:?Parring or Cutting of Benign Hyperkeratotic Lesion(s)?(-56) 2-4 Lesions - The Benign hyperkeratotic lesions, as described in exam, were pared, and/or cut utilizing a sterile 15 blade, tissue nippers, and/or dremel - 32062 , Q8.? * Procedure Codes:?06282 DEBRI DE NAIL, 6 OR MORE, Modifiers: XS 18376 TRIM SKIN LESIONS, 2 TO 4, Modifiers: [...] a, Vascular Consult w/ Dr James at [facility] due to pedal risk of limb/life, [...] * Sign off status: Completed true * Provider:ISABELLA RogerM Date:?2023 Generated for Meme finn/Juliocesar/Surjit on:?11/24/2024 10:32 AM EDT History and Physical Notes * HPI (History [...]
--- OUTSIDE RECORDS SUMMARY | 2024-11-24 10:32 | XMS_ITS ---
Author Organization [facility] Gretel Arguello Address [address] [facility] [place] [address] Care Team Providers Care Packaging Line Attendant Name Role Phone Demetrio Abdalla Primary Care Provider Unav ailable Franklyn Sue Unavailable [phone] Allergies Allergen (clinical drug ingredient) Drug/Non Drug [...] Ordered Date Performed Result Body Sit e 88982-TMVAMJC NAIL, 6 OR MORE 09/05/2024 N/A 35745-JDNM SKIN LESIONS, 2 TO 4 09/05/2024 N/A Encounters Encounter Location Date Provider Diagnosis [facility] [place] [address] [place] [address] 09/05/2024 Franklyn Sue Atherosclerosis of [place] artery of both lower extremities, with unspecified presence of clinical manifestation I70.203 ; Tinea unguium B35.1 ; Pain in right toe(s) M79.674 ; Pain in left toe(s) M79.675 and Skin ulcer of toe of left foot, limited to breakdown of skin L97.521 Assessments Encounter Date Diagnosis (ICD Code) Assessment Notes Treatment Notes Treatment Clinical Notes Section Notes 09/05/2024 Atherosclerosis of [place] artery of both lower extremities, with unspecified [...] 09/05/2024 Pending Test Test Name Order Date 83944-KZVRZYS NAIL, 6 OR MORE 09/05/2024 08314-IYTV SKIN LESIONS, 2 TO 4 09/05/19 25 Next Appt Details Follow Up: prn, Reason: Provider Name:Franklyn Sue , 12/09/2024 02:30:00 PM, [address] [place], [address], Procedure Notes * Category Sub-Category Detail Notes [...] of a nail nipper and/or dremel-type grinder outside diameter, to a more viable healthy nail plate [...] to maintain effectiveness in symptomatic relief - 58511 Keratoma Treatment Parring or Cutting o f [...] instrumentation by the physician of record - 13851, Q8 Progress Notes * Ifeanyi BUSTAMANTEDOB:1940 (84 yo M)Acc No.[id number]:09/05/2024 Progress Note Patient:?Ifeanyi BUSTAMANTE Provider:?Franklyn Sue DPM :1940???Age:84 Y???Sex:Male Fili e:09/05/2024 Address:[address] [place] [phone] Pcp:PETEY Berry Subjective: * Chief Complaints: * [...] Assessment: 1.?Tinea unguium - B35.1???2 .?Atherosclerosis of [place] artery of both lower extremities, with unspecified presence of clinical manifestation - I70.203 (Primary)???3.?Pain in right toe(s) - M79.674???4.?Pain in left toe(s) - M79.675 ??5.?Skin ulcer of toe of left foot, limited to breakdown of skin - L97.521???Specify :Acute problem, Stable Response to treatment - Improvement??? Plan: * Treatment: 2.?Tinea unguium?Procedure: 25160-XYBKBQO NAIL, 6 OR MORE 3.?Others? Start Office [...] of a nail nipper and/or dremel-type grinder outside diameter, to a more viable healthy nail plate [...] to maintain effectiveness in symptomatic relief - 58091.?Keratoma Treatment:?Parring or Cutting of Benign Hyperkeratotic Lesion(s)?(-56) [...] instrumentation by the physician of record - 59347, Q8.? * Procedure Codes:?99149 DEBRI DE NAIL, 6 OR MORE, Modifiers: XS 47500 TRIM SKIN LESIONS, 2 TO 4, Modifiers: [...] Sue DPM Date:?2024 Generated for Meme finn/Juliocesar/Surjit on:?11/24/2024 10:31 AM EDT History and Physical Notes * [...] footcare Pt States Last PCP Visit: Date: [facility] Patient accompanied by, , DAQUAN, who is [...]
== END 2024-11-24 09:57 | disposition home or self-care (01) ==
LOC: HO.ACS 09:27
PROVIDERS: PCP Nurse Practitioner Family; Visit Provider Internal Medicine Medical Oncology
DX: Z79.01 Long term (current) use of anticoagulants (principal)

== ENCOUNTER → 2024-11-24 09:27 | Outpatient (BNVA) | payer MEDICARE, SELFPAY | PROVIDERS: PCP Nurse Practitioner Family; Visit Provider Internal Medicine Medical Oncology | DX: I48.19 Other persistent atrial fibrillation (principal); Z79.01 Long term (current) use of anticoagulants; Z51.81 Encounter for therapeutic drug level monitoring | CPT/HCPCS: 85610; 99211 ==

== ENCOUNTER 2024-12-04 08:56 | Outpatient (REF) | payer MEDICARE, SELFPAY ==
--- OUTSIDE RECORDS SUMMARY | 2024-12-04 09:21 | XMS_ITS | Clinical Summary ---
Author Organization [facility] Address [address] [place] [address] Phone Care Team Providers Care Biztalk Software Developer Name Role Phone Demetrio Reagan NP Primary Care Provider [phone] Allergies Active Allergy Reactions Criticality Noted Date [...] patient's age to complete this topic Insurance [facility] Medicare [id number] Medicare Care Teams Biztalk Software Developer Relationship Specialty Start Date End Date Demetrio Reagan NP [address] [place] [address] PCP - General Nurse Practitioner 08/08/21
[2024-12-04 10:46] LABS: Hematocrit 38.5 % (42.0-52.0); Hemoglobin 12.6 g/dl (14.0-18.0); Mean Corpuscular HGB Conc 32.7 g/dl (31.0-36.0); Mean Corpuscular Hemoglobin 29.6 pg (27.0-33.0); Mean Corpuscular Volume 90.6 fL (80.0-98.0); Mean Platelet Volume 10.2 fL (9.4-12.4); Platelet Count 186 X10*3/uL (160-400); Red Blood Count 4.25 X10*6/uL (4.60-5.80); White Blood Count 7.2 X10*3/uL (4.8-10.8)
[2024-12-04 10:52] LABS: Anion Gap 14 (12-20); Blood Urea Nitrogen 21 mg/dL (9-16); Calcium 9.6 mg/dL (8.4-10.2); Carbon Dioxide 27 mmol/L (22-29); Chloride 101 mmol/L (96-108); Estimated Glomerular Filt Rate > 60; Glucose Random 130 mg/dL (60-115); Potassium 3.9 mmol/L (3.3-5.1); Sodium 138 mmol/L (135-145)
== END 2024-12-04 08:57 | disposition home or self-care (01) ==
LOC: HO.HMGCLDS 08:56
PROVIDERS: PCP Nurse Practitioner Family; Visit Provider Internal Medicine Hypertension Specialist
DX: N18.9 Chronic kidney disease, unspecified (principal)
CPT/HCPCS: 36415; 80048; 85027

== ENCOUNTER 2024-12-05 11:26 | Outpatient (AMB) | payer MEDICARE, SELFPAY ==
[2024-12-05 11:28] VITALS: BP 126/70; PULSE 68; O2SAT 97; BMI 27.3
--- NOTE | 2024-12-05 11:28 | HO.NEPHOV_ITS ---
Vital Signs 12/05/24 11:28 Height 5 ft 10 in Weight 190 lb BMI 27.3 BP 126/70 Blood Pressure Location Lt brachial Position Sitting Pulse 68 Pulse Source Pulse Oximeter Pulse Oximetry (%) 97 Oxygen Delivery Method Room Air Intake Visit Reasons: CKD/ LVM Refrigeration Service Technician Required: No Accompanied by: Self / Same As Patient Allergies carvedilol [From COREG] Allergy (Severe, Verified 12/05/24 11:30) Palpitations metoprolol Allergy (Severe, Verified 12/05/24 11:30) Palpitations Sulfa (Sulfonamide Antibiotics) [SULFA (SULFONAMIDE ANTIBIOTICS)] Allergy (Severe, Verified 12/05/24 11:30) Redness of Skin doxycycline Allergy (Intermediate, Verified 12/05/24 11:30) Rash itch cilostazol Allergy (Unknown, Verified 12/05/24 11:30) UNKNOWN digoxin [DIGOXIN] Allergy (Unknown, Verified 12/05/24 11:30) UNKNOWN labetalol [LABETALOL] Allergy (Unknown, Verified 12/05/24 11:30) MUSCLE PAIN Vddbdto-HBC-DdT Reductase Inhibitor Adverse Reaction (Intermediate, Verified 12/05/24 11:30) Muscle Pain Medication List - Last Reconciled 12/05/24 by Luis Gutierrez MD amlodipine 5 mg PO DAILY atenolol 25 mg PO DAILY clopidogrel 75 mg PO DAILY 90 days evolocumab (Elle Romero) 140 mg subcut Q3W fluorouracil 5% 1 appl topical BID furosemide 20 mg PO DAILY isosorbide mononitrate ER 60 mg PO DAILY meclizine 50 mg PO TID PRN triamcinolone acetonide 0.025% topical valsartan-hydrochlorothiazide 160-12.5 mg tabs PO [walker with seat Wheeled walker with seat ] warfarin 5 mg See Protocol PO DAILY HPI Comments Details: Ifeanyi is well known to me for last several years. 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 In 2011 coronary angiogram showed 60% mid LAD 90% distal LAD 50% 1st diagonal and 84% obtuse marginal. The RCA was totally occluded. Repeat CT in 2017 revealed 90% stenosis mid LAD moderate diffuse distal LAD and left circumflex 80-90% distal stenosis and chronically occluded RCA. He was deemed not to be a candidate for CABG. 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 Blood pressure has been difficult to control. He has been monitoring his blood pressure at home Home readings have been acceptable. He has generalized body pain otherwise no new issues today. He has been intolerant to statins however he has been able to tolerate Repatha 06/23/24;Fell twice and sustained injury to right upper extremity;seen in ER 12/05/24: Overall doing well. No new issues today. [facility] Medical History Carotid stenosis AAA (abdominal aortic aneurysm) without rupture Vertigo H/O Villa's palsy Permanent atrial fibrillation Post herpetic neuralgia HTN (hypertension) Thrombocytopenia CKD (chronic kidney disease) CVA (cerebral vascular accident) PVD (peripheral vascular disease) CAD (coronary artery disease) Afib Surgical History H/O prostatectomy Stented coronary artery Social History Housing: House Alcohol intake: current Alcohol intake frequency: a few times a week Patient Tobacco Use Status: Never used Tobacco e-Cigarette/Vaping Use: Never Used Second Hand Smoke Exposure: No service: Yes Current occupational status: retired Cognitive needs: No Hearing needs: No Vision needs: No Physical Exam Vital Signs: BMI result Body Mass Index 27.3 Comfortable Neck supple no JVD. Lungs entry equal no rales. Heart S1-S2 heard no gallop or rub. Abdomen soft nontender. Neuro alert awake oriented. No asterixis. Extremities no edema. Ecchymosis of right UE Results Reviewed Results Reviewed: Pending Nephrology Results: Hgb 12.6 g/dl (14.0-18.0) L 12/04/24 WBC 7.2 X10*3/uL (4.8-10.8) 12/04/24 Plt Count 186 X10*3/uL (160-400) 12/04/24 Sodium 138 mmol/L (135-145) 12/04/24 Potassium 3.9 mmol/L (3.3-5.1) 12/04/24 Chloride 101 mmol/L (96-108) 12/04/24 Carbon Dioxide 27 mmol/L (22-29) 12/04/24 BUN 21 mg/dL (9-16) H 12/04/24 Creatinine 1.10 mg/dL (0.5-1.4) 12/04/24 Calcium 9.6 mg/dL (8.4-10.2) 12/04/24 Assessment & Plan Assessment & Plan (1) HTN (hypertension): Code(s): I10 - Essential (primary) hypertension Category: Medical Plan: ~Resistant hypertension history of significant artero sclerosis. Ifeanyi has renovascular disease. Overall blood pressure has been acceptable. I will continue with current antihypertensive medications. Keep on low-sodium diet. Encouraged to keep moderate blood pressure at home and to call me if the systolic blood pressure stays above 140 mmHg (2) CKD (chronic kidney disease): Code(s): N18.9 - Chronic kidney disease, unspecified Category: Medical Plan CKD in a setting of longstanding hypertension. He has underlying renovascular disease. At present renal functions close to baseline. Goal is to slow the progression of renal disease. Continue to avoid nephrotoxic agents. Avoid hypotensive episodes. Will continue monitor renal function closely since he is at high risk for ongoing renal injury and LUISANA. . Orders: Orders Basic Metabolic Panel 6 Months N18.9 - Chronic kidney disease, unspecified Complete Blood Count no Diff 6 Months N18.9 - Chronic kidney disease, unspecified Coding Level of Care Code Est Pt Level 4 (16246) Diagnoses HTN (hypertension) I10 CKD (chronic kidney disease) N18.9
--- OUTSIDE RECORDS SUMMARY | 2024-12-05 11:56 | XMS_ITS | Patient Health Record ---
Author Organization [facility] Gretel cherri [place] Address [address] [facility] [place] [address] Care Team Providers Care Vertical Contour Band Saw Operator Name Role Phone Demetrio Abdalla Primary Care Provider Unav Franklyn Arrington Unavailable [phone] Allergies Allergen (clinical drug ingredient) Drug/Non Drug [...] W/U Status Risk Notes Problem Atherosclerosis of [place] arteries of the extremities (627109639289217) Atherosclerosis of [place] artery of both lower extremities, with unspecified presence of clinical manifestation (I70.203) Active confirmed Problem Ulcer of toe of left foot (disorder) (20855285188479603 ) Skin ulcer of toe of left foot, limited to breakdown of skin (L97.521) Active confirmed Vital Signs Blood pressure diastolic 70 mm Hg 06/06/2024 Height 5 ft 11 in in 06/06/2024 Blood pressure systolic 130 mm Hg 06/06/2024 Weight 185 lbs 06/06/2024 BMI 25.8 kg/m2 06/06/2024 Procedures Procedure Date Ordered Date Performed Result Body Sit e 51848- I&D ABSCESS-COMPLICATED,MULTI 02/29/2024 N/A 27467-LUHRMWX NAIL, 6 OR MORE 03/21/2024 N/A 42589- Debride <25 sq cm 03/21/2024 N/A 09867-RYUI SKIN LESIONS, 2 TO 4 03/21/2024 N/A 10063-BABHHGP NAIL, 6 OR MORE 06/06/2024 N/A 71691-EASV SKIN LESIONS, 2 TO 4 06/06/2024 N/A 21416-CHKMKVC NAIL, 6 OR MORE 09/05/2024 N/A 70886-EKEE SKIN LESIONS, 2 TO 4 09/05/2024 N/A Encounters Encounter Location Date Provider Diagnosis [address] [address] 02/29/2024 Franklyn Sue Atherosclerosis of [place] artery of both lower extremities, with unspecified presence of clinical manifestation I70.203 ; Tinea unguium B35.1 ; Pain in right toe(s) M79.674 ; Pain in left toe(s) M79.675 ; Abscess of toe of left foot L02.612 and Acute lymphangitis of left toe L03.[address] [address] 03/21/2024 Franklyn Sue Atherosclerosis of [place] artery of both lower extremities, with unspecified presence of clinical manifestation I70.203 ; Tinea unguium B35.1 ; Pain in right toe(s) M79.674 ; Pain in left toe(s) M79.675 ; Skin ulcer of toe of left foot, limited to breakdown of skin L97.521 and Acute lymphangitis of left toe L03.[address] [address] 06/06/2024 Franklyn Sue Atherosclerosis of [place] artery of both lower extremities, with unspecified presence of clinical manifestation I70.203 ; Tinea unguium B35.1 ; Pain in right toe(s) M79.674 ; Pain in left toe(s) M79.675 and Skin ulcer of toe of left foot, limited to breakdown of skin L97.[address] [address] 09/05/2024 Franklyn Sue Atherosclerosis of [place] artery of both lower extremities, with unspecified presence of clinical manifestation I70.203 ; Tinea unguium B35.1 ; Pain in right toe(s) M79.674 ; Pain in left toe(s) M79.675 and Skin ulcer of toe of left foot, limited to breakdown of skin L97.[address] [address] 02/22/2024 Franklyn Sue Assessments Encounter Date Diagnosis (ICD Code) Assessment Notes Treatment Notes Treatment Clinical Notes Section Notes 02/29/2024 Tinea unguium (ICD-10 - B35.1) 02/29/2024 Atherosclerosis of [place] artery of both lower extremities, with unspecified presence of clinical manifestation (ICD-10 - I70.203) 03/21/2024 Tinea unguium (ICD-10 - B35.1) 03/21/2024 Atherosclerosis of [place] artery of both lower extremities, with unspecified presence of clinical manifestation (ICD-10 - I70.203) 06/06/2024 Tinea unguium (ICD-10 - B35.1) 06/06/2024 Atherosclerosis of [place] artery of both lower extremities, with unspecified presence of clinical manifestation (ICD-10 - I70.203) 09/05/2024 Tinea unguium (ICD-10 - B35.1) 09/05/2024 Atherosclerosis of [place] artery of both lower extremities, with unspecified [...] Treatment Pending Test Test Name Order Date 39784-MOHPKLR NAIL, 6 OR MORE 03/21/2024 17251-CLLQBSB NAIL, 6 OR MORE 06/06/2024 96079-ELUIDPY NAIL, 6 OR MORE 09/05/2024 13782- Debride <25 sq cm 03/21/2024 81951- I&D ABSCESS-COMPLICATED,MULTI 08/2023 96639-NZBX SKIN LESIONS, 2 TO 4 09/05/19 31224-XAHT SKIN LESIONS, 2 TO 4 03/21/20 11162-MNGJ SKIN LESIONS, 2 TO 4 06/06/20 Next Appt Details Provider Name:Franklyn Sue , 12/09/2024 02:30:00 PM, [address] [place] [address], [phone], Insurance Providers Payer Name Payer Address Payer Phone Subscriber Number Group Number Insured Name Patient Relationship to Insured Coverage Start Date Coverage End Date [employer] Medicare Adv-[id number] [address] [address] [place] [phone] [id number] Ifeanyi Bustamante Self - patient is the insured Medical (General) History Medical History History ICD Code Angina Arthritis Back,Hip,and Knee pain Broken bones CAD (Cholesterol) Cancer Cataracts covid-19 Heart disease Hiatal hernia Hypertension Kidney disease Macular degeneration Numbness Poor circulation Scarlet fever Stroke Vascular phlebitis (clots) Warts Measles Mumps Chicken pox Transfusions Surgical History Surgery Date(Month/Year)
--- OUTSIDE RECORDS SUMMARY | 2024-12-05 11:57 | XMS_ITS | Clinical Summary ---
Author Organization [facility] Address [address] [place] [address] Phone Care Team Providers Care Analytical Lab Technician Name Role Phone Demetrio Reagan NP Primary Care Provider [phone] Allergies Active Allergy Reactions Criticality Noted Date [...] patient's age to complete this topic Insurance [facility] Medicare [id number] Medicare Care Teams Analytical Lab Technician Relationship Specialty Start Date End Date Demetrio Reagan NP [address] [place] [address] PCP - General Nurse Practitioner 08/08/21
--- OUTSIDE RECORDS SUMMARY | 2024-12-05 11:57 | XMS_ITS ---
Author Organization [facility] Gretel Singhley Address [address] [place] [address] Care Team Providers Care Radio News Anchor Name Role Phone Demetrio Abdalla Primary Care Provider Unav ailable Franklyn Sue Unavailable [phone] Allergies Allergen (clinical drug ingredient) Drug/Non Drug [...] Ordered Date Performed Result Body Sit e 22899-ENGCQCP NAIL, 6 OR MORE 06/06/2024 N/A 60097-IOOI SKIN LESIONS, 2 TO 4 06/06/2024 N/A Encounters Encounter Location Date Provider Diagnosis [facility] [place] [address] [place] [address] 06/06/2024 Franklyn Sue Atherosclerosis of [place] artery of both lower extremities, with unspecified presence of clinical manifestation I70.203 ; Tinea unguium B35.1 ; Pain in right toe(s) M79.674 ; Pain in left toe(s) M79.675 and Skin ulcer of toe of left foot, limited to breakdown of skin L97.521 Assessments Encounter Date Diagnosis (ICD Code) Assessment Notes Treatment Notes Treatment Clinical Notes Section Notes 06/06/2024 Atherosclerosis of [place] artery of both lower extremities, with unspecified [...] INSTRUCTIONS.pdf) Pending Test Test Name Order Date 82840-QOFGXTW NAIL, 6 OR MORE 06/06/2024 25860-SLMX SKIN LESIONS, 2 TO 4 06/06/20 24 Next Appt Details Follow Up: prn, Reason: Provider Name:Franklyn Sue , 12/09/2024 02:30:00 PM, [address] [place], [address], Procedure Notes * Category Sub-Category Detail Notes [...] use of a nail nipper and/or dremel-type thread grinder tool, to a more viable healthy nail plate or bed tissue 6-10. Silver nitrate used for any petechial bleeding as necessary. Definitive antifungal treatment options have been reviewed and discussed with the patient. The patient chooses, no pharmaceutical tx - 61492 Keratoma Treatment Parring or Cutting o f Benign Hyperkeratotic Lesion(s) (-56) 2-4 Lesions - The Benign hyperkeratotic lesions, as described in exam, were pared, and/or cut utilizing a sterile 15 blade, tissue nippers, and/or dremel - 86769 , Q8 Progress Notes * Ifeanyi BUSTAMANTEDOB:1940 (84 yo M)Acc No.[id number]:06/06/2024 Progress Note Patient:?Ifeanyi BUSTAMANTE Provider:?Franklyn Sue DPM :1940???Age:84 Y???Sex:Male Fili e:06/06/2024 Address:[address] [place], [place] [address] Pcp:PETEY Berry Subjective: * Chief Complaints: * [...] Assessment: 1.?Tinea unguium - B35.1???2 .?Atherosclerosis of [place] artery of both lower extremities, with unspecified presence of clinical manifestation - I70.203???3.?Pain in right toe(s) - M79.674???4.?Pain in left toe(s) - M79.675?? 5.?Skin ulcer of toe of left foot, limited to breakdown of skin - L97.521???Specify :Acute problem, Uncomplicated (3)??? Plan: * Treatment: 2.?Atherosclerosis of [place] artery of both lower extremities, with unspecified presence of clinical manifestation?Procedure: 02582-UAFX SKIN LESIONS, 2 TO 4 3.?Skin ulcer [...] use of a nail nipper and/or dremel-type thread grinder tool, to a more viable healthy nail plate or bed tissue 6-10. Silver nitrate used for any petechial bleeding as necessary. Definitive antifungal treatment options have been reviewed and discussed with the patient. The patient chooses, no pharmaceutical tx - 36227.?Keratoma Treatment:?Parring or Cutting of Benign Hyperkeratotic Lesion(s)?(-56) 2-4 Lesions - The Benign hyperkeratotic lesions, as described in exam, were pared, and/or cut utilizing a sterile 15 blade, tissue nippers, and/or dremel - 11447 , Q8.? * Procedure Codes:?35419 DEBRI DE NAIL, 6 OR MORE, Modifiers: XS 34280 TRIM SKIN LESIONS, 2 TO 4, Modifiers: [...] a, Vascular Consult w/ Dr James at [facility] due to pedal risk of limb/life, [...] Provider:ISABELLA RogerM Date:?2023 Generated for Meme finn/Juliocesar/Surjit on:?12/05/2024 11:56 AM EDT History and Physical Notes * [...]
--- OUTSIDE RECORDS SUMMARY | 2024-12-05 11:57 | XMS_ITS ---
Author Organization [facility] [place] Address [address] [facility] [place] [address] Care Team Providers Care Ring Packer Name Role Phone Demetrio Abdalla Primary Care Provider Unav ailable Franklyn Sue Unavailable [phone] Allergies Allergen (clinical drug ingredient) Drug/Non Drug [...] Ulcer of toe of left foot (disorder) (86898095110 755432) Skin ulcer of toe of left foot, limited to breakdown of skin (L97.521) Active confirmed Vital Signs Height 5 ft 11 in in 03/21/2024 Weight 186 lbs 03/21/2024 BMI 25.94 kg/m2 03/21/2024 Blood pressure systolic 130 mm Hg 03/21/20 24 Blood pressure diastolic 70 mm Hg 024 Procedures Procedure Date Ordered Date Performed Result Body Sit e 91004-EGWHDNT NAIL, 6 OR MORE 03/21/2024 N/A 38555- Debride <25 sq cm 03/21/2024 N/A 01222-UFZZ SKIN LESIONS, 2 TO 4 03/21/2024 N/A Encounters Encounter Location Date Provider Diagnosis [facility] [place] [address] [place] [address] 03/21/2024 Franklyn Sue Atherosclerosis of kash[place] artery of both lower extremities, with unspecified [...] Clinical Notes Section Notes 03/21/2024 Atherosclerosis of kash[place] artery of both lower extremities, with unspecified [...] INSTRUCTIONS.pdf) Pending Test Test Name Order Date 31958-OOACXQZ NAIL, 6 OR MORE 03/21/2024 78641- Debride <25 sq cm 03/21/2024 40835-[facility] SKIN LESIONS, 2 TO 4 03/21/20 24 Next Appt Details Follow Up: prn, Reason: Provider Name:Franklyn Jennifer Sue , 12/09/2024 02:30:00 PM, [address] [place] [address], [phone], Procedure Notes * Category Sub-Category Detail Notes Debride Nail 6-10 Nail debridement Performance o f this nail treatment by a nonprofessional would put this patients foot and overall health at risk. Therefore, nail debridement was performed extensively to reduce/remove overall nail length, girth, thickness, subungual debris, and necrotic tissue, by manual and/or electrical means through the use of a nail nipper and/or dremel-type horseradish grinder, to a more viable healthy nail plate or bed tissue 6-10. Silver nitrate used for any petechial bleeding as necessary. Definitive antifungal treatment options have been reviewed and discussed with the patient. The patient chooses, no pharmaceutical tx (53056) Debride skin< 25 sq cm Open wound [...] of the wound post debridement is stable (54418) Keratoma Treatment Parring or Cutting o f Benign Hyperkeratotic Lesion(s) 35910 ( 2-4 Lesions ) - The Benign hyperkeratotic lesions, as described above were pared, and/or cut utilizing a sterile 15 blade, tissue nippers, and/or dremel , Q8 Progress Notes * Ifeanyi BUSTAMANTEDOB:1940 (84 yo M)Acc No.[id number]:03/21/2024 Progress Notes Patient:?Dianna Ifeanyi Provider:?Franklyn Sue DPM :1940???Age:84 Y???Sex:Male Fili e:03/21/2024 Address:[address] [place] [phone] Pcp:PETEY Berry Subjective: * Chief Complaints: * [...] Assessment: 1.?Tinea unguium - B35.1?2.? Atherosclerosis of kash[place] artery of both lower extremities, with unspecified presence of clinical manifestation - I70.203?3.?Pain in right toe(s) - M79.674?4.?Pain in left toe(s) - M79.675?5.?Skin ulcer of toe of left foot, limited to breakdown of skin - L97.521?6.?Acute lymphangitis of left toe - L03.042, Acute problem, Stable (1=3),Response to treatment - Improvement? Plan: * Treatment: 2.?Atherosclerosis of kash[place] artery of both lower extremities, with unspecified presence of clinical manifestation?Procedure: 34504-FWGZ SKIN LESIONS, 2 TO 4 3.?Skin ulcer of toe of left foot, limited to breakdown of skin?Procedure: 81449- Debride <25 sq cm Notes: Patient Educated [...] use of a nail nipper and/or dremel-type horseradish grinder, to a more viable healthy nail plate or bed tissue 6-10. Silver nitrate used for any petechial bleeding as necessary. Definitive antifungal treatment options have been reviewed and discussed with the patient. The patient chooses, no pharmaceutical tx (24595).?Debride skin< 25 sq cm:?Open wound?Physician of record [...] of the wound post debridement is stable (85632).?Keratoma Treatment:?Parring or Cutting of Benign Hyperkeratotic Lesion(s)?57140 ( 2-4 Lesions ) - The Benign hyperkeratotic lesions, as described above were pared, and/or cut utilizing a sterile 15 blade, tissue nippers, and/or dremel , Q8.? * Procedure Codes:?97810 DEBRI DE NAIL, 6 OR MORE, Modifiers: XS 28770 ACTIVE WOUND CARE/20 CM OR <, Modifiers: XS 20425 TRIM SKIN LESIONS, 2 TO 4, Modifiers: [...] Sue DPM Date:?2023 Generated for Meme finn/Juliocesar/Surjit on:?12/05/2024 11:56 [...]
--- OUTSIDE RECORDS SUMMARY | 2024-12-05 11:57 | XMS_ITS ---
Author Organization [facility] Gretel [place] Address [address] [facility] [place] [address] Care Team Providers Care Battery Engineer Name Role Phone Demetrio Abdalla Primary Care Provider Unav ailable Franklyn Sue Unavailable [phone] Allergies Allergen (clinical drug ingredient) Drug/Non Drug [...] Ordered Date Performed Result Body Sit e 56778-POEWFEI NAIL, 6 OR MORE 09/05/2024 N/A 03340-VNNT SKIN LESIONS, 2 TO 4 09/05/2024 N/A Encounters Encounter Location Date Provider Diagnosis [facility] [place] [address] [place] [address] 09/05/2024 Franklyn Sue Atherosclerosis of [place] artery of both lower extremities, with unspecified presence of clinical manifestation I70.203 ; Tinea unguium B35.1 ; Pain in right toe(s) M79.674 ; Pain in left toe(s) M79.675 and Skin ulcer of toe of left foot, limited to breakdown of skin L97.521 Assessments Encounter Date Diagnosis (ICD Code) Assessment Notes Treatment Notes Treatment Clinical Notes Section Notes 09/05/2024 Atherosclerosis of [place] artery of both lower extremities, with unspecified [...] 09/05/2024 Pending Test Test Name Order Date 02833-IJMTZRZ NAIL, 6 OR MORE 09/05/2024 16791-EHFS SKIN LESIONS, 2 TO 4 09/05/19 25 Next Appt Details Follow Up: prn, Reason: Provider Name:Franklyn Sue , 12/09/2024 02:30:00 PM, [address] [place], [address], Procedure Notes * Category Sub-Category Detail Notes [...] use of a nail nipper and/or dremel-type feed grinder, to a more viable healthy nail [...] to maintain effectiveness in symptomatic relief - 63730 Keratoma Treatment Parring or Cutting o f [...] instrumentation by the physician of record - 41903, Q8 Progress Notes * Ifeanyi BUSTAMANTEDOB:1940 (84 yo M)Acc No.[id number]:09/05/2024 Progress Note Patient:?Ifeanyi BUSTAMANTE Provider:?Franklyn Sue DPM :1940???Age:84 Y???Sex:Male Fili e:09/05/2024 Address:[address] [place] [phone] Pcp:PETEY Berry Subjective: * Chief Complaints: * [...] Assessment: 1.?Tinea unguium - B35.1???2 .?Atherosclerosis of [place] artery of both lower extremities, with unspecified presence of clinical manifestation - I70.203 (Primary)???3.?Pain in right toe(s) - M79.674???4.?Pain in left toe(s) - M79.675 ??5.?Skin ulcer of toe of left foot, limited to breakdown of skin - L97.521???Specify :Acute problem, Stable Response to treatment - Improvement??? Plan: * Treatment: 2.?Tinea unguium?Procedure: 68688-EKSVPBD NAIL, 6 OR MORE 3.?Others? Start Office [...] use of a nail nipper and/or dremel-type feed grinder, to a more viable healthy nail [...] to maintain effectiveness in symptomatic relief - 29689.?Keratoma Treatment:?Parring or Cutting of Benign Hyperkeratotic Lesion(s)?(-56) [...] instrumentation by the physician of record - 50797, Q8.? * Procedure Codes:?97962 DEBRI DE NAIL, 6 OR MORE, Modifiers: XS 88582 TRIM SKIN LESIONS, 2 TO 4, Modifiers: [...] Sue DPM Date:?2024 Generated for Meme finn/Juliocesar/Surjit on:?12/05/2024 11:56 AM [...] footcare Pt States [place]: [place] [facility] [place] by, , DAQUAN, who is [...]
== END 2024-12-05 11:44 | disposition home or self-care (01) ==
LOC: HO.HKA 11:27
PROVIDERS: PCP Nurse Practitioner Family; Visit Provider Internal Medicine Hypertension Specialist
DX: I12.9 Hypertensive chronic kidney disease with stage 1 through stage 4 chronic kidney disease, or unspecified chronic kidney disease (principal); N18.9 Chronic kidney disease, unspecified
CPT/HCPCS: 99214

== ENCOUNTER → 2024-12-05 11:26 | Outpatient (BNVA) | payer MEDICARE, SELFPAY | PROVIDERS: PCP Nurse Practitioner Family; Visit Provider Internal Medicine Hypertension Specialist | DX: I12.9 Hypertensive chronic kidney disease with stage 1 through stage 4 chronic kidney disease, or unspecified chronic kidney disease (principal); I1A.0 Resistant hypertension; I25.10 Atherosclerotic heart disease of native coronary artery without angina pectoris; N18.9 Chronic kidney disease, unspecified | CPT/HCPCS: 99212 ==

== ENCOUNTER 2024-12-24 09:16 | Outpatient (AMB) | payer MEDICARE, SELFPAY ==
[2024-12-24 09:28] LABS: Prothrombin Time Whole Bld POC 22.5 sec (11.1-13.5); ~PT, ~INR - Anti Coag Clinic 1.9 (0.9-1.1)
--- NOTE | 2024-12-24 09:36 | MHC.OFFVISCO ---
Intake Intake Visit Reasons: Anticoagulation Allergies carvedilol [From COREG] Allergy (Severe, Verified 12/24/24 09:23) Palpitations metoprolol Allergy (Severe, Verified 12/24/24 09:23) Palpitations Sulfa (Sulfonamide Antibiotics) [SULFA (SULFONAMIDE ANTIBIOTICS)] Allergy (Severe, Verified 12/24/24 09:23) Redness of Skin doxycycline Allergy (Intermediate, Verified 12/24/24 09:23) Rash itch cilostazol Allergy (Unknown, Verified 12/24/24 09:23) UNKNOWN digoxin [DIGOXIN] Allergy (Unknown, Verified 12/24/24 09:23) UNKNOWN labetalol [LABETALOL] Allergy (Unknown, Verified 12/24/24 09:23) MUSCLE PAIN Hliehka-EJN-JkO Reductase Inhibitor Adverse Reaction (Intermediate, Verified 12/24/24 09:23) Muscle Pain Medication List - Last Reconciled 12/24/24 by Romelia Haddad, RN amlodipine 5 mg PO DAILY atenolol 25 mg PO DAILY clopidogrel 75 mg PO DAILY 90 days evolocumab (Elle Romero) 140 mg subcut Q3W fluorouracil 5% 1 appl topical BID furosemide 20 mg PO DAILY isosorbide mononitrate ER 60 mg PO DAILY meclizine 50 mg PO TID PRN triamcinolone acetonide 0.025% topical valsartan-hydrochlorothiazide 160-12.5 mg tabs PO [walker with seat Wheeled walker with seat ] warfarin 5 mg See Protocol PO DAILY Nursing Note NO MISSED DOSES,CP,SOB,DIET/MED CHANGES,FALLS OR SX OF BLEEDING. BOOST TO 5MGM TODAY THEN RESUME USUAL DOSING AND FOLLOW-UP IN 2 WEEKS. NO GREENS 1-2 DAYS GOOD UNDERSTANDING OF DOSING INSTR. 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
--- OUTSIDE RECORDS SUMMARY | 2024-12-24 09:54 | XMS_ITS | Patient Health Record ---
Author Organization [facility] Gretel cherri [place] Address [address] [facility] [place] [address] Care Team Providers Care Glass Lined Tank Repairer Name Role Phone Demetrio Abdalla Primary Care Provider Unav Franklyn Arrington Unavailable [phone] Allergies Allergen (clinical drug ingredient) Drug/Non Drug Allergy documented on EMR Reaction Allergy Type Onset Date Status sulfamethoxazole / trimethoprim Bactrim Unknown Drug Allergy Active Shrimp Flavor Unknown Drug Allergy Act tracy Reason For Referral No Information Medications Medication SIG (Take, Route, Fr equency, Duration) Notes Start Date End Date Status Valsartan Active Warfarin Sodium Acti ve Clopidogrel Bisulfate Active Ammonium Lactate 12 % 1 application Exte rnally to affected areas of dry skin to feet except for between the toes Twice a day for 30 days Act tracy Isosorbide Dinitrate Active Furosemide Active Atenolol Active amLODIPine Besylate Active Office visit . . . There are no pod iatric conditions which would cause this patient to be unable to drive safely and effectively for 365 days 09/05/2024 Active Cephalexin 500 MG 1 capsule Orally wilfrid ry 8 hrs for 10 days Active Social History Tobacco Use: Social History [...] W/U Status Risk Notes Problem Atherosclerosis of [place] arteries of the extremities ([id number]) Atherosclerosis of [place] artery of both lower extremities, with unspecified presence of clinical manifestation (I70.203) Active confirmed Problem Ulcer of toe of left foot (disorder) (81455989220682132 ) Skin ulcer of toe of left foot, limited to breakdown of skin (L97.521) Active confirmed Vital Signs Blood pressure diastolic 70 mm Hg 12/09/2024 Height 5 ft 11 in in 12/09/2024 Blood pressure systolic 130 mm Hg 12/09/2024 Weight 190 lbs 12/09/2024 BMI 26.5 kg/m2 12/09/2024 Procedures Procedure Date Ordered Date Performed Result Body Sit e 10706- I&D ABSCESS-COMPLICATED,MULTI 02/29/2024 N/A 88278-BLNKJJD NAIL, 6 OR MORE 06/06/2024 N/A 07147-CHXV SKIN LESIONS, 2 TO 4 06/06/2024 N/A 85525-ZQOFBVG NAIL, 6 OR MORE 09/05/2024 N/A 80790-HRBQ SKIN LESIONS, 2 TO 4 09/05/2024 N/A 09503-FSESPVG NAIL, 6 OR MORE 12/09/2024 N/A 98019-NSGI SKIN LESIONS, 2 TO 4 12/09/2024 N/A 04148-VADQ SKIN LESIONS, 2 TO 4 03/21/2024 N/A 53984- Debride <25 sq cm 03/21/2024 N/A 27213-SVCWKBE NAIL, 6 OR MORE 03/21/2024 N/A Encounters Encounter Location Date Provider Diagnosis [facility] [address] [address] 02/29/2024 Franklyn Sue Atherosclerosis of [place] artery of both lower extremities, with unspecified presence of clinical manifestation I70.203 ; Tinea unguium B35.1 ; Pain in right toe(s) M79.674 ; Pain in left toe(s) M79.675 ; Abscess of toe of left foot L02.612 and [facility]03.[facility] [address] 03/21/2024 Franklyn Sue Atherosclerosis of [place] artery of both lower extremities, with unspecified presence of clinical manifestation I70.203 ; Tinea unguium B35.1 ; Pain in right toe(s) M79.674 ; Pain in left toe(s) M79.675 ; Skin ulcer of toe of left foot, limited to breakdown of skin L97.521 and Acute lymphangitis of left toe L03.[address] [address] 06/06/2024 Franklyn Sue Atherosclerosis of [place] artery of both lower extremities, with unspecified presence of clinical manifestation I70.203 ; Tinea unguium B35.1 ; Pain in right toe(s) M79.674 ; Pain in left toe(s) M79.675 and Skin ulcer of toe of left foot, limited to breakdown of skin L97.[address] [address] 09/05/2024 Franklyn Sue Atherosclerosis of [place] artery of both lower extremities, with unspecified presence of clinical manifestation I70.203 ; Tinea unguium B35.1 ; Pain in right toe(s) M79.674 ; Pain in left toe(s) M79.675 and Skin ulcer of toe of left foot, limited to breakdown of skin L97.[address] [address] 12/09/2024 Franklyn Sue Atherosclerosis of [place] artery of both lower extremities, with unspecified presence of clinical manifestation I70.203 ; Tinea unguium B35.1 ; Pain in right toe(s) M79.674 ; Pain in left toe(s) M79.675 and Xerosis of skin L85.[address] [address] 02/22/2024 Franklyn Sue Assessments Encounter Date Diagnosis (ICD Code) Assessment Notes Treatment Notes Treatment Clinical Notes Section Notes 02/29/2024 Tinea unguium (ICD-10 - B35.1) 02/29/2024 Atherosclerosis of [place] artery of both lower extremities, with unspecified presence of clinical manifestation (ICD-10 - I70.203) 03/21/2024 Tinea unguium (ICD-10 - B35.1) 03/21/2024 Atherosclerosis of [place] artery of both lower extremities, with unspecified presence of clinical manifestation (ICD-10 - I70.203) 06/06/2024 Tinea unguium (ICD-10 - B35.1) 06/06/2024 Atherosclerosis of [place] artery of both lower extremities, with unspecified presence of clinical manifestation (ICD-10 - I70.203) 09/05/2024 Tinea unguium (ICD-10 - B35.1) 09/05/2024 Atherosclerosis of [place] artery of both lower extremities, with unspecified presence of clinical manifestation (ICD-10 - I70.203) 12/09/2024 Tinea unguium (ICD-10 - B35.1) 12/09/2024 Atherosclerosis of [place] artery of both lower extremities, with unspecified presence of clinical manifestation (ICD-10 - I70.203) 12/09/2024 Pain in right toe(s) (ICD-10 - M79.674) [...] Pain in left toe(s) (ICD-10 - M79.675) 12/09/2024 Pain in left toe(s) (ICD-10 - M79.675) [...] toe (ICD-10 - L03.042) Rx management (4) 12/09/2024 Xerosis of skin (ICD-10 - L85.3) 02/29/2024 Other 03/21/2024 Other 06/06/2024 Other 09/05/2024 Other 12/09/2024 Other Plan Of Treatment Pending Test Test Name Order Date 21983-ICUUBBR NAIL, 6 OR MORE 03/21/2024 32892-WZGUIZL NAIL, 6 OR MORE 06/06/2024 04928-EZSCVFX NAIL, 6 OR MORE 09/05/2024 91012-CMOCXSI NAIL, 6 OR MORE 12/09/2024 71018- Debride <25 sq cm 03/21/2024 60061- I&D ABSCESS-COMPLICATED,MULTI 08/2023 57989-KYBM SKIN LESIONS, 2 TO 4 03/21/20 24 52116-NPJO SKIN LESIONS, 2 TO 4 06/06/20 24 36252-BUKK SKIN LESIONS, 2 TO 4 12/10/19 25 84577-YCVK SKIN LESIONS, 2 TO 4 09/05/19 25 Next Appt Details Provider Name:Franklyn Sue , 03/17/2025 03:00:00 PM, [address] [facility], [place], [address], Insurance Providers Payer Name Payer Address Payer Phone Subscriber Number Group Number Insured Name Patient Relationship to Insured Coverage Start Date Coverage End Date [employer] Medicare Adv-[id number] [address] [address] [place] [address] [phone] [id number] Ifeanyi Bustamante Self - patient is the insured Medical (General) History Medical History History ICD Code Angina Arthritis Back,Hip,and Knee pain Broken bones CAD (Cholesterol) Cancer Cataracts covid-19 Heart disease Hiatal hernia Hypertension Kidney disease Macular degeneration Numbness Poor circulation Scarlet fever Stroke Vascular phlebitis (clots) Warts Measles Mumps Chicken pox Transfusions Surgical History Surgery Date(Month/Year)
== END 2024-12-24 09:39 | disposition home or self-care (01) ==
LOC: HO.ACS 09:16
PROVIDERS: PCP Nurse Practitioner Family; Visit Provider Internal Medicine Medical Oncology
DX: Z79.01 Long term (current) use of anticoagulants (principal)

== ENCOUNTER → 2024-12-24 09:16 | Outpatient (BNVA) | payer MEDICARE, SELFPAY | PROVIDERS: PCP Nurse Practitioner Family; Visit Provider Internal Medicine Medical Oncology | DX: I48.19 Other persistent atrial fibrillation (principal); Z79.01 Long term (current) use of anticoagulants; Z51.81 Encounter for therapeutic drug level monitoring | CPT/HCPCS: 85610; 99211 ==

== ENCOUNTER 2025-01-12 10:07 | Outpatient (AMB) | payer MEDICARE, SELFPAY ==
--- NOTE | 2025-01-12 10:14 | MHC.OFFVIS ---
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: No Accompanied by: Self / Same As Patient Allergies carvedilol [From COREG] Allergy (Severe, Verified 12/24/24 09:23) Palpitations metoprolol Allergy (Severe, Verified 12/24/24 09:23) Palpitations Sulfa (Sulfonamide Antibiotics) [SULFA (SULFONAMIDE ANTIBIOTICS)] Allergy (Severe, Verified 12/24/24 09:23) Redness of Skin doxycycline Allergy (Intermediate, Verified 12/24/24 09:23) Rash itch cilostazol Allergy (Unknown, Verified 12/24/24 09:23) UNKNOWN digoxin [DIGOXIN] Allergy (Unknown, Verified 12/24/24 09:23) UNKNOWN labetalol [LABETALOL] Allergy (Unknown, Verified 12/24/24 09:23) MUSCLE PAIN Zubgprt-QJJ-EsM Reductase Inhibitor Adverse Reaction (Intermediate, Verified 12/24/24 09:23) Muscle Pain Medication List - Last Reconciled 01/12/25 by Torey Dubois MD amlodipine 5 mg PO DAILY atenolol 25 mg PO DAILY clopidogrel 75 mg PO DAILY 90 days evolocumab (Repathharis Billsick) 140 mg subcut Q3W fluorouracil 5% 1 appl topical BID furosemide 20 mg PO DAILY isosorbide mononitrate ER 60 mg PO DAILY meclizine 50 mg PO TID PRN triamcinolone acetonide 0.025% topical valsartan-hydrochlorothiazide 160-12.5 mg tabs PO [walker with seat Wheeled walker with seat ] warfarin 5 mg See Protocol PO DAILY HPI Comments Details: Thank you for referring Ifeanyi in cardiology consultation today for managing his underlying cardiovascular disease. Patient is 84-year-old male with complex prior cardiovascular history. He has history of chronic atrial fibrillation never pursue rhythm control approach on chronic warfarin therapy, CAD with diffuse CAD with stenting of the LAD in 2017 for what appears to be symptoms of angina and NSTEMI\, aortic stenosis which has been elcb-xr-tuktjkqs by last notes has not been checked for awhile. Carotid disease as well as significant peripheral vascular disease. Patient also has history of hypertension, hyperlipidemia with intolerance to statins, currently on PCSK9 inhibitor therapy, frailty, chronic kidney disease. Patient also question has history of heart failure although he does not recall ever been told about the same but he is on low-dose loop diuretic therapy at this point time. 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 He said he does feel his discomfort after he has finished his walking. In the wintertime the symptoms are worse because of the cold and damp weather. Patient denies any symptoms of exertional chest pain. He has not had any overt bleeding issues. Denies any orthopnea, PND, leg edema. Denies any lightheadedness. Takes all his medications as prescribed without questions. [facility] Medical History Carotid stenosis AAA (abdominal aortic aneurysm) without rupture Vertigo H/O Villa's palsy Permanent atrial fibrillation Post herpetic neuralgia HTN (hypertension) Thrombocytopenia CKD (chronic kidney disease) CVA (cerebral vascular accident) PVD (peripheral vascular disease) CAD (coronary artery disease) Afib Surgical History H/O prostatectomy Stented coronary artery Social History Housing: House Alcohol intake: current Alcohol intake frequency: a few times a week Patient Tobacco Use Status: Never used Tobacco e-Cigarette/Vaping Use: Never Used Second Hand Smoke Exposure: No service: Yes Current occupational status: retired Cognitive needs: No Hearing needs: No Vision needs: No Review of Systems Const Denies chills, Denies fatigue, Denies fever(s), Denies frequent falls, Denies weakness, Denies weight gain and Denies weight loss ENT Denies dizziness Card Denies chest pain, Denies leg edema, Denies lightheadedness, Denies palpitations, Denies dyspnea, Denies dyspnea on exertion and Denies orthopnea Resp Denies cough, Denies dyspnea and Denies dyspnea on exertion GI Denies bloating and Denies change in bowel habits Musc Denies muscle weakness, Denies numbness and Denies tingling Neuro Denies dizziness, Denies frequent falls, Denies numbness, Denies tingling and Denies weakness Endo Denies fatigue and Denies palpitations Physical Exam Vital Signs: Last Vital Signs Pulse 74 01/12/25 10:17 BP 120/60 01/12/25 10:17 BMI result Body Mass Index 26.5 Const General: cooperative, comfortable, no acute distress, alert and awake Nutritional Appearance: average body habitus and other (Frail appearing elderly man) Orientation/consciousness: patient oriented x3 Limitations: ambulation with walker HEENT Head: Yes normocephalic and Yes atraumatic Neck Neck: Yes trachea midline, Yes supple and Yes no JVD Resp Effort & Inspection: normal respiratory effort Auscultation: clear to auscultation bilaterally and diminished lung sounds Cardio Jugular venous distension: no JVD Rhythm: abnormal rhythm irregularly irregular Heart sounds: S1 normal heart sound present, S2 normal heart sound present, no click, no gallops and Murmur heart sound present systolic early, decrescendo and crescendo Peripheral pulses: other (Diminished distal pulses) GI Auscultation: normal bowel sounds Skin General skin exam: no rashes or lesions noted Neuro General: patient oriented x3 and no focal motor deficits Extrem General: Yes no clubbing, cyanosis or edema and Yes venous stasis dermatitis Office Procedures EKG Details: EKG shows atrial fibrillation with right superior axis deviation with poor R-wave progression with septal infarct pattern 96788-Uryrmwxetcyfrvcmm, Complete Assessment & Plan Assessment & Plan (1) CAD (coronary artery disease): Code(s): I25.10 - Atherosclerotic heart disease of [place] coronary artery without angina pectoris Category: Medical Plan: CAD with diffuse coronary artery disease with prior stenting of the LAD but currently not having any symptoms of angina. He is most limited because of his lower extremity discomfort probably related to his peripheral vascular disease. At this point time I would suggest that he does not really require isosorbide therapy as he is not having any anginal symptoms. Reduce isosorbide to 30 mg daily and if he continues to have no angina with the eventually taper and discontinue the same. Continue atenolol therapy. Continue aggressive blood pressure control therapy. Currently on warfarin therapy and does not require additional antiplatelet therapy. Does have diffuse significant vascular disease most limited with what appears to be claudication symptoms. He has seen vascular surgery in the past. Will start him on cilostazol therapy and stop Plavix therapy to reduce bleeding risk. Encouraged to maintain activity level as tolerated. Currently on Repatha therapy which has led to improvement in his LDL. Requires at least annual lipid check. (2) Aortic stenosis: Code(s): I35.0 - Nonrheumatic aortic (valve) stenosis Category: Medical Plan: Aortic stenosis which appears to be eras-xl-slaepxxe clinically. Will follow-up echocardiogram in near future to assess for the same. Continue aggressive vascular risk factor modifications above. (3) Permanent atrial fibrillation: Code(s): I48.21 - Permanent atrial fibrillation Category: Medical Plan: Longstanding permanent atrial fibrillation. No overt signs of clinical congestive heart failure worsening symptoms at current point time. Continue rate control with the atenolol. Continue full oral anticoagulation, currently warfarin therapy being followed by [facility]. Maintain target INR between 2 and 3. Will follow up in the clinic in 6 months time, sooner p.r.n.. Thank you for allowing me to partake in his care Orders: Orders CA echo transthoracic complete Today I35.0 - Nonrheumatic aortic (valve) stenosis Lipid Panel Today I25.10 - Atherosclerotic heart disease of [place] coronary artery without angina pectoris Medications: New cilostazol 50 mg PO BID 60 tabs 2RF Changed From isosorbide mononitrate ER 60 mg PO DAILY To isosorbide mononitrate ER 30 mg PO DAILY Discontinued clopidogrel Discontinued Reason: Change Referral Type 75 mg PO DAILY 90 days 90 tabs 2RF Coding Level of Care Code Est Pt Level 4 (70460) Complex EM visit Add On G2211 Diagnoses CAD (coronary artery disease) I25.10 Aortic stenosis I35.0 Permanent atrial fibrillation I48.21 CPT Codes EKG - CPT: 29898-Hxbdokjafbilhhtfa, Complete ([id number])
[2025-01-12 10:17] VITALS: BP 120/60; PULSE 74; BMI 26.5
--- OUTSIDE RECORDS SUMMARY | 2025-01-12 11:15 | XMS_ITS | Patient Health Record ---
Author Organization [facility] Gretel cherri Holly Address [address] [facility] [place] [address] Care Team Providers Care Global Consumer Sector Vice President Name Role Phone Demetrio Abdalla Primary Care Provider Unav Franklyn Arrington Unavailable [phone] Allergies Allergen (clinical drug ingredient) Drug/Non Drug [...] W/U Status Risk Notes Problem Atherosclerosis of [place] arteries of the extremities (780865465206938) Atherosclerosis of [place] artery of both lower extremities, with unspecified presence of clinical manifestation (I70.203) Active confirmed Problem Ulcer of toe of left foot (disorder) (11918613816128470 ) Skin ulcer of toe of left foot, limited to breakdown of skin (L97.521) Active confirmed Vital Signs Blood pressure diastolic 70 mm Hg 12/09/2024 Height 5 ft 11 in in 12/09/2024 Blood pressure systolic 130 mm Hg 12/09/2024 Weight 190 lbs 12/09/2024 BMI 26.5 kg/m2 12/09/2024 Procedures Procedure Date Ordered Date Performed Result Body Sit e 38897- I&D ABSCESS-COMPLICATED,MULTI 02/29/2024 N/A 20738-ITCUBWU NAIL, 6 OR MORE 03/21/2024 N/A 46501- Debride <25 sq cm 03/21/2024 N/A 73278-KXFI SKIN LESIONS, 2 TO 4 03/21/2024 N/A 75510-DJKGBSX NAIL, 6 OR MORE 06/06/2024 N/A 61670-NILX SKIN LESIONS, 2 TO 4 06/06/2024 N/A 18771-GHEZMQC NAIL, 6 OR MORE 09/05/2024 N/A 31893-XQWS SKIN LESIONS, 2 TO 4 09/05/2024 N/A 49965-ADTBQCH NAIL, 6 OR MORE 12/09/2024 N/A 04579-YUEK SKIN LESIONS, 2 TO 4 12/09/2024 N/A Encounters Encounter Location Date Provider Diagnosis [facility] [address] [address] 02/29/2024 Franklyn Sue Atherosclerosis of [place] artery of both lower extremities, with unspecified presence of clinical manifestation I70.203 ; Tinea unguium B35.1 ; Pain in right toe(s) M79.674 ; Pain in left toe(s) M79.675 ; Abscess of toe of left foot L02.612 and [facility]angitis of left toe L03.[facility] [address] 03/21/2024 Franklyn Sue Atherosclerosis of [place] artery of both lower extremities, with unspecified presence of clinical manifestation I70.203 ; Tinea unguium B35.1 ; Pain in right toe(s) M79.674 ; Pain in left toe(s) M79.675 ; Skin ulcer of toe of left foot, limited to breakdown of skin L97.521 and Acute lymphangitis of left toe L03.[address] [address] 06/06/2024 Franklyn Sue Atherosclerosis of [place] artery of both lower extremities, with unspecified presence of clinical manifestation I70.203 ; Tinea unguium B35.1 ; Pain in right toe(s) M79.674 ; Pain in left toe(s) M79.675 and Skin ulcer of toe of left foot, limited to breakdown of skin L97.[address] [address] 09/05/2024 Franklyn Sue Atherosclerosis of [place] artery of both lower extremities, with unspecified presence of clinical manifestation I70.203 ; Tinea unguium B35.1 ; Pain in right toe(s) M79.674 ; Pain in left toe(s) M79.675 and Skin ulcer of toe of left foot, limited to breakdown of skin L97.[address] [address] 12/09/2024 Franklyn Sue Atherosclerosis of [place] artery of both lower extremities, with unspecified presence of clinical manifestation I70.203 ; Tinea unguium B35.1 ; Pain in right toe(s) M79.674 ; Pain in left toe(s) M79.675 and Xerosis of skin L85.[address] [address] 02/22/2024 Franklyn Sue Assessments Encounter Date Diagnosis (ICD Code) Assessment Notes Treatment Notes Treatment Clinical Notes Section Notes 02/29/2024 Tinea unguium (ICD-10 - B35.1) 02/29/2024 Atherosclerosis of [place] artery of both lower extremities, with unspecified presence of clinical manifestation (ICD-10 - I70.203) 03/21/2024 Tinea unguium (ICD-10 - B35.1) 03/21/2024 Atherosclerosis of [place] artery of both lower extremities, with unspecified presence of clinical manifestation (ICD-10 - I70.203) 06/06/2024 Tinea unguium (ICD-10 - B35.1) 06/06/2024 Atherosclerosis of [place] artery of both lower extremities, with unspecified presence of clinical manifestation (ICD-10 - I70.203) 09/05/2024 Tinea unguium (ICD-10 - B35.1) 09/05/2024 Atherosclerosis of [place] artery of both lower extremities, with unspecified presence of clinical manifestation (ICD-10 - I70.203) 12/09/2024 Tinea unguium (ICD-10 - B35.1) 12/09/2024 Atherosclerosis of [place] artery of both lower extremities, with unspecified [...] Treatment Pending Test Test Name Order Date 74278-MBTLACO NAIL, 6 OR MORE 03/21/2024 11031-JTRUEUJ NAIL, 6 OR MORE 06/06/2024 10594-TOGXOYP NAIL, 6 OR MORE 09/05/2024 41600-XCFSSPJ NAIL, 6 OR MORE 12/09/2024 04088- Debride <25 sq cm 03/21/2024 65408- I&D ABSCESS-COMPLICATED,MULTI 08/2023 39337-KJKF SKIN LESIONS, 2 TO 4 03/21/20 24 97903-YRSU SKIN LESIONS, 2 TO 4 06/06/20 24 39152-WZPU SKIN LESIONS, 2 TO 4 12/10/19 25 40061-LEXS SKIN LESIONS, 2 TO 4 09/05/19 25 Next Appt Details Provider Name:Franklyn Sue , 03/17/2025 03:00:00 PM, [address] [facility], [place], [address], Insurance Providers Payer Name Payer Address Payer Phone Subscriber Number Group Number Insured Name Patient Relationship to Insured Coverage Start Date Coverage End Date [employer] Medicare [id number] [address] [address] [place] [address] [id number] Ifeanyi Bustamante Self - patient is the insured Medical (General) History Medical History History ICD Code Angina Arthritis Back,Hip,and Knee pain Broken bones CAD (Cholesterol) Cancer Cataracts covid-19 Heart disease Hiatal hernia Hypertension Kidney disease Macular degeneration Numbness Poor circulation Scarlet fever Stroke Vascular phlebitis (clots) Warts Measles Mumps Chicken pox Transfusions Surgical History Surgery Date(Month/Year)
== END 2025-01-12 10:48 | disposition home or self-care (01) ==
LOC: HO.HCS 10:08
PROVIDERS: PCP Nurse Practitioner Family; Visit Provider Internal Medicine Cardiovascular Disease
DX: I25.10 Atherosclerotic heart disease of native coronary artery without angina pectoris (principal); I35.0 Nonrheumatic aortic (valve) stenosis; I48.21 Permanent atrial fibrillation
CPT/HCPCS: 93010; 99214; G2211

== ENCOUNTER → 2025-01-12 10:07 | Outpatient (BNVA) | payer MEDICARE, SELFPAY | PROVIDERS: PCP Nurse Practitioner Family; Visit Provider Internal Medicine Cardiovascular Disease | DX: I25.10 Atherosclerotic heart disease of native coronary artery without angina pectoris (principal); I35.0 Nonrheumatic aortic (valve) stenosis; I48.21 Permanent atrial fibrillation | CPT/HCPCS: 93005; 99212 ==

== ENCOUNTER 2025-01-19 08:36 | Outpatient (REF) | payer MEDICARE, SELFPAY ==
--- OUTSIDE RECORDS SUMMARY | 2025-01-19 08:53 | XMS_ITS | Patient Health Record ---
Author Organization [facility] Gretel cherri [place] Address [address] [place] [address] Care Team Providers Care Lamination Assembler Name Role Phone Demetrio Abdalla Primary Care Provider Unav Franklyn Arrington Unavailable [phone] Allergies Allergen (clinical drug ingredient) Drug/Non Drug Allergy documented on EMR Reaction Allergy Type Onset Date Status Bactrim Unknown Drug Allergy Active Shrimp Flavor [...] W/U Status Risk Notes Problem Atherosclerosis of [place] arteries of the extremities ([id number]) Atherosclerosis of [place] artery of both lower extremities, with unspecified presence of clinical manifestation (I70.203) Active confirmed Problem Ulcer of toe of left foot (disorder) (42461562822229670 ) Skin ulcer of toe of left foot, limited to breakdown of skin (L97.521) Active confirmed Vital Signs Blood pressure diastolic 70 mm Hg 12/09/2024 Height 5 ft 11 in in 12/09/2024 Blood pressure systolic 130 mm Hg 12/09/2024 Weight 190 lbs 12/09/2024 BMI 26.5 kg/m2 12/09/2024 Procedures Procedure Date Ordered Date Performed Result Body Sit e 75537- I&D ABSCESS-COMPLICATED,MULTI 02/29/2024 N/A 92342-YQNRBWF NAIL, 6 OR MORE 03/21/2024 N/A 26132- Debride <25 sq cm 03/21/2024 N/A 19811-BYME SKIN LESIONS, 2 TO 4 03/21/2024 N/A 44055-JWATAUO NAIL, 6 OR MORE 06/06/2024 N/A 18316-HESF SKIN LESIONS, 2 TO 4 06/06/2024 N/A 47672-UTMKLER NAIL, 6 OR MORE 09/05/2024 N/A 45191-EFNW SKIN LESIONS, 2 TO 4 09/05/2024 N/A 77831-DAJSAQV NAIL, 6 OR MORE 12/09/2024 N/A 34112-CZGT SKIN LESIONS, 2 TO 4 12/09/2024 N/A Encounters Encounter Location Date Provider Diagnosis [facility] [address] [address] 02/29/2024 Franklyn Sue Atherosclerosis of [place] artery of both lower extremities, with unspecified presence of clinical manifestation I70.203 ; Tinea unguium B35.1 ; Pain in right toe(s) M79.674 ; Pain in left toe(s) M79.675 ; Abscess of toe of left foot L02.612 and Acute lymphangitis of left toe L03.[address] [facility] [address] 03/21/2024 Franklyn Sue Atherosclerosis of [place] artery of both lower extremities, with unspecified presence of clinical manifestation I70.203 ; Tinea unguium B35.1 ; Pain in right toe(s) M79.674 ; Pain in left toe(s) M79.675 ; Skin ulcer of toe of left foot, limited to breakdown of skin L97.521 and Acute lymphangitis of left toe L03.[address] [address] 06/06/2024 Franklyn Sue Atherosclerosis of [place] artery of both lower extremities, with unspecified presence of clinical manifestation I70.203 ; Tinea unguium B35.1 ; Pain in right toe(s) M79.674 ; Pain in left toe(s) M79.675 and Skin ulcer of toe of left foot, limited to breakdown of skin L97.[address] [address] 09/05/2024 Franklyn Sue Atherosclerosis of [place] artery of both lower extremities, with unspecified presence of clinical manifestation I70.203 ; Tinea unguium B35.1 ; Pain in right toe(s) M79.674 ; Pain in left toe(s) M79.675 and Skin ulcer of toe of left foot, limited to breakdown of skin L97.[address] [address] 12/09/2024 Franklyn Sue Atherosclerosis of [place] artery of both lower extremities, with unspecified presence of clinical manifestation I70.203 ; Tinea unguium B35.1 ; Pain in right toe(s) M79.674 ; Pain in left toe(s) M79.675 and Xerosis of skin L85.[address] [address] 02/22/2024 Franklyn Sue Assessments Encounter Date Diagnosis (ICD Code) Assessment Notes Treatment Notes Treatment Clinical Notes Section Notes 02/29/2024 Tinea unguium (ICD-10 - B35.1) 02/29/2024 Atherosclerosis of [place] artery of both lower extremities, with unspecified presence of clinical manifestation (ICD-10 - I70.203) 03/21/2024 Tinea unguium (ICD-10 - B35.1) 03/21/2024 Atherosclerosis of [place] artery of both lower extremities, with unspecified presence of clinical manifestation (ICD-10 - I70.203) 06/06/2024 Tinea unguium (ICD-10 - B35.1) 06/06/2024 Atherosclerosis of [place] artery of both lower extremities, with unspecified presence of clinical manifestation (ICD-10 - I70.203) 09/05/2024 Tinea unguium (ICD-10 - B35.1) 09/05/2024 Atherosclerosis of [place] artery of both lower extremities, with unspecified presence of clinical manifestation (ICD-10 - I70.203) 12/09/2024 Tinea unguium (ICD-10 - B35.1) 12/09/2024 Atherosclerosis of [place] artery of both lower extremities, with unspecified [...] Treatment Pending Test Test Name Order Date 92955-HLWBRQG NAIL, 6 OR MORE 03/21/2024 73546-YZZFATE NAIL, 6 OR MORE 06/06/2024 93856-XLHQKGZ NAIL, 6 OR MORE 09/05/2024 25938-LBFKSRU NAIL, 6 OR MORE 12/09/2024 24966- Debride <25 sq cm 03/21/2024 39161- I&D ABSCESS-COMPLICATED,MULTI 08/2023 98348-NUNE SKIN LESIONS, 2 TO 4 03/21/20 24 09025-PQTH SKIN LESIONS, 2 TO 4 06/06/20 24 86672-QSFX SKIN LESIONS, 2 TO 4 12/10/19 25 14515-CTEA SKIN LESIONS, 2 TO 4 09/05/19 25 Next Appt Details Provider Name:Franklyn Rodriguez Linette , 03/17/2025 03:00:00 PM, [address] [facility], [place], [address], Insurance Providers Payer Name Payer Address Payer Phone Subscriber Number Group Number Insured Name Patient Relationship to Insured Coverage Start Date Coverage End Date [employer] Medicare [id number] [address] [address] [place] [address] [id number] Ifeanyi Bustamante Self - patient is the insured Medical (General) History Medical History History ICD Code Angina Arthritis Back,Hip,and Knee pain Broken bones CAD (Cholesterol) Cancer Cataracts covid-19 Heart disease Hiatal hernia Hypertension Kidney disease Macular degeneration Numbness Poor circulation Scarlet fever Stroke Vascular phlebitis (clots) Warts Measles Mumps Chicken pox Transfusions Surgical History Surgery Date(Month/Year)
[2025-01-19 10:55] LABS: Cholesterol 127 mg/dL (<200); HDL Cholesterol 40 mg/dL (>40); LDL Cholesterol Calculated 71 mg/dL (<100); Triglycerides 81 mg/dL (<150)
== END 2025-01-19 08:37 | disposition home or self-care (01) ==
LOC: HO.HMGCLDS 08:36
PROVIDERS: PCP Nurse Practitioner Family; Visit Provider Internal Medicine Cardiovascular Disease
DX: I25.10 Atherosclerotic heart disease of native coronary artery without angina pectoris (principal)
CPT/HCPCS: 36415; 80061

== ENCOUNTER 2025-01-22 14:09 | Outpatient (AMB) | payer MEDICARE, SELFPAY ==
[2025-01-22 14:28] VITALS: BP 130/82; PULSE 79; TEMP 36.7; O2SAT 98; BMI 27.5
--- NOTE | 2025-01-22 14:28 | A.OFFPC_ITS ---
Vital Signs 01/22/25 14:28 Height 5 ft 10 in Weight 191 lb 8 oz BMI 27.5 BP 130/82 Blood Pressure Location Lt brachial Position Sitting Pulse 79 Pulse Source Pulse Oximeter Temp 98.1 F Temp Source Oral Pulse Oximetry (%) 98 Oxygen Delivery Method Room Air Intake Visit Reasons: Annual PE - see comments Allergies carvedilol (From COREG) Allergy (Severe, Verified 01/22/25 15:33) Palpitations metoprolol Allergy (Severe, Verified 01/22/25 15:33) Palpitations Sulfa (Sulfonamide Antibiotics) (SULFA (SULFONAMIDE ANTIBIOTICS)) Allergy (Severe, Verified 01/22/25 15:33) Redness of Skin doxycycline Allergy (Intermediate, Verified 01/22/25 15:33) Rash itch cilostazol Allergy (Unknown, Verified 01/22/25 15:33) UNKNOWN digoxin (DIGOXIN) Allergy (Unknown, Verified 01/22/25 15:33) UNKNOWN labetalol (LABETALOL) Allergy (Unknown, Verified 01/22/25 15:33) MUSCLE PAIN Ljkqrxi-SCJ-MoH Reductase Inhibitor Adverse Reaction (Intermediate, Verified 01/22/25 15:33) Muscle Pain Medication List - Last Reconciled 01/22/25 by PATRICIO Shore- amlodipine 5 mg PO DAILY atenolol 25 mg PO DAILY cilostazol 50 mg PO BID evolocumab (Repatha SureClick) 140 mg subcut Q3W fluorouracil 5% 1 appl topical BID furosemide 20 mg PO DAILY isosorbide mononitrate ER 30 mg PO DAILY meclizine 50 mg PO TID PRN triamcinolone acetonide 0.025% topical valsartan-hydrochlorothiazide 160-12.5 mg tabs PO [walker with seat Wheeled walker with seat ] warfarin 5 mg See Protocol PO DAILY Tobacco use date assessed: 01/22/25 Fall risk assessment: 1 Fall in past year Last assessed Fall Risk: 01/22/25 Dental Screening Dental Screen Date: 01/22/25 Did you have a dental visit in the last 12 months?: No Did you have a dental problem in the last 6 months where you did not have access to dental care?: No Was dental information given to patient?: Patient has dentist HPI Annual PE - see comments HPI Details History of Present Illness The patient is an 85-year-old male presenting for a follow-up visit. He uses a walker regularly due to neuropathy and weakness in bilateral extremities, with slight sensation noted upon examination with a tuning fork and monofilament. He has absent pedal pulses and discoloration in bilateral extremities, along with +1 edema. The patient has an irregular heart murmur, and his lungs are clear with faint crackles at the lower bases. He has multiple skin lesions on his scalp and regularly sees a chicken cleaner. Health Maintenance Social History Review of Systems Physical Exam General: Cooperative, healthy appearing, comfortable, no acute distress and well developed Orientation: Completely alert and oriented gentleman Limitations: Uses a walker on a regular basis, rolling with a seated walker Head: Normal to inspection Ears: Hearing grossly normal bilaterally Nose: Normal external nose present Face and sinus: Normal facial exam Eyes: Appearance normal, both eyes and all related structures Neck: Normal visual inspection and Yes full ROM Respiratory: Normal respiratory effort and able to speak in complete sentences. Clear to auscultation bilaterally, though faint crackles to lower bases Cardiovascular: Irregular irregular heart murmur. Normal S1 and S2 GI: Normal to inspection. Soft to palpation and nontender : Testicles without masses/lesions and no hernias appreciated Skin: Quite a few skin lesions to his scalp Neuro: Patient oriented x3, has neuropathy and some weakness with bilateral extremities, slight sensation with the use of the tuning fork 128 to right lower extremity, could feel with the monofilament slightly Extremities: Discoloration of bilateral extremities, +1 edema, pedal pulses are absent Results Plan cont care with specialists, stay as active as possible at home. Patient Instructions [facility] Medical History Carotid stenosis AAA (abdominal aortic aneurysm) without rupture Vertigo H/O Villa's palsy Permanent atrial fibrillation Post herpetic neuralgia HTN (hypertension) Thrombocytopenia CKD (chronic kidney disease) CVA (cerebral vascular accident) PVD (peripheral vascular disease) CAD (coronary artery disease) Afib Surgical History H/O prostatectomy Stented coronary artery Social History Housing: House Alcohol intake: current Alcohol intake frequency: a few times a week Patient Tobacco Use Status: Never used Tobacco e-Cigarette/Vaping Use: Never Used Second Hand Smoke Exposure: No service: Yes Current occupational status: retired Cognitive needs: No Hearing needs: No Vision needs: No Questionnaire PHQ-9 Over the last 2 weeks, how often have you been bothered by any of the following problems? 1. Little interest or pleasure in doing things: not at all 2. Feeling down, depressed, or hopeless: not at all 3. Trouble falling or staying asleep, or sleeping too much: more than half the days 4. Feeling tired or having little energy: nearly every day 5. Poor appetite or overeating: several days 6. Feeling bad about yourself - or that you are a failure or have let yourself or your family down: not at all 7. Trouble concentrating on things, such as reading the newspaper or watching television: not at all 8. Moving or speaking so slowly that other people could have noticed. Or the opposite - being so fidgety or restless that you have been moving around a lot more than usual: not at all 9. Thoughts that you would be better off or of hurting yourself in some way: not at all Total score: 6 Depression Screening Interpretation: Negative Depression Screening Done: Yes 97682 - PHQ-9 Billing: Yes Source: Developed by Drs. Rony Turner, Tish Calderon, Arnulfo Clark and colleagues, with an educational tien from [employer]. Thrive Questionnaire Date Thrive assessed: 01/22/25 I am a: Patient What is your living situation today?: I have a steady place to live Within the past 12 months, did the food you bought not last and you didn't have the money to get more?: Never true Within the past 12 months, did you worry whether your food would run out before you got money to buy more?: Never true Do you have trouble paying for medicines?: No Do you have trouble getting transportation to medical appointments?: No Do you have trouble paying your heating and electricity bill?: No Do you have trouble taking care of your child, family member or friend?: No Do you have trouble with day-to-day activities such as bathing, preparing meals, shopping, managing finances, etc.?: Yes Are you currently unemployed and looking for a job?: No Are you interested in more education?: No Currently or been in a relationship where the following occur: No concerns reported THRIVE Score: 0 AUDIT C Alcohol Use Questionnaire (AUDIT-C) 1. How often do you have a drink containing alcohol?: Never 3. How often do you have six or more drinks on one occasion?: Never Total Score: 0 Score Reviewed/Action Taken: Yes YARED-7 AMB Questionnaire YARED-7 Date YARED - 7 assessed: 01/22/25 Feeling nervous, anxious, or on edge: 0 = Not at all Not being able to stop or control worryin = Not at all Worrying too much about different things: 0 = Not at all Trouble relaxin = Not at all Being so restless that it is hard to sit still: 3 = Nearly every day Becoming easily annoyed or irritable: 0 = Not at all Feeling afraid as if something awful might happen: 0 = Not at all Total YARED-7 score (0-4 normal; 5-9 mild; 10-14 moderate; 15-21 severe): 3 Source: Developed by Drs. Rony Turner, Tish Calderon, Arnulfo Clark and colleagues, with an educational tien from [employer]. YARED-7 Assessment Billing YARED-7 Assessment Tool: YARED-7 Assessment 23776 Physical exam (Primary Care) Vital Signs: Last Vital Signs Temp 98.1 F 01/22/25 14:28 Pulse 79 01/22/25 14:28 BP 130/82 01/22/25 14:28 Pulse Ox 98 01/22/25 14:28 Oxygen Delivery Method Room Air 01/22/25 14:28 BMI result Body Mass Index 27.5 Tobacco/Smoking Status: Tobacco use Status Tobacco use date assessed 01/22/25 01/22/25 14:32 Patient Tobacco Use Status Never used Tobacco 01/22/25 14:32 e-Cigarette/Vaping Use Never Used 01/22/25 14:32 PHQ-9: PHQ-9 Score PHQ-9: Total score 6 01/22/25 14:32 Depression Screening Interpretation: Negative Thrive Assessment: Date of Thrive Assessment Date Thrive assessed 01/22/25 01/22/25 14:32 Currently or been in a relationship where the following occur: No concerns reported Coding Level of Care Code Est Pt Prev Care >65y(76177) Diagnoses Encounter for routine adult physical exam with abnormal findings Z00. Additional Codes YARED-7 Assessment Billing - YARED-7 Assessment Tool: YARED-7 Assessment 00642 ([id number]) PHQ-9 - 16146 - PHQ-9 Billing: Yes ([id number]) Assessment & Plan Assessment & Plan (1) Encounter for routine adult physical exam with abnormal findings: Code(s): Z00. - Encounter for general adult medical examination with abnormal findings Category: Medical Plan . Orders: Orders Complete Blood Count Auto Diff Today Z00.01 - Encounter for general adult medical examination with abnormal findings Comprehensive [place]. Panel Fast Today Z00.01 - Encounter for general adult medical examination with abnormal findings UA CC w/rflx Micro + Cult Today Z00.01 - Encounter for general adult medical examination with abnormal findings TSH reflex Free T4 Today Z00.01 - Encounter for general adult medical examination with abnormal findings Lipid Panel Today Z00.01 - Encounter for general adult medical examination with abnormal findings
== END 2025-01-22 15:30 | disposition home or self-care (01) ==
LOC: HO.HMCC 14:10
PROVIDERS: PCP Nurse Practitioner Family; Visit Provider Nurse Practitioner Family
DX: Z00.01 Encounter for general adult medical examination with abnormal findings (principal)

== ENCOUNTER → 2025-01-22 14:09 | Outpatient (BNVA) | payer MEDICARE, SELFPAY | PROVIDERS: PCP Nurse Practitioner Family; Visit Provider Nurse Practitioner Family | DX: Z00.01 Encounter for general adult medical examination with abnormal findings (principal); I12.9 Hypertensive chronic kidney disease with stage 1 through stage 4 chronic kidney disease, or unspecified chronic kidney disease; N18.9 Chronic kidney disease, unspecified; R60.0 Localized edema; I48.21 Permanent atrial fibrillation; Z79.899 Other long term (current) drug therapy | CPT/HCPCS: 96127; 99397 ==

== ENCOUNTER 2025-01-26 09:38 | Outpatient (AMB) | payer MEDICARE, SELFPAY ==
--- OUTSIDE RECORDS SUMMARY | 2025-01-26 10:01 | XMS_ITS | Patient Health Record ---
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 . . There are no pod iatric conditions which would cause this patient to be unable to drive safely and effectively; Duration: 365 days 09/05/2024 Active Cephalexin 500 MG 1 capsule Orally wilfrid ry 8 hrs; Duration: 10 days Active Social History Tobacco Use: [...] W/U Status Risk Notes Problem Atherosclerosis of [place] artery of both lower extremities, with unspecified presence of clinical manifestation (I70.203) Active confirmed Problem Ulcer of toe of left foot (disorder) ([id number]) Skin ulcer of toe of left foot, limited to breakdown of skin (L97.521) Active confirmed Vital Signs Blood pressure diastolic 70 mm Hg 12/09/2024 Height 5 ft 11 in in 12/09/2024 Blood pressure systolic 130 mm Hg 12/09/2024 Weight 190 lbs 12/09/2024 BMI 26.5 kg/m2 12/09/2024 Procedures Procedure Date Ordered Date Performed Result Body Sit e 46645- I&D ABSCESS-COMPLICATED,MULTI 02/29/2024 N/A 92910-KEKFEAW NAIL, 6 OR MORE 03/21/2024 N/A 00235- Debride <25 sq cm 03/21/2024 N/A 57302-FFOX SKIN LESIONS, 2 TO 4 03/21/2024 N/A 69959-EUJFUMU NAIL, 6 OR MORE 06/06/2024 N/A 96040-QJLD SKIN LESIONS, 2 TO 4 06/06/2024 N/A 43868-ZVPODTC NAIL, 6 OR MORE 09/05/2024 N/A 81459-XTRE SKIN LESIONS, 2 TO 4 09/05/2024 N/A 97485-ZIOEDWS NAIL, 6 OR MORE 12/09/2024 N/A 94120-EASU SKIN LESIONS, 2 TO 4 12/09/2024 N/A Encounters Encounter Location Date Provider Diagnosis [facility] [address] [address] 02/29/2024 Franklyn Sue Atherosclerosis of [place] artery of both lower extremities, with unspecified presence of clinical manifestation I70.203 ; Tinea unguium B35.1 ; Pain in right toe(s) M79.674 ; Pain in left toe(s) M79.675 ; Abscess of toe of left foot L02.612 and Acute lymphangitis of left toe L03.[address] [facility] [address] 03/21/2024 Franklyn Sue Atherosclerosis of [place] artery of both lower extremities, with unspecified presence of clinical manifestation I70.203 ; Tinea unguium B35.1 ; Pain in right toe(s) M79.674 ; Pain in left toe(s) M79.675 ; Skin ulcer of toe of left foot, limited to breakdown of skin L97.521 and Acute lymphangitis of left toe L03.[address] [address] 06/06/2024 Franklyn Sue Atherosclerosis of [place] artery of both lower extremities, with unspecified presence of clinical manifestation I70.203 ; Tinea unguium B35.1 ; Pain in right toe(s) M79.674 ; Pain in left toe(s) M79.675 and Skin ulcer of toe of left foot, limited to breakdown of skin L97.[address] [address] 09/05/2024 Franklyn Sue Atherosclerosis of [place] artery of both lower extremities, with unspecified presence of clinical manifestation I70.203 ; Tinea unguium B35.1 ; Pain in right toe(s) M79.674 ; Pain in left toe(s) M79.675 and Skin ulcer of toe of left foot, limited to breakdown of skin L97.[address] [address] 12/09/2024 Franklyn Sue Atherosclerosis of [place] artery of both lower extremities, with unspecified presence of clinical manifestation I70.203 ; Tinea unguium B35.1 ; Pain in right toe(s) M79.674 ; Pain in left toe(s) M79.675 and Xerosis of skin L85.[address] [address] 02/22/2024 Franklyn Sue Assessments Encounter Date Diagnosis (ICD Code) Assessment Notes Treatment Notes Treatment Clinical Notes Section Notes 02/29/2024 Tinea unguium (ICD-10 - B35.1) 02/29/2024 Atherosclerosis of [place] artery of both lower extremities, with unspecified presence of clinical manifestation (ICD-10 - I70.203) 03/21/2024 Tinea unguium (ICD-10 - B35.1) 03/21/2024 Atherosclerosis of [place] artery of both lower extremities, with unspecified presence of clinical manifestation (ICD-10 - I70.203) 06/06/2024 Tinea unguium (ICD-10 - B35.1) 06/06/2024 Atherosclerosis of [place] artery of both lower extremities, with unspecified presence of clinical manifestation (ICD-10 - I70.203) 09/05/2024 Tinea unguium (ICD-10 - B35.1) 09/05/2024 Atherosclerosis of [place] artery of both lower extremities, with unspecified presence of clinical manifestation (ICD-10 - I70.203) 12/09/2024 Tinea unguium (ICD-10 - B35.1) 12/09/2024 Atherosclerosis of [place] artery of both lower extremities, with unspecified [...] Treatment Pending Test Test Name Order Date 49861-SJJLIFY NAIL, 6 OR MORE 03/21/2024 17435-AHMJFCW NAIL, 6 OR MORE 06/06/2024 21385-LDLUALJ NAIL, 6 OR MORE 09/05/2024 61084-QCYHLBO NAIL, 6 OR MORE 12/09/2024 81635- Debride <25 sq cm 03/21/2024 10904- I&D ABSCESS-COMPLICATED,MULTI 08/2023 21075-KLMV SKIN LESIONS, 2 TO 4 03/21/20 24 09066-USZB SKIN LESIONS, 2 TO 4 06/06/20 24 08213-SHRY SKIN LESIONS, 2 TO 4 12/10/19 25 91832-LENH SKIN LESIONS, 2 TO 4 09/05/19 25 Next Appt Details Provider Name:Franklyn Sue , 03/17/2025 03:00:00 PM, [address] [facility], [place], [address], Insurance Providers Payer Name Payer Address Payer Phone Subscriber Number Group Number Insured Name Patient Relationship to Insured Coverage Start Date Coverage End Date [employer] Medicare Adv-[id number] [address] [address] [place] [phone] [id number] Ifeanyi Bustamante Self - patient is the insured Medical (General) History Medical History History ICD Code Angina Arthritis Back,Hip,and Knee pain Broken bones CAD (Cholesterol) Cancer Cataracts covid-19 Heart disease Hiatal hernia Hypertension Kidney disease Macular degeneration Numbness Poor circulation Scarlet fever Stroke Vascular phlebitis (clots) Warts Measles Mumps Chicken pox Transfusions Surgical History Surgery Date(Month/Year)
[2025-01-26 10:06] LABS: Prothrombin Time Whole Bld POC 24.8 sec (11.1-13.5); ~PT, ~INR - Anti Coag Clinic 2.1 (0.9-1.1)
--- NOTE | 2025-01-26 10:11 | MHC.OFFVISCO ---
Intake Intake Visit Reasons: Anticoagulation Allergies carvedilol (From COREG) Allergy (Severe, Verified 01/26/25 09:55) Palpitations metoprolol Allergy (Severe, Verified 01/26/25 09:55) Palpitations Sulfa (Sulfonamide Antibiotics) (SULFA (SULFONAMIDE ANTIBIOTICS)) Allergy (Severe, Verified 01/26/25 09:55) Redness of Skin doxycycline Allergy (Intermediate, Verified 01/26/25 09:55) Rash itch cilostazol Allergy (Unknown, Verified 01/26/25 09:55) UNKNOWN digoxin (DIGOXIN) Allergy (Unknown, Verified 01/26/25 09:55) UNKNOWN labetalol (LABETALOL) Allergy (Unknown, Verified 01/26/25 09:55) MUSCLE PAIN Qhzvrzf-QRW-NfF Reductase Inhibitor Adverse Reaction (Intermediate, Verified 01/26/25 09:55) Muscle Pain Medication List - Last Reconciled 01/26/25 by Raeann Pacheco, RN amlodipine 5 mg PO DAILY atenolol 25 mg PO DAILY cilostazol 50 mg PO BID evolocumab (Elle Romero) 140 mg subcut Q3W fluorouracil 5% 1 appl topical BID furosemide 20 mg PO DAILY isosorbide mononitrate ER 30 mg PO DAILY meclizine 50 mg PO TID PRN triamcinolone acetonide 0.025% topical valsartan-hydrochlorothiazide 160-12.5 mg tabs PO [walker with seat Wheeled walker with seat ] warfarin 5 mg See Protocol PO DAILY Nursing Note INR: 2.1 in therapeutic range of 2-3 Medications and supplements reviewed. Plavix d/c'd and Pletal ordered which can raise the INR. No changes in health, diet, or supplements, Denies any signs and symptoms of bleeding or bruising or clotting. Bleeding, bruising, clotting discussed Nutritional guidance given to balance foods that raise the INR with foods that lower it. 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
== END 2025-01-26 14:40 | disposition home or self-care (01) ==
LOC: HO.ACS 09:38
PROVIDERS: PCP Nurse Practitioner Family; Visit Provider Internal Medicine Medical Oncology
DX: Z79.01 Long term (current) use of anticoagulants (principal)

== ENCOUNTER → 2025-01-26 09:38 | Outpatient (BNVA) | payer MEDICARE, SELFPAY | PROVIDERS: PCP Nurse Practitioner Family; Visit Provider Internal Medicine Medical Oncology | DX: I48.19 Other persistent atrial fibrillation (principal); Z79.01 Long term (current) use of anticoagulants; Z51.81 Encounter for therapeutic drug level monitoring | CPT/HCPCS: 85610; 99211 ==

== ENCOUNTER 2025-02-25 09:26 | Outpatient (AMB) | payer MEDICARE, SELFPAY ==
[2025-02-25 09:35] LABS: Prothrombin Time Whole Bld POC 30.2 sec (11.1-13.5); ~PT, ~INR - Anti Coag Clinic 2.5 (0.9-1.1)
--- NOTE | 2025-02-25 09:46 | MHC.OFFVISCO ---
Intake Intake Visit Reasons: Anticoagulation Allergies carvedilol (From COREG) Allergy (Severe, Verified 02/25/25 09:29) Palpitations metoprolol Allergy (Severe, Verified 02/25/25 09:29) Palpitations Sulfa (Sulfonamide Antibiotics) (SULFA (SULFONAMIDE ANTIBIOTICS)) Allergy (Severe, Verified 02/25/25 09:29) Redness of Skin doxycycline Allergy (Intermediate, Verified 02/25/25 09:29) Rash itch cilostazol Allergy (Unknown, Verified 02/25/25 09:29) UNKNOWN digoxin (DIGOXIN) Allergy (Unknown, Verified 02/25/25 09:29) UNKNOWN labetalol (LABETALOL) Allergy (Unknown, Verified 02/25/25 09:29) MUSCLE PAIN Ylzpnpy-QZF-IoJ Reductase Inhibitor Adverse Reaction (Intermediate, Verified 02/25/25 09:29) Muscle Pain Medication List - Last Reconciled 02/25/25 by Raeann Pacheco, RN amlodipine 5 mg PO DAILY atenolol 25 mg PO DAILY cilostazol 50 mg PO BID evolocumab (Repmayra Romero) 140 mg subcut Q3W fluorouracil 5% 1 appl topical BID furosemide 20 mg PO DAILY isosorbide mononitrate ER 30 mg PO DAILY meclizine 50 mg PO TID PRN triamcinolone acetonide 0.025% topical valsartan-hydrochlorothiazide 160-12.5 mg tabs PO [walker with seat Wheeled walker with seat ] warfarin 5 mg See Protocol PO DAILY Nursing Note Pt to ACS with use of walker accompanied by . INR: 2.5 in therapeutic range of 2-3 Medications and supplements reviewed No changes in health, diet, medications, or supplements, Denies any signs and symptoms of bleeding or bruising or clotting. 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
--- OUTSIDE RECORDS SUMMARY | 2025-02-25 09:55 | XMS_ITS | Clinical Summary ---
Author Organization [facility] Address [address] [place] [address] Phone Care Team Providers Care Waiter Waitress Name Role Phone Demetrio Reagan NP Primary Care Provider [phone] Allergies Active Allergy Reactions Criticality Noted Date [...] of 2 - PCV) 1959 Influenza Vaccine (#1) 2025 Hepatitis B Vaccine Aged Out No longe r eligible based on patient's age to complete this topic Insurance [facility] Medicare [id number] Medicare Care Teams Waiter Waitress Relationship Specialty Start Date End Date Demetrio Reagan NP [address] [place] [address] PCP - General Nurse Practitioner 08/08/21
--- OUTSIDE RECORDS SUMMARY | 2025-02-25 09:55 | XMS_ITS | Patient Health Record ---
Author Organization [facility] [place] Address [address] [facility] [place] [address] Care Team Providers Care Extrusion Bender Name Role Phone Demetrio Abdalla Primary Care Provider Unav Franklyn Arrington Unavailable [phone] Allergies Allergen (clinical drug ingredient) Drug/Non Drug [...] Problem Status W/U Status Risk Notes Problem Bilateral atherosclerosis of arteries of lower limbs (disorder) (55107564813630200 ) Atherosclerosis of [place] artery of both lower extremities, with unspecified presence of clinical manifestation (I70.203) Active confirmed Problem Ulcer of toe of left foot (disorder) (12434853910204184 ) Skin ulcer of toe of left foot, limited to breakdown of skin (L97.521) Active confirmed Vital Signs Blood pressure diastolic 70 mm Hg 12/09/2024 Height 5 ft 11 in in 12/09/2024 Blood pressure systolic 130 mm Hg 12/09/2024 Weight 190 lbs 12/09/2024 BMI 26.5 kg/m2 12/09/2024 Procedures Procedure Date Ordered Date Performed Result Body Sit e 63530- I&D ABSCESS-COMPLICATED,MULTI 02/29/2024 N/A 66972-SEHKDVV NAIL, 6 OR MORE 03/21/2024 N/A 53501- Debride <25 sq cm 03/21/2024 N/A 49349-GYJI SKIN LESIONS, 2 TO 4 03/21/2024 N/A 96066-IHTPYMT NAIL, 6 OR MORE 06/06/2024 N/A 21602-GRLH SKIN LESIONS, 2 TO 4 06/06/2024 N/A 16568-LLFZTXL NAIL, 6 OR MORE 09/05/2024 N/A 45243-VAAT SKIN LESIONS, 2 TO 4 09/05/2024 N/A 81516-ABHVBWY NAIL, 6 OR MORE 12/09/2024 N/A 31763-WIWQ SKIN LESIONS, 2 TO 4 12/09/2024 N/A Encounters [facility] [address] [facility]/29[facility] Franklyn Sue Atherosclerosis of [place] artery of both lower extremities, with unspecified presence of clinical manifestation I70.203 ; Tinea unguium B35.1 ; Pain in right toe(s) M79.674 ; Pain in left toe(s) M79.675 ; Abscess of toe of left foot L02.612 and Acute lymphangitis of left toe L03.[address] [address] 03/21/2024 Franklyn Sue Atherosclerosis of [place] artery of both lower extremities, with unspecified presence of clinical manifestation I70.203 ; Tinea unguium B35.1 ; Pain in right toe(s) M79.674 ; Pain in left toe(s) M79.675 ; Skin ulcer of toe of left foot, limited to breakdown of skin L97.521 and Acute lymphangitis of left toe L03.[address] [address] 06/06/2024 Franklyn Sue Atherosclerosis of [place] artery of both lower extremities, with unspecified presence of clinical manifestation I70.203 ; Tinea unguium B35.1 ; Pain in right toe(s) M79.674 ; Pain in left toe(s) M79.675 and Skin ulcer of toe of left foot, limited to breakdown of skin L97.[address] [address] 09/05/2024 Franklyn Sue Atherosclerosis of [place] artery of both lower extremities, with unspecified presence of clinical manifestation I70.203 ; Tinea unguium B35.1 ; Pain in right toe(s) M79.674 ; Pain in left toe(s) M79.675 and Skin ulcer of toe of left foot, limited to breakdown of skin L97.[address] [address] 12/09/2024 Franklyn Sue Atherosclerosis of [place] artery of both lower extremities, with unspecified presence of clinical manifestation I70.203 ; Tinea unguium B35.1 ; Pain in right toe(s) M79.674 ; Pain in left toe(s) M79.675 and Xerosis of skin L85.3 Assessments Encounter Date Diagnosis (ICD Code) Assessment Notes Treatment Notes Treatment Clinical Notes Section Notes 02/29/2024 Tinea unguium (ICD-10 - B35.1) 02/29/2024 Atherosclerosis of [place] artery of both lower extremities, with unspecified presence of clinical manifestation (ICD-10 - I70.203) 03/21/2024 Tinea unguium (ICD-10 - B35.1) 03/21/2024 Atherosclerosis of [place] artery of both lower extremities, with unspecified presence of clinical manifestation (ICD-10 - I70.203) 06/06/2024 Tinea unguium (ICD-10 - B35.1) 06/06/2024 Atherosclerosis of [place] artery of both lower extremities, with unspecified presence of clinical manifestation (ICD-10 - I70.203) 09/05/2024 Tinea unguium (ICD-10 - B35.1) 09/05/2024 Atherosclerosis of [place] artery of both lower extremities, with unspecified presence of clinical manifestation (ICD-10 - I70.203) 12/09/2024 Tinea unguium (ICD-10 - B35.1) 12/09/2024 Atherosclerosis of [place] artery of both lower extremities, with unspecified [...] Treatment Pending Test Test Name Order Date 58831-XTIPZQZ NAIL, 6 OR MORE 03/21/2024 32043-HCEGFUD NAIL, 6 OR MORE 06/06/2024 44365-ATHKRZB NAIL, 6 OR MORE 09/05/2024 79134-JJCVPFL NAIL, 6 OR MORE 12/09/2024 35495- Debride <25 sq cm 03/21/2024 06828- I&D ABSCESS-COMPLICATED,MULTI 08/2023 05109-NOXI SKIN LESIONS, 2 TO 4 03/21/20 24 57967-MQZN SKIN LESIONS, 2 TO 4 06/06/20 24 18583-NWJN SKIN LESIONS, 2 TO 4 12/10/19 25 89256-RUOM SKIN LESIONS, 2 TO 4 09/05/19 25 Next Appt Details Provider Name:Franklyn Sue , 03/17/2025 03:00:00 PM, [address] [place], [address], Insurance Providers Payer Name Payer Address Payer Phone Subscriber Number Group Number Insured Name Patient Relationship to Insured Coverage Start Date Coverage End Date [employer] Medicare Adv-[id number] [address] [address] [place] [address] [phone] [id number] Ifeanyi Bustamante Self - patient is the insured Medical (General) History Medical History History ICD Code Angina Arthritis Back,Hip,and Knee pain Broken bones CAD (Cholesterol) Cancer Cataracts covid-19 Heart disease Hiatal hernia Hypertension Kidney disease Macular degeneration Numbness Poor circulation Scarlet fever Stroke Vascular phlebitis (clots) Warts Measles Mumps Chicken pox Transfusions Surgical History Surgery Date(Month/Year)
== END 2025-02-25 09:48 | disposition home or self-care (01) ==
LOC: HO.ACS 09:26
PROVIDERS: PCP Nurse Practitioner Family; Visit Provider Internal Medicine Medical Oncology
DX: Z79.01 Long term (current) use of anticoagulants (principal)

== ENCOUNTER → 2025-02-25 09:27 | Outpatient (REF) | payer MEDICARE, SELFPAY ==
--- NOTE | 2025-02-25 09:32 | CA_ITS ---
Transthoracic Echocardiogram Patient (Last, First, Middle): Ifeanyi Bustamante, Gender: Male Date of : 1940 Age: 85 Procedure Date: 02/25/2025 Procedure Type: Transthoracic Echocardiogram Location: OP Height: 177.8 cm Weight: 83.92 kg BSA: 2.02 m2 Heart Rate: bpm BP: 116 / 68 mmHg Log Haul Chain Feeder: Referring MD: Torey Dubois MD Continuous Improvement Director: Torey Dubois MD Symptoms: I35.0 - Nonrheumatic aortic (valve) stenosis Study Quality: Adequate ECG Rhythm: Atrial Fibrillation Conclusions: - 1. Low normal LV ejection fraction of 50-55% with severely increased wall thickness with restrictive filling pattern 2. Severe biatrial enlargement 3. Yods-xy-hxaxusdg aortic stenosis 4. Upper limits of normal RV systolic pressure 5. Mildly to moderately dilated ascending aorta at 4.4 cm 6. No gross pericardial effusion Findings Left Ventricle Normal left ventricular cavity size. There is severely increased left ventricular wall thickness. The left ventricular systolic function is low normal. The visually estimated ejection fraction is between 50-55%. Spectral Doppler is indicative of a restrictive filling pattern. Right Ventricle Mildly increased right ventricular cavity size. There is normal right ventricular systolic function. Atria Severe biatrial enlargement. There is no evidence of interatrial shunt. Aortic Valve There is moderate calcification of the aortic valve. There is mild thickening of the aortic valve. There is mild to moderate aortic valve stenosis. There is no aortic valve regurgitation. Mitral Valve There is mild anterior and posterior mitral leaflet thickening. There is mild mitral annular calcification. There is mild mitral valve regurgitation. There is no mitral valve stenosis. Pulmonic Valve The pulmonic valve is likely normal. There is trace pulmonic valve regurgitation. Tricuspid Valve Normal tricuspid valve structure. There is mild tricuspid valve regurgitation. The right ventricular systolic pressure is 36 mmHg. Normal right atrial pressure. There is no evidence of pulmonary hypertension. Great Vessels The pulmonary artery was not well visualized. There is mild dilatation of the ascending aorta measuring 4.40 cm. Venous The inferior vena cava is normal in size and collapses greater than 50% with inspiration. Pericardium/Pleural There is no evidence of pericardial effusion. Prior Study Comparison No prior study available for comparison. Measurements 2D Linear Measurements IVSd: 1.84 0.6-0.9/0.6-1.0 cm LVIDd: 4.24 3.9-5.3/4.2-5.9 cm LVIDd Index: 2.10 2.4-3.2/2.2-3.1 cm/m2 LVIDs: 2.81 2.0-3.6 cm LVPWd: 1.69 0.7-1.1 cm Ao Root: 4.30 2.1-3.5 cm LA Diam: 5.80 2.7-3.8/3.0-4.0 cm LAIDs Index: 2.87 1.5-2.3 cm/m2 LV Mass: 408.59 67-162/88-224 g LV Mass Index: 202.27 43-95/49-115 g/m2 LVOT Diam: 2.20 3.0+(-)1.3 cm 2D Systolic Function EF 4C: 48.90 >55% EF 2C: 53.30 >55% EF BiP: 50.70 >55% Mitral Valve MV Pk E: 0.93 MV Decel Time: 201.00 E'Lateral: 7.18 E'Medial: 3.92 E/E' Med: 23.80 E/E' Lat: 13.00 PHT: 59.00 MVA PHT: 3.73 Decel [place]: 4.65 Aortic Valve AoV Pk Alpesh: 2.15 AoV Mn Alpesh: 1.54 AoV VTI: 0.50 AoV Pk Grad: 18.00 Aov Mn Grad: 11.00 SAL Cont.VTI: 1.40 LVOT LVOT Pk Alpesh: 0.73 LVOT Mn Alpesh: 0.50 LVOT VTI: 0.18 LVOT Pk Grad: 2.00 LVOT Mn Grad: 1.00 LVOT Diam: 2.20 LVOT Area: 3.80 Diastolic Function MV Pk E: 0.93 E'Medial: 3.92 E/E' Med: 23.80 E' Laterial: 7.18 E/E' Lat: 13.00 Right Ventricle TAPSE (mm): 21.70 TVS' Alpesh: 13.30 Tricuspid Valve TR Pk Alpesh: 2.86 TR Pk Grad: 33.00 RA Press: 3.00 RVSP: 36.00 Great Vessels Aorta Ao Root-2D: 4.30 2.0-3.7 cm Ao Asc: 4.40 2.1-3.4 cm Pulmonary Valve PV Pk Alpesh: 1.05 Peak PV Grad: 4.00 Updated in Other Vendor System with Status of Final Torey Dubois MD electronically signed on 02/26/2025 11:26:07 AM with status of Final
== END ==
LOC: HO.CARD 09:27
PROVIDERS: PCP Nurse Practitioner Family; Visit Provider Internal Medicine Cardiovascular Disease
DX: I35.0 Nonrheumatic aortic (valve) stenosis (principal); I48.19 Other persistent atrial fibrillation; Z51.81 Encounter for therapeutic drug level monitoring; Z79.01 Long term (current) use of anticoagulants
CPT/HCPCS: 85610; 93306; 99211

== ENCOUNTER → 2025-02-25 09:32 | Outpatient (BNV) | payer MEDICARE, SELFPAY | PROVIDERS: PCP Nurse Practitioner Family; Visit Provider Internal Medicine Cardiovascular Disease | DX: I51.7 Cardiomegaly (principal); I35.0 Nonrheumatic aortic (valve) stenosis; I71.21 Aneurysm of the ascending aorta, without rupture | CPT/HCPCS: 93306 ==

== ENCOUNTER 2025-03-25 09:28 | Outpatient (AMB) | payer MEDICARE, SELFPAY ==
[2025-03-25 09:42] LABS: Prothrombin Time Whole Bld POC 23.5 sec (11.1-13.5); ~PT, ~INR - Anti Coag Clinic 2.0 (0.9-1.1)
--- NOTE | 2025-03-25 09:45 | MHC.OFFVISCO ---
Intake Intake Visit Reasons: Anticoagulation Allergies carvedilol (From COREG) Allergy (Severe, Verified 03/25/25 09:37) Palpitations metoprolol Allergy (Severe, Verified 03/25/25 09:37) Palpitations Sulfa (Sulfonamide Antibiotics) (SULFA (SULFONAMIDE ANTIBIOTICS)) Allergy (Severe, Verified 03/25/25 09:37) Redness of Skin doxycycline Allergy (Intermediate, Verified 03/25/25 09:37) Rash itch cilostazol Allergy (Unknown, Verified 03/25/25 09:37) UNKNOWN digoxin (DIGOXIN) Allergy (Unknown, Verified 03/25/25 09:37) UNKNOWN labetalol (LABETALOL) Allergy (Unknown, Verified 03/25/25 09:37) MUSCLE PAIN Dtortli-HXN-TdY Reductase Inhibitor Adverse Reaction (Intermediate, Verified 03/25/25 09:37) Muscle Pain Medication List - Last Reconciled 03/25/25 by Romelia Haddad, RN amlodipine 5 mg PO DAILY atenolol 25 mg PO DAILY cilostazol 50 mg PO BID evolocumab (Repmayra Romero) 140 mg subcut Q3W fluorouracil 5% 1 appl topical BID furosemide 20 mg PO DAILY meclizine 50 mg PO TID PRN triamcinolone acetonide 0.025% topical valsartan-hydrochlorothiazide 160-12.5 mg tabs PO [walker with seat Wheeled walker with seat ] warfarin 5 mg See Protocol PO DAILY Nursing Note PT.TO HAVE 2 EXTRACTIONS TODAY AT 10:30. PT.STATES THAT HE HAS HELD WARFARIN FOR 3 DAYS AND STARTED 1 WEEK OF ANTIBIOTICS ON 03/23.( ? NAME) RESUME USUAL DOSING PER DENTIST AND FOLLOW-UP IN 10 DAYS TO CALL [facility] IN MEANTIME IF ANY QUESTIONS/CONCERNS ARISE. GOOD UNDERSTANDING OF DOSING INSTR. 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
--- OUTSIDE RECORDS SUMMARY | 2025-03-25 10:04 | XMS_ITS | Patient Health Record ---
Author Organization [facility]retel [facility] [place] Address [address] [place] [address] Care Team Providers Care Dog Barber Name Role Phone Demetrio Abdalla Primary Care Provider Unav Franklyn Arrington Unavailable [phone] Allergies Allergen (clinical drug ingredient) Drug/Non Drug Allergy documented on EMR Reaction Allergy Type Onset Date Status sulfamethoxazole / trimethoprim Bactrim Unknown Drug Allergy Active Shrimp Flavor Unknown Drug Allergy Act tracy Reason For Referral No Information Medications Medication SIG (Take, Route, Frequency, Duration) Notes Start Date End Date Status Clopidogrel Bisulfate Not-Taking amLODIPine Besylate Active Atenolol Active Warfarin Sodium Acti ve Valsartan Active Cephalexin 500 MG 1 capsule Orally wilfrid ry 8 hrs; Duration: 10 days Active Office visit . . . There are no pod iatric conditions which would cause this patient to be unable to drive safely and effectively; Duration: 365 days 09/05/2024 Active Ammonium Lactate 12 % 1 application Exte rnally to affected areas of dry skin to feet except for between the toes Twice a day; Duration: 30 days Active Furosemide Active Cilostazol 50 MG Oral; Duration: 90 Days Active Isosorbide Dinitrate Not-Taking Immunizations Vaccine Route Administration Date Status Comme nts Influenza Unknown 03/30/2024 Administered Social History Tobacco Use: Social History Observation [...] Additional Findings: Tobacco non-user Current no nsmoker AUDIT-C (Standard) Question Answer Notes Did you have a drink containing alcohol in the p ast year? No Points 0 Interpretation Negative Problems Problem Type SNOMED Code ICD Code Onset Dates Problem Status W/U Status Risk Notes Problem Bilateral atherosclerosis of arteries of lower limbs (disorder) (98121006277196891 ) Atherosclerosis of [place] artery of both lower extremities, with unspecified presence of clinical manifestation (I70.203) Active confirmed Vital Signs Blood pressure diastolic 75 mm Hg 03/17/2025 Height 5 ft 11 in in 03/17/2025 Blood pressure systolic 132 mm Hg 03/17/2025 Weight 185 lbs 03/17/2025 BMI 25.8 kg/m2 03/17/2025 Procedures Procedure Date Ordered Date Performed Result Body Sit e 48672-YJGKUJA NAIL, 6 OR MORE 06/06/2024 N/A 39918-LHCH SKIN LESIONS, 2 TO 4 06/06/2024 N/A 38073-KONLMMI NAIL, 6 OR MORE 09/05/2024 N/A 54989-NSUQ SKIN LESIONS, 2 TO 4 09/05/2024 N/A 20217-OKAIRGY NAIL, 6 OR MORE 12/09/2024 N/A 03291-RBOS SKIN LESIONS, 2 TO 4 12/09/2024 N/A 32117-CGGOZDM NAIL, 6 OR MORE 03/17/2025 N/A 80568-OKZP SKIN LESIONS, 2 TO 4 03/17/2025 N/A Encounters Encounter Location Date Provider Diagnosis [address] [address] 06/06/2024 Franklyn Sue Atherosclerosis of [place] artery of both lower extremities, with unspecified presence of clinical manifestation I70.203 ; Tinea unguium B35.1 ; Pain in right toe(s) M79.674 ; Pain in left toe(s) M79.675 and Skin ulcer of toe of left foot, limited to breakdown of skin L97.521 [facility] [address] 09/05/2024 Franklyn Sue Atherosclerosis of [place] artery of both lower extremities, with unspecified presence of clinical manifestation I70.203 ; Tinea unguium B35.1 ; Pain in right toe(s) M79.674 ; Pain in left toe(s) M79.675 and Skin ulcer of toe of left foot, limited to breakdown of skin L97.[address] [address] 12/09/2024 Franklyn Sue Atherosclerosis of [place] artery of both lower extremities, with unspecified presence of clinical manifestation I70.203 ; Tinea unguium B35.1 ; Pain in right toe(s) M79.674 ; Pain in left toe(s) M79.675 and Xerosis of skin L85.[address] [address] 03/17/2025 Franklyn Guzmánunier Atherosclerosis of [place] artery of both lower extremities, with unspecified presence of clinical manifestation I70.203 ; Tinea unguium B35.1 ; Pain in right toe(s) M79.674 ; Pain in left toe(s) M79.675 and Xerosis of skin L85.3 Assessments Encounter Date Diagnosis (ICD Code) Assessment Notes Treatment Notes Treatment Clinical Notes Section Notes 06/06/2024 Tinea unguium (ICD-10 - B35.1) 06/06/2024 Atherosclerosis of [place] artery of both lower extremities, with unspecified presence of clinical manifestation (ICD-10 - I70.203) 09/05/2024 Tinea unguium (ICD-10 - B35.1) 09/05/2024 Atherosclerosis of [place] artery of both lower extremities, with unspecified presence of clinical manifestation (ICD-10 - I70.203) 12/09/2024 Tinea unguium (ICD-10 - B35.1) 12/09/2024 Atherosclerosis of [place] artery of both lower extremities, with unspecified presence of clinical manifestation (ICD-10 - I70.203) 03/17/2025 Tinea unguium (ICD-10 - B35.1) 03/17/2025 Atherosclerosis of [place] artery of both lower extremities, with unspecified presence of clinical manifestation (ICD-10 - I70.203) 03/17/2025 Pain in right toe(s) (ICD-10 - M79.674) 12/09/2024 Pain in right toe(s) (ICD-10 - M79.674) 06/06/2024 Pain in right toe(s) (ICD-10 - M79.674) 09/05/2024 Pain in right toe(s) (ICD-10 - M79.674) 06/06/2024 Pain in left toe(s) (ICD-10 - M79.675) 09/05/2024 Pain in left toe(s) (ICD-10 - M79.675) 12/09/2024 Pain in left toe(s) (ICD-10 - M79.675) 03/17/2025 Pain in left toe(s) (ICD-10 - M79.675) 03/17/2025 Xerosis of skin (ICD-10 - L85.3) 09/05/2024 Skin ulcer of toe of left foot, limited to breakdown of skin (ICD-10 - L97.521) 06/06/2024 Skin ulcer of toe of left foot, limited to breakdown of skin (ICD-10 - L97.521) Patient Educated with: WOUND CARE INSTRUCTIONS. pdf (WOUND CARE INSTRUCTIONS. pdf) 12/09/2024 Xerosis of skin (ICD-10 - L85.3) 06/06/2024 Other 09/05/2024 Other 12/09/2024 Other 03/17/2025 Other Plan Of Treatment Pending Test Test Name Order Date 04614-APFLRKV NAIL, 6 OR MORE 03/21/2024 29498-PCZFUOP NAIL, 6 OR MORE 06/06/2024 99703-SSHRSOE NAIL, 6 OR MORE 09/05/2024 22845-FRDOXUM NAIL, 6 OR MORE 12/09/2024 04991-ZIPNFQS NAIL, 6 OR MORE 03/17/2025 68815- Debride <25 sq cm 03/21/2024 29011- I&D ABSCESS-COMPLICATED,MULTI 08/2023 39758-NAVR SKIN LESIONS, 2 TO 4 03/17/20 25 78235-ZKSH SKIN LESIONS, 2 TO 4 03/21/20 24 22937-JWEY SKIN LESIONS, 2 TO 4 06/06/20 24 30981-ZVOL SKIN LESIONS, 2 TO 4 12/10/19 25 66290-WPUL SKIN LESIONS, 2 TO 4 09/05/19 25 Next Appt Details Provider Name:Franklyn Sue , 06/30/2025 03:00:00 PM, [address] [place], [address], Insurance Providers Payer Name Payer Address Payer Phone Subscriber Number Group Number Insured Name Patient Relationship to Insured Coverage Start Date Coverage End Date [employer] Medicare Adv-[id number] [address] [address] [place] [address] [id number] Ifeanyi Bustamante Self - patient is the insured Medical (General) History Medical History History ICD Code Angina Arthritis Back,Hip,and Knee pain Broken bones CAD (Cholesterol) Cancer Cataracts covid-19 Heart disease Hiatal hernia Hypertension Kidney disease Macular degeneration Numbness Poor circulation Scarlet fever Stroke Vascular phlebitis (clots) Warts Measles Mumps Chicken pox Transfusions Surgical History Surgery Date(Month/Year)
--- OUTSIDE RECORDS SUMMARY | 2025-03-25 10:04 | XMS_ITS | Clinical Summary ---
Author Organization [facility] Address [address] [place] [address] Phone Care Team Providers Care Safety Spec Name Role Phone Demetrio Reagan NP Primary Care Provider [phone] Allergies Active Allergy Reactions Criticality Noted Date [...] patient's age to complete this topic Insurance [facility] Medicare [id number] Medicare Care Teams Safety Spec Relationship Specialty Start Date End Date Demetrio Reagan NP [address] [place] [address] PCP - General Nurse Practitioner 08/08/21
== END 2025-03-25 09:58 | disposition home or self-care (01) ==
LOC: HO.ACS 09:28
PROVIDERS: PCP Nurse Practitioner Family; Visit Provider Internal Medicine Medical Oncology
DX: Z79.01 Long term (current) use of anticoagulants (principal)

== ENCOUNTER → 2025-03-25 09:28 | Outpatient (BNVA) | payer MEDICARE, SELFPAY | PROVIDERS: PCP Nurse Practitioner Family; Visit Provider Internal Medicine Medical Oncology | DX: Z51.81 Encounter for therapeutic drug level monitoring (principal); Z79.01 Long term (current) use of anticoagulants | CPT/HCPCS: 85610; 99211 ==

== ENCOUNTER 2025-04-06 09:22 | Outpatient (AMB) | payer MEDICARE, SELFPAY ==
[2025-04-06 09:39] LABS: Prothrombin Time Whole Bld POC 17.3 sec (11.1-13.5); ~PT, ~INR - Anti Coag Clinic 1.4 (0.9-1.1)
--- NOTE | 2025-04-06 09:42 | MHC.OFFVISCO ---
Intake Intake Visit Reasons: Anticoagulation Allergies carvedilol (From COREG) Allergy (Severe, Verified 04/06/25 09:32) Palpitations metoprolol Allergy (Severe, Verified 04/06/25 09:32) Palpitations Sulfa (Sulfonamide Antibiotics) (SULFA (SULFONAMIDE ANTIBIOTICS)) Allergy (Severe, Verified 04/06/25 09:32) Redness of Skin doxycycline Allergy (Intermediate, Verified 04/06/25 09:32) Rash itch cilostazol Allergy (Unknown, Verified 04/06/25 09:32) UNKNOWN digoxin (DIGOXIN) Allergy (Unknown, Verified 04/06/25 09:32) UNKNOWN labetalol (LABETALOL) Allergy (Unknown, Verified 04/06/25 09:32) MUSCLE PAIN Hgupvbe-BOI-AoN Reductase Inhibitor Adverse Reaction (Intermediate, Verified 04/06/25 09:32) Muscle Pain Medication List - Last Reconciled 04/06/25 by Raeann Pacheco, RN amlodipine 5 mg PO DAILY atenolol 25 mg PO DAILY cilostazol 50 mg PO BID evolocumab (Repatha Heather) 140 mg subcut Q3W fluorouracil 5% 1 appl topical BID furosemide 20 mg PO DAILY meclizine 50 mg PO TID PRN triamcinolone acetonide 0.025% topical valsartan-hydrochlorothiazide 160-12.5 mg tabs PO [walker with seat Wheeled walker with seat ] warfarin 5 mg See Protocol PO DAILY Nursing Note INR: 1.4 out of therapeutic range of 2-3 Pt denies missed dose Medications and supplements reviewed Patient status: no changes Medications or supplements: no changes Diet: usual diet for pt Denies any signs and symptoms of bleeding or clotting or unusual bruising Bleeding, bruising, clotting discussed Nutritional guidance given: avoid greens X 2 days Dose: increase today's dose to 7.5mg (5mg) and tomorrow's dose to 5mg (2.5mg) then usual dose of 2.5mg X 5 days and 5mg X 2 days (Mon & Thurs) F/U INR Date : 1 week?? Patient verbalizing understanding of instructions given. T/C to pcp's office, Dr Raegan. Spoke to Yessy and reported INR of 1.4 with dosing plan and next retest date. Anti-Coag Initial Assessment Social Hx Patient Tobacco Use Status: Never used Tobacco alcohol intake: current Alcohol intake frequency: a few times a week Questionnaires HAS-BLED Does the patient had uncontrolled Hypertension?: No Does the patient have renal disease?: Yes Does the patient have liver disease?: No Does the patient have a history of stroke?: Yes Has the patient had major bleeding or predisposition to bleeding?: No Does the patient have labile INRs?: No Is the patient over 65 years of age?: Yes Is the patient on medications that gives them a predisposition to bleeding?: Yes Does the patient use alcohol?: No HAS-BLED Score: 4 CHADSVASC Age: 75 or over Gender: Male Does the patient have a history of CHF?: Yes Does the patient have a history of Hypertension?: Yes Does the patient have a history of Stroke/TIA/Thromboembolism?: Yes (stroke) Does the patient have a history of Vascular Disease (prior MA, PAD or aortic plaque)?: Yes (cardiac stents) Does the patient have a history of Diabetes?: No CHADS VACS Score: 7 Nikki Prediction Score Rsk VTE Active Cancer: No Previous VTE, excluding superficial vein thrombosis: No Reduced mobility: Yes Already known Thrombophilic Condition: No With-in last month Trauma and/or Surgery: No Elderly 70 year or older: Yes Heart and/or Respiratory Failure: Yes Acute Myocardial infarction and/or Ischemic Stroke: Yes Acute Infection and/or Rheumatologic Disorder: No Obesity (BMI 30 or greater): No Ongoing Hormonal Treatment: No Score: 6 Nikki Score less than 4; Low Risk of VTE Nikki Score 4 or greater; High Risk of VTE Coding Level of Care Code Est Patient Level 1 Diagnoses Current use of anticoagulant therapy Z79.01 Results AMB INR Fingerstick AMB INR Fingerstick 1.4 Last Edit by Raeann Pacheco RN on 04/06/25 09:47 interface delay Assessment & Plan Assessment & Plan (1) Current use of anticoagulant therapy: Code(s): Z79.01 - 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
--- OUTSIDE RECORDS SUMMARY | 2025-04-06 10:31 | XMS_ITS | Clinical Summary ---
Author Organization [facility] Address [address] [place] [address] Phone Care Team Providers Care Vinyl Cutter Name Role Phone Demetrio Reagan NP Primary Care Provider [phone] Allergies Active Allergy Reactions Criticality Noted Date [...] patient's age to complete this topic Insurance [facility] Medicare [id number] Medicare Care Teams Vinyl Cutter Relationship Specialty Start Date End Date Demetrio Reagan NP [address] [place] [address] PCP - General Nurse Practitioner 08/08/21
--- OUTSIDE RECORDS SUMMARY | 2025-04-06 10:31 | XMS_ITS | Patient Health Record ---
Author Organization [facility] Gretel cherri [place] Address [address] [place] [address] Care Team Providers Care Grant Specialist Name Role Phone Demetrio Abdalla Primary Care Provider Unav Franklyn Arrington Unavailable [phone] Allergies Allergen (clinical drug ingredient) Drug/Non Drug [...] atherosclerosis of arteries of lower limbs (disorder) ([id number] ) Atherosclerosis of [place] artery of both lower extremities, with unspecified presence of clinical manifestation (I70.203) Active confirmed Vital Signs Blood pressure diastolic 75 mm Hg 03/17/2025 Height 5 ft 11 in in 03/17/2025 Blood pressure systolic 132 mm Hg 03/17/2025 Weight 185 lbs 03/17/2025 BMI 25.8 kg/m2 03/17/2025 Procedures Procedure Date Ordered Date Performed Result Body Sit e 71559-YZZZAUR NAIL, 6 OR MORE 06/06/2024 N/A 24453-CVGZ SKIN LESIONS, 2 TO 4 06/06/2024 N/A 81037-JZVWNZJ NAIL, 6 OR MORE 09/05/2024 N/A 80786-UKNU SKIN LESIONS, 2 TO 4 09/05/2024 N/A 33640-UISFOWW NAIL, 6 OR MORE 12/09/2024 N/A 01925-OWFN SKIN LESIONS, 2 TO 4 12/09/2024 N/A 95368-EEKJXCM NAIL, 6 OR MORE 03/17/2025 N/A 80633-RRCB SKIN LESIONS, 2 TO 4 03/17/2025 N/A Encounters Encounter Location Date Provider Diagnosis [address] [address] 06/06/2024 Franklyn Sue Atherosclerosis of [place] artery of both lower extremities, with unspecified presence of clinical manifestation I70.203 ; Tinea unguium B35.1 ; Pain in right toe(s) M79.674 ; Pain in left toe(s) M79.675 and Skin ulcer of toe of left foot, limited to breakdown of skin L97.521 [facility] [address] 09/05/2024 Franklyn Sue Atherosclerosis of [place] artery of both lower extremities, with unspecified presence of clinical manifestation I70.203 ; Tinea unguium B35.1 ; Pain in right toe(s) M79.674 ; Pain in left toe(s) M79.675 and Skin ulcer of toe of left foot, limited to breakdown of skin L97.[address] [address] 12/09/2024 Franklyn Sue Atherosclerosis of [place] artery of both lower extremities, with unspecified presence of clinical manifestation I70.203 ; Tinea unguium B35.1 ; Pain in right toe(s) M79.674 ; Pain in left toe(s) M79.675 and Xerosis of skin L85.[address] [address] 03/17/2025 Franklyn Guzmánunier Atherosclerosis of [place] artery of both lower extremities, with unspecified presence of clinical manifestation I70.203 ; Tinea unguium B35.1 ; Pain in right toe(s) M79.674 ; Pain in left toe(s) M79.675 and Xerosis of skin L85.3 Assessments Encounter Date Diagnosis (ICD Code) Assessment Notes Treatment Notes Treatment Clinical Notes Section Notes 06/06/2024 Tinea unguium (ICD-10 - B35.1) 06/06/2024 Atherosclerosis of [place] artery of both lower extremities, with unspecified presence of clinical manifestation (ICD-10 - I70.203) 09/05/2024 Tinea unguium (ICD-10 - B35.1) 09/05/2024 Atherosclerosis of [place] artery of both lower extremities, with unspecified presence of clinical manifestation (ICD-10 - I70.203) 12/09/2024 Tinea unguium (ICD-10 - B35.1) 12/09/2024 Atherosclerosis of [place] artery of both lower extremities, with unspecified presence of clinical manifestation (ICD-10 - I70.203) 03/17/2025 Tinea unguium (ICD-10 - B35.1) 03/17/2025 Atherosclerosis of [place] artery of both lower extremities, with unspecified [...] Treatment Pending Test Test Name Order Date 94994-UBTVLLC NAIL, 6 OR MORE 03/21/2024 18662-GRKECSO NAIL, 6 OR MORE 06/06/2024 22247-DOATEVX NAIL, 6 OR MORE 09/05/2024 16488-ECXVLTB NAIL, 6 OR MORE 12/09/2024 11638-EDXEXAR NAIL, 6 OR MORE 03/17/2025 62168- Debride <25 sq cm 03/21/2024 85100- I&D ABSCESS-COMPLICATED,MULTI 08/2023 62386-GDHU SKIN LESIONS, 2 TO 4 03/17/20 25 29290-XBSK SKIN LESIONS, 2 TO 4 03/21/20 24 46908-GMVY SKIN LESIONS, 2 TO 4 06/06/20 24 56840-YVVC SKIN LESIONS, 2 TO 4 12/10/19 25 84602-DZOE SKIN LESIONS, 2 TO 4 09/05/19 25 Next Appt Details Provider Name:Franklyn Sue , 06/30/2025 03:00:00 PM, [address] [place], [address], Insurance Providers Payer Name Payer Address Payer Phone Subscriber Number Group Number Insured Name Patient Relationship to Insured Coverage Start Date Coverage End Date [employer] Medicare [id number] [address] [address] [place] [address] [id number] Ifeanyi Bustamante Self - patient is the insured Medical (General) History Medical History History ICD Code Angina Arthritis Back,Hip,and Knee pain Broken bones CAD (Cholesterol) Cancer Cataracts covid-19 Heart disease Hiatal hernia Hypertension Kidney disease Macular degeneration Numbness Poor circulation Scarlet fever Stroke Vascular phlebitis (clots) Warts Measles Mumps Chicken pox Transfusions Surgical History Surgery Date(Month/Year)
== END 2025-04-06 11:56 | disposition home or self-care (01) ==
LOC: HO.ACS 09:22
PROVIDERS: PCP Nurse Practitioner Family; Visit Provider Internal Medicine Medical Oncology
DX: Z79.01 Long term (current) use of anticoagulants (principal)

== ENCOUNTER → 2025-04-06 09:22 | Outpatient (BNVA) | payer MEDICARE, SELFPAY | PROVIDERS: PCP Nurse Practitioner Family; Visit Provider Internal Medicine Medical Oncology | DX: Z51.81 Encounter for therapeutic drug level monitoring (principal); Z79.01 Long term (current) use of anticoagulants | CPT/HCPCS: 85610; 99211 ==

== ENCOUNTER 2025-04-13 09:34 | Outpatient (AMB) | payer MEDICARE, SELFPAY ==
[2025-04-13 09:44] LABS: Prothrombin Time Whole Bld POC 27.2 sec (11.1-13.5); ~PT, ~INR - Anti Coag Clinic 2.3 (0.9-1.1)
--- NOTE | 2025-04-13 09:49 | MHC.OFFVISCO ---
Intake Intake Visit Reasons: Anticoagulation Allergies carvedilol (From COREG) Allergy (Severe, Verified 04/13/25 09:38) Palpitations metoprolol Allergy (Severe, Verified 04/13/25 09:38) Palpitations Sulfa (Sulfonamide Antibiotics) (SULFA (SULFONAMIDE ANTIBIOTICS)) Allergy (Severe, Verified 04/13/25 09:38) Redness of Skin doxycycline Allergy (Intermediate, Verified 04/13/25 09:38) Rash itch cilostazol Allergy (Unknown, Verified 04/13/25 09:38) UNKNOWN digoxin (DIGOXIN) Allergy (Unknown, Verified 04/13/25 09:38) UNKNOWN labetalol (LABETALOL) Allergy (Unknown, Verified 04/13/25 09:38) MUSCLE PAIN Jdqpbdv-RIM-AfH Reductase Inhibitor Adverse Reaction (Intermediate, Verified 04/13/25 09:38) Muscle Pain Medication List - Last Reconciled 04/13/25 by Raeann Pacheco RN amlodipine 5 mg PO DAILY atenolol 25 mg PO DAILY cilostazol 50 mg PO BID evolocumab (Repmayra Romero) 140 mg subcut Q3W fluorouracil 5% 1 appl topical BID furosemide 20 mg PO DAILY meclizine 50 mg PO TID PRN triamcinolone acetonide 0.025% topical valsartan-hydrochlorothiazide 160-12.5 mg tabs PO [walker with seat Wheeled walker with seat ] warfarin 5 mg See Protocol PO DAILY Nursing Note INR: 2.3 in therapeutic range of 2-3 Medications and supplements reviewed No changes in health, diet, medications, or supplements, Denies any signs and symptoms of bleeding or bruising or clotting. Bleeding, bruising, clotting discussed Nutritional guidance given Dose: increased weekly dose to 2.5mg X 4 days and 5mg X 3 days (Mon/Wed/Fri) F/U INR: 2 weeks Patient verbalizes understanding of instructions given Anti-Coag Initial Assessment Social Hx Patient Tobacco Use Status: Never used Tobacco alcohol intake: current Alcohol intake frequency: a few times a week Coding Level of Care Code Est Patient Level 1 Diagnoses Current use of anticoagulant therapy Z79.01 Results AMB INR Fingerstick AMB INR Fingerstick 2.3 Last Edit by Raeann Pacheco RN on 04/13/25 09:47 interface delay Assessment & Plan Assessment & Plan (1) Current use of anticoagulant therapy: Code(s): 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
--- OUTSIDE RECORDS SUMMARY | 2025-04-13 11:33 | XMS_ITS | Patient Health Record ---
Author Organization [facility] Gretel cherri [place] Address [address] [facility] [place] [address] Care Team Providers Care Cpc Coder Name Role Phone Demetrio Abdalla Primary Care Provider Unav Franklyn Arrington Unavailable [phone] Allergies Allergen (clinical drug ingredient) Drug/Non Drug [...] atherosclerosis of arteries of lower limbs (disorder) ([id number] ) Atherosclerosis of [place] artery of both lower extremities, with unspecified presence of clinical manifestation (I70.203) Active confirmed Vital Signs Blood pressure diastolic 75 mm Hg 03/17/2025 Height 5 ft 11 in in 03/17/2025 Blood pressure systolic 132 mm Hg 03/17/2025 Weight 185 lbs 03/17/2025 BMI 25.8 kg/m2 03/17/2025 Procedures Procedure Date Ordered Date Performed Result Body Sit e 25242-QKSVOQB NAIL, 6 OR MORE 06/06/2024 N/A 28764-GKEF SKIN LESIONS, 2 TO 4 06/06/2024 N/A 27661-MKPSULA NAIL, 6 OR MORE 09/05/2024 N/A 17887-LWLH SKIN LESIONS, 2 TO 4 09/05/2024 N/A 86067-KCAYHLU NAIL, 6 OR MORE 12/09/2024 N/A 96553-GFEX SKIN LESIONS, 2 TO 4 12/09/2024 N/A 34570-LLXUSNS NAIL, 6 OR MORE 03/17/2025 N/A 73311-RQUQ SKIN LESIONS, 2 TO 4 03/17/2025 N/A Encounters Encounter Location Date Provider Diagnosis [address] [address] 06/06/2024 Franklyn Sue Atherosclerosis of [place] artery of both lower extremities, with unspecified presence of clinical manifestation I70.203 ; Tinea unguium B35.1 ; Pain in right toe(s) M79.674 ; Pain in left toe(s) M79.675 and Skin ulcer of toe of left foot, limited to breakdown of skin L97.[address] [facility] [address] 09/05/2024 Franklyn Sue Atherosclerosis of [place] artery of both lower extremities, with unspecified presence of clinical manifestation I70.203 ; Tinea unguium B35.1 ; Pain in right toe(s) M79.674 ; Pain in left toe(s) M79.675 and Skin ulcer of toe of left foot, limited to breakdown of skin L97.[address] [address] 12/09/2024 Franklyn Sue Atherosclerosis of [place] artery of both lower extremities, with unspecified presence of clinical manifestation I70.203 ; Tinea unguium B35.1 ; Pain in right toe(s) M79.674 ; Pain in left toe(s) M79.675 and Xerosis of skin L85.[address] [address] 03/17/2025 Franklyn Guzmánunier Atherosclerosis of [place] artery of both lower extremities, with unspecified presence of clinical manifestation I70.203 ; Tinea unguium B35.1 ; Pain in right toe(s) M79.674 ; Pain in left toe(s) M79.675 and Xerosis of skin L85.3 Assessments Encounter Date Diagnosis (ICD Code) Assessment Notes Treatment Notes Treatment Clinical Notes Section Notes 06/06/2024 Tinea unguium (ICD-10 - B35.1) 06/06/2024 Atherosclerosis of [place] artery of both lower extremities, with unspecified presence of clinical manifestation (ICD-10 - I70.203) 09/05/2024 Tinea unguium (ICD-10 - B35.1) 09/05/2024 Atherosclerosis of [place] artery of both lower extremities, with unspecified presence of clinical manifestation (ICD-10 - I70.203) 12/09/2024 Tinea unguium (ICD-10 - B35.1) 12/09/2024 Atherosclerosis of [place] artery of both lower extremities, with unspecified presence of clinical manifestation (ICD-10 - I70.203) 03/17/2025 Tinea unguium (ICD-10 - B35.1) 03/17/2025 Atherosclerosis of [place] artery of both lower extremities, with unspecified [...] Treatment Pending Test Test Name Order Date 83122-HQHUKOR NAIL, 6 OR MORE 03/21/2024 60647-EUYSXFG NAIL, 6 OR MORE 06/06/2024 51800-UERDAKF NAIL, 6 OR MORE 12/09/2024 69978-PBCJYBA NAIL, 6 OR MORE 03/17/2025 25724-NQRBWGB NAIL, 6 OR MORE 09/05/2024 73896- Debride <25 sq cm 03/21/2024 64392- I&D ABSCESS-COMPLICATED,MULTI 08/2023 79483-TYBQ SKIN LESIONS, 2 TO 4 09/05/19 25 95241-ZRTQ SKIN LESIONS, 2 TO 4 03/21/20 24 51246-GPST SKIN LESIONS, 2 TO 4 06/06/20 24 96371-PQAZ SKIN LESIONS, 2 TO 4 03/17/20 25 27688-ZDNG SKIN LESIONS, 2 TO 4 12/10/19 25 Next Appt Details Provider Name:Franklyn Sue , 06/30/2025 03:00:00 PM, [address] [place], [address], Insurance Providers Payer Name Payer Address Payer Phone Subscriber Number Group Number Insured Name Patient Relationship to Insured Coverage Start Date Coverage End Date [employer] Medicare [id number] [address] [address] [place] [address] [id number] Ifeanyi Bustamante Self - patient is the insured Medical (General) History Medical History History ICD Code Angina Arthritis Back,Hip,and Knee pain Broken bones CAD (Cholesterol) Cancer Cataracts covid-19 Heart disease Hiatal hernia Hypertension Kidney disease Macular degeneration Numbness Poor circulation Scarlet fever Stroke Vascular phlebitis (clots) Warts Measles Mumps Chicken pox Transfusions Surgical History Surgery Date(Month/Year)
--- OUTSIDE RECORDS SUMMARY | 2025-04-13 11:33 | XMS_ITS | Clinical Summary ---
Author Organization [facility] Address [address] [place] [address] Phone Care Team Providers Care Obstetrical Tech Name Role Phone Demetrio Reagan NP Primary Care Provider [phone] Allergies Active Allergy Reactions Criticality Noted Date [...] age to complete this topic Insurance [facility] Medicare [id number] Medicare Care Teams Obstetrical Tech Relationship Specialty Start Date End Date Demetrio Reagan NP [address] [place] [id number] PCP - General Nurse Practitioner 08/08/21
== END 2025-04-13 15:56 | disposition home or self-care (01) ==
LOC: HO.ACS 09:34
PROVIDERS: PCP Nurse Practitioner Family; Visit Provider Internal Medicine Medical Oncology
DX: Z79.01 Long term (current) use of anticoagulants (principal)

== ENCOUNTER → 2025-04-13 09:34 | Outpatient (BNVA) | payer MEDICARE, SELFPAY | PROVIDERS: PCP Nurse Practitioner Family; Visit Provider Internal Medicine Medical Oncology | DX: Z51.81 Encounter for therapeutic drug level monitoring (principal); Z79.01 Long term (current) use of anticoagulants | CPT/HCPCS: 85610; 99211 ==

== ENCOUNTER 2025-04-27 09:31 | Outpatient (AMB) | payer MEDICARE, SELFPAY ==
[2025-04-27 10:04] LABS: Prothrombin Time Whole Bld POC 27.4 sec (11.1-13.5); ~PT, ~INR - Anti Coag Clinic 2.3 (0.9-1.1)
--- NOTE | 2025-04-27 10:05 | MHC.OFFVISCO ---
Intake Intake Visit Reasons: Anticoagulation Allergies carvedilol (From COREG) Allergy (Severe, Verified 04/27/25 09:58) Palpitations metoprolol Allergy (Severe, Verified 04/27/25 09:58) Palpitations Sulfa (Sulfonamide Antibiotics) (SULFA (SULFONAMIDE ANTIBIOTICS)) Allergy (Severe, Verified 04/27/25 09:58) Redness of Skin doxycycline Allergy (Intermediate, Verified 04/27/25 09:58) Rash itch cilostazol Allergy (Unknown, Verified 04/27/25 09:58) UNKNOWN digoxin (DIGOXIN) Allergy (Unknown, Verified 04/27/25 09:58) UNKNOWN labetalol (LABETALOL) Allergy (Unknown, Verified 04/27/25 09:58) MUSCLE PAIN Fxezlfr-BQV-YaO Reductase Inhibitor Adverse Reaction (Intermediate, Verified 04/27/25 09:58) Muscle Pain Medication List - Last Reconciled 04/27/25 by Raeann Pacheco, RN amlodipine 5 mg PO DAILY atenolol 25 mg PO DAILY cilostazol 50 mg PO BID evolocumab (Repmayra Romero) 140 mg subcut Q3W fluorouracil 5% 1 appl topical BID furosemide 20 mg PO DAILY meclizine 50 mg PO TID PRN triamcinolone acetonide 0.025% topical valsartan-hydrochlorothiazide 160-12.5 mg tabs PO [walker with seat Wheeled walker with seat ] warfarin 5 mg See Protocol PO DAILY Nursing Note INR: 2.3 in therapeutic range of 2-3 Medications and supplements reviewed No changes in health, diet, medications, or supplements, Denies any signs and symptoms of bleeding or bruising or clotting. 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
--- OUTSIDE RECORDS SUMMARY | 2025-04-27 10:21 | XMS_ITS | Patient Health Record ---
Author Organization [facility] Gretel cherri [place] Address [address] [facility] [address] Care Team Providers Care Calculating Machine Operator Name Role Phone Demetrio Abdalla Primary Care Provider Unav Franklyn Arrington Unavailable [phone] Allergies Allergen (clinical drug ingredient) Drug/Non Drug [...] atherosclerosis of arteries of lower limbs (disorder) ([id number] ) Atherosclerosis of [place] artery of both lower extremities, with unspecified presence of clinical manifestation (I70.203) Active confirmed Vital Signs Blood pressure diastolic 75 mm Hg 03/17/2025 Height 5 ft 11 in in 03/17/2025 Blood pressure systolic 132 mm Hg 03/17/2025 Weight 185 lbs 03/17/2025 BMI 25.8 kg/m2 03/17/2025 Procedures Procedure Date Ordered Date Performed Result Body Sit e 59910-HRCDXXX NAIL, 6 OR MORE 06/06/2024 N/A 52607-LXAE SKIN LESIONS, 2 TO 4 06/06/2024 N/A 73909-FSXXFCP NAIL, 6 OR MORE 09/05/2024 N/A 60328-TBFM SKIN LESIONS, 2 TO 4 09/05/2024 N/A 29435-KZJKQCO NAIL, 6 OR MORE 12/09/2024 N/A 01559-NWEM SKIN LESIONS, 2 TO 4 12/09/2024 N/A 34565-ZNZMKSZ NAIL, 6 OR MORE 03/17/2025 N/A 15288-QSUS SKIN LESIONS, 2 TO 4 03/17/2025 N/A Encounters Encounter Location Date Provider Diagnosis [address] [address] 06/06/2024 Franklyn Sue Atherosclerosis of [place] artery of both lower extremities, with unspecified presence of clinical manifestation I70.203 ; Tinea unguium B35.1 ; Pain in right toe(s) M79.674 ; Pain in left toe(s) M79.675 and Skin ulcer of toe of left foot, limited to breakdown of skin L97.521 [facility] [address] 09/05/2024 Franklyn Sue Atherosclerosis of [place] artery of both lower extremities, with unspecified presence of clinical manifestation I70.203 ; Tinea unguium B35.1 ; Pain in right toe(s) M79.674 ; Pain in left toe(s) M79.675 and Skin ulcer of toe of left foot, limited to breakdown of skin L97.[address] [address] 12/09/2024 Franklyn Sue Atherosclerosis of [place] artery of both lower extremities, with unspecified presence of clinical manifestation I70.203 ; Tinea unguium B35.1 ; Pain in right toe(s) M79.674 ; Pain in left toe(s) M79.675 and Xerosis of skin L85.[address] [address] 03/17/2025 Franklyn Guzmánunier Atherosclerosis of [place] artery of both lower extremities, with unspecified presence of clinical manifestation I70.203 ; Tinea unguium B35.1 ; Pain in right toe(s) M79.674 ; Pain in left toe(s) M79.675 and Xerosis of skin L85.3 Assessments Encounter Date Diagnosis (ICD Code) Assessment Notes Treatment Notes Treatment Clinical Notes Section Notes 06/06/2024 Tinea unguium (ICD-10 - B35.1) 06/06/2024 Atherosclerosis of [place] artery of both lower extremities, with unspecified presence of clinical manifestation (ICD-10 - I70.203) 09/05/2024 Tinea unguium (ICD-10 - B35.1) 09/05/2024 Atherosclerosis of [place] artery of both lower extremities, with unspecified presence of clinical manifestation (ICD-10 - I70.203) 12/09/2024 Tinea unguium (ICD-10 - B35.1) 12/09/2024 Atherosclerosis of [place] artery of both lower extremities, with unspecified presence of clinical manifestation (ICD-10 - I70.203) 03/17/2025 Tinea unguium (ICD-10 - B35.1) 03/17/2025 Atherosclerosis of [place] artery of both lower extremities, with unspecified [...] Treatment Pending Test Test Name Order Date 61287-KTSHUPS NAIL, 6 OR MORE 03/21/2024 16427-AFHRYFB NAIL, 6 OR MORE 06/06/2024 90827-AXINVRV NAIL, 6 OR MORE 09/05/2024 84029-PCXSSFV NAIL, 6 OR MORE 12/09/2024 83006-QQZKAXP NAIL, 6 OR MORE 03/17/2025 64509- Debride <25 sq cm 03/21/2024 70596- I&D ABSCESS-COMPLICATED,MULTI 08/2023 13373-ZDGL SKIN LESIONS, 2 TO 4 03/17/20 25 02867-YXYS SKIN LESIONS, 2 TO 4 03/21/20 24 66399-LNEV SKIN LESIONS, 2 TO 4 06/06/20 24 53677-QTJL SKIN LESIONS, 2 TO 4 12/10/19 25 90918-SIRI SKIN LESIONS, 2 TO 4 09/05/19 25 Next Appt Details Provider Name:Franklyn Sue , 06/30/2025 03:00:00 PM, [address] [place], [address], Insurance Providers Payer Name Payer Address Payer Phone Subscriber Number Group Number Insured Name Patient Relationship to Insured Coverage Start Date Coverage End Date [employer] Medicare [id number] [address] [address] [place] [address] [id number] Ifeanyi Bustamante Self - patient is the insured Medical (General) History Medical History History ICD Code Angina Arthritis Back,Hip,and Knee pain Broken bones CAD (Cholesterol) Cancer Cataracts covid-19 Heart disease Hiatal hernia Hypertension Kidney disease Macular degeneration Numbness Poor circulation Scarlet fever Stroke Vascular phlebitis (clots) Warts Measles Mumps Chicken pox Transfusions Surgical History Surgery Date(Month/Year)
== END 2025-04-27 10:21 | disposition home or self-care (01) ==
LOC: HO.ACS 09:31
PROVIDERS: PCP Nurse Practitioner Family; Visit Provider Internal Medicine Medical Oncology
DX: Z79.01 Long term (current) use of anticoagulants (principal)

== ENCOUNTER → 2025-04-27 09:31 | Outpatient (BNVA) | payer MEDICARE, SELFPAY | PROVIDERS: PCP Nurse Practitioner Family; Visit Provider Internal Medicine Medical Oncology | DX: Z51.81 Encounter for therapeutic drug level monitoring (principal); Z79.01 Long term (current) use of anticoagulants | CPT/HCPCS: 85610; 99211 ==

== ENCOUNTER 2025-05-18 09:36 | Outpatient (AMB) | payer MEDICARE, SELFPAY ==
[2025-05-18 09:44] LABS: Prothrombin Time Whole Bld POC 32.8 sec (11.1-13.5); ~PT, ~INR - Anti Coag Clinic 2.7 (0.9-1.1)
--- NOTE | 2025-05-18 09:46 | MHC.OFFVISCO ---
Intake Intake Visit Reasons: Anticoagulation Allergies carvedilol (From COREG) Allergy (Severe, Verified 05/18/25 09:40) Palpitations metoprolol Allergy (Severe, Verified 05/18/25 09:40) Palpitations Sulfa (Sulfonamide Antibiotics) (SULFA (SULFONAMIDE ANTIBIOTICS)) Allergy (Severe, Verified 05/18/25 09:40) Redness of Skin doxycycline Allergy (Intermediate, Verified 05/18/25 09:40) Rash itch cilostazol Allergy (Unknown, Verified 05/18/25 09:40) UNKNOWN digoxin (DIGOXIN) Allergy (Unknown, Verified 05/18/25 09:40) UNKNOWN labetalol (LABETALOL) Allergy (Unknown, Verified 05/18/25 09:40) MUSCLE PAIN Yvglvbo-TUU-RjX Reductase Inhibitor Adverse Reaction (Intermediate, Verified 05/18/25 09:40) Muscle Pain Medication List - Last Reconciled 05/18/25 by Raeann Pacheco, RN amlodipine 5 mg PO DAILY atenolol 25 mg PO DAILY cilostazol 50 mg PO BID evolocumab (Elle Romero) 140 mg subcut Q3W fluorouracil 5% 1 appl topical BID furosemide 20 mg PO DAILY meclizine 50 mg PO TID PRN triamcinolone acetonide 0.025% topical valsartan-hydrochlorothiazide 160-12.5 mg 1 tab PO ONCE [walker with seat Wheeled walker with seat ] warfarin 5 mg See Protocol PO DAILY Nursing Note Pt to ACS with use of wheeled walker INR: 2.7 in therapeutic range of 2-3 Medications and supplements reviewed No changes in health, diet, medications, or supplements, Denies any signs and symptoms of bleeding or bruising or clotting. 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
--- OUTSIDE RECORDS SUMMARY | 2025-05-18 10:48 | XMS_ITS | Patient Health Record ---
Author Organization [facility] Gretel cherri [place] Address [address] [facility] [place] [address] Care Team Providers Care Clinical Orthoptist Name Role Phone Demetrio Abdalla Primary Care Provider Unav Franklyn Arrington Unavailable [phone] Allergies Allergen (clinical drug ingredient) Drug/Non Drug [...] atherosclerosis of arteries of lower limbs (disorder) ([id number] ) Atherosclerosis of [place] artery of both lower extremities, with unspecified presence of clinical manifestation (I70.203) Active confirmed Vital Signs Blood pressure diastolic 75 mm Hg 03/17/2025 Height 5 ft 11 in in 03/17/2025 Blood pressure systolic 132 mm Hg 03/17/2025 Weight 185 lbs 03/17/2025 BMI 25.8 kg/m2 03/17/2025 Procedures Procedure Date Ordered Date Performed Result Body Sit e 42822-VEGVJRC NAIL, 6 OR MORE 06/06/2024 N/A 38344-GVFZ SKIN LESIONS, 2 TO 4 06/06/2024 N/A 91050-VEDQNSA NAIL, 6 OR MORE 09/05/2024 N/A 75793-LMHD SKIN LESIONS, 2 TO 4 09/05/2024 N/A 38263-OVUQOMV NAIL, 6 OR MORE 12/09/2024 N/A 72058-CLBP SKIN LESIONS, 2 TO 4 12/09/2024 N/A 17615-QRDHENW NAIL, 6 OR MORE 03/17/2025 N/A 54980-UPIU SKIN LESIONS, 2 TO 4 03/17/2025 N/A Encounters Encounter Location Date Provider Diagnosis [address] [address] 06/06/2024 Franklyn Sue Atherosclerosis of [place] artery of both lower extremities, with unspecified presence of clinical manifestation I70.203 ; Tinea unguium B35.1 ; Pain in right toe(s) M79.674 ; Pain in left toe(s) M79.675 and Skin ulcer of toe of left foot, limited to breakdown of skin L97.[address] [facility] [address] 09/05/2024 Franklyn Sue Atherosclerosis of [place] artery of both lower extremities, with unspecified presence of clinical manifestation I70.203 ; Tinea unguium B35.1 ; Pain in right toe(s) M79.674 ; Pain in left toe(s) M79.675 and Skin ulcer of toe of left foot, limited to breakdown of skin L97.[address] [address] 12/09/2024 Franklyn Sue Atherosclerosis of [place] artery of both lower extremities, with unspecified presence of clinical manifestation I70.203 ; Tinea unguium B35.1 ; Pain in right toe(s) M79.674 ; Pain in left toe(s) M79.675 and Xerosis of skin L85.[address] [address] 03/17/2025 Franklyn Guzmánunier Atherosclerosis of [place] artery of both lower extremities, with unspecified presence of clinical manifestation I70.203 ; Tinea unguium B35.1 ; Pain in right toe(s) M79.674 ; Pain in left toe(s) M79.675 and Xerosis of skin L85.3 Assessments Encounter Date Diagnosis (ICD Code) Assessment Notes Treatment Notes Treatment Clinical Notes Section Notes 06/06/2024 Tinea unguium (ICD-10 - B35.1) 06/06/2024 Atherosclerosis of [place] artery of both lower extremities, with unspecified presence of clinical manifestation (ICD-10 - I70.203) 09/05/2024 Tinea unguium (ICD-10 - B35.1) 09/05/2024 Atherosclerosis of [place] artery of both lower extremities, with unspecified presence of clinical manifestation (ICD-10 - I70.203) 12/09/2024 Tinea unguium (ICD-10 - B35.1) 12/09/2024 Atherosclerosis of [place] artery of both lower extremities, with unspecified presence of clinical manifestation (ICD-10 - I70.203) 03/17/2025 Tinea unguium (ICD-10 - B35.1) 03/17/2025 Atherosclerosis of [place] artery of both lower extremities, with unspecified [...] Treatment Pending Test Test Name Order Date 36171-YCNQNAA NAIL, 6 OR MORE 03/21/2024 66618-DKXIOCU NAIL, 6 OR MORE 06/06/2024 69787-GGMGPPE NAIL, 6 OR MORE 09/05/2024 08320-PSFPFVZ NAIL, 6 OR MORE 12/09/2024 39443-KPATGWW NAIL, 6 OR MORE 03/17/2025 74980- Debride <25 sq cm 03/21/2024 59601- I&D ABSCESS-COMPLICATED,MULTI 08/2023 65273-MXCE SKIN LESIONS, 2 TO 4 03/17/20 25 82484-GLWF SKIN LESIONS, 2 TO 4 03/21/20 24 02241-XORM SKIN LESIONS, 2 TO 4 06/06/20 24 17137-AOBF SKIN LESIONS, 2 TO 4 12/10/19 25 89301-ZSXL SKIN LESIONS, 2 TO 4 09/05/19 25 Next Appt Details Provider Name:Franklyn Sue , 06/30/2025 03:00:00 PM, [address] [place], [address], Insurance Providers Payer Name Payer Address Payer Phone Subscriber Number Group Number Insured Name Patient Relationship to Insured Coverage Start Date Coverage End Date [employer] Medicare [id number] [address] [address] [place] [address] [id number] Ifeanyi Bustamante Self - patient is the insured Medical (General) History Medical History History ICD Code Angina Arthritis Back,Hip,and Knee pain Broken bones CAD (Cholesterol) Cancer Cataracts covid-19 Heart disease Hiatal hernia Hypertension Kidney disease Macular degeneration Numbness Poor circulation Scarlet fever Stroke Vascular phlebitis (clots) Warts Measles Mumps Chicken pox Transfusions Surgical History Surgery Date(Month/Year)
--- OUTSIDE RECORDS SUMMARY | 2025-05-18 10:48 | XMS_ITS | Clinical Summary ---
Author Organization [facility] Address [address] [place] [address] Phone Care Team Providers Care Ramp Flight Attendant Name Role Phone Demetrio Reagan NP Primary Care Provider [phone] Allergies Active Allergy Reactions Criticality Noted Date [...] patient's age to complete this topic Insurance [facility] Medicare [id number] Medicare Care Teams Ramp Flight Attendant Relationship Specialty Start Date End Date Demetrio Reagan NP [address] [place] [id number] PCP - General Nurse Practitioner 08/08/21
== END 2025-05-18 09:49 | disposition home or self-care (01) ==
LOC: HO.ACS 09:36
PROVIDERS: PCP Nurse Practitioner Family; Visit Provider Internal Medicine Medical Oncology
DX: Z79.01 Long term (current) use of anticoagulants (principal)

== ENCOUNTER → 2025-05-18 09:36 | Outpatient (BNVA) | payer MEDICARE, SELFPAY | PROVIDERS: PCP Nurse Practitioner Family; Visit Provider Internal Medicine Medical Oncology | DX: I48.19 Other persistent atrial fibrillation (principal); Z51.81 Encounter for therapeutic drug level monitoring; Z79.01 Long term (current) use of anticoagulants | CPT/HCPCS: 85610; 99211 ==

== ENCOUNTER 2025-06-02 13:15 | Outpatient (REF) | payer MEDICARE, SELFPAY ==
--- OUTSIDE RECORDS SUMMARY | 2025-06-02 16:11 | XMS_ITS | Clinical Summary ---
Author Organization [facility] Address [address] [place] [address] Phone Care Team Providers Care Video Arcade Manager Name Role Phone Demetrio Reagan NP Primary Care Provider [phone] Allergies Active Allergy Reactions Criticality Noted Date [...] patient's age to complete this topic Insurance [facility] Medicare [id number] Medicare Care Teams Video Arcade Manager Relationship Specialty Start Date End Date Demetrio Reagan NP [address] [place] [id number] PCP - General Nurse Practitioner 08/08/21
--- OUTSIDE RECORDS SUMMARY | 2025-06-02 16:11 | XMS_ITS | Patient Health Record ---
Author Organization [facility] Gretel cherri [place] Address [address] [facility] [place] [address] Care Team Providers Care Pot Filler Name Role Phone Demetrio Abdalla Primary Care Provider Unav Franklyn Arrington Unavailable [phone] Allergies Allergen (clinical drug ingredient) Drug/Non Drug [...] atherosclerosis of arteries of lower limbs (disorder) ([id number] ) Atherosclerosis of [place] artery of both lower extremities, with unspecified presence of clinical manifestation (I70.203) Active confirmed Vital Signs Blood pressure diastolic 75 mm Hg 03/17/2025 Height 5 ft 11 in in 03/17/2025 Blood pressure systolic 132 mm Hg 03/17/2025 Weight 185 lbs 03/17/2025 BMI 25.8 kg/m2 03/17/2025 Procedures Procedure Date Ordered Date Performed Result Body Sit e 05476-KMMBEKZ NAIL, 6 OR MORE 06/06/2024 N/A 14426-EFTV SKIN LESIONS, 2 TO 4 06/06/2024 N/A 04881-TOUOTYB NAIL, 6 OR MORE 09/05/2024 N/A 27171-KIWP SKIN LESIONS, 2 TO 4 09/05/2024 N/A 36484-XUNEOFY NAIL, 6 OR MORE 12/09/2024 N/A 10948-HCCN SKIN LESIONS, 2 TO 4 12/09/2024 N/A 99357-GLBUFMP NAIL, 6 OR MORE 03/17/2025 N/A 33516-SEIL SKIN LESIONS, 2 TO 4 03/17/2025 N/A Encounters Encounter Location Date Provider Diagnosis [address] [address] 06/06/2024 Franklyn Sue Atherosclerosis of [place] artery of both lower extremities, with unspecified presence of clinical manifestation I70.203 ; Tinea unguium B35.1 ; Pain in right toe(s) M79.674 ; Pain in left toe(s) M79.675 and Skin ulcer of toe of left foot, limited to breakdown of skin L97.[address] [facility] [address] 09/05/2024 Franklyn Sue Atherosclerosis of [place] artery of both lower extremities, with unspecified presence of clinical manifestation I70.203 ; Tinea unguium B35.1 ; Pain in right toe(s) M79.674 ; Pain in left toe(s) M79.675 and Skin ulcer of toe of left foot, limited to breakdown of skin L97.[address] [address] 12/09/2024 Franklyn uSe Atherosclerosis of [place] artery of both lower extremities, with unspecified presence of clinical manifestation I70.203 ; Tinea unguium B35.1 ; Pain in right toe(s) M79.674 ; Pain in left toe(s) M79.675 and Xerosis of skin L85.[address] [address] 03/17/2025 Franklyn Guzmánunier Atherosclerosis of [place] artery of both lower extremities, with unspecified presence of clinical manifestation I70.203 ; Tinea unguium B35.1 ; Pain in right toe(s) M79.674 ; Pain in left toe(s) M79.675 and Xerosis of skin L85.3 Assessments Encounter Date Diagnosis (ICD Code) Assessment Notes Treatment Notes Treatment Clinical Notes Section Notes 06/06/2024 Tinea unguium (ICD-10 - B35.1) 06/06/2024 Atherosclerosis of [place] artery of both lower extremities, with unspecified presence of clinical manifestation (ICD-10 - I70.203) 09/05/2024 Tinea unguium (ICD-10 - B35.1) 09/05/2024 Atherosclerosis of [place] artery of both lower extremities, with unspecified presence of clinical manifestation (ICD-10 - I70.203) 12/09/2024 Tinea unguium (ICD-10 - B35.1) 12/09/2024 Atherosclerosis of [place] artery of both lower extremities, with unspecified presence of clinical manifestation (ICD-10 - I70.203) 03/17/2025 Tinea unguium (ICD-10 - B35.1) 03/17/2025 Atherosclerosis of [place] artery of both lower extremities, with unspecified [...] Treatment Pending Test Test Name Order Date 17382-IWEQRJC NAIL, 6 OR MORE 03/21/2024 72177-OGRLLKF NAIL, 6 OR MORE 06/06/2024 58635-WWNCYWB NAIL, 6 OR MORE 09/05/2024 36780-LJZRXBL NAIL, 6 OR MORE 12/09/2024 58185-RVLQTXJ NAIL, 6 OR MORE 03/17/2025 12235- Debride <25 sq cm 03/21/2024 61763- I&D ABSCESS-COMPLICATED,MULTI 08/2023 90942-PLAG SKIN LESIONS, 2 TO 4 03/17/20 25 86126-NKRC SKIN LESIONS, 2 TO 4 03/21/20 24 72508-KKAY SKIN LESIONS, 2 TO 4 06/06/20 24 56392-PFGY SKIN LESIONS, 2 TO 4 12/10/19 25 26754-SQOW SKIN LESIONS, 2 TO 4 09/05/19 25 Next Appt Details Provider Name:Franklyn Sue , 06/30/2025 03:00:00 PM, [address] [place], [address], Insurance Providers Payer Name Payer Address Payer Phone Subscriber Number Group Number Insured Name Patient Relationship to Insured Coverage Start Date Coverage End Date [employer] Medicare Adv-[id number] [address] [address] [place] [address] [id number] Ifeanyi Bustamante Self - patient is the insured Medical (General) History Medical History History ICD Code Angina Arthritis Back,Hip,and Knee pain Broken bones CAD (Cholesterol) Cancer Cataracts covid-19 Heart disease Hiatal hernia Hypertension Kidney disease Macular degeneration Numbness Poor circulation Scarlet fever Stroke Vascular phlebitis (clots) Warts Measles Mumps Chicken pox Transfusions Surgical History Surgery Date(Month/Year)
[2025-06-02 16:17] LABS: Hematocrit 39.9 % (42.0-52.0); Hemoglobin 12.8 g/dl (14.0-18.0); Mean Corpuscular HGB Conc 32.1 g/dl (31.0-36.0); Mean Corpuscular Hemoglobin 29.2 pg (27.0-33.0); Mean Corpuscular Volume 91.1 fL (80.0-98.0); NRBC Abs Auto 0.000 X10*3/uL (0.0-0.012); NRBC Pct Auto 0.0 /100WBC (0.0-0.2); Platelet Count 208 X10*3/uL (160-400); Red Blood Count 4.38 X10*6/uL (4.60-5.80); White Blood Count 7.1 X10*3/uL (4.8-10.8)
[2025-06-02 16:32] LABS: Anion Gap 12 (12-20); Blood Urea Nitrogen 31 mg/dL (9-16); Calcium 9.5 mg/dL (8.4-10.2); Carbon Dioxide 28 mmol/L (22-29); Chloride 101 mmol/L (96-108); Estimated Glomerular Filt Rate 53; Potassium 4.3 mmol/L (3.3-5.1); Sodium 137 mmol/L (135-145)
== END 2025-06-02 13:16 | disposition home or self-care (01) ==
LOC: HO.HMGCLDS 13:15
PROVIDERS: Visit Provider Internal Medicine Hypertension Specialist
DX: N18.9 Chronic kidney disease, unspecified (principal)
CPT/HCPCS: 36415; 80048; 85027

== ENCOUNTER 2025-06-04 11:15 | Outpatient (AMB) | payer MEDICARE, SELFPAY ==
[2025-06-04 11:17] VITALS: BP 140/68; PULSE 74; O2SAT 94; BMI 26.1
--- NOTE | 2025-06-04 11:17 | HO.NEPHOV ---
Vital Signs 06/04/25 11:17 Height 5 ft 10 in Weight 182 lb BMI 26.1 BP 140/68 H Blood Pressure Location Lt brachial Position Sitting Pulse 74 Pulse Source Pulse Oximeter Pulse Oximetry (%) 94 Oxygen Delivery Method Room Air Intake Visit Reasons: 6 MO FU/ CONF Rn Paralegal Required: No Accompanied by: Self / Same As Patient Allergies carvedilol (From COREG) Allergy (Severe, Verified 06/04/25 11:19) Palpitations metoprolol Allergy (Severe, Verified 06/04/25 11:19) Palpitations Sulfa (Sulfonamide Antibiotics) (SULFA (SULFONAMIDE ANTIBIOTICS)) Allergy (Severe, Verified 06/04/25 11:19) Redness of Skin doxycycline Allergy (Intermediate, Verified 06/04/25 11:19) Rash itch cilostazol Allergy (Unknown, Verified 06/04/25 11:19) UNKNOWN digoxin (DIGOXIN) Allergy (Unknown, Verified 06/04/25 11:19) UNKNOWN labetalol (LABETALOL) Allergy (Unknown, Verified 06/04/25 11:19) MUSCLE PAIN Wuakqbx-VJZ-MkH Reductase Inhibitor Adverse Reaction (Intermediate, Verified 06/04/25 11:19) Muscle Pain Medication List - Last Reconciled 06/04/25 by Luis Gutierrez MD amlodipine 5 mg PO DAILY atenolol 25 mg PO DAILY cilostazol 50 mg PO BID evolocumab (Repathharis SureFlakitoick) 140 mg subcut Q3W furosemide 20 mg PO DAILY meclizine 50 mg PO TID PRN valsartan-hydrochlorothiazide 160-12.5 mg 1 tab PO DAILY [walker with seat Wheeled walker with seat ] warfarin 5 mg See Protocol PO DAILY HPI Comments Details: Ifeanyi is well known to me for last several years. 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 In 2011 coronary angiogram showed 60% mid LAD 90% distal LAD 50% 1st diagonal and 84% obtuse marginal. The RCA was totally occluded. Repeat CT in 2017 revealed 90% stenosis mid LAD moderate diffuse distal LAD and left circumflex 80-90% distal stenosis and chronically occluded RCA. He was deemed not to be a candidate for CABG. 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 Blood pressure has been difficult to control. He has been monitoring his blood pressure at home Home readings have been acceptable. He has generalized body pain otherwise no new issues today. He has been intolerant to statins however he has been able to tolerate Repatha 06/23/24;Fell twice and sustained injury to right upper extremity;seen in ER 12/05/24: Overall doing well. No new issues today. 06/04/25 The patient is an 85-year-old male with resistant hypertension and significant vascular disease for a follow-up visit. He has a history of mild to moderate aortic stenosis and diffuse coronary artery disease. Previously, his blood pressure was as high as 200/100 mmHg, but it has improved to 140/68 mmHg. He reports no chest pain and experiences shortness of breath only with excessive activity. Recently, his medication regimen was adjusted by Dr. Gonzalez, who started him on cilostazol 15 mg twice daily, reduced isosorbide from 60 mg to 30 mg, and discontinued clopidogrel. He continues to take warfarin and amlodipine for blood pressure management. The patient maintains hydration with a diluted orange drink and is cautious about salt intake. His kidney function is stable, with a GFR of 53-60%, which is considered acceptable for his age. [facility] Medical History Carotid stenosis AAA (abdominal aortic aneurysm) without rupture Vertigo H/O Villa's palsy Permanent atrial fibrillation Post herpetic neuralgia HTN (hypertension) Thrombocytopenia CKD (chronic kidney disease) CVA (cerebral vascular accident) PVD (peripheral vascular disease) CAD (coronary artery disease) Afib Surgical History H/O prostatectomy Stented coronary artery Social History Housing: House Alcohol intake: current Alcohol intake frequency: a few times a week Patient Tobacco Use Status: Never used Tobacco e-Cigarette/Vaping Use: Never Used Second Hand Smoke Exposure: No service: Yes Current occupational status: retired Cognitive needs: No Hearing needs: No Vision needs: No Physical Exam Vital Signs: Last Vital Signs Pulse 74 06/04/25 11:17 BP 140/68 H 06/04/25 11:17 Pulse Ox 94 06/04/25 11:17 Oxygen Delivery Method Room Air 06/04/25 11:17 BMI result Body Mass Index 26.1 Comfortable Neck supple no JVD. Lungs entry equal no rales. Heart S1-S2 heard no gallop or rub. Abdomen soft nontender. Neuro alert awake oriented. No asterixis. Extremities no edema. Ecchymosis of right UE Results Reviewed Nephrology Results: Hgb, (14.0-18.0) 12.8 g/dl L 06/02/25 WBC, (4.8-10.8) 7.1 X10*3/uL 06/02/25 Plt Count, (160-400) 208 X10*3/uL 06/02/25 Sodium, (135-145) 137 mmol/L 06/02/25 Potassium, (3.3-5.1) 4.3 mmol/L 06/02/25 Chloride, (96-108) 101 mmol/L 06/02/25 Carbon Dioxide, (22-29) 28 mmol/L 06/02/25 BUN, (9-16) 31 mg/dL H 06/02/25 Creatinine, (0.5-1.4) 1.29 mg/dL 06/02/25 Calcium, (8.4-10.2) 9.5 mg/dL 06/02/25 Assessment & Plan Assessment & Plan (1) HTN (hypertension): Code(s): I10 - Essential (primary) hypertension Category: Medical Plan: ~Resistant hypertension history of significant artero sclerosis. Ifeanyi has renovascular disease. Overall blood pressure has been acceptable. I will continue with current antihypertensive medications. Keep on low-sodium diet. Encouraged to keep moderate blood pressure at home and to call me if the systolic blood pressure stays above 140 mmHg (2) CKD (chronic kidney disease): Code(s): N18.9 - Chronic kidney disease, unspecified Category: Medical Plan CKD in a setting of longstanding hypertension. He has underlying renovascular disease. Mild acceptable bump in creatinine to 1.29 Goal is to slow the progression of renal disease. Continue to avoid nephrotoxic agents. Avoid hypotensive episodes. Will continue monitor renal function closely since he is at high risk for ongoing renal injury and LUISANA. . Orders: Orders Basic Metabolic Panel 6 Months Luis Gutierrez MD I10 - Essential (primary) hypertension, N18.9 - Chronic kidney disease, unspecified Medications: Changed From valsartan-hydrochlorothiazide 160-12.5 mg 1 tab PO ONCE 90 tabs 1RF To valsartan-hydrochlorothiazide 160-12.5 mg 1 tab PO DAILY PATRICIO Shore- Coding Level of Care Code Est Pt Level 4 (81590) Diagnoses HTN (hypertension) I10 CKD (chronic kidney disease) N18.9
--- OUTSIDE RECORDS SUMMARY | 2025-06-04 14:01 | XMS_ITS | Patient Health Record ---
Author Organization [facility] Gretel cherri [place] Address [address] [place] [address] Care Team Providers Care Med Surg Rn Name Role Phone Demetrio Abdalla Primary Care Provider Unav Franklyn Arrington Unavailable [phone] Allergies Allergen (clinical drug ingredient) Drug/Non Drug [...] atherosclerosis of arteries of lower limbs (disorder) ([id number] ) Atherosclerosis of habematolel artery of both lower extremities, with unspecified presence of clinical manifestation (I70.203) Active confirmed Vital Signs Blood pressure diastolic 75 mm Hg 03/17/2025 Height 5 ft 11 in in 03/17/2025 Blood pressure systolic 132 mm Hg 03/17/2025 Weight 185 lbs 03/17/2025 BMI 25.8 kg/m2 03/17/2025 Procedures Procedure Date Ordered Date Performed Result Body Sit e 93095-ZGKFQXA NAIL, 6 OR MORE 06/06/2024 N/A 58781-JVKO SKIN LESIONS, 2 TO 4 06/06/2024 N/A 99951-PVQQAHN NAIL, 6 OR MORE 09/05/2024 N/A 29243-SGIB SKIN LESIONS, 2 TO 4 09/05/2024 N/A 49000-HRTNUMJ NAIL, 6 OR MORE 12/09/2024 N/A 19952-OJMA SKIN LESIONS, 2 TO 4 12/09/2024 N/A 97587-BAKUBPM NAIL, 6 OR MORE 03/17/2025 N/A 23866-GRFF SKIN LESIONS, 2 TO 4 03/17/2025 N/A Encounters Encounter Location Date Provider Diagnosis [address] [address] 06/06/2024 Franklyn Sue Atherosclerosis of habematolel artery of both lower extremities, with unspecified presence of clinical manifestation I70.203 ; Tinea unguium B35.1 ; Pain in right toe(s) M79.674 ; Pain in left toe(s) M79.675 and Skin ulcer of toe of left foot, limited to breakdown of [facility] L[facility] [address] 09/05/2024 Franklyn Sue Atherosclerosis of habematolel artery of both lower extremities, with unspecified presence of clinical manifestation I70.203 ; Tinea unguium B35.1 ; Pain in right toe(s) M79.674 ; Pain in left toe(s) M79.675 and Skin ulcer of toe of left foot, limited to breakdown of skin L97.[address] [address] 12/09/2024 Franklyn Sue Atherosclerosis of habematolel artery of both lower extremities, with unspecified presence of clinical manifestation I70.203 ; Tinea unguium B35.1 ; Pain in right toe(s) M79.674 ; Pain in left toe(s) M79.675 and Xerosis of skin L85.[address] [address] 03/17/2025 Franklyn Guzmánunier Atherosclerosis of habematolel artery of both lower extremities, with unspecified presence of clinical manifestation I70.203 ; Tinea unguium B35.1 ; Pain in right toe(s) M79.674 ; Pain in left toe(s) M79.675 and Xerosis of skin L85.3 Assessments Encounter Date Diagnosis (ICD Code) Assessment Notes Treatment Notes Treatment Clinical Notes Section Notes 06/06/2024 Tinea unguium (ICD-10 - B35.1) 06/06/2024 Atherosclerosis of habematolel artery of both lower extremities, with unspecified presence of clinical manifestation (ICD-10 - I70.203) 09/05/2024 Tinea unguium (ICD-10 - B35.1) 09/05/2024 Atherosclerosis of habematolel artery of both lower extremities, with unspecified presence of clinical manifestation (ICD-10 - I70.203) 12/09/2024 Tinea unguium (ICD-10 - B35.1) 12/09/2024 Atherosclerosis of habematolel artery of both lower extremities, with unspecified presence of clinical manifestation (ICD-10 - I70.203) 03/17/2025 Tinea unguium (ICD-10 - B35.1) 03/17/2025 Atherosclerosis of habematolel artery of both lower extremities, with unspecified [...] Treatment Pending Test Test Name Order Date [id number] NAIL, 6 OR MORE 03/21/2024 81478-ABFQUNU NAIL, 6 OR MORE 06/06/2024 89441-BTEOZRO NAIL, 6 OR MORE 09/05/2024 27084-TPUHYVD NAIL, 6 OR MORE 12/09/2024 12840-VDVCQIP NAIL, 6 OR MORE 03/17/2025 11553- Debride <25 sq cm 03/21/2024 40372- I&D ABSCESS-COMPLICATED,MULTI 08/2023 15784-NEGS SKIN LESIONS, 2 TO 4 03/17/20 25 80904-AVSF SKIN LESIONS, 2 TO 4 03/21/20 24 20972-XPFQ SKIN LESIONS, 2 TO 4 06/06/20 24 17236-TYSF SKIN LESIONS, 2 TO 4 12/10/19 25 87553-ROBS SKIN LESIONS, 2 TO 4 09/05/19 25 Next Appt Details Provider Name:Franklyn Sue , 06/30/2025 03:00:00 PM, [address] [place], [address], Insurance Providers Payer Name Payer Address Payer Phone Subscriber Number Group Number Insured Name Patient Relationship to Insured Coverage Start Date Coverage End Date [employer] Medicare Adv-[id number] [address] [address] [place] [address] [id number] Ifeanyi Bustamante Self - patient is the insured Medical (General) History Medical History History ICD Code Angina Arthritis Back,Hip,and Knee pain Broken bones CAD (Cholesterol) Cancer Cataracts covid-19 Heart disease Hiatal hernia Hypertension Kidney disease Macular degeneration Numbness Poor circulation Scarlet fever Stroke Vascular phlebitis (clots) Warts Measles Mumps Chicken pox Transfusions Surgical History Surgery Date(Month/Year)
--- OUTSIDE RECORDS SUMMARY | 2025-06-04 14:01 | XMS_ITS | Clinical Summary ---
Author Organization [facility] Address [address] [place] [address] Phone Care Team Providers Care [employer] Teacher Name Role Phone Demetrio Reagan NP Primary Care Provider [phone] Allergies Active Allergy Reactions Criticality Noted Date [...] patient's age to complete this topic Insurance [facility] Medicare [id number] Medicare Care Teams [employer] Social [employer] Teacher Relationship Specialty Start Date End Date Demetrio Reagan NP [address] [place] [id number] PCP - General Nurse Practitioner 08/08/21
== END 2025-06-04 11:34 | disposition home or self-care (01) ==
LOC: HO.HKA 11:16
PROVIDERS: PCP Nurse Practitioner Family; Visit Provider Internal Medicine Hypertension Specialist
DX: I12.9 Hypertensive chronic kidney disease with stage 1 through stage 4 chronic kidney disease, or unspecified chronic kidney disease (principal); N18.9 Chronic kidney disease, unspecified
CPT/HCPCS: 99214

== ENCOUNTER → 2025-06-04 11:15 | Outpatient (BNVA) | payer MEDICARE, SELFPAY | PROVIDERS: PCP Nurse Practitioner Family; Visit Provider Internal Medicine Hypertension Specialist | DX: Z76.89 Persons encountering health services in other specified circumstances (principal); I25.10 Atherosclerotic heart disease of native coronary artery without angina pectoris; I48.21 Permanent atrial fibrillation; I73.9 Peripheral vascular disease, unspecified; I12.9 Hypertensive chronic kidney disease with stage 1 through stage 4 chronic kidney disease, or unspecified chronic kidney disease; N18.9 Chronic kidney disease, unspecified; Z79.01 Long term (current) use of anticoagulants; Z13.30 Encounter for screening examination for mental health and behavioral disorders, unspecified; Z13.39 Encounter for screening examination for other mental health and behavioral disorders | CPT/HCPCS: 90471; 96127; 99212 ==

== ENCOUNTER 2025-06-04 13:14 | Outpatient (AMB) | payer MEDICARE, SELFPAY ==
--- NOTE | 2025-06-04 13:16 | MHC.PC.OV ---
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 - Establish Care Accompanied by: Self / Same As Patient Allergies carvedilol (From COREG) Allergy (Severe, Verified 06/04/25 13:16) Palpitations metoprolol Allergy (Severe, Verified 06/04/25 13:16) Palpitations Sulfa (Sulfonamide Antibiotics) (SULFA (SULFONAMIDE ANTIBIOTICS)) Allergy (Severe, Verified 06/04/25 13:16) Redness of Skin doxycycline Allergy (Intermediate, Verified 06/04/25 13:16) Rash itch cilostazol Allergy (Unknown, Verified 06/04/25 13:16) UNKNOWN digoxin (DIGOXIN) Allergy (Unknown, Verified 06/04/25 13:16) UNKNOWN labetalol (LABETALOL) Allergy (Unknown, Verified 06/04/25 13:16) MUSCLE PAIN Jbzkgel-YTG-CaN Reductase Inhibitor Adverse Reaction (Intermediate, Verified 06/04/25 13:16) Muscle Pain Medication List - Last Reconciled 06/04/25 by Williams Hernandez MD amlodipine 5 mg PO DAILY atenolol 25 mg PO DAILY cilostazol 50 mg PO BID evolocumab (Repatha SureClick) 140 mg subcut Q3W furosemide 20 mg PO DAILY valsartan-hydrochlorothiazide 160-12.5 mg 1 tab PO DAILY [walker with seat Wheeled walker with seat ] warfarin 5 mg See Protocol PO DAILY Tobacco use date assessed: 06/04/25 Fall risk assessment: 2 + Falls in past year Last assessed Fall Risk: 06/04/25 Dental Screening Dental Screen Date: 06/04/25 HPI HPI Comments History of Present Illness Details History of Present Illness The patient is an 85-year-old male presenting to establish care with a new primary care physician. Multivessel vascular disease: The patient has a history of significant vascular disease, including diffuse coronary artery disease, peripheral vascular disease, mild to moderate aortic stenosis, carotid stenosis, and an abdominal aortic aneurysm without rupture. He has a history of coronary artery stenting, which he reports turned his life around from a state of being like a zombie, where he was too tired and weak to walk 20 feet. He also has a history of a cerebrovascular accident. The patient reports experiencing pain on the bottom of his feet while at rest, describing it as a sensation of the sole being ripped off, which his community pharmacist could not explain. He has not seen a vascular surgeon because he cannot undergo anesthesia or surgery. He is intolerant to statins and is on an injectable medication for his cholesterol. His medications were recently adjusted by his lathe setup operator, Dr. Rouse, who started cilostazol 50 mg twice a day, reduced isosorbide from 60 mg to 30 mg, and discontinued clopidogrel. Resistant hypertension: The patient carries a diagnosis of resistant hypertension and takes amlodipine for blood pressure management. He follows a low-sodium diet to help manage his blood pressure. Permanent Atrial Fibrillation: The patient has a history of permanent atrial fibrillation and is on warfarin for anticoagulation, which he has been taking for 15 years. He gets his warfarin levels checked at a clinic, usually once a month, but sometimes as often as once a week if the levels are unstable. A previous doctor declined to switch him to a newer anticoagulant, preferring to monitor him closely. Chronic Kidney Disease: The patient has a history of chronic kidney disease and saw a supervisor painting shipyard today. He reported that the supervisor painting shipyard was satisfied with his condition and lab numbers, with the goal of preserving his remaining kidney function. Other Past Medical History: The patient's past medical history also includes thrombocytopenia, neuropathy, history of Villa's palsy, and vertigo. 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 - Substance Use: He smoked as a teenager but quit at age 19. - Marital Status: He has been for 63 years and lives with his . - Functional Status: He uses a four-point cane or a walker for ambulation to prevent falls. - Nutrition: He follows a low-sodium diet and reports eating an orange when he wakes up at night. Past Medical History - Resistant hypertension - Significant vascular disease - Mild to moderate aortic stenosis - Diffuse coronary artery disease - Permanent atrial fibrillation - Peripheral vascular disease - Cerebrovascular accident - Chronic kidney disease - Thrombocytopenia - Neuropathy - History of Villa's palsy - Vertigo - Abdominal aortic aneurysm without rupture - Carotid stenosis - Statin intolerance Health Maintenance - The patient follows a low-sodium diet. - He monitors his warfarin levels at a clinic monthly, or more frequently if needed. - Follow-up in 3 months is recommended for ongoing management of his chronic conditions. [facility] Medical History Carotid stenosis AAA (abdominal aortic aneurysm) without rupture Vertigo H/O Villa's palsy Permanent atrial fibrillation Post herpetic neuralgia HTN (hypertension) Thrombocytopenia CKD (chronic kidney disease) CVA (cerebral vascular accident) PVD (peripheral vascular disease) CAD (coronary artery disease) Afib Surgical History H/O prostatectomy Stented coronary artery Social History Housing: House Alcohol intake: current Alcohol intake frequency: a few times a week Patient Tobacco Use Status: Former Tobacco user e-Cigarette/Vaping Use: Never Used Second Hand Smoke Exposure: No service: Yes Current occupational status: retired Cognitive needs: Yes (RX CANE) Hearing needs: No Vision needs: Yes (reading glasses) Questionnaire PHQ-9 Over the last 2 weeks, how often have you been bothered by any of the following problems? 1. Little interest or pleasure in doing things: more than half the days 2. Feeling down, depressed, or hopeless: more than half the days 3. Trouble falling or staying asleep, or sleeping too much: not at all 4. Feeling tired or having little energy: several days 5. Poor appetite or overeating: not at all 6. Feeling bad about yourself - or that you are a failure or have let yourself or your family down: not at all 7. Trouble concentrating on things, such as reading the newspaper or watching television: not at all 8. Moving or speaking so slowly that other people could have noticed. Or the opposite - being so fidgety or restless that you have been moving around a lot more than usual: not at all 9. Thoughts that you would be better off or of hurting yourself in some way: not at all Total score: 5 Source: Developed by Drs. Rony Turner, Tish Calderon, Arnulfo Clark and colleagues, with an educational tien from [employer]. Thrive Questionnaire Date Thrive assessed: 06/04/25 I am a: Patient What is your living situation today?: I have a steady place to live Within the past 12 months, did the food you bought not last and you didn't have the money to get more?: Never true Within the past 12 months, did you worry whether your food would run out before you got money to buy more?: Never true Do you have trouble paying for medicines?: No Do you have trouble getting transportation to medical appointments?: No Do you have trouble paying your heating and electricity bill?: No Do you have trouble taking care of your child, family member or friend?: No Are you currently unemployed and looking for a job?: No Are you interested in more education?: No Please select the resources that you would like help with: None Currently or been in a relationship where the following occur: No concerns reported THRIVE Score: 0 AUDIT C Alcohol Use Questionnaire (AUDIT-C) 1. How often do you have a drink containing alcohol?: Never Total Score: 0 YARED-7 AMB Questionnaire YARED-7 Date YARED - 7 assessed: 06/04/25 Feeling nervous, anxious, or on edge: 0 = Not at all Not being able to stop or control worryin = More than half the days Worrying too much about different things: 0 = Not at all Trouble relaxin = Not at all Being so restless that it is hard to sit still: 0 = Not at all Becoming easily annoyed or irritable: 2 = More than half the days Feeling afraid as if something awful might happen: 0 = Not at all Total YARED-7 score (0-4 normal; 5-9 mild; 10-14 moderate; 15-21 severe): 4 Source: Developed by Drs. Rony Turner, Arnulfo Padilla and colleagues, with an educational tien from [employer]. Review of Systems Narrative Review of Systems - Constitutional: Reports feeling a little bit old. - Cardiovascular: Reports history of significant fatigue and weakness prior to coronary stenting, which has since resolved. - Genitourinary: Reports nocturia, waking up twice a night to urinate. - Gastrointestinal: Denies any problems with bowel movements. - Musculoskeletal/Extremities: Reports pain in the soles of his feet while at rest, described as a ripping sensation. - Neurological: Reports memory difficulties. - Integumentary: Reports having very dry skin on his feet. - Sleep: Reports no difficulty falling asleep but experiences nocturnal awakenings. 10-point ROS reviewed and negative except as noted in HPI Physical exam (Primary Care) Vital Signs: Last Vital Signs Temp 97.4 F 06/04/25 13:22 Pulse 64 06/04/25 13:22 BP 140/76 H 06/04/25 13:22 Pulse Ox 96 06/04/25 13:22 Oxygen Delivery Method Room Air 06/04/25 13:22 BMI result Body Mass Index 26.3 Tobacco/Smoking Status: Tobacco use Status Tobacco use date assessed 06/04/25 06/04/25 13:17 Patient Tobacco Use Status Former Tobacco user 06/04/25 13:28 e-Cigarette/Vaping Use Never Used 06/04/25 13:17 PHQ-9: PHQ-9 Score PHQ-9: Total score 5 06/04/25 13:31 Thrive Assessment: Date of Thrive Assessment Date Thrive assessed 06/04/25 06/04/25 13:17 Currently or been in a relationship where the following occur: No concerns reported Narrative Physical Exam General: Well-appearing, in no acute distress. Vital signs: Within normal limits. HEENT: Normocephalic, atraumatic. PERRLA, EOMI. Conjunctiva clear, sclera anicteric. Oropharynx clear, mucous membranes moist. TMs intact bilaterally. Neck: Supple, no lymphadenopathy, no thyromegaly, no JVD or carotid bruits. Cardiovascular: RRR, normal S1/S2, no murmurs, rubs, or gallops. Peripheral pulses 2+ and symmetric. No edema. Respiratory: Lungs clear to auscultation bilaterally, no wheezes, rales, or rhonchi. Normal effort. Abdomen: Soft, non-tender, non-distended. Normoactive bowel sounds. No hepatosplenomegaly, no masses. MSK: Full range of motion, no joint swelling or deformity. Normal gait. Uses a four-point cane for ambulation. Skin: Warm, dry, intact. No rashes, lesions, or pallor. Venous insufficiency noted in legs. Neuro: Alert and oriented x3. Cranial nerves II-XII intact. Strength 5/5 throughout. Sensation intact. Reflexes 2+ symmetric. Normal coordination and gait. Psych: Appropriate mood and affect. Normal judgment and insight. Office Procedures Flu Questionnaire Does the patient have a severe egg allergy?: No Does the patient have severe life threatening allergies?: No Does the patient have a fever or illness today?: No Has the patient ever had Guillain-Sadorus Syndrome?: No Has the patient ever had any past reaction to a flu shot?: No Immunizations Fluarix [id number] (PF) 45 mcg (15 mcg x 3)/0.5 mL IM syringe Performing Provider: Williams Hernandez MD [place] [facility] [place] [facility] Documented (not given) by: Britt Link CMA on 06/04/25 13:31 Reason Not Given: Patient Refused Coding Level of Care Code Est Pt Level 3 (01413) Diagnoses HTN (hypertension) I10 CAD (coronary artery disease) I25.10 Afib I48.91 PVD (peripheral vascular disease) I73.9 Claudication I73.9 PAD (peripheral artery disease) I73.9 CKD (chronic kidney disease) N18.9 Assessment & Plan Assessment & Plan (1) HTN (hypertension): Code(s): I10 - Essential (primary) hypertension Category: Medical (2) CAD (coronary artery disease): Code(s): I25.10 - Atherosclerotic heart disease of squaxin coronary artery without angina pectoris Category: Medical (3) Afib: Code(s): I48.91 - Unspecified atrial fibrillation Category: Medical (4) PVD (peripheral vascular disease): Code(s): I73.9 - Peripheral vascular disease, unspecified Category: Medical (5) Claudication: Code(s): I73.9 - Peripheral vascular disease, unspecified Category: Medical (6) PAD (peripheral artery disease): Code(s): I73.9 - Peripheral vascular disease, unspecified Category: Medical (7) CKD (chronic kidney disease): Code(s): N18.9 - Chronic kidney disease, unspecified Category: Medical Plan Consent The patient gave verbal consent to have pictures taken of his legs to be included in his medical record. Patient was informed and verbally consented to the use of an ambient scribe for clinic note documentation during this visit. Plan 1. Establishing Care - The patient will establish care as a new patient to this teletypewriter installer. - No additional lab draws are necessary at this time. - A follow-up visit is scheduled for 3 months to monitor his multiple chronic conditions. 2. Resistant Hypertension - The patient will continue with his current antihypertensive medications, including amlodipine. - He is advised to continue his low-sodium diet. 3. Cardiovascular Disease (Cad, Pvd, Aortic Stenosis) - Continue cilostazol 50 mg twice daily and isosorbide 30 mg as adjusted by his lathe setup operator. - The patient will continue his injectable medication for hyperlipidemia due to statin intolerance. - The patient declines consultation with a vascular surgeon as he is not a candidate for anesthesia or surgery. 4. Permanent Atrial Fibrillation - Continue warfarin for anticoagulation. - The patient will continue to have his warfarin levels monitored at the clinic at [facility], typically once a month unless levels are unstable. 5. Chronic Kidney Disease - The patient will continue to follow up with his supervisor painting shipyard, who he saw today and was satisfied with his current status. 6. Fall Risk - The patient was cautioned about his risk of falls, especially while on warfarin. - He will continue to use his cane or walker to aid ambulation. 7. Xerosis And Foot Pain - The patient will continue using his community pharmacist-prescribed cream and aloe vera for the dry skin on his feet. - Photographs of his lower extremities were taken with his consent to be added to his medical record. Discussion Notes I met this 85-year-old gentleman who is establishing care with me today. We reviewed his extensive and complex medical history, which includes resistant hypertension, permanent atrial fibrillation on warfarin, diffuse cardiovascular disease with prior stenting, chronic kidney disease, and statin intolerance. I noted he had already seen his supervisor painting shipyard today, who was pleased with his stable condition. I informed him that no labs were needed at this time. We discussed his high fall risk, especially given his anticoagulation with warfarin, and the importance of using his walker or cane. I examined his lower extremities, noting venous insufficiency and significant xerosis, and he consented to photographs for the medical record. I expressed that it would be an honor to be his doctor. We agreed that a 3-month follow-up interval would be appropriate to keep a close watch on his various health issues. Patient Instructions - Continue taking all your current medications as prescribed by your doctors. - Keep following a low-sodium diet. - Be very careful and use your cane or walker to prevent falls, especially since you are on a blood thinner (warfarin). - Continue getting your warfarin blood levels checked at the [facility] every month, or more often if your doctor there tells you to. - You can continue to use the prescription cream and aloe vera on your feet for dryness. - Please schedule an appointment to see me again in 3 months. Medical Decision Making The patient is an 85-year-old male with a complex medical history who presents to establish care. His conditions include resistant hypertension, permanent atrial fibrillation on warfarin, diffuse coronary and peripheral artery disease status post stenting, vdxp-ym-[id number] aortic stenosis, and chronic kidney disease. Given that he saw his supervisor painting shipyard today with a satisfactory report and his lathe setup operator recently adjusted his medications, no acute changes or laboratory workup are indicated at this visit. The primary goals for this visit were to establish a therapeutic relationship, review his extensive history and current management, and coordinate ongoing care. He is intolerant to statins and is appropriately managed on an injectable therapy. His foot pain is noted, but further vascular workup is deferred as the patient declines any intervention that requires anesthesia. Given his multiple comorbidities and his high fall risk while on anticoagulation, a quarterly follow-up schedule is appropriate to ensure close monitoring and continued care coordination. Total time spent caring for the patient today was 20 minutes. This includes time spent before the visit reviewing the chart, time spent documenting, and time spent reviewing laboratory results, diagnostic imaging, medications, performing a medically necessary evaluation, counseling on diagnoses, care coordination.. Orders: Orders Influenza [id number] Immunization Today Z23 - Encounter for immunization
[2025-06-04 13:22] VITALS: BP 140/76; PULSE 64; TEMP 36.3; O2SAT 96; BMI 26.3
== END 2025-06-04 13:49 | disposition home or self-care (01) ==
LOC: HO.HMCFMS 13:15
PROVIDERS: PCP Student in an Organized Health Care Education/Training Program; Visit Provider Student in an Organized Health Care Education/Training Program
DX: I12.9 Hypertensive chronic kidney disease with stage 1 through stage 4 chronic kidney disease, or unspecified chronic kidney disease (principal); I25.10 Atherosclerotic heart disease of native coronary artery without angina pectoris; I48.91 Unspecified atrial fibrillation; I73.9 Peripheral vascular disease, unspecified; N18.9 Chronic kidney disease, unspecified; Z23 Encounter for immunization

== ENCOUNTER → 2025-06-15 09:42 | Outpatient (BNVA) | payer MEDICARE, SELFPAY | PROVIDERS: PCP Student in an Organized Health Care Education/Training Program; Visit Provider Internal Medicine Medical Oncology | DX: I48.19 Other persistent atrial fibrillation (principal); Z51.81 Encounter for therapeutic drug level monitoring; Z79.01 Long term (current) use of anticoagulants | CPT/HCPCS: 85610; 99211 ==

== ENCOUNTER 2025-07-13 09:32 | Outpatient (AMB) | payer MEDICARE, SELFPAY ==
[2025-07-13 09:45] LABS: Prothrombin Time Whole Bld POC 41.4 sec (11.1-13.5); ~PT, ~INR - Anti Coag Clinic 3.4 (0.9-1.1)
--- NOTE | 2025-07-13 09:47 | MHC.OFFVISCO ---
Intake Intake Visit Reasons: Anticoagulation Allergies carvedilol (From COREG) Allergy (Severe, Verified 07/13/25 09:36) Palpitations metoprolol Allergy (Severe, Verified 07/13/25 09:36) Palpitations Sulfa (Sulfonamide Antibiotics) (SULFA (SULFONAMIDE ANTIBIOTICS)) Allergy (Severe, Verified 07/13/25 09:36) Redness of Skin doxycycline Allergy (Intermediate, Verified 07/13/25 09:36) Rash itch cilostazol Allergy (Unknown, Verified 07/13/25 09:36) UNKNOWN digoxin (DIGOXIN) Allergy (Unknown, Verified 07/13/25 09:36) UNKNOWN labetalol (LABETALOL) Allergy (Unknown, Verified 07/13/25 09:36) MUSCLE PAIN Azyjsac-PWC-UnL Reductase Inhibitor Adverse Reaction (Intermediate, Verified 07/13/25 09:36) Muscle Pain Medication List - Last Reconciled 07/13/25 by Raeann Pacheco RN amlodipine 5 mg PO DAILY atenolol 25 mg PO DAILY cilostazol 50 mg PO BID evolocumab (Repathharis Romero) 140 mg subcut Q3W furosemide 20 mg PO DAILY valsartan-hydrochlorothiazide 160-12.5 mg 1 tab PO DAILY [walker with seat Wheeled walker with seat ] warfarin 5 mg PO DAILY Nursing Note INR: 3.4 out of therapeutic range of 2-3 Medications and supplements reviewed Patient status: feels well Medications or supplements: no changes Diet: usual diet for pt Denies any signs and symptoms of bleeding or clotting or unusual bruising Bleeding, bruising, clotting discussed Nutritional guidance given: to have a serving of greens today Dose: decrease today's dose to 2.5mg (5mg) then 2.5mg X 4 days and 5mg X 3 days (M/W/F) F/U INR Date: 4 weeks? Patient verbalizing understanding of instructions given. 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
== END 2025-07-13 09:52 | disposition home or self-care (01) ==
LOC: HO.ACS 09:32
PROVIDERS: PCP Student in an Organized Health Care Education/Training Program; Visit Provider Internal Medicine Medical Oncology
DX: Z79.01 Long term (current) use of anticoagulants (principal)

== ENCOUNTER → 2025-07-13 09:32 | Outpatient (BNVA) | payer MEDICARE, SELFPAY | PROVIDERS: PCP Student in an Organized Health Care Education/Training Program; Visit Provider Internal Medicine Medical Oncology | DX: I48.19 Other persistent atrial fibrillation (principal); Z51.81 Encounter for therapeutic drug level monitoring; Z79.01 Long term (current) use of anticoagulants | CPT/HCPCS: 85610; 99211 ==

== ENCOUNTER 2025-07-27 10:35 | Outpatient (AMB) | payer MEDICARE, SELFPAY ==
--- NOTE | 2025-07-27 10:42 | A.OFFVIS_ITS ---
Vital Signs 07/27/25 10:43 Height 5 ft 10 in Weight 187 lb 6.287 oz BMI 26.9 BP 122/80 Blood Pressure Location Lt brachial Position Sitting Pulse 75 Intake Visit Reasons: f/up echo Intake Note: Follow-up after echo feeling ok Stunner And Shackler Required: No Allergies carvedilol (From COREG) Allergy (Severe, Verified 07/13/25 09:36) Palpitations metoprolol Allergy (Severe, Verified 07/13/25 09:36) Palpitations Sulfa (Sulfonamide Antibiotics) (SULFA (SULFONAMIDE ANTIBIOTICS)) Allergy (Severe, Verified 07/13/25 09:36) Redness of Skin doxycycline Allergy (Intermediate, Verified 07/13/25 09:36) Rash itch cilostazol Allergy (Unknown, Verified 07/13/25 09:36) UNKNOWN digoxin (DIGOXIN) Allergy (Unknown, Verified 07/13/25 09:36) UNKNOWN labetalol (LABETALOL) Allergy (Unknown, Verified 07/13/25 09:36) MUSCLE PAIN Gffikrp-HEF-GrZ Reductase Inhibitor Adverse Reaction (Intermediate, Verified 07/13/25 09:36) Muscle Pain Medication List - Last Reconciled 07/27/25 by Torey Dubois MD amlodipine 5 mg PO DAILY atenolol 25 mg PO DAILY cilostazol 50 mg PO BID evolocumab (Elle Romero) 140 mg subcut Q3W furosemide 20 mg PO DAILY valsartan-hydrochlorothiazide 160-12.5 mg 1 tab PO DAILY [walker with seat Wheeled walker with seat ] warfarin 5 mg See Protocol PO DAILY HPI Comments Details: Ifeanyi comes for follow-up for his aortic stenosis and coronary artery disease. Said he is limited in his monitor of activity he can do because of significant arthritis and back pain as well as symptoms related to vascular disease. He said he has also significant pain at nighttime related to his vascular disease which was described by him as not able to be revascularized. Patient denies any chest pain. No shortness of breath, orthopnea, PND. No palpitations. He has had multiple falls and says he tries to avoid falls by walking with a walker. No bleeding issues or neurologic events. Last LDL was 71 mg/dL. Echocardiogram shows coex-kx-dvjungkm aortic stenosis and hych-uv-fnlimosj ascending aortic enlargement along with low normal LV ejection fraction. [facility] Medical History (Updated 07/27/25 @ 11:12 by Torey Dubois MD) Carotid stenosis AAA (abdominal aortic aneurysm) without rupture Vertigo H/O Villa's palsy Permanent atrial fibrillation Post herpetic neuralgia HTN (hypertension) Thrombocytopenia CKD (chronic kidney disease) CVA (cerebral vascular accident) PVD (peripheral vascular disease) CAD (coronary artery disease) Surgical History H/O prostatectomy Stented coronary artery Social History Housing: House Alcohol intake: current Alcohol intake frequency: a few times a week Patient Tobacco Use Status: Former Tobacco user e-Cigarette/Vaping Use: Never Used Second Hand Smoke Exposure: No service: Yes Current occupational status: retired Cognitive needs: Yes (RX CANE) Hearing needs: No Vision needs: Yes (reading glasses) Review of Systems Const Denies chills, Denies fatigue, Denies fever(s), Denies frequent falls, Denies weakness, Denies weight gain and Denies weight loss ENT Denies dizziness Card Denies chest pain, Denies leg edema, Denies lightheadedness, Denies palpitations, Denies dyspnea, Denies dyspnea on exertion, Denies orthopnea and Denies other (loss of consciousness) Resp Denies cough, Denies dyspnea and Denies dyspnea on exertion GI Denies hematochezia and Denies change in stool character Musc Denies abnormal gait, Denies muscle weakness, Denies numbness, Denies radiating pain into limb and Denies tingling Neuro Denies abnormal gait, Denies dizziness, Denies frequent falls, Denies numbness, Denies tingling and Denies weakness Endo Denies fatigue and Denies palpitations Physical Exam Vital Signs: Last Vital Signs Pulse 75 07/27/25 10:43 BP 122/80 07/27/25 10:43 BMI result Body Mass Index 26.9 Const General: cooperative, comfortable, no acute distress, alert and awake Nutritional Appearance: average body habitus and other (Frail appearing elderly man) Orientation/consciousness: patient oriented x3 Limitations: ambulation with walker HEENT Head: Yes normocephalic and Yes atraumatic Neck Neck: Yes trachea midline, Yes supple and Yes no JVD Resp Effort & Inspection: normal respiratory effort Auscultation: clear to auscultation bilaterally and diminished lung sounds Cardio Jugular venous distension: no JVD Rhythm: abnormal rhythm irregularly irregular Heart sounds: S1 normal heart sound present, S2 normal heart sound present, no click, no gallops and Murmur heart sound present systolic early, decrescendo and crescendo Peripheral pulses: other (Diminished distal pulses) GI Auscultation: normal bowel sounds Skin General skin exam: no rashes or lesions noted Neuro General: patient oriented x3 and no focal motor deficits Extrem General: Yes no clubbing, cyanosis or edema and Yes venous stasis dermatitis Assessment & Plan Assessment & Plan (1) Aortic stenosis: Code(s): I35.0 - Nonrheumatic aortic (valve) stenosis Category: Medical Plan: Aortic stenosis which is mbxp-si-vckbsjgj and requires no intervention. Will continue follow up by echocardiogram on a yearly basis. Given his age and multiple other comorbidities not sure if this will ever need intervention. Will continue monitor. Cardinal symptoms associated with aortic stenosis were discussed. Continue risk factor modification. (2) CAD (coronary artery disease): Code(s): I25.10 - Atherosclerotic heart disease of [place] coronary artery without angina pectoris Category: Medical Plan: Diffuse and significant vascular disease including prior CAD with stenting. His limited in the amount of activity due to his arthritis but also due to his PVD. This was felt by vascular surgery to be not revascularizable. He is having symptoms at rest which could represent risk claudication although he has no discoloration of his toes. Signs of critical limb ischemia were discussed. Discussed about increasing cilostazol therapy but he wants to pursue current medical therapy. Currently on warfarin therapy due to atrial fibrillation which will be continued. Continue risk factor modification, currently on Repatha. Continue aggressive blood pressure control which is currently well optimized. (3) Permanent atrial fibrillation: Code(s): I48.21 - Permanent atrial fibrillation Category: Medical Plan: Permanent rate control atrial fibrillation. Continue atenolol therapy. Continue full oral anticoagulation, currently on warfarin therapy. Maintain target INR between 2 and 3 being followed by [facility]. (4) Ascending aorta enlargement: Code(s): I77.89 - Other specified disorders of arteries and arterioles Category: Medical Plan: Ascending aortic enlargement which appears to be atherosclerotic. Stable oxpr-yc-qkodsflx enlargement. Continue aggressive blood pressure control which is currently well optimized. Continue risk factor modification as above. Will follow up in the clinic in 1 year's time, sooner PRN. Thank you for allowing me to partake in his care Coding Level of Care Code Est Pt Level 4 (61955) Diagnoses Aortic stenosis I35.0 CAD (coronary artery disease) I25.10 Permanent atrial fibrillation I48.21 Ascending aorta enlargement I77.89
[2025-07-27 10:43] VITALS: BP 122/80; PULSE 75; BMI 26.9
--- OUTSIDE RECORDS SUMMARY | 2025-07-27 12:04 | XMS_ITS | Patient Health Record ---
Author Organization [facility] Gretel cherri Milroy Address [address] [place] [address] Care Team Providers Care Job Printer Name Role Phone Linette, Franklyn Unavailable [phone] Allergies Allergen (clinical drug ingredient) Drug/Non Drug Allergy documented on EMR Reaction Allergy Type Onset Date Status sulfamethoxazole / trimethoprim Bactrim Unknown Drug Allergy Active Shrimp Flavor Unknown Drug Allergy Act tracy Reason For Referral No Information Medications Medication SIG (Take, Route, Frequency, Duration) Notes Start Date End Date Status Cilostazol 50 MG Oral; Duration: 90 Days Active Isosorbide Dinitrate Not-Taking Office visit . . . There are no pod iatric conditions which would cause this patient to be unable to drive safely and effectively; Duration: 365 days 09/05/2024 Active Ammonium Lactate 12 % 1 application Exte rnally to affected areas of dry skin to feet except for between the toes Twice a day; Duration: 30 days Active Clopidogrel Bisulfate Not-Taking Furosemide Active amLODIPine Besylate Active Valsartan Active Cephalexin 500 MG 1 capsule Orally wilfrid ry 8 hrs; Duration: 10 days Active Atenolol Active Warfarin Sodium Acti ve Immunizations Vaccine Route Administration Date Status Comme [...] atherosclerosis of arteries of lower limbs (disorder) ([id number] ) Atherosclerosis of osage artery of both lower extremities, with unspecified presence of clinical manifestation (I70.203) Active confirmed Vital Signs Blood pressure diastolic 65 mm Hg 06/30/2025 Height 5 ft 11 in in 06/30/2025 Blood pressure systolic 130 mm Hg 06/30/2025 Weight 185 lbs 06/30/2025 BMI 25.8 kg/m2 06/30/2025 Procedures Procedure Date Ordered Date Performed Result Body Sit e 42368-JEYOPVP NAIL, 6 OR MORE 09/05/2024 N/A 12557-PVTX SKIN LESIONS, 2 TO 4 09/05/2024 N/A 48749-XZJBRCL NAIL, 6 OR MORE 12/09/2024 N/A 88233-SSCX SKIN LESIONS, 2 TO 4 12/09/2024 N/A 91777-MLKOJDQ NAIL, 6 OR MORE 03/17/2025 N/A 32009-WCZJ SKIN LESIONS, 2 TO 4 03/17/2025 N/A 11148-LXIIYZN NAIL, 6 OR MORE 06/30/2025 N/A 82555-CTIM SKIN LESIONS, 2 TO 4 06/30/2025 N/A Encounters Encounter Location Date Provider Diagnosis [address] [address] 09/05/2024 Franklyn Sue Atherosclerosis of osage artery of both lower extremities, with unspecified presence of clinical manifestation I70.203 ; Tinea unguium B35.1 ; Pain in right toe(s) M79.674 ; Pain in left toe(s) M79.675 and Skin ulcer of toe of left foot, limited to breakdown of skin L97.521 [facility] [address] [address] 12/09/2024 Franklyn Sue Atherosclerosis of osage artery of both lower extremities, with unspecified presence of clinical manifestation I70.203 ; Tinea unguium B35.1 ; Pain in right toe(s) M79.674 ; Pain in left toe(s) M79.675 and Xerosis of skin L85.[address] [address] 03/17/2025 Franklyn Chavarriaier Atherosclerosis of osage artery of both lower extremities, with unspecified presence of clinical manifestation I70.203 ; Tinea unguium B35.1 ; Pain in right toe(s) M79.674 ; Pain in left toe(s) M79.675 and Xerosis of skin L85.[address] [address] 06/30/2025 Franklyn Sue Atherosclerosis of osage artery of both lower extremities, with unspecified presence of clinical manifestation I70.203 ; Tinea unguium B35.1 ; Pain in right toe(s) M79.674 and Pain in left toe(s) M79.675 Assessments Encounter Date Diagnosis (ICD Code) Assessment Notes Treatment Notes Treatment Clinical Notes Section Notes 09/05/2024 Tinea unguium (ICD-10 - B35.1) 09/05/2024 Atherosclerosis of osage artery of both lower extremities, with unspecified presence of clinical manifestation (ICD-10 - I70.203) 12/09/2024 Tinea unguium (ICD-10 - B35.1) 12/09/2024 Atherosclerosis of osage artery of both lower extremities, with unspecified presence of clinical manifestation (ICD-10 - I70.203) 03/17/2025 Tinea unguium (ICD-10 - B35.1) 03/17/2025 Atherosclerosis of osage artery of both lower extremities, with unspecified presence of clinical manifestation (ICD-10 - I70.203) 06/30/2025 Tinea unguium (ICD-10 - B35.1) 06/30/2025 Atherosclerosis of osage artery of both lower extremities, with unspecified presence of clinical manifestation (ICD-10 - I70.203) 06/30/2025 Pain in right toe(s) (ICD-10 - M79.674) 03/17/2025 Pain in right toe(s) (ICD-10 - M79.674) 12/09/2024 Pain in right toe(s) (ICD-10 - M79.674) 09/05/2024 Pain in right toe(s) (ICD-10 - M79.674) 09/05/2024 Pain in left toe(s) (ICD-10 - M79.675) 12/09/2024 Pain in left toe(s) (ICD-10 - M79.675) 03/17/2025 Pain in left toe(s) (ICD-10 - M79.675) 06/30/2025 Pain in left toe(s) (ICD-10 - M79.675) 03/17/2025 Xerosis of skin (ICD-10 - L85.3) 09/05/2024 Skin ulcer of toe of left foot, limited to breakdown of skin (ICD-10 - L97.521) 12/09/2024 Xerosis of skin (ICD-10 - L85.3) 09/05/2024 Other 12/09/2024 Other 03/17/2025 Other 06/30/2025 Other Plan Of Treatment Pending Test Test Name Order Date 57335-NOVBSWT NAIL, 6 OR MORE 03/21/2024 11047-TBZHJEJ NAIL, 6 OR MORE 06/06/2024 34411-WIVYDYT NAIL, 6 OR MORE 09/05/2024 99712-FEDUNBP NAIL, 6 OR MORE 12/09/2024 07566-CPGPMRY NAIL, 6 OR MORE 03/17/2025 53276-NPRUUND NAIL, 6 OR MORE 06/30/2025 42372- Debride <25 sq cm 03/21/2024 57171- I&D ABSCESS-COMPLICATED,MULTI 08/2023 39841-GLKQ SKIN LESIONS, 2 TO 4 06/30/20 25 46252-EPKY SKIN LESIONS, 2 TO 4 03/17/20 25 45859-BHSE SKIN LESIONS, 2 TO 4 03/21/20 24 36224-HOYU SKIN LESIONS, 2 TO 4 06/06/20 24 83025-HYZL SKIN LESIONS, 2 TO 4 12/10/19 25 68337-IUPX SKIN LESIONS, 2 TO 4 09/05/19 25 Next Appt Details Provider Name:Franklyn Sue , 10/06/2025 02:45:00 PM, [address] [facility], [place], [address], Insurance Providers Payer Name Payer Address Payer Phone Subscriber Number Group Number Insured Name Patient Relationship to Insured Coverage Start Date Coverage End Date [employer] Medicare Adv-[id number] [address] [address] [place] [address] [id number] Ifeanyi Bustamante Self - patient is the insured Medical (General) History Medical History History ICD Code Angina Arthritis Back,Hip,and Knee pain Broken bones CAD (Cholesterol) Cancer Cataracts covid-19 Heart disease Hiatal hernia Hypertension Kidney disease Macular degeneration Numbness Poor circulation Scarlet fever Stroke Vascular phlebitis (clots) Warts Measles Mumps Chicken pox Transfusions Surgical History Surgery Date(Month/Year)
--- OUTSIDE RECORDS SUMMARY | 2025-07-27 12:05 | XMS_ITS | Clinical Summary ---
Author Organization [facility] Address [address] [place] [address] Phone Care Team Providers Care Income Tax Administrator Name Role Phone Demetrio Reagan NP Primary Care Provider [phone] Allergies Active Allergy Reactions Criticality Noted Date [...] patient's age to complete this topic Insurance [facility] Medicare [id number] Medicare Care Teams Income Tax Administrator Relationship Specialty Start Date End Date Demetrio Reagan NP [address] [place] [phone] PCP - General Nurse Practitioner 08/08/21
== END 2025-07-27 10:59 | disposition home or self-care (01) ==
LOC: HO.HCS 10:36
PROVIDERS: PCP Nurse Practitioner Family; Visit Provider Internal Medicine Cardiovascular Disease
DX: I35.0 Nonrheumatic aortic (valve) stenosis (principal); I25.10 Atherosclerotic heart disease of native coronary artery without angina pectoris; I48.21 Permanent atrial fibrillation; I77.89 Other specified disorders of arteries and arterioles
CPT/HCPCS: 99214

== ENCOUNTER → 2025-07-27 10:35 | Outpatient (BNVA) | payer MEDICARE, SELFPAY | PROVIDERS: PCP Nurse Practitioner Family; Visit Provider Internal Medicine Cardiovascular Disease | DX: I35.0 Nonrheumatic aortic (valve) stenosis (principal); I25.10 Atherosclerotic heart disease of native coronary artery without angina pectoris; I10 Essential (primary) hypertension; I77.89 Other specified disorders of arteries and arterioles; I48.21 Permanent atrial fibrillation; Z95.5 Presence of coronary angioplasty implant and graft | CPT/HCPCS: 99212 ==